=== PATIENT | male | born 1940 | race Caucasian/White ===

== ENCOUNTER 2019-09-21 06:29 | Outpatient (RCR) | payer MEDICARE, BC, SELFPAY | END 2019-10-18 00:01 | LOC: ONCMED 06:29 | PROVIDERS: Family Provider Internal Medicine; Visit Provider Internal Medicine Medical Oncology | DX: D64.9 Anemia, unspecified (principal) | CPT/HCPCS: 36415; 85025 ==

== ENCOUNTER 2019-10-25 11:04 | Outpatient (RCR) | payer MEDICARE, BC, SELFPAY ==
[2019-10-25 11:58] LABS: Basophils % 0.2 %; Eosinophils # 0.2 10^3/uL (0.0-0.8); Eosinophils % 4.9 %; Hematocrit 30.6 % (42.0-52.0); Hemoglobin 10.3 g/dL (11.7-16.6); Lymphocytes # 0.4 10^3/uL (0.8-4.8); Lymphocytes % 9.4 %; Mean Corpuscular HGB Conc 33.7 g/dL (30.0-36.0); Monocytes # 0.3 10^3/uL (0.2-0.9); Monocytes % 6.8 %; Neutrophils # 3.7 10^3/uL (1.8-7.7); Neutrophils % 77.8 %; Nucleated Red Blood Cells % 0 %; Platelet Count 97 10^3/cmm (130-400); Red Blood Count 3.03 10^6/uL (4.1-5.3); Red Cell Distribution Width 14.6 % (12.1-15.1); White Blood Count 4.7 10^3/uL (4.0-10.0)
== END 2019-11-18 23:59 | disposition home or self-care (01) ==
LOC: ONCMED 11:04
PROVIDERS: Family Provider Internal Medicine; PCP Internal Medicine; Visit Provider Internal Medicine Medical Oncology
DX: D64.9 Anemia, unspecified (principal)
CPT/HCPCS: 36415; 85025

== ENCOUNTER 2019-11-24 06:04 | Outpatient (RCR) | payer MEDICARE, BC, SELFPAY ==
[2019-11-24 14:26] LABS: Basophils % 0.3 %; Eosinophils # 0.2 10^3/uL (0.0-0.8); Eosinophils % 4.6 %; Hematocrit 29.4 % (42.0-52.0); Hemoglobin 9.4 g/dL (11.7-16.6); Lymphocytes # 0.5 10^3/uL (0.8-4.8); Lymphocytes % 15.7 %; Mean Corpuscular Hemoglobin 30.7 pg (28.0-34.0); Mean Corpuscular Volume 96.1 fL (80-94); Mean Platelet Volume 12.5 fL (7.4-10.4); Monocytes # 0.3 10^3/uL (0.2-0.9); Monocytes % 8.7 %; Neutrophils # 2.4 10^3/uL (1.8-7.7); Neutrophils % 70.4 %; Nucleated Red Blood Cells % 0 %; Platelet Count 83 10^3/cmm (130-400); Red Blood Count 3.06 10^6/uL (4.1-5.3); Red Cell Distribution Width 14.5 % (12.1-15.1); White Blood Count 3.5 10^3/uL (4.0-10.0)
[2019-11-24 15:14] LABS: Alanine Aminotransferase 22 U/L (0-41); Albumin Level 3.9 g/dL (3.5-5.2); Alkaline Phosphatase 142 IU/L (40-130); Anion Gap 14.2 (5-19); Aspartate Amino Transferase 28 U/L (0-40); Blood Urea Nitrogen 30 mg/dL (8-23); Calcium 9.5 mg/dL (8.5-10.5); Carbon Dioxide 27 mmol/L (22-29); Chloride 103 mmol/L (98-107); Ferritin 82 ng/mL (30-400); Globulin 3.4 g/dL (1.3-4.6); Glucose 119 mg/dL (65-115); Iron 45 ug/dL (59-158); Potassium 4.2 mmol/L (3.5-5.1); Sodium 140 mmol/L (136-145); Total Bilirubin 0.8 mg/dL (0.15-1.2); Total Iron Binding Capacity 299 mcg/dl; Total Protein 7.3 g/dL (6.6-8.7); Unsaturated Iron Binding 254 ug/dL (112-347)
== END 2019-12-17 23:59 | disposition home or self-care (01) ==
LOC: ONCMED 06:04
PROVIDERS: Family Provider Internal Medicine; PCP Internal Medicine; Visit Provider Internal Medicine Medical Oncology
DX: D50.9 Iron deficiency anemia, unspecified (principal); D69.59 Other secondary thrombocytopenia; K74.60 Unspecified cirrhosis of liver; K76.6 Portal hypertension; D73.2 Chronic congestive splenomegaly; E78.5 Hyperlipidemia, unspecified; E11.9 Type 2 diabetes mellitus without complications; I25.10 Atherosclerotic heart disease of native coronary artery without angina pectoris; I11.0 Hypertensive heart disease with heart failure; I50.9 Heart failure, unspecified; I48.20 Chronic atrial fibrillation, unspecified; Z79.4 Long term (current) use of insulin
CPT/HCPCS: 36415; 80053; 82728; 83540; 83550; 85025; 96365; 99214; J1439; J2704

== ENCOUNTER 2019-12-04 10:07 | Inpatient (IN) | payer MEDICARE, BC, SELFPAY ==
[2019-12-04] VITALS (90 sets, daily range): BP systolic 94–152; BP diastolic 44–74; PULSE 0–100; RESP 0–30; TEMP 36.4–36.6; O2SAT 5–100; BMI 29.9
--- NOTE | 2019-12-04 10:16 | ED_ITS ---
Entered by Michelle Amezcua, acting as scribe for Alondra Fortune MD HPI - GI Bleed General: Chief complaint: Abdominal Pain Stated complaint: blood in stool LOTS Time Seen by Provider: 12/04/19 10:12 Source: patient and family Mode of arrival: ambulatory Limitations: no limitations History of Present Illness: HPI Narrative: 79 yo male presents with a GI bleed . pt states this started today and worsened. pt has had nausea. pt denies any other symptoms at thsi time. 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 He denies any worsening improving factors. He has no history of esophageal varices. complaint: blood streaked stool Onset (ago): day(s) Pain Consistency: constant Severity: moderate Relieving factors: none Exacerbating factors: none Context: liver disease Associated symptoms: Reports nausea; Denies chills, easy bruising, fever(s), headache(s) or rash Treatments Prior to Arrival: none Review of Systems General: Reports: 10 or more systems reviewed and unremarkable except in HPI and below Const: Denies: fever, chills, body aches or change in appetite Eyes: Denies: blurry vision or eye discomfort ENMT: Denies: throat pain or dental pain Card: Denies: chest pain Resp: Denies: shortness of breath GI: Reports: nausea and blood in stool : Denies: painful urination Musc: Denies: neck pain or back pain Skin/Breast: Denies: rash Neuro: Denies: headache Psych: Denies: depression Hitesh/Lymph: Denies: easy bruising All/Imm: Denies: hives PFSH ED PFSH: Social History Smoking and tobacco status: never smoked Physical Exam Const: COMMON NORMALS: no apparent distress, oriented x3 and healthy appearing HENMT: COMMON NORMALS: normocephalic and head/scalp atraumatic HEAD & SCALP: normocephalic and atraumatic Eye: COMMON NORMALS: PERRL and EOMs intact bilaterally PUPIL: Yes PERRL Neck/C-Spine: COMMON NORMALS: full ROM and supple Chest: COMMONS NORMALS: inspection of chest normal and palpation of chest normal Resp: COMMON NORMALS: normal respiratory effort, no retractions, no use of accessory muscles and clear to auscultation bilaterally AUSCULTATION: clear to auscultation bilaterally Cardio: COMMON NORMALS: regular rate, regular rhythm and no murmurs RATE: regular rate RHYTHM: regular rhythm GI: COMMON NORMALS: normal to inspection, nondistended, normoactive bowel sounds, soft to palpation and non-tender PALPATION: Yes soft : OTHER: bright red stools here hemocult positive Extremity: COMMON NORMALS: normal to inspection and full ROM Neuro: COMMON NORMALS: oriented x3, moves all extremities and no focal motor deficits Psych: COMMON NORMALS: mental status grossly normal, thought process normal and cooperative THOUGHT PROCESS: normal thought process Skin: COMMON NORMALS: no rashes or lesions noted and no wounds GENERAL SKIN EXAM: no rashes or lesions noted Course Vital Signs: Vital signs: Vital Signs Pulse Rate 70 12/04/19 11:22 Respiratory Rate 21 H 12/04/19 11:22 Blood Pressure 97/46 12/04/19 11:22 Pulse Oximetry 96 12/04/19 11:22 MDM - GI Bleed MDM Narrative: Medical decision making narrative: Patient presents here with lower GI bleed with bright red stools. Patient hemoglobin here is 8.0. He is not on any blood thinners. I spoke to hospitalist Dr. Mitchell who is admitting to the ICU also spoke to Dr. Sung of surgery who is consulted. Lab Data: Labs: Lab Results 12/04/19 12/04/19 12/04/19 Range/Units 10:20 10:20 10:20 WBC 7.1 (4.0-10.0) 10^3/ uL RBC 2.77 L (4.1-5.3) 10^6/u L Hgb 8.0 L (11.7-16.6) g/dL Hct 26.7 L (42.0-52.0) % MCV 96.4 H (80-94) fL MCH 28.9 (28.0-34.0) pg MCHC 30.0 (30.0-36.0) g/dL RDW 16.1 H (12.1-15.1) % Plt Count 117 L (130-400) 10^3/c mm MPV 12.4 H (7.4-10.4) fL Neut % (Auto) 80.9 % Lymph % (Auto) 8.6 % [place] % (Auto) 6.6 % Eos % (Auto) 3.0 % Baso % (Auto) 0.3 % Neut # (Auto) 5.8 (1.8-7.7) 10^3/u L Lymph # (Auto) 0.6 L (0.8-4.8) 10^3/u L [place] # (Auto) 0.5 (0.2-0.9) 10^3/u L Eos # (Auto) 0.2 (0.0-0.8) 10^3/u L Baso # (Auto) 0.0 (0.0-0.1) 10^3/u L Nucleated RBC % (a uto) 0 % Nucleated RBCs # 0.0 /100WBC PT 15.10 H (10.5-13.3) SECO NDS INR 1.15 (0.8-1.2) Sodium 145 (136-145) mmol/L Potassium 5.3 H (3.5-5.1) mmol/L Chloride 111 H (98-107) mmol/L Carbon Dioxide 24 (22-29) mmol/L Anion Gap 15.3 (5-19) BUN 38 H (8-23) mg/dL Creatinine 1.6 H (0.7-1.2) mg/dL Glucose 178 H (65-115) mg/dL Calcium 9.0 (8.5-10.5) mg/dL Total Bilirubin 0.7 (0.15-1.2) mg/dL AST 24 (0-40) U/L ALT 20 (0-41) U/L Alkaline Phosphata se 142 H (40-130) IU/L Total Protein 6.5 L (6.6-8.7) g/dL Albumin 3.7 (3.5-5.2) g/dL Globulin 2.8 (1.3-4.6) g/dL Blood Type Antibody Screen 12/04/19 Range/Units 10:20 WBC (4.0-10.0) 10^3/ uL RBC (4.1-5.3) 10^6/u L Hgb (11.7-16.6) g/dL Hct (42.0-52.0) % MCV (80-94) fL MCH (28.0-34.0) pg MCHC (30.0-36.0) g/dL RDW (12.1-15.1) % Plt Count (130-400) 10^3/c mm MPV (7.4-10.4) fL Neut % (Auto) % Lymph % (Auto) % [place] % (Auto) % Eos % (Auto) % Baso % (Auto) % Neut # (Auto) (1.8-7.7) 10^3/u L Lymph # (Auto) (0.8-4.8) 10^3/u L [place] # (Auto) (0.2-0.9) 10^3/u L Eos # (Auto) (0.0-0.8) 10^3/u L Baso # (Auto) (0.0-0.1) 10^3/u L Nucleated RBC % (a uto) % Nucleated RBCs # /100WBC PT (10.5-13.3) SECO NDS INR (0.8-1.2) Sodium (136-145) mmol/L Potassium (3.5-5.1) mmol/L Chloride (98-107) mmol/L Carbon Dioxide (22-29) mmol/L Anion Gap (5-19) BUN (8-23) mg/dL Creatinine (0.7-1.2) mg/dL Glucose (65-115) mg/dL Calcium (8.5-10.5) mg/dL Total Bilirubin (0.15-1.2) mg/dL AST (0-40) U/L ALT (0-41) U/L Alkaline Phosphata se (40-130) IU/L Total Protein (6.6-8.7) g/dL Albumin (3.5-5.2) g/dL Globulin (1.3-4.6) g/dL Blood Type O Positive Antibody Screen Negative Critical Care Time Critical Care Time: Critical Care Time: Yes Total Critical Care Time: 35 Attestation: This case had a high probability of a clinically significant, sudden, or life threatening deterioration of this patient's condition which required my full and direct attention, intervention and personal management. Discharge Plan Discharge Patient Disposition: Admitted As Inpatient Clinical Impression: Acute lower gastrointestinal bleeding Condition: Stable Referrals: Earnest Dangelo DO [Primary Care Provider] - Coding Level of Care Code ED Creative Services Designer for g Fwd Exam Detailed The documentation recorded by the [employer] Bridget Annette, accurately reflects the service I personally performed and the decisions made by me, Alondra Fortune MD Dec 04, 2019 10:07
[2019-12-04 10:30] LABS: Basophils % 0.3 %; Eosinophils # 0.2 10^3/uL (0.0-0.8); Hematocrit 26.7 % (42.0-52.0); Lymphocytes # 0.6 10^3/uL (0.8-4.8); Lymphocytes % 8.6 %; Mean Corpuscular Hemoglobin 28.9 pg (28.0-34.0); Mean Corpuscular Volume 96.4 fL (80-94); Mean Platelet Volume 12.4 fL (7.4-10.4); Monocytes # 0.5 10^3/uL (0.2-0.9); Monocytes % 6.6 %; Neutrophils # 5.8 10^3/uL (1.8-7.7); Neutrophils % 80.9 %; Nucleated Red Blood Cells % 0 %; Platelet Count 117 10^3/cmm (130-400); Red Blood Count 2.77 10^6/uL (4.1-5.3); Red Cell Distribution Width 16.1 % (12.1-15.1); White Blood Count 7.1 10^3/uL (4.0-10.0)
--- NOTE | 2019-12-04 10:35 | PC.NURSE ---
Patient presents to the ER for large amounts of bright red blood in his stools. This started this morning, he has been going about every 30 minutes.
[2019-12-04 10:38] LABS: INR 1.15 (0.8-1.2)
--- NOTE | 2019-12-04 10:40 | PC.NURSE ---
Patient up to bedside commode at this time for bowel movement. Stool noted to be loose and dark red bloody with what appears to be clots present. ED physician notified and observed stool. Patient output of stool at this time is 300mL.
[2019-12-04 10:43] LABS: Alanine Aminotransferase 20 U/L (0-41); Albumin Level 3.7 g/dL (3.5-5.2); Alkaline Phosphatase 142 IU/L (40-130); Anion Gap 15.3 (5-19); Aspartate Amino Transferase 24 U/L (0-40); Blood Urea Nitrogen 38 mg/dL (8-23); Carbon Dioxide 24 mmol/L (22-29); Chloride 111 mmol/L (98-107); Globulin 2.8 g/dL (1.3-4.6); Glucose 178 mg/dL (65-115); Potassium 5.3 mmol/L (3.5-5.1); Sodium 145 mmol/L (136-145); Total Bilirubin 0.7 mg/dL (0.15-1.2); Total Protein 6.5 g/dL (6.6-8.7)
[2019-12-04] MEDS: sodium chloride 0.9% 500 ML 999 ML IV (11:46)
--- NOTE | 2019-12-04 11:53 | P.HP_ITS ---
Providers/Chief Complaint Primary Care Provider: Earnest Dangelo DO Chief Complaint: blood in stool LOTS History of Present Illness Aramis Olsen is a 79 year old male that reports he has been having some dark stools for the last 2 weeks ago or so. This morning it was maroon, with clots, and bright red. He reports he chronically has loose stool. He denies being on any anticoagulants, aspirin, or [id number] anti-inflammatories. He reports he feels sick to the stomach, nauseated but has not vomited any blood. He reports he has some discomfort, in his upper abdomen, above the umbilicus. He reports no fevers. He reports occasional nosebleed at home but nothing recently. He reports he did not feel like eating this morning. He indicates he has had an EGD and colonoscopy maybe about a year ago, and that they were here. On review of records it appears they were in 2014 with a normal colonoscopy, EGD demonstrating gastritis that had hemorrhage with biopsy. Review of Systems General: Reports: 10 or more systems reviewed and unremarkable except in HPI and below Const: Denies: fever Eyes: Denies: change in vision ENMT: Denies: throat pain Card: Denies: chest pain Resp: Denies: shortness of breath GI: Reports: abdominal pain, nausea, heartburn/indigestion, diarrhea, bloating, blood in stool and black tarry stool; Denies: vomiting blood : Denies: difficulty urinating Musc: Denies: extremity pain Skin/Breast: Denies: rash Neuro: Denies: headache Psych: Denies: anxiety Endo: Denies: tired all the time Hitesh/Lymph: Reports: easy bruising All/Imm: Denies: hives Medications/Allergies Home Medications Medication Instructions Recorded Confirmed Last Taken Type acetaminophen [Tylenol] 325 mg PO QID PRN 12/04/19 12/04/19 12/04/19 History amlodipine-benazepril 1 cap PO DAILY 12/04/19 12/04/19 12/04/19 History bismuth subsalicylate 524 mg PO Q1H PRN 12/04/19 12/04/19 12/04/19 History [Pepto-Bismol] cholestyramine (with sugar) 4 g PO DAILY 12/04/19 12/04/19 12/03/19 History digoxin 125 mcg PO DAILY 12/04/19 12/04/19 12/04/19 History diphenoxylate-atropine 1 tab PO DAILY PRN 12/04/19 12/04/19 Unknown History fluticasone prp-sod.chl,bicarb 2 spray INTRANASAL PRN PRN 12/04/19 12/04/19 12/03/19 History furosemide 40 mg PO DAILY 12/04/19 12/04/19 12/04/19 History glimepiride 4 mg PO BID 12/04/19 12/04/19 12/04/19 History hydrocodone-acetaminophen 1 tab PO BID PRN MDD pain 12/04/19 12/04/19 Unknown History insulin glargine [Lantus U-100 50 unit SUBCUT DAILY 12/04/19 12/04/19 12/03/19 History Insulin] metoprolol tartrate 100 mg PO BID 12/04/19 12/04/19 12/04/19 History omeprazole 40 mg PO DAILY 12/04/19 12/04/19 12/04/19 History spironolactone 25 mg PO DAILY 12/04/19 12/04/19 12/04/19 History Allergies Allergy/AdvReac Type Severity Reaction Status Date / Time No Known Allergies Allergy Verified 12/04/19 10:18 PFSH Acute PFSH: Medical History (Updated 12/04/19 @ 12:13 by Dimitrios Mitchell MD) Anemia Chronic atrial fibrillation Chronic diarrhea Cirrhosis Coronary artery disease Diabetes mellitus History of CHF (congestive heart failure) History of gastritis Hyperlipidemia Hypertension Portal hypertension Thrombocytopenia Surgical History (Updated 12/04/19 @ 12:03 by Dimitrios Mitchell MD) History of permanent cardiac pacemaker placement Family History (Updated 12/04/19 @ 12:03 by Dimitrios Mitchell MD) Other Cancer Social History (Updated 12/04/19 @ 12:03 by Dimitrios Mitchell MD) Smoking and tobacco status: former smoker Alcohol intake: former Substance/Drug Use: never Vitals/I&O/Wt Last Vital Signs Pulse 70 12/04/19 11:22 Resp 21 H 12/04/19 11:22 BP 97/46 12/04/19 11:22 Pulse Ox 96 12/04/19 11:22 Weight last 48 hrs Weight 97.522 kg Physical Exam Narrative: EXAM NARRATIVE: General exam pale-appearing white male no apparent distress HEENT: Pupils equally round. Oropharynx clear. Neck is supple no lymphadenopathy or thyromegaly Cardiovascular regular rhythm with a 2/6 systolic murmur Lungs clear no wheezing or crackles Abdomen is soft, tenderness more supraumbilical. No rebound. No obvious mass was deferred Extremities no cyanosis or clubbing. 2+ edema is noted. Patient reports this is chronic Skin no rash Neuro no focal deficits Data : 12/04/19 10:20 12/04/19 10:20 A&P Assessment and plan (1) GI bleed: Significant lower GI bleed with significant bowel movements. He is hypotensive, hemoglobin is 8, and he is continuing to have some bloody bowel movements. I will arrange for a transfusion of 2 units packed red blood cells now. Etiology of bleeding is unclear. With past history of some black and tarry stools as well, proceeding to maroon and then some bright red I cannot rule out an upper GI bleed completely. Last EGD in 2014 does not denote any esophageal varices. He does however have a history of portal hypertension and I could not rule this out completely. Fluid bolus of 1 L initiated and isotonic saline started. 2 IVs at all times. Surgery consultation. Consider EGD to rule out varices. Status: Acute Code(s): K92.2 - Gastrointestinal hemorrhage, unspecified (2) Acute blood loss anemia: See above Status: Acute Code(s): D62 - Acute posthemorrhagic anemia (3) Hypotension: Transfusion ordered. Continue fluid hydration. Status: Acute Code(s): I95.9 - Hypotension, unspecified (4) Acute kidney injury: Close follow-up of renal function Status: Acute Code(s): N17.9 - Acute kidney failure, unspecified (5) Hyperkalemia: IV fluid bolus. Close follow-up of electrolytes Status: Acute Code(s): E87.5 - Hyperkalemia (6) Cirrhosis: Cannot rule out esophageal varices although these were apparently not present on previous EGD. Could also not rule out GAVE. 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 Last echocardiogram several years ago demonstrated normal EF History of chronic diarrhea History of atrial fibrillation with pacemaker placement History of diabetes mellitus. Will provide sliding scale Hypertension Hyperlipidemia DVT prophylaxis with SCDs Attestations Medical Necessity Statement*: Will need greater than 2 midnight stay for treatment of severe GI bleeding Time Spent in Patient Care: Greater than 35 minutes Coding Level of Care Code Acute Planetarium Sky Show Technician for [facility] Fwd Diagnoses GI bleed K92.2 Acute blood loss anemia D62 Hypotension I95.9 Acute kidney injury N17.9 Hyperkalemia E87.5 Cirrhosis K74.60 Thrombocytopenia D69.6
[2019-12-04] MEDS: pantoprazole 40 MG in sodium chloride 0.9% (plus) 100 ML 20 MG IV ×3 (12:03→22:19)
[2019-12-04] MEDS: sodium chloride 0.9% 1,000 ML 100 ML IV (12:04)
[2019-12-04] MEDS: octreotide 100 mcg/mL SDV 50 MCG IVP (12:56)
--- NOTE | 2019-12-04 13:42 | PM.CONSULT ---
Providers/Reason For Consult Consulting Physican/Specialty*: Eyad Sung MD General surgery Reason for Consult*: Lower GI bleed Attending Physician: Dimitrios Mitchell MD Primary Care Provider: Earnest Dangelo DO History of Present Illness History of Present Illness Chief Complaint: I have blood coming with stools History of present illness: Aramis Olsen is a 79 year old male with multiple medical comorbidities with history of liver cirrhosis and chronic anemia, patient did encounter worsening lower GI blood per rectum which required him to come to the ER as he started to feel weaker, currently the patient has been having hematological follow-up with Dr. Leyva and he gets monthly transfusion of iron, he had previous EGD in the past back in 2014 and EGD showed gastritis that had bleeding with a biopsy but there is no evidence of varices. Patient reports nausea and upper abdominal discomfort but no hematemesis or hemoptysis. Back in [address] scan of the abdomen and pelvis that showed; 1. Cirrhotic liver with splenomegaly and portal hypertension stable from previous. 2. Mild upper abdominal and pelvic ascites is new from the prior examination. 3. Small bilateral pleural effusions with subsegmental atelectasis in the lung bases. 4. Diffuse body wall anasarca with mesenteric 6 edema. 5. Prior cholecystectomy. 6. Fat-containing umbilical hernia with a small amount of associated fluid. General surgery was consulted for further evaluation and potential intervention, patient was seen and evaluated in the emergency department Review of Systems General: Reports: 10 or more systems reviewed and unremarkable except in HPI and below Meds/Allergies Home Medications and Allergies Home Medications Medication Instructions Recorded Confirmed Type acetaminophen [Tylenol] 325 mg PO QID PRN 12/04/19 12/04/19 History amlodipine-benazepril 1 cap PO DAILY 12/04/19 12/04/19 History bismuth subsalicylate 524 mg PO Q1H PRN 12/04/19 12/04/19 History [Pepto-Bismol] cholestyramine (with sugar) 4 g PO DAILY 12/04/19 12/04/19 History digoxin 125 mcg PO DAILY 12/04/19 12/04/19 History diphenoxylate-atropine 1 tab PO DAILY PRN 12/04/19 12/04/19 History fluticasone prp-sod.chl,bicarb 2 spray INTRANASAL PRN PRN 12/04/19 12/04/19 History furosemide 40 mg PO DAILY 12/04/19 12/04/19 History glimepiride 4 mg PO BID 12/04/19 12/04/19 History hydrocodone-acetaminophen 1 tab PO BID PRN MDD pain 12/04/19 12/04/19 History insulin glargine [Lantus U-100 50 unit SUBCUT DAILY 12/04/19 12/04/19 History Insulin] metoprolol tartrate 100 mg PO BID 12/04/19 12/04/19 History omeprazole 40 mg PO DAILY 12/04/19 12/04/19 History spironolactone 25 mg PO DAILY 12/04/19 12/04/19 History Allergies Allergy/AdvReac Type Severity Reaction Status Date / Time No Known Allergies Allergy Verified 12/04/19 13:46 Current Medications Current Medications Generic Name Dose Route Start Last Admin Trade Name Freq PRN Reason Stop Dose Admin Sodium Chloride 1,000 mls @ 100 mls/hr 12/04/19 11:45 12/04/19 12:04 Sodium Chloride 0.9% IV 100 mls/hr .Q10H ALE Administration Pantoprazole Sodium 40 mg/ 100 mls @ 20 mls/hr 12/04/19 11:41 12/04/19 12:03 Sodium Chloride IV 12/04/19 16:40 8 mg/hr .Q5H ONE 20 mls/hr Administration 8 MG/HR Octreotide Acetate 500 mcg/ 101 mls @ 10.1 mls/hr 12/04/19 12:38 12/04/19 12:56 Sodium Chloride IV 50 mcg/hr .Q10H ALE 10.1 mls/hr Administration 50 MCG/HR PFSH Acute PFSH: Medical History Anemia Chronic atrial fibrillation Chronic diarrhea Cirrhosis Coronary artery disease Diabetes mellitus History of CHF (congestive heart failure) History of gastritis Hyperlipidemia Hypertension Portal hypertension Thrombocytopenia Surgical History History of permanent cardiac pacemaker placement Family History Other Cancer Social History Smoking and tobacco status: former smoker Alcohol intake: former Substance/Drug Use: never Vitals/I&O/Wt Last Vital Signs Pulse 70 12/04/19 13:22 Resp 14 12/04/19 13:22 BP 102/50 12/04/19 13:22 Pulse Ox 97 12/04/19 13:22 12/03/19 12/04/19 12/04/19 22:59 06:59 14:59 Intake Total 500 / 500 Output Total 675 / 675 Balance -175 / -175 Weight last 48 hrs Weight 215 lb Physical Exam Const: COMMON NORMALS: no apparent distress and oriented x3 GENERAL APPEARANCE: cooperative ORIENTATION/CONSCIOUSNESS: Yes awake, Yes oriented to person, Yes oriented to place and Yes oriented to time HENMT: COMMON NORMALS: normocephalic HEAD & SCALP: normocephalic Eye: COMMON NORMALS: PERRL and no scleral icterus PUPIL: Yes PERRL Lymph: LYMPHATIC: no lymphadenopathy noted Chest: COMMONS NORMALS: inspection of chest normal Resp: COMMON NORMALS: normal respiratory effort and clear to auscultation bilaterally AUSCULTATION: clear to auscultation bilaterally Cardio: COMMON NORMALS: S1 normal heart sound and S2 normal heart sound; negative for no murmurs HEART SOUNDS: S1 normal and S2 normal GI: COMMON NORMALS: soft to palpation INSPECTION: Yes normal to inspection PALPATION: Yes soft, No firm, Yes tender (Mostly in the upper abdomen), No guarding, No rigid, Yes splenomegaly, Yes hernia umbilical (Chronic incarcerated umbilical hernia) and Yes other (Abdominal distention is noticed) Neuro: COMMON NORMALS: oriented x3 SENSORIUM/ORIENTATION: Yes oriented to person, Yes oriented to place and Yes oriented to time A&P Assessment and plan (1) Acute blood loss anemia: Plan of care; After thorough history and physical examination and reviewing the chart, plan to perform a diagnostic esophagogastroduodenoscopy and possible biopsy in the ICU due the repeated bloody movements, as I did discuss the case with the family and Dr. Mitchell and patient agreed to proceed accordingly due to the critical condition. Informed consent per chart were,Indications, risks, benefits, and alternatives were all discussed with the patient and did agree to proceed. Blood transfusion per hospitalist service Correction of coagulopathy if any Status: Acute Code(s): D62 - Acute posthemorrhagic anemia Consult Attestations Medical Necessity Statement: Per hospitalist Time Spent in Patient Care: 16 - 35 minutes (>than 50% of time spent in counselling and/or direct pt care on unit). Coding Level of Care Code Acute Office Support Assistant for [facility] Fwd Exam Comprehensive Diagnoses Acute blood loss anemia D62
--- NOTE | 2019-12-04 15:05 | ANES.PREANE2 ---
Pre-Anesthetic Assessment Pre-Anesthetic Assessment: Height/Weight: Height 1.8 m Weight 97.522 kg Temp Pulse Resp BP Pulse Ox 97.5 F L 70 13 116/54 100 12/04/19 14:01 12/04/19 14:55 12/04/19 14:55 12/04/19 14:55 12/04/19 13:45 Preop Diagnosis: Lower GI bleed Social: Social History: Tobacco (quit) and No alcohol Exam: Pre-Anes Outpt Exam: alert, oriented x 3, clear to auscultation bilaterally and regular rate & rhythm (irreg rhythm) Airway: Submandibular: WNL Cervical ROM: WNL MP: 2 Dentition: Other (poor dentation) History/ROS: No significant history except as noted Pulmonary: Pulmonary: GOODE CV/HEM: CV/HEM: Afib, CAD, CHF, HTN, Murmur and PVD : : None reported Hepatic: Hepatic: Cirrohsis GI: GI: PUD Comments: GI bleed Metabolic: Metabolic: DM and Hyperlipidemia Musc/skel: Musc/skel: OA/DJD Anesthetic Plan: ASA status: 4E Anesthesia: Anesthesia Evaluation and MAC Risk of > 500 ml blood loss (7ml/kg in children): Yes, adequate IV access and fluids planned Meds/Allergies Current Medications: Current Medications Generic Name Dose Route Start Last Admin Trade Name Freq PRN Reason Stop Dose Admin Sodium Chloride 1,000 mls @ 100 m ls/hr 12/04/19 11:45 12/04/19 12:04 Sodium Chloride 0.9% IV 100 mls/hr .Q10H ALE Administration Pantoprazole [place] m 40 mg/ 100 mls @ 20 mls/ hr 12/04/19 11:41 12/04/19 12:03 Sodium Chloride IV 12/04/19 16:40 8 mg/hr .Q5H ONE 20 mls/hr Administration 8 MG/HR Octreotide Acetate 500 mcg/ 101 mls @ 10.1 ml s/hr 12/04/19 12:38 12/04/19 12:56 Sodium Chloride IV 50 mcg/hr .Q10H ALE 10.1 mls/hr Administration 50 MCG/HR PFSH Anesthesia PFSH: Medical History Anemia Chronic atrial fibrillation Chronic diarrhea Cirrhosis Coronary artery disease Diabetes mellitus History of CHF (congestive heart failure) History of gastritis Hyperlipidemia Hypertension Portal hypertension Thrombocytopenia Surgical History History of permanent cardiac pacemaker placement Family History Other Cancer Social History Smoking and tobacco status: former smoker Alcohol intake: former Substance/Drug Use: never Data Anesthesia CBC & Chem 7: 12/04/19 10:20 12/04/19 10:20 Other Labs: Laboratory Results - last 48 hr 12/04/19 12/04/19 12/04/19 10:20 10:20 10:20 WBC 7.1 RBC 2.77 L Hgb 8.0 L Hct 26.7 L MCV 96.4 H MCH 28.9 MCHC 30.0 RDW 16.1 H Plt Count 117 L MPV 12.4 H Neut % (Auto) 80.9 Lymph % (Auto) 8.6 [place] % (Auto) 6.6 Eos % (Auto) 3.0 Baso % (Auto) 0.3 Neut # (Auto) 5.8 Lymph # (Auto) 0.[address] [place] # (Auto) 0.5 Eos # (Auto) 0.2 Baso # (Auto) 0.0 Nucleated RBC % (auto) 0 Nucleated RBCs # 0.0 PT 15.10 H INR 1.15 Sodium 145 Potassium 5.3 H Chloride 111 H Carbon Dioxide 24 Anion Gap 15.3 BUN 38 H Creatinine 1.6 H Glucose 178 H Calcium 9.0 Total Bilirubin 0.7 AST 24 ALT 20 Alkaline Phosphatase 142 H Total Protein 6.5 L Albumin 3.7 Globulin 2.8 Blood Type Antibody Screen Crossmatch 12/04/19 10:20 WBC RBC Hgb Hct MCV MCH MCHC RDW Plt Count MPV Neut % (Auto) Lymph % (Auto) [place] % (Auto) Eos % (Auto) Baso % (Auto) Neut # (Auto) Lymph # (Auto) [place] # (Auto) Eos # (Auto) Baso # (Auto) Nucleated RBC % (auto) Nucleated RBCs # PT INR Sodium Potassium Chloride Carbon Dioxide Anion Gap BUN Creatinine Glucose Calcium Total Bilirubin AST ALT Alkaline Phosphatase Total Protein Albumin Globulin Blood Type O Positive Antibody Screen Negative Crossmatch See Detail Cardiac Studies: No Data to Display
--- NOTE | 2019-12-04 15:53 | PC.NURSE ---
EGD IN PROCESS
--- NOTE | 2019-12-04 16:26 | PC.NURSE ---
UP TO side of bed in attempt to get pt. to burp.. c/o severe abd. pain. explained egd with air and he needed to burp or pass gas
[2019-12-04] MEDS: EPINEPHrine 1 mg/mL INJ XX (16:58)
[2019-12-04] MEDS: cefTRIAXone 1,000 MG in sodium chloride 0.9% (plus) 50 ML 100 MG IV (17:26)
[2019-12-04] MEDS: sodium chloride 0.9% 1,000 ML 125 ML IV (17:36)
[2019-12-04 18:49] LABS: Glucose Point of Care 176 mg/dL (70-110)
[2019-12-04 21:12] LABS: Glucose Point of Care 152 mg/dL (70-110)
[2019-12-04 22:10] LABS: Hematocrit 24.7 % (42.0-52.0); Hemoglobin 7.6 g/dL (11.7-16.6)
[2019-12-04] MEDS: pneumococcal (23 valent) SDV 0.5 mL IM (22:49)
[2019-12-04] MEDS: acetaminophen 325 mg Tablet 650 MG PO (23:07)
[2019-12-05] VITALS (26 sets, daily range): BP systolic 97–139; BP diastolic 47–66; PULSE 70–109; RESP 13–20; TEMP 36.5–37.2; O2SAT 97–100
[2019-12-05] MEDS: sodium chloride 0.9% 1,000 ML 125 ML IV ×3 (00:44→18:31)
[2019-12-05] MEDS: pantoprazole 40 MG in sodium chloride 0.9% (plus) 100 ML 20 MG IV ×4 (03:29→19:43)
[2019-12-05] MEDS: cefTRIAXone 1,000 MG in sodium chloride 0.9% (plus) 50 ML 100 MG IV (04:14)
[2019-12-05 05:33] LABS: Basophils % 0.4 %; Eosinophils # 0.1 10^3/uL (0.0-0.8); Eosinophils % 3.8 %; Hematocrit 25.2 % (42.0-52.0); Hemoglobin 7.9 g/dL (11.7-16.6); Lymphocytes # 0.6 10^3/uL (0.8-4.8); Lymphocytes % 21.4 %; Mean Corpuscular HGB Conc 31.3 g/dL (30.0-36.0); Mean Corpuscular Volume 95.8 fL (80-94); Mean Platelet Volume 12.3 fL (7.4-10.4); Monocytes # 0.2 10^3/uL (0.2-0.9); Monocytes % 8.3 %; Neutrophils # 1.7 10^3/uL (1.8-7.7); Neutrophils % 65.3 %; Nucleated Red Blood Cells % 0 %; Platelet Count 66 10^3/cmm (130-400); Red Blood Count 2.63 10^6/uL (4.1-5.3); Red Cell Distribution Width 18.7 % (12.1-15.1); White Blood Count 2.7 10^3/uL (4.0-10.0)
[2019-12-05 05:56] LABS: Anion Gap 13.7 (5-19); Blood Urea Nitrogen 33 mg/dL (8-23); Calcium 8.1 mg/dL (8.5-10.5); Carbon Dioxide 22 mmol/L (22-29); Chloride 115 mmol/L (98-107); Glucose 79 mg/dL (65-115); Osmolality Calculated 298 mOsm/kg (285-295); Potassium 4.7 mmol/L (3.5-5.1); Sodium 146 mmol/L (136-145)
[2019-12-05] MEDS: ondansetron 2 mg/ML SDV 2 mL 4 MG IVP (06:33)
[2019-12-05 07:33] LABS: Glucose Point of Care 94 mg/dL (70-110)
--- NOTE | 2019-12-05 07:54 | PM.PN ---
Subjective Subjective: Interval history: Patient overall is feeling okay, continue to have 2 bouts of bleeding per rectum and he did receive total of 3 packed RBCs, patient did not have any hematemesis and maintained to have stable vital signs. And having good urine output. Vitals/I&O/Wt Last Vital Signs Temp 98.5 F 12/05/19 01:55 Pulse 70 12/05/19 04:00 Resp 19 H 12/05/19 04:00 BP 100/50 12/05/19 04:00 Pulse Ox 100 12/05/19 04:00 12/04/19 12/05/19 12/05/19 22:59 06:59 14:59 Intake Total 898.667 / 9535.110 3999.667 / 2790.334 Balance 898.667 / 323.352 8192.667 / 2115.334 Weight last 48 hrs Weight 215 lb Physical Exam Const: COMMON NORMALS: no apparent distress and oriented x3 GENERAL APPEARANCE: cooperative ORIENTATION/CONSCIOUSNESS: Yes awake, Yes oriented to person, Yes oriented to place and Yes oriented to time Eye: COMMON NORMALS: PERRL and no scleral icterus PUPIL: Yes PERRL Lymph: LYMPHATIC: no lymphadenopathy noted GI: COMMON NORMALS: soft to palpation; negative for no hepatosplenomegaly INSPECTION: Yes normal to inspection and Yes other (Distended) PALPATION: Yes soft, No firm, No tender, No guarding, No rigid and No no hepatosplenomegaly Neuro: COMMON NORMALS: oriented x3 SENSORIUM/ORIENTATION: Yes oriented to person, Yes oriented to place and Yes oriented to time Data : 12/08/19 04:22 12/08/19 04:22 A&P Assessment and plan (1) Acute blood loss anemia: From surgical standpoint of view patient can have clear liquid diet, continues to be a concern the next step would be a colonoscopy and patient should start colon prep today for colonoscopy tomorrow. If colonoscopy shows normal findings next appropriate step would be a capsule endoscopy to rule out potential small bowel source, which I am leaning more towards this approach as patient had a colonoscopy before and was normal yet it was back in 2014. Assurance and education All questions have been answered and all concerns have been addressed to patient's satisfaction. Status: Acute Code(s): D62 - Acute posthemorrhagic anemia Attestations Medical Necessity Statement*: Medical necessity care is expected to cross 2 midnights Time Spent in Patient Care: 16 - 35 minutes (>than 50% of time spent in counselling and/or direct pt care on unit). Coding Level of Care Code Acute It Service Manager for Chg Fwd Exam Expanded Problem Focused Diagnoses Acute blood loss anemia D62
--- NOTE | 2019-12-05 09:29 | PM.PN ---
Subjective Subjective: Interval history: This morning he is feeling nauseated. Denies feeling bloated. No further bloody bowel movement so far. No vomiting. Vitals/I&O/Wt Last Vital Signs Temp 98.9 F 12/05/19 09:05 Pulse 70 12/05/19 04:00 Resp 19 H 12/05/19 04:00 BP 100/50 12/05/19 04:00 Pulse Ox 100 12/05/19 04:00 12/04/19 12/05/19 12/05/19 22:59 06:59 14:59 Intake Total 898.667 / 4808.162 3574.667 / 2790.334 1100 / 1100 Balance 898.667 / 689.229 5457.667 / 2115.334 1100 / 1100 Weight last 48 hrs Weight 97.522 kg Physical Exam Const: COMMON NORMALS: no apparent distress and oriented x3 HENMT: COMMON NORMALS: oropharynx normal Neck/C-Spine: COMMON NORMALS: no JVD Resp: COMMON NORMALS: normal respiratory effort and clear to auscultation bilaterally AUSCULTATION: clear to auscultation bilaterally Cardio: COMMON NORMALS: no JVD, regular rhythm, S1 normal heart sound, S2 normal heart sound and no murmurs RHYTHM: regular rhythm HEART SOUNDS: S1 normal and S2 normal GI: COMMON NORMALS: normal to inspection, nondistended, normoactive bowel sounds, soft to palpation and non-tender PALPATION: Yes soft Extremity: COMMON NORMALS: no joint enlargement and no pedal edema Neuro: COMMON NORMALS: oriented x3 and moves all extremities Skin: COMMON NORMALS: no rashes or lesions noted GENERAL SKIN EXAM: no rashes or lesions noted Data : 12/05/19 05:09 12/05/19 05:09 A&P Assessment and plan (1) GI bleed: Status post EGD. So far no further bloody bowel movement. Nauseated this morning. No vomiting. Significant lower GI bleed with significant bowel movements. 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 Presence of grade 1 distal esophageal varices was noted, however, without any active bleeding. Due to repeat bloody bowel movements, requirement of 3 units PRBC transfusions, and has not clear that the lesion found explains all of his blood loss. Due to this additional evaluation with colonoscopy will be warranted. He does currently have hypoxia, whereas normally status does not use oxygen. This may be multifocal with history of suspected mild pulmonary hypertension, mild mitral regurgitation. He has chronic lower extremity edema. Does report some chronic orthopnea. This is a sounds clear on exam. I cannot appreciate significant JVD, although exam is not optimal. Will assess with chest x-ray. For now hold off further IV fluid. Okay to have clear liquid diet per surgery. Status post 3 units PRBC transfusion total. We will recheck hemoglobin this afternoon. If no further bloody bowel movements, stable hemoglobin, may consider moving out of intensive care unit. Status: Acute Code(s): K92.2 - Gastrointestinal hemorrhage, unspecified (2) Acute blood loss anemia: As above Status: Acute Code(s): D62 - Acute posthemorrhagic anemia (3) Hypotension: Hold home blood pressure medications. Intermittently soft blood pressure, down to 97/49 at 2 AM this morning. Received gentle IV hydration. Monitor for any signs of overload. Status: Acute Code(s): I95.9 - Hypotension, unspecified (4) Acute kidney injury: This appears to be acute kidney injury on chronic kidney disease. Creatinine with improvement today down to 1.4. Close follow-up of renal function Status: Acute Code(s): N17.9 - Acute kidney failure, unspecified (5) Hyperkalemia: Improved Status: Acute Code(s): E87.5 - Hyperkalemia (6) Cirrhosis: Per discussion with surgery grade 1 distal esophageal varices were noted without any active bleeding. 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 Monitor platelet levels. Status: Acute Code(s): D69.6 - Thrombocytopenia, unspecified Additional A&P Information Past history of CHF. Last echocardiogram several years ago demonstrated normal EF History of mild aortic stenosis History of possible mild pulmonary hypertension and mild to moderate TR History of mild mitral regurgitation History of chronic diarrhea History of atrial fibrillation with pacemaker placement History of diabetes mellitus. Will provide sliding scale Hypertension Hyperlipidemia Attestations Medical Necessity Statement*: Continue admission for assessment and management of GI bleeding, acute blood loss anemia. Coding Level of Care Code Acute Explosive Specialist for [facility] Fwd Diagnoses GI bleed K92.2 Acute blood loss anemia D62 Hypotension I95.9 Acute kidney injury N17.9 Hyperkalemia E87.5 Cirrhosis K74.60 Thrombocytopenia D69.6
--- NOTE | 2019-12-05 10:03 | XR_ITS ---
WS: [id number] XR chest 1V portable [id number] REASON FOR EXAM: Hypoxia FINDINGS: Cardiomegaly with arteriosclerotic changes. Blunting of the left costophrenic angle suggesting a small amount of effusion. Dual electrode pacemaker extending from the left side. Chronic changes in both lung spears are noted but no evidence of pneumonia or pulmonary edema. XR/XR chest 1V portable [id number] IMPRESSION: Cardiomegaly with arteriosclerotic changes Small amount of left pleural effusion Dual electrode pacemaker extending from the left side. The chest is similar to April 10, 2019.
[2019-12-05] MEDS: peg /e-lyte soln 4,000 mL Btl 4000 ML PO (11:01)
[2019-12-05 11:14] LABS: Glucose Point of Care 115 mg/dL (70-110)
[2019-12-05 11:57] LABS: Hematocrit 27.5 % (42.0-52.0); Hemoglobin 8.6 g/dL (11.7-16.6)
--- NOTE | 2019-12-05 13:55 | PC.CHAP ---
Pastoral Care Encounter/Spiritual Assessment Type of Contact [] Declined machinist brake visit [] Patient/Family/Request visit [] Outpatient visit [] Follow-up visit [] Physician referral [] Code/Alert [] Routine visit [] Staff referral [] Actively dying [] Patient sleeping [] Family support [] [] Out of room [] Palliative care [] [x] Receiving care in room [] Pre-surgical visit [] Trauma [] Long length of stay [x] ICU visit [] Other: Relational/Emotional Strength [] Patient feels connected with others/family/visitors/staff [] Distress [] Loneliness/isolation [] Abandonment Spirituality of Patient [] Person of Sridevi [] Attends Zoroastrian of their Sridevi [] Believes in Prayer [] Reads Bible or Gnosticist materials [] There are Spiritual issues to be addressed Nuclear Reactor Engineer Interventions [] Prayer [] Active listening [] Non-anxious presence [] Spiritual/emotional support [] Crisis/trauma care [] Spiritual counseling [] Bereavement support [] Provided bereavement packet [] Provided Bible/devotional materials [] Provided toy/stuffed animal, coloring book to patient or family member [] Provided Communion [] Anointing/[place] [] Salvation [] Completed spiritual assessment [] Other: Impact on Illness or Injury [] Angry [] Fearful [] Anxious [] Often cries [] Exhaustion [] Unable to work [] Unable to attend jainism [] Unable to walk/stand [] Unable to read [] Unable to drive [] Unable to eat/drink [] Unable to sleep [] Unable to be with family [] Patient intubated [] Other: Summary Radiology was in the room at the time of visit. Patient visit attempted by Nuclear Reactor Engineer William Aparicio. Time spent with patient 3 minutes
[2019-12-05 17:28] LABS: Glucose Point of Care 128 mg/dL (70-110)
[2019-12-05 22:37] LABS: Glucose Point of Care 128 mg/dL (70-110)
[2019-12-06] VITALS (8 sets, daily range): BP systolic 96–140; BP diastolic 41–76; PULSE 72–88; RESP 16–20; TEMP 35.9–37.2; O2SAT 94–98
[2019-12-06] MEDS: pantoprazole 40 MG in sodium chloride 0.9% (plus) 100 ML 20 MG IV ×5 (00:57→21:10)
[2019-12-06] MEDS: sodium chloride 0.9% 1,000 ML 125 ML IV (03:16)
[2019-12-06 05:15] LABS: Eosinophils # 0.1 10^3/uL (0.0-0.8); Eosinophils % 3.3 %; Hemoglobin 7.4 g/dL (11.7-16.6); Lymphocytes # 0.4 10^3/uL (0.8-4.8); Lymphocytes % 15.4 %; Mean Corpuscular HGB Conc 30.8 g/dL (30.0-36.0); Mean Corpuscular Hemoglobin 29.1 pg (28.0-34.0); Mean Corpuscular Volume 94.5 fL (80-94); Mean Platelet Volume 12.2 fL (7.4-10.4); Monocytes # 0.2 10^3/uL (0.2-0.9); Monocytes % 8.3 %; Neutrophils # 1.8 10^3/uL (1.8-7.7); Neutrophils % 72.6 %; Nucleated Red Blood Cells % 0 %; Platelet Count 76 10^3/cmm (130-400); Red Blood Count 2.54 10^6/uL (4.1-5.3); Red Cell Distribution Width 18.7 % (12.1-15.1); White Blood Count 2.4 10^3/uL (4.0-10.0)
[2019-12-06 05:33] LABS: Anion Gap 16.1 (5-19); Blood Urea Nitrogen 20 mg/dL (8-23); Calcium 8.4 mg/dL (8.5-10.5); Carbon Dioxide 20 mmol/L (22-29); Chloride 113 mmol/L (98-107); Glucose 128 mg/dL (65-115); Osmolality Calculated 298 mOsm/kg (285-295); Potassium 4.1 mmol/L (3.5-5.1); Sodium 145 mmol/L (136-145)
[2019-12-06 06:44] LABS: Glucose Point of Care 138 mg/dL (70-110)
[2019-12-06] MEDS: ondansetron 2 mg/ML SDV 2 mL 4 MG IVP (08:15)
[2019-12-06] MEDS: HYDROcodone-acetaminophen 7.5-325 mg Tablet 1 TAB PO (10:00)
[2019-12-06] MEDS: sodium chloride 0.9% 1,000 ML 100 ML IV (11:16)
[2019-12-06 11:38] LABS: Glucose Point of Care 155 mg/dL (70-110)
--- NOTE | 2019-12-06 13:06 | P.ANESASSM_ITS ---
Pre-Anesthetic Assessment Pre-Anesthetic Assessment: Height/Weight: Height 1.8 m Weight 97.522 kg Temp Pulse Resp BP Pulse Ox 98.1 F 88 18 135/64 95 12/06/19 10:48 12/06/19 10:48 12/06/19 10:48 12/06/19 10:48 12/06/19 10:48 Preop Diagnosis: Lower GI bleed Proposed Procedure: Operation Date: 12/04/19 15:30 Proposed Procedures p EGD(Not Applicable) - Eyad Sung MD Operation Date: 12/06/19 13:15 Proposed Procedures p Colonoscopy(Not Applicable) - Eyad Sung MD Social: Social History: Tobacco (quit ) Exam: Pre-Anes Outpt Exam: alert, oriented x 3, clear to auscultation bilaterally and regular rate & rhythm Airway: Submandibular: WNL Cervical ROM: WNL MP: 2 Dentition: Other (poor dentation) History/ROS: No significant history except as noted Pulmonary: Pulmonary: COPD and GOODE CV/HEM: CV/HEM: Afib, CAD, CHF and HTN : : None reported Hepatic: Hepatic: None reported GI: GI: PUD and None reported Comments: varisies Metabolic: Metabolic: DM and Hyperlipidemia Musc/skel: Musc/skel: OA/DJD Neuropsych: Neuropsych: None reported Anesthetic Plan: ASA status: 4 Anesthesia: Anesthesia Evaluation and MAC Risk of > 500 ml blood loss (7ml/kg in children): No Meds/Allergies Current Medications: Current Medications Generic Name Dose Route Start Last Admin Trade Name Freq PRN Reason Stop Dose Admin Acetaminophen 650 mg 12/04/19 15:50 12/04/19 23:07 Tylenol PO 650 mg Q6H PRN Administration Mild/Mod Pain Or Temp >/= 101 Hydrocodone Bitart /Acetaminophen 1 tab 12/06/19 09:41 12/06/19 10:00 Morrow 7.5-325 Mg PO 1 tab BID PRN Administration MILD TO MODERATE PAIN Sodium Chloride 1,000 mls @ 100 m ls/hr 12/04/19 15:50 12/06/19 11:16 Sodium Chloride 0.9% IV 100 mls/hr .Q10H ALE Administration Pantoprazole Sodiu m 40 mg/ 100 mls @ 20 mls/ hr 12/04/19 17:00 02/18/20 11:16 Sodium Chloride IV 8 mg/hr .Q5H ALE 20 mls/hr Administration 8 MG/HR Insulin Aspart 0 unit 12/04/19 15:50 12/06/19 11:36 Novolog SUBCUT Not Given WM&BEDTIME ALE Protocol Ondansetron HCl 4 mg 12/04/19 15:50 12/06/19 08:15 Zofran IVP 4 mg Q6H PRN Administration vomiting, or N/V if npo PFSH Anesthesia PFSH: Medical History Anemia Chronic atrial fibrillation Chronic diarrhea Cirrhosis Coronary artery disease Diabetes mellitus History of CHF (congestive heart failure) History of gastritis Hyperlipidemia Hypertension Portal hypertension Thrombocytopenia Surgical History History of permanent cardiac pacemaker placement Family History Other Cancer Social History Smoking and tobacco status: former smoker Alcohol intake: former Substance/Drug Use: never Data Anesthesia CBC & Chem 7: 12/06/19 04:35 12/06/19 04:35 Other Labs: Laboratory Results - last 48 hr 12/04/19 12/04/19 12/04/19 10:20 17:38 21:09 WBC RBC Hgb Hct MCV MCH MCHC RDW Plt Count MPV Neut % (Auto) Lymph % (Auto) [place] % (Auto) Eos % (Auto) Baso % (Auto) Neut # (Auto) Lymph # (Auto) [place] # (Auto) Eos # (Auto) Baso # (Auto) Nucleated RBC % (auto) Nucleated RBCs # Sodium Potassium Chloride Carbon Dioxide Anion Gap BUN Creatinine Glucose POC Glucose 176 152 Calculated Osmolality Calcium Blood Type O Positive Antibody Screen Negative Crossmatch See Detail 12/04/19 12/05/19 12/05/19 21:36 05:09 05:09 WBC 2.7 L RBC 2.63 L Hgb 7.6 L 7.9 L Hct 24.7 L 25.2 L MCV 95.8 H MCH 30.0 MCHC 31.3 RDW 18.7 H Plt Count 66 L MPV 12.3 H Neut % (Auto) 65.3 Lymph % (Auto) 21.4 [place] % (Auto) 8.3 Eos % (Auto) 3.8 Baso % (Auto) 0.4 Neut # (Auto) 1.7 L Lymph # (Auto) 0.6 L [place] # (Auto) 0.2 Eos # (Auto) 0.1 Baso # (Auto) 0.0 Nucleated RBC % (auto) 0 Nucleated RBCs # 0.0 Sodium 146 H Potassium 4.7 Chloride 115 H Carbon Dioxide 22 Anion Gap 13.7 BUN 33 H Creatinine 1.4 H Glucose 79 POC Glucose Calculated Osmolality 298 H Calcium 8.1 L Blood Type Antibody Screen Crossmatch 12/05/19 12/05/19 12/05/19 07:29 11:06 11:09 WBC RBC Hgb 8.6 L Hct 27.5 L MCV MCH MCHC RDW Plt Count MPV Neut % (Auto) Lymph % (Auto) [place] % (Auto) Eos % (Auto) Baso % (Auto) Neut # (Auto) Lymph # (Auto) [place] # (Auto) Eos # (Auto) Baso # (Auto) Nucleated RBC % (auto) Nucleated RBCs # Sodium Potassium Chloride Carbon Dioxide Anion Gap BUN Creatinine Glucose POC Glucose 94 115 Calculated Osmolality Calcium Blood Type Antibody Screen Crossmatch 12/05/19 12/05/19 12/06/19 17:23 21:48 04:35 WBC 2.4 L RBC 2.54 L Hgb 7.4 L Hct 24.0 L MCV 94.5 H MCH 29.1 MCHC 30.8 RDW 18.7 H Plt Count 76 L MPV 12.2 H Neut % (Auto) 72.6 Lymph % (Auto) 15.4 [place] % (Auto) 8.3 Eos % (Auto) 3.3 Baso % (Auto) 0.0 Neut # (Auto) 1.8 Lymph # (Auto) 0.4 L [place] # (Auto) 0.2 Eos # (Auto) 0.1 Baso # (Auto) 0.0 Nucleated RBC % (auto) 0 Nucleated RBCs # 0.0 Sodium Potassium Chloride Carbon Dioxide Anion Gap BUN Creatinine Glucose POC Glucose 128 128 Calculated Osmolality Calcium Blood Type Antibody Screen Crossmatch 12/06/19 12/06/19 12/06/19 04:35 06:32 10:47 WBC RBC Hgb Hct MCV MCH MCHC RDW Plt Count MPV Neut % (Auto) Lymph % (Auto) [place] % (Auto) Eos % (Auto) Baso % (Auto) Neut # (Auto) Lymph # (Auto) [place] # (Auto) Eos # (Auto) Baso # (Auto) Nucleated RBC % (auto) Nucleated RBCs # Sodium 145 Potassium 4.1 Chloride 113 H Carbon Dioxide 20 L Anion Gap 16.1 BUN 20 Creatinine 1.2 Glucose 128 H POC Glucose 138 155 Calculated Osmolality 298 H Calcium 8.4 L Blood Type Antibody Screen Crossmatch Cardiac Studies: No Data to Display
--- NOTE | 2019-12-06 13:22 | P.PN_ITS ---
Subjective Subjective: Interval history: Patient overall is about the same No acute events overnight, colon prep is completed Vitals/I&O/Wt Last Vital Signs Temp 96.6 F L 12/06/19 13:17 Pulse 82 12/06/19 13:17 Resp 20 H 12/06/19 13:17 BP 140/69 12/06/19 13:17 Pulse Ox 95 12/06/19 13:17 12/05/19 12/06/19 12/06/19 22:59 06:59 14:59 Intake Total 1100 / 2299.667 1183 / 3482.667 1093.75 / 1093.75 Balance 1100 / 2299.667 1183 / 3482.667 1093.75 / 1093.75 Physical Exam Const: COMMON NORMALS: no apparent distress and oriented x3 GENERAL APPEARANCE: cooperative ORIENTATION/CONSCIOUSNESS: Yes awake, Yes oriented to person, Yes oriented to place and Yes oriented to time GI: COMMON NORMALS: soft to palpation; negative for no hepatosplenomegaly INSPECTION: Yes normal to inspection PALPATION: Yes soft, No firm, No tender, No guarding, No rigid and No no hepatosplenomegaly Neuro: COMMON NORMALS: oriented x3 SENSORIUM/ORIENTATION: Yes oriented to person, Yes oriented to place and Yes oriented to time Skin: COMMON NORMALS: no rashes or lesions noted GENERAL SKIN EXAM: no rashes or lesions noted Data : 12/06/19 04:35 12/06/19 04:35 A&P Assessment and plan (1) Acute blood loss anemia: Plan of care; After thorough history and physical examination and reviewing the chart, plan to perform diagnostic colonoscopy in the GI lab All questions have been answered and all concerns have been addressed to patient's satisfaction. Informed consent per chart were,Indications, risks, benefits, and alternatives were all discussed with the patient and did agree to proceed. Verbal and written Instructions were given to the patient for colonoscopy prep Status: Acute Code(s): D62 - Acute posthemorrhagic anemia Attestations Medical Necessity Statement*: Medical necessity care is expected to cross 2 midnights Time Spent in Patient Care: 16 - 35 minutes (>than 50% of time spent in counselling and/or direct pt care on unit) . Coding Level of Care Code Acute Hospitality Housekeeper for [facility] Diagnoses Acute blood loss anemia D62
[2019-12-06] MEDS: sodium chloride 0.9% 500 ML 30 ML IV (13:32)
[2019-12-06] MEDS: sodium chloride 0.9% 1,000 ML 30 ML IV (14:36)
[2019-12-06 17:05] LABS: Glucose Point of Care 128 mg/dL (70-110)
[2019-12-06 20:34] LABS: Glucose Point of Care 165 mg/dL (70-110)
--- NOTE | 2019-12-06 21:15 | P.PN_ITS ---
Subjective Subjective: Interval history: He is having some nausea. Denies overt abdominal pain. Had some amount of blood in the stool yesterday after EGD, but that has since resolved with prep for colonoscopy. Vitals/I&O/Wt Last Vital Signs Temp 98.2 F 12/06/19 19:18 Pulse 83 12/06/19 19:18 Resp 20 H 12/06/19 19:18 BP 135/51 12/06/19 19:18 Pulse Ox 96 12/06/19 19:18 12/06/19 12/06/19 12/06/19 06:59 14:59 22:59 Intake Total 1183 / 3482.667 1482.917 / 2685.841 8136.666 / 2483.583 Balance 1183 / 3482.667 1482.917 / 2538.348 9750.666 / 2483.583 Physical Exam Const: COMMON NORMALS: no apparent distress and oriented x3 OTHER: Family are at bedside. HENMT: COMMON NORMALS: oropharynx normal Neck/C-Spine: COMMON NORMALS: no JVD Resp: COMMON NORMALS: normal respiratory effort and clear to auscultation bilaterally AUSCULTATION: clear to auscultation bilaterally Cardio: COMMON NORMALS: no JVD, regular rhythm, S1 normal heart sound, S2 normal heart sound and no murmurs RHYTHM: regular rhythm HEART SOUNDS: S1 normal and S2 normal GI: COMMON NORMALS: normal to inspection, nondistended, normoactive bowel sounds, soft to palpation and non-tender PALPATION: Yes soft Extremity: COMMON NORMALS: no joint enlargement and no pedal edema Neuro: COMMON NORMALS: oriented x3 and moves all extremities Skin: COMMON NORMALS: no rashes or lesions noted GENERAL SKIN EXAM: no rashes or lesions noted Data : 12/06/19 04:35 12/06/19 04:35 A&P Assessment and plan (1) GI bleed: Status post EGD. So far no further bloody bowel movement. Nauseated this morning. No vomiting. Significant lower GI bleed with significant bowel movements. 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 Presence of grade 1 distal esophageal varices was noted, however, without any active bleeding. Due to repeat bloody bowel movements, requirement of 3 units PRBC transfusions, and has not clear that the lesion found explains all of his blood loss. Due to this underwent colonoscopy which did not show any additional bleeding site. Discussed with his family. As discussed with him earlier today, we will monitor him after colonoscopy, if blood count remains stable, no further bloody bowel movements, may then be able to leave the hospital and follow-up with gastroenterology in office regarding his other chronic issues including chronic diarrhea, liver cirrhosis. In case there is worsening hemoglobin or additional hematochezia, and the case may need to seek transfer to facility which is able to accommodate deep enteroscopy or capsule endoscopy. Status: Acute Code(s): K92.2 - Gastrointestinal hemorrhage, unspecified (2) Acute blood loss anemia: As above Status: Acute Code(s): D62 - Acute posthemorrhagic anemia (3) Hypotension: Resolved. Hold home blood pressure medications. DC IV fluid. Status: Acute Code(s): I95.9 - Hypotension, unspecified (4) Acute kidney injury: Improving. This appears to be acute kidney injury on chronic kidney disease. Status: Acute Code(s): N17.9 - Acute kidney failure, unspecified (5) Hyperkalemia: Improved Status: Acute Code(s): E87.5 - Hyperkalemia (6) Cirrhosis: Per discussion with surgery grade 1 distal esophageal varices were noted without any active bleeding. 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 Monitor platelet levels. Status: Acute Code(s): D69.6 - Thrombocytopenia, unspecified Additional A&P Information Past history of CHF. Last echocardiogram several years ago demonstrated normal EF History of mild aortic stenosis History of possible mild pulmonary hypertension and mild to moderate TR History of mild mitral regurgitation History of chronic diarrhea History of atrial fibrillation with pacemaker placement History of diabetes mellitus. Will provide sliding scale Hypertension Hyperlipidemia Attestations Medical Necessity Statement*: Continue admission for assessment management of GI bleeding, acute blood loss anemia. Coding Level of Care Code Acute Low Vision Therapist for Chg Fwd Diagnoses GI bleed K92.2 Acute blood loss anemia D62 Hypotension I95.9 Acute kidney injury N17.9 Hyperkalemia E87.5 Cirrhosis K74.60 Thrombocytopenia D69.6
[2019-12-07] VITALS (7 sets, daily range): BP systolic 118–137; BP diastolic 51–63; PULSE 66–84; RESP 16–20; TEMP 36.5–37; O2SAT 96–99
[2019-12-07] MEDS: pantoprazole 40 MG in sodium chloride 0.9% (plus) 100 ML 20 MG IV ×2 (04:25→10:07)
[2019-12-07] MEDS: HYDROcodone-acetaminophen 7.5-325 mg Tablet 1 TAB PO ×2 (04:26→17:08)
[2019-12-07 05:05] LABS: Basophils % 0.4 %; Eosinophils # 0.1 10^3/uL (0.0-0.8); Eosinophils % 3.2 %; Hematocrit 26.1 % (42.0-52.0); Hemoglobin 7.9 g/dL (11.7-16.6); Lymphocytes # 0.4 10^3/uL (0.8-4.8); Lymphocytes % 15.3 %; Mean Corpuscular HGB Conc 30.3 g/dL (30.0-36.0); Mean Corpuscular Hemoglobin 28.9 pg (28.0-34.0); Mean Corpuscular Volume 95.6 fL (80-94); Mean Platelet Volume 11.7 fL (7.4-10.4); Monocytes # 0.2 10^3/uL (0.2-0.9); Monocytes % 7.7 %; Neutrophils # 1.8 10^3/uL (1.8-7.7); Nucleated Red Blood Cells % 0 %; Platelet Count 80 10^3/cmm (130-400); Red Blood Count 2.73 10^6/uL (4.1-5.3); Red Cell Distribution Width 18.7 % (12.1-15.1); White Blood Count 2.5 10^3/uL (4.0-10.0)
[2019-12-07 05:29] LABS: Alanine Aminotransferase 16 U/L (0-41); Albumin Level 3.1 g/dL (3.5-5.2); Alkaline Phosphatase 99 IU/L (40-130); Aspartate Amino Transferase 25 U/L (0-40); Blood Urea Nitrogen 16 mg/dL (8-23); Calcium 8.3 mg/dL (8.5-10.5); Carbon Dioxide 21 mmol/L (22-29); Chloride 111 mmol/L (98-107); Glucose 143 mg/dL (65-115); Sodium 143 mmol/L (136-145); Total Bilirubin 0.6 mg/dL (0.15-1.2); Total Protein 6.1 g/dL (6.6-8.7)
[2019-12-07 06:43] LABS: Glucose Point of Care 153 mg/dL (70-110)
[2019-12-07] MEDS: FUROsemide 40 mg Tablet PO (10:03)
[2019-12-07] MEDS: spironolactone 25 mg Tablet PO (10:03)
[2019-12-07 11:33] LABS: Glucose Point of Care 169 mg/dL (70-110)
--- NOTE | 2019-12-07 12:32 | DCPLANNER ---
Pg 2 of IM explained to and signed by pt. No questions but comments that he thought he was ready to go but now his feet have swelled. Copy provided.
[2019-12-07 16:32] LABS: Glucose Point of Care 182 mg/dL (70-110)
[2019-12-07] MEDS: pantoprazole DR 40 mg Tablet PO (17:08)
--- NOTE | 2019-12-07 18:44 | PM.PN ---
Subjective Subjective: Interval history: He is short of breath with exertion today. With severe swelling in lower extremities. Vitals/I&O/Wt Last Vital Signs Temp 97.7 F 12/07/19 15:12 Pulse 73 12/07/19 17:01 Resp 18 12/07/19 15:12 BP 132/53 12/07/19 15:12 Pulse Ox 99 12/07/19 17:01 12/07/19 12/07/19 12/07/19 06:59 14:59 22:59 Intake Total 150.667 / 2804.917 726.666 / 726.666 720 / 1446.666 Output Total 1000 / 1000 500 / 500 300 / 800 Balance -849.333 / 1804.917 226.666 / 226.666 420 / 646.666 Physical Exam Const: COMMON NORMALS: no apparent distress and oriented x3 OTHER: Family are at bedside. HENMT: COMMON NORMALS: oropharynx normal Neck/C-Spine: COMMON NORMALS: no JVD Resp: COMMON NORMALS: normal respiratory effort and clear to auscultation bilaterally AUSCULTATION: clear to auscultation bilaterally Cardio: COMMON NORMALS: no JVD, regular rhythm, S1 normal heart sound, S2 normal heart sound and no murmurs RHYTHM: regular rhythm HEART SOUNDS: S1 normal and S2 normal GI: COMMON NORMALS: normal to inspection, nondistended, normoactive bowel sounds, soft to palpation and non-tender PALPATION: Yes soft Extremity: COMMON NORMALS: no joint enlargement and no pedal edema Neuro: COMMON NORMALS: oriented x3 and moves all extremities Skin: COMMON NORMALS: no rashes or lesions noted GENERAL SKIN EXAM: no rashes or lesions noted Data : 12/07/19 04:26 12/07/19 04:26 A&P Assessment and plan (1) GI bleed: His hemoglobin remained stable. No further bloody bowel movements. He has tolerated GI soft diet so far. Plan was for him to return home with outpatient follow-up with gastroenterology due to chronic diarrhea and cirrhosis. However, on exertion today he is having significant dyspnea, with severe swelling of lower extremities. IV fluid was discontinued last night, but appears continued at low rate through the night. His diuretics were previously held. Requiring oxygen, although not previously using oxygen at home. IV fluids stopped. Reordered his home diuretics. Will repeat dose of 40 mg IV Lasix now. Reassess volume status and respiration in the morning. If improved, may return home. 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 Presence of grade 1 distal esophageal varices was noted, however, without any active bleeding. Due to repeat bloody bowel movements, requirement of 3 units PRBC transfusions, and has not clear that the lesion found explains all of his blood loss. Due to this underwent colonoscopy which did not show any additional bleeding site. Status: Acute Code(s): K92.2 - Gastrointestinal hemorrhage, unspecified (2) Acute blood loss anemia: As above Status: Acute Code(s): D62 - Acute posthemorrhagic anemia (3) Hypotension: Resolved. Hold home blood pressure medications. DC IV fluid. Status: Acute Code(s): I95.9 - Hypotension, unspecified (4) Acute kidney injury: Improving. This appears to be acute kidney injury on chronic kidney disease. Status: Acute Code(s): N17.9 - Acute kidney failure, unspecified (5) Hyperkalemia: Improved Status: Acute Code(s): E87.5 - Hyperkalemia (6) Cirrhosis: Per discussion with surgery grade 1 distal esophageal varices were noted without any active bleeding. 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 Monitor platelet levels. Status: Acute Code(s): D69.6 - Thrombocytopenia, unspecified Additional A&P Information Past history of CHF. Last echocardiogram several years ago demonstrated normal EF History of mild aortic stenosis History of possible mild pulmonary hypertension and mild to moderate TR History of mild mitral regurgitation History of chronic diarrhea History of atrial fibrillation with pacemaker placement History of diabetes mellitus. Will provide sliding scale Hypertension Hyperlipidemia Attestations Medical Necessity Statement*: Continue admission for assessment of management of fluid overload after IV hydration, with dyspnea, hypoxia or is not normally on oxygen, monitoring for further bleeding. Coding Level of Care Code Acute Seamless Tube Roller for Chg Fwd Diagnoses GI bleed K92.2 Acute blood loss anemia D62 Hypotension I95.9 Acute kidney injury N17.9 Hyperkalemia E87.5 Cirrhosis K74.60 Thrombocytopenia D69.6
[2019-12-07] MEDS: FUROsemide 10 mg/mL SDV 4mL 40 MG IVP (20:34)
[2019-12-07 20:59] LABS: Glucose Point of Care 273 mg/dL (70-110)
[2019-12-08] VITALS (9 sets, daily range): BP systolic 119–128; BP diastolic 45–58; PULSE 73–117; RESP 18; TEMP 36.7–37.3; O2SAT 95–99
[2019-12-08] MEDS: HYDROcodone-acetaminophen 7.5-325 mg Tablet 1 TAB PO (04:29)
[2019-12-08 04:55] LABS: Eosinophils # 0.1 10^3/uL (0.0-0.8); Eosinophils % 3.3 %; Lymphocytes # 0.3 10^3/uL (0.8-4.8); Mean Corpuscular HGB Conc 30.8 g/dL (30.0-36.0); Mean Corpuscular Hemoglobin 29.2 pg (28.0-34.0); Mean Corpuscular Volume 94.9 fL (80-94); Mean Platelet Volume 11.5 fL (7.4-10.4); Monocytes # 0.2 10^3/uL (0.2-0.9); Monocytes % 9.1 %; Neutrophils # 1.8 10^3/uL (1.8-7.7); Neutrophils % 73.2 %; Nucleated Red Blood Cells % 0 %; Platelet Count 77 10^3/cmm (130-400); Red Blood Count 2.74 10^6/uL (4.1-5.3); Red Cell Distribution Width 18.1 % (12.1-15.1); White Blood Count 2.4 10^3/uL (4.0-10.0)
[2019-12-08 05:13] LABS: Blood Urea Nitrogen 12 mg/dL (8-23); Calcium 8.5 mg/dL (8.5-10.5); Carbon Dioxide 24 mmol/L (22-29); Chloride 108 mmol/L (98-107); Glucose 191 mg/dL (65-115); Osmolality Calculated 297 mOsm/kg (285-295); Sodium 143 mmol/L (136-145)
[2019-12-08 06:51] LABS: Glucose Point of Care 248 mg/dL (70-110)
[2019-12-08] MEDS: pantoprazole DR 40 mg Tablet PO (08:29)
[2019-12-08] MEDS: spironolactone 25 mg Tablet PO (08:29)
[2019-12-08] MEDS: FUROsemide 10 mg/mL SDV 4mL 40 MG IVP (08:33)
[2019-12-08 11:06] LABS: Glucose Point of Care 210 mg/dL (70-110)
--- NOTE | 2019-12-08 13:42 | US_ITS ---
WS: [id number] US soft tissue/extremity 39796 REASON FOR EXAM: dorsal foot, assess for any fluid collection FINDINGS: This study shows along the dorsum of the foot edema but no fluid accumulations or masses ar e noted. The lesion appears to be of more localized overriding the fourth metatarsal head. US/US soft tissue/extremity 65187 IMPRESSION: Soft tissue edema present along the dorsum of the foot but no fluid localizatio n or masses seen.
--- NOTE | 2019-12-08 13:42 | USCV_ITS ---
Aramis Olsen Age: 79 Gender: M : 1940 Exam Date: 12/08/2019 13:52 Ordering Phys: Percy Davila MD Technologist: Laurence Henson Exam Location: [facility] [place] Indication: Swelling HISTORY: Left lower extremity swelling. PROCEDURES: Comparison: none available. Venous duplex imaging was performed in only the left lower extremity. The following venous structures were evaluated: common femoral vein, profunda vein, proximal portion of the greater saphenous vein, superficial femoral vein, and the popliteal vein. In addition, the posterior tibial and peroneal trunk were evaluated. Serial compression, augmentation maneuvers, and spectral Doppler flow evaluation were performed. FINDINGS: No evidence of DVT seen in any vessel visualized at this time. CONCLUSIONS No evidence of left lower extremity DVT. Mariano Huertas MD (Electronically Signed) Final Date: 08 December 2019 15:11 Amended: 09 December 2019 14:28 C
--- NOTE | 2019-12-08 15:46 | PM.DCS ---
Discharge Providers Date of Admission: 12/04/19 11:30 Date of Discharge: December 08, 2019 Attending Provider at Admission: Dimitrios Mitchell MD Attending Provider at Discharge: Percy Davila Primary Care Provider: Earnest Dangelo DO Diagnoses at Discharge Discharge Diagnosis (1) GI bleed: Status: Acute (2) Acute blood loss anemia: Status: Acute (3) Hypotension: Status: Acute (4) Acute kidney injury: Status: Acute (5) Hyperkalemia: Status: Acute (6) Cirrhosis: Status: Acute (7) Thrombocytopenia: Status: Acute Reason for Visit Reason for Visit: Reason For Visit: blood in stool LOTS Hospital Course Hospital Course: A pleasant 79-year-old gentleman with history of chronic thrombocytopenia, liver cirrhosis, congestive heart failure, atrial fibrillation, hypertension and other medical conditions was admitted for assessment management due to hematochezia, requiring 3 units. Receive transfusion during the hospitalization, initially hypotensive, with hemoglobin down to 8 with recurrence of additional bloody bowel movements. With history of black tarry stools. He was assessed by EGD with finding of arterial malformation under a clot which was clipped and injected with epinephrine. Grade 1 esophageal varices were noted, but without any sign of bleeding. Additional evaluation was performed with colonoscopy which did not show any sites suspicious for bleeding. He had no further bloody bowel movements. His hemoglobin subsequently remained stable. He should avoid NSAIDs. He will continue on twice daily PPI. His discharge was delayed due to fluid overload after treatment of hypotension, holding of his diuretics, with subsequent lower extremity edema and hypoxia, whereas normally not on oxygen. He received diuresis with IV Lasix, was continued on spironolactone, with good urine output, stable renal function, and currently is doing better, without needing any oxygen on home evaluation. Left lower extremity noted somewhat more swollen than the right, with swelling of the dorsal foot as well, with a small abrasion superiorly which is healing with healthy granulation tissue, was assessed with there is full forward soft tissue ultrasound without any finding of fluid collection, and with left lower extremity venous Doppler without any finding of DVT. Today he is feeling well, and feels ready to return home. Once GI bleeding is no longer a concern, consider revisiting with him regarding anticoagulation or antiplatelets for stroke protection with atrial fibrillation. Due to chronic diarrhea and liver cirrhosis he is referred for follow-up with gastroenterology. Continue follow-up with hematology regarding pancytopenia. Please follow-up his hemoglobin at the time of office visit. Physical Exam Const: COMMON NORMALS: no apparent distress and oriented x3 OTHER: Family are at bedside. HENMT: COMMON NORMALS: oropharynx normal Neck/C-Spine: COMMON NORMALS: no JVD Resp: COMMON NORMALS: normal respiratory effort and clear to auscultation bilaterally AUSCULTATION: clear to auscultation bilaterally Cardio: COMMON NORMALS: no JVD, regular rhythm, S1 normal heart sound, S2 normal heart sound and no murmurs RHYTHM: regular rhythm HEART SOUNDS: S1 normal and S2 normal GI: COMMON NORMALS: normal to inspection, nondistended, normoactive bowel sounds, soft to palpation and non-tender PALPATION: Yes soft Extremity: COMMON NORMALS: no joint enlargement and no pedal edema Neuro: COMMON NORMALS: oriented x3 and moves all extremities Skin: COMMON NORMALS: no rashes or lesions noted GENERAL SKIN EXAM: no rashes or lesions noted Discharge Data Data Completed and Pending: Completed Studies During Hospitalization Category Date Time Status XR chest 1V franky ble 73690 Routine Exams 12/05/19 10:03 [place] [id number] Routin e Ultrasound 12/08/19 13:42 Completed US soft tissue/ex tremity 77905 Rout ine Ultrasound 12/08/19 13:42 Completed Labs from last 24 hours 12/08/19 12/08/19 12/08/19 10:48 06:21 04:22 WBC RBC Hgb Hct MCV MCH MCHC RDW Plt Count MPV Neut % (Auto) Lymph % (Auto) [place] % (Auto) Eos % (Auto) Baso % (Auto) Neut # (Auto) Lymph # (Auto) [place] # (Auto) Eos # (Auto) Baso # (Auto) Nucleated RBC % (a uto) Nucleated RBCs # Sodium 143 Potassium 4.0 Chloride 108 H Carbon Dioxide 24 Anion Gap 15.0 BUN 12 Creatinine 1.2 Glucose 191 H POC Glucose 210 248 Calculated Osmolal ity 297 H Calcium 8.5 Crossmatch 12/08/19 12/07/19 12/07/19 04:22 20:39 16:24 WBC 2.4 L RBC 2.74 L Hgb 8.0 L Hct 26.0 L MCV 94.9 H MCH 29.2 MCHC 30.8 RDW 18.1 H Plt Count 77 L MPV 11.5 H Neut % (Auto) 73.2 Lymph % (Auto) 14.0 [place] % (Auto) 9.1 Eos % (Auto) 3.3 Baso % (Auto) 0.0 Neut # (Auto) 1.8 Lymph # (Auto) 0.3 L [place] # (Auto) 0.2 Eos # (Auto) 0.1 Baso # (Auto) 0.0 Nucleated RBC % (a uto) 0 Nucleated RBCs # 0.0 Sodium Potassium Chloride Carbon Dioxide Anion Gap BUN Creatinine Glucose POC Glucose 273 182 Calculated Osmolal ity Calcium Crossmatch 12/04/19 10:20 WBC RBC Hgb Hct MCV MCH MCHC RDW Plt Count MPV Neut % (Auto) Lymph % (Auto) [place] % (Auto) Eos % (Auto) Baso % (Auto) Neut # (Auto) Lymph # (Auto) [place] # (Auto) Eos # (Auto) Baso # (Auto) Nucleated RBC % (a uto) Nucleated RBCs # Sodium Potassium Chloride Carbon Dioxide Anion Gap BUN Creatinine Glucose POC Glucose Calculated Osmolal ity Calcium Crossmatch See Detail Vitals: Last Vital Signs Temp 98.7 F 12/08/19 11:36 Pulse 117 H 12/08/19 11:46 Resp 18 12/08/19 11:36 BP 121/45 12/08/19 11:36 Pulse Ox 98 12/08/19 14:52 Discharge Plan Discharge Patient Disposition: Home, Self-Care Condition: Stable Prescriptions: Continued furosemide 40 mg Tablet 40 mg PO DAILY RF: 0 Tylenol 325 mg Tablet 325 mg PO QID PRN (Reason: Pain) RF: 0 Lantus U-100 Insulin 100 unit/mL Solution 50 unit SUBCUT DAILY RF: 0 metoprolol tartrate 100 mg Tablet 100 mg PO BID RF: 0 diphenoxylate-atropine 2.5-0.025 mg Tablet 1 tab PO DAILY PRN (Reason: Diarrhea) RF: 0 spironolactone 25 mg Tablet 25 mg PO DAILY RF: 0 Pepto-Bismol 262 mg/15 mL Suspension 524 mg PO Q1H PRN (Reason: Diarrhea) RF: 0 glimepiride 4 mg Tablet 4 mg PO BID RF: 0 digoxin 125 mcg (0.125 mg) Tablet 125 mcg PO DAILY RF: 0 amlodipine-benazepril 10-20 mg Capsule 1 cap PO DAILY RF: 0 cholestyramine (with sugar) 4 gram Powder 4 g PO DAILY RF: 0 hydrocodone-acetaminophen 7.5-300 mg Tablet 1 tab PO BID MDD pain PRN (Reason: Pain) RF: 0 fluticasone prp-sod.chl,bicarb 50 mcg- 0.9 % Kit,[place] Suspension And [place] 2 spray INTRANASAL PRN PRN (Reason: allergies) RF: 0 Changed omeprazole 40 mg Capsule,Delayed Release(Dr/Ec) 40 mg PO BID Qty: 60 RF: 0 Discharge Orders: Discharge Order (Routine); Ordered 12/08/19 Ordered By: Percy Davila Referrals: Eyad Sung MD [Physician] - 12/15/19 10:45 am Earnest Ibarra MD [Hospitalist] - 1 month (dr ibarra office will call with appointment [phone] Continue follow up regarding pancytopenia.) Earnest Dangelo DO [Primary Care Provider] - 12/13/19 10:00 am Discharge Diet: Cardiac, Diabetic and GI Soft Discharge Activity: Increase activity as tolerated Activity Restrictions/Additional Instructions: Please make sure to avoid any NSAIDs like ibuprofen, Aleve, etc. Please have your primary care doctor follow-up your blood counts during the appointment. If you notice blood in your stool, dark black stools, experience fainting, or other abnormal symptoms, please seek medical attention without delay. Please discuss with your primary care doctor regarding atrial fibrillation, and reduction of risk of stroke with blood thinners or aspirin once GI bleeding is no longer a concern. Discharge Attestations Time Spent in Discharge Care*: greater than 30 min Quality Metrics Clinical Quality Measures During this hospital stay, did patient experience: None Coding Level of Care Code Acute Ladies Locker Room Attendant for Chg Fwd Diagnoses GI bleed K92.2 Acute blood loss anemia D62 Hypotension I95.9 Acute kidney injury N17.9 Hyperkalemia E87.5 Cirrhosis K74.60 Thrombocytopenia D69.6
[2019-12-08 16:33] LABS: Glucose Point of Care 208 mg/dL (70-110)
== END 2019-12-08 15:00 | disposition home or self-care (01) | DRG 378 ==
LOC: ER 11:29 → ICU 13:27 → MEDSURG 12-05 22:12
PROVIDERS: Surgery; Admitting Provider Internal Medicine; Emergency Provider Emergency Medicine; Family Provider Internal Medicine; PCP Internal Medicine; Visit Provider Internal Medicine
PROC: 0DJ08ZZ Inspection of Upper Intestinal Tract, Via Natural or Artificial Opening Endoscopic (ICD-10-PCS; CPT 43235; principal; 2019-12-04 15:30)
PROC: 0DJD8ZZ Inspection of Lower Intestinal Tract, Via Natural or Artificial Opening Endoscopic (ICD-10-PCS; CPT 45378; principal; 2019-12-06 13:15)
DX: K92.2 Gastrointestinal hemorrhage, unspecified (principal); R18.8 Other ascites; D62 Acute posthemorrhagic anemia; N17.9 Acute kidney failure, unspecified; D61.818 Other pancytopenia; K76.6 Portal hypertension; I85.00 Esophageal varices without bleeding; K31.82 Dieulafoy lesion (hemorrhagic) of stomach and duodenum; K42.9 Umbilical hernia without obstruction or gangrene; I95.9 Hypotension, unspecified; E87.5 Hyperkalemia; K74.60 Unspecified cirrhosis of liver; I10 Essential (primary) hypertension; I48.91 Unspecified atrial fibrillation; D69.6 Thrombocytopenia, unspecified; Z87.891 Personal history of nicotine dependence
CPT/HCPCS: 12345; 36415; 36416; 36430; 43255; 45378; 71045; 76882; 80048; 80053; 82962; 85014; 85018; 85025; 85610; 86850; 86900; 90471; 90732; 93971; 96372; 96375; 99283; C9113; J0171; J0696; J1815; J1940; J2001; J2354; J2405; J2704; J7030; J7040; J7050; P9016

== ENCOUNTER 2020-01-17 06:43 | Outpatient (RCR) | payer MEDICARE, BC, SELFPAY ==
[2020-01-12 15:30] LABS: Basophils % 0.3 %; Eosinophils # 0.1 10^3/uL (0.0-0.8); Eosinophils % 3.7 %; Lymphocytes # 0.6 10^3/uL (0.8-4.8); Lymphocytes % 16.5 %; Mean Corpuscular HGB Conc 31.8 g/dL (30.0-36.0); Mean Corpuscular Hemoglobin 31.2 pg (28.0-34.0); Monocytes # 0.3 10^3/uL (0.2-0.9); Neutrophils # 2.5 10^3/uL (1.8-7.7); Neutrophils % 70.9 %; Nucleated Red Blood Cells % 0 %; Platelet Count 122 10^3/cmm (130-400); Red Blood Count 2.02 10^6/uL (4.1-5.3); White Blood Count 3.5 10^3/uL (4.0-10.0)
[2020-01-12 15:46] LABS: Hematocrit 19.8 % (42.0-52.0); Hemoglobin 6.3 g/dL (11.7-16.6)
[2020-01-12 15:52] LABS: Alanine Aminotransferase 12 U/L (0-41); Alkaline Phosphatase 111 IU/L (40-130); Anion Gap 18.3 (5-19); Aspartate Amino Transferase 14 U/L (0-40); Blood Urea Nitrogen 46 mg/dL (8-23); Calcium 8.8 mg/dL (8.5-10.5); Carbon Dioxide 27 mmol/L (22-29); Chloride 99 mmol/L (98-107); Ferritin 41 ng/mL (30-400); Globulin 2.6 g/dL (1.3-4.6); Glucose 254 mg/dL (65-115); Iron 20 ug/dL (59-158); Osmolality Calculated 297 mOsm/kg (285-295); Potassium 4.3 mmol/L (3.5-5.1); Sodium 140 mmol/L (136-145); Total Bilirubin 0.3 mg/dL (0.15-1.2); Total Iron Binding Capacity 328 mcg/dl; Total Protein 6.6 g/dL (6.6-8.7); Unsaturated Iron Binding 308 ug/dL (112-347)
[2020-01-13] VITALS (10 sets, daily range): BP systolic 87–93; BP diastolic 39–51; PULSE 70–73; RESP 14; TEMP 36.4–36.7; O2SAT 99–100
[2020-01-13] MEDS: acetaminophen 325 mg Tablet 650 MG PO (08:15)
[2020-01-13] MEDS: diphenhydrAMINE 25 mg Capsule PO (08:15)
[2020-01-13] MEDS: sodium chloride 0.9% 250 ML 999 ML IV (08:15)
[2020-01-13] MEDS: FUROsemide 10 mg/mL SDV 2mL 20 MG IV (10:05)
== END 2020-01-17 23:59 | disposition home or self-care (01) ==
LOC: ONCMED 06:43
PROVIDERS: Internal Medicine Medical Oncology; Family Provider Internal Medicine; PCP Internal Medicine; Visit Provider Nurse Practitioner
DX: D50.9 Iron deficiency anemia, unspecified (principal)
CPT/HCPCS: 36430; 80053; 82728; 83540; 83550; 85025; 86850; 86900; 86920; J1940; J7050; P9016

== ENCOUNTER 2020-02-14 15:30 | Outpatient (RCR) | payer MEDICARE, BC, SELFPAY ==
[2020-02-06] MEDS: ferric carboxy (PYXIS) 750 mg/15 mL INJ IV (16:15)
[2020-02-06] MEDS: sodium chloride 0.9% 100 ML 200 ML IV (16:15)
[2020-02-06 23:45] LABS: Eosinophils # 0.1 10^3/uL (0.0-0.8); Eosinophils % 2.4 %; Hematocrit 21.1 % (42.0-52.0); Lymphocytes # 0.5 10^3/uL (0.8-4.8); Lymphocytes % 17.9 %; Mean Corpuscular HGB Conc 29.9 g/dL (30.0-36.0); Mean Corpuscular Hemoglobin 27.4 pg (28.0-34.0); Mean Corpuscular Volume 91.7 fL (80-94); Mean Platelet Volume 13.5 fL (7.4-10.4); Monocytes # 0.2 10^3/uL (0.2-0.9); Monocytes % 9.6 %; Neutrophils # 1.8 10^3/uL (1.8-7.7); Neutrophils % 69.7 %; Nucleated Red Blood Cells % 0 %; Platelet Count 124 10^3/cmm (130-400); Red Cell Distribution Width 16.4 % (12.1-15.1); White Blood Count 2.5 10^3/uL (4.0-10.0)
[2020-02-07] VITALS (10 sets, daily range): BP systolic 95–114; BP diastolic 46–61; PULSE 69–80; RESP 15–17; TEMP 36.4–36.9; O2SAT 98
[2020-02-07 07:27] LABS: Hemoglobin 6.3 g/dL (11.7-16.6)
[2020-02-07] MEDS: acetaminophen 325 mg Tablet 650 MG PO (09:40)
[2020-02-07] MEDS: sodium chloride 0.9% 250 ML 999 ML IV (09:40)
[2020-02-07] MEDS: diphenhydrAMINE 25 mg Capsule PO (09:40)
[2020-02-07] MEDS: FUROsemide 10 mg/mL SDV 2mL 20 MG IV (11:44)
[2020-02-14 17:52] LABS: Basophils % 0.3 %; Eosinophils % 1.3 %; Hematocrit 27.7 % (42.0-52.0); Hemoglobin 8.1 g/dL (11.7-16.6); Lymphocytes # 0.6 10^3/uL (0.8-4.8); Lymphocytes % 18.3 %; Mean Corpuscular HGB Conc 29.2 g/dL (30.0-36.0); Mean Corpuscular Hemoglobin 26.4 pg (28.0-34.0); Mean Corpuscular Volume 90.2 fL (80-94); Monocytes # 0.3 10^3/uL (0.2-0.9); Neutrophils # 2.2 10^3/uL (1.8-7.7); Neutrophils % 70.1 %; Nucleated Red Blood Cells % 0 %; Platelet Count 102 10^3/cmm (130-400); Red Blood Count 3.07 10^6/uL (4.1-5.3); Red Cell Distribution Width 19.2 % (12.1-15.1); White Blood Count 3.1 10^3/uL (4.0-10.0)
== END 2020-02-16 23:59 | disposition home or self-care (01) ==
LOC: ONCMED 15:30
PROVIDERS: Nurse Practitioner; Family Provider Internal Medicine; PCP Internal Medicine; Visit Provider Internal Medicine Medical Oncology
DX: D50.9 Iron deficiency anemia, unspecified (principal); D69.6 Thrombocytopenia, unspecified
CPT/HCPCS: 36430; 85025; 86850; 86900; 86920; 96365; J1439; J1940; J7050; P9016

== ENCOUNTER 2020-03-09 06:46 | Outpatient (RCR) | payer MEDICARE, BC, SELFPAY ==
[2020-02-21 15:05] LABS: Basophils % 0.6 %; Eosinophils # 0.1 10^3/uL (0.0-0.8); Hematocrit 27.7 % (42.0-52.0); Lymphocytes % 29.1 %; Mean Corpuscular HGB Conc 32.5 g/dL (30.0-36.0); Mean Corpuscular Volume 92.3 fL (80-94); Mean Platelet Volume 12.4 fL (7.4-10.4); Monocytes # 0.3 10^3/uL (0.2-0.9); Monocytes % 8.7 %; Neutrophils # 2.1 10^3/uL (1.8-7.7); Nucleated Red Blood Cells % 0 %; Platelet Count 118 10^3/cmm (130-400); Red Cell Distribution Width 21.3 % (12.1-15.1); White Blood Count 3.6 10^3/uL (4.0-10.0)
[2020-02-28 15:30] LABS: Eosinophils # 0.1 10^3/uL (0.0-0.8); Eosinophils % 2.7 %; Hematocrit 21.6 % (42.0-52.0); Lymphocytes % 38.5 %; Mean Corpuscular Hemoglobin 35.1 pg (28.0-34.0); Mean Corpuscular Volume 94.7 fL (80-94); Mean Platelet Volume 12.9 fL (7.4-10.4); Monocytes # 0.2 10^3/uL (0.2-0.9); Monocytes % 8.8 %; Neutrophils # 1.3 10^3/uL (1.8-7.7); Neutrophils % 49.6 %; Nucleated Red Blood Cells % 0 %; Platelet Count 98 10^3/cmm (130-400); Red Blood Count 2.28 10^6/uL (4.1-5.3); Red Cell Distribution Width 21.6 % (12.1-15.1); White Blood Count 2.6 10^3/uL (4.0-10.0)
[2020-02-28 15:53] LABS: Slide Review Slide Review Perform
[2020-03-07 12:52] LABS: Basophils % 0.3 %; Eosinophils # 0.1 10^3/uL (0.0-0.8); Eosinophils % 2.4 %; Hematocrit 28.4 % (42.0-52.0); Hemoglobin 8.6 g/dL (11.7-16.6); Lymphocytes # 0.9 10^3/uL (0.8-4.8); Lymphocytes % 24.1 %; Mean Corpuscular HGB Conc 30.3 g/dL (30.0-36.0); Mean Corpuscular Hemoglobin 26.9 pg (28.0-34.0); Mean Corpuscular Volume 88.8 fL (80-94); Monocytes # 0.3 10^3/uL (0.2-0.9); Monocytes % 9.2 %; Neutrophils # 2.4 10^3/uL (1.8-7.7); Neutrophils % 63.7 %; Nucleated Red Blood Cells % 0 %; Platelet Count 121 10^3/cmm (130-400); Red Cell Distribution Width 19.3 % (12.1-15.1); White Blood Count 3.7 10^3/uL (4.0-10.0)
[2020-03-07 13:08] LABS: Alanine Aminotransferase 11 U/L (0-41); Albumin Level 3.7 g/dL (3.5-5.2); Alkaline Phosphatase 148 IU/L (40-130); Anion Gap 16.7 (5-19); Aspartate Amino Transferase 18 U/L (0-40); Blood Urea Nitrogen 34 mg/dL (8-23); Calcium 9.4 mg/dL (8.5-10.5); Carbon Dioxide 25 mmol/L (22-29); Chloride 102 mmol/L (98-107); Ferritin 91 ng/mL (30-400); Globulin 3.9 g/dL (1.3-4.6); Glucose 216 mg/dL (65-115); Iron 31 ug/dL (59-158); Osmolality Calculated 292 mOsm/kg (285-295); Percent Saturation 12.4 % (20-50); Potassium 4.7 mmol/L (3.5-5.1); Sodium 139 mmol/L (136-145); Total Bilirubin 0.7 mg/dL (0.15-1.2); Total Iron Binding Capacity 249 mcg/dl; Total Protein 7.6 g/dL (6.6-8.7); Unsaturated Iron Binding 218 ug/dL (112-347)
--- NOTE | 2020-03-12 19:02 | ONC FU_ITS ---
Dr. Leyva Patient Follow-Up Note Patient: Aramis Olsen Unit #: [id number]: 1940 Dicatated By: Earnest Leyva M.D.Date of Visit:March 09, 2020 Onc Med Follow-up/Prog Note Chief Complaint: Anemia and thrombocytopenia. History of Present Illness: This is an 80 year-old man with moderately severe thrombocytopenia in the setting of cirrhosis, portal hypertension, and hepatosplenomegaly. He also has had evidence of iron deficiency anemia. He has a past medical history notable for coronary artery disease, atrial fibrillation on chronic anticoagulation with dabigatran, hypertension, and insulin-dependent diabetes mellitus. He was known to have a moderate thrombocytopenia since at least 2005 with platelet counts ranging from 70-100,000. He was first seen by Dr. Reynolds on 11/14/2011. His CBC showed WBC 4.1 with mild lymphopenia, hemoglobin 13.6, and platelets 75,000. He had no evidence of DIC or hemolysis. He had a chronic right lower extremity swelling without evidence of thrombosis on US doppler. He had iron deficiency, for which he received oral and parenteral iron. The CT of the abdomen and pelvis on 11/21/2011 had findings suggestive of cirrhosis and portal hypertension. Serology for hepatitis and HIV were negative. Bone marrow aspiration/biopsy on 01/06/2012 showed 50% cellularity without dyspoiesis. There was just scant storage iron. Flow cytometry was unrevealing. 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 FISH panel for MDS was negative. He established care with a broke beater and was thought to have a non-alcoholic steatohepatitis. He was started on beta blockers. His surveillance EGD on 08/26/2012 showed gastritis. His surveillance screening for hepatocellular carcinoma with ultrasound of the liver on 08/13/2012 showed no evidence of malignancy. Alpha-fetoprotein measured 1.3 on 08/10/2012. CT of the abdomen and pelvis on 08/26/2016 showed changes of cirrhosis with splenomegaly and portal hypertension. Similar findings had been described on 11/21/2011. There was mesenteric misting/ panniculitis and stranding, possibly due to edema. Findings were very similar to the prior examination. There was mild mucosal thickening involving the ascending colon. There was mild sigmoid diverticulosis without evidence for acute diverticulitis. A repeat CT abdomen/pelvis on 12/01/2016 showed unchanged cirrhotic appearing liver with associated splenomegaly. There was no ascites noted. There was unchanged central mesenteric/peripancreatic fat induration/edema, felt to be nonspecific. The findings of ascending colitis on the previous study appeared resolved. There were no other acute findings. On 07/25/2017 he presented to the emergency room with weakness and shortness of breath. His CBC showed his hemoglobin down to 8.7 g compared to 10.5 g on 07/14/2017 and to a baseline hemoglobin level of 13 g. The white blood cell count was 4500 and the platelet count was 105,000. There were no acute findings on chest x-ray. He returned to the emergency room [address] pulmonary angiogram at that time showed no evidence of pulmonary embolism or other acute cardiopulmonary findings. He was given parenteral iron replacement with infusions of Injectafer on 08/12/2017 and on 08/19/2017. On his follow-up visit in September 2017 his hemoglobin had increased to 12.0 g. He was feeling better. His serum iron studies at that time still showed low transferrin saturation of 4.4%, and I did opt to give him one additional infusion of Injectafer. His repeat CBC on 10/15/2017 showed hemoglobin up to 13.9 g. As of 12/28/2017 it had decreased slightly, to 11.9 g. He transferrin saturation at that time was borderline at 20.4% with ferritin 109 ng/mL. He continued on observation/expectant management. His other medical illnesses include hypertension, dyslipidemia, type II diabetes, and coronary artery disease. He has associated atrial fibrillation and congestive heart failure. He underwent placement of permanent pacemaker in 1997. He is a nonsmoker. INTERIM HISTORY: He was given further parenteral iron replacement with Injectafer in March 2018 and in June 2018. He was then seen for a follow-up visit on 09/28/2018. His hemoglobin at that time was moderately decreased at 9.1 g. He again appeared to have iron deficiency with his transferrin saturation low at 7.1% and ferritin low at 27.0 ng/mL. He was given further infusions of Injectafer on 09/28/2018 and 10/05/2018. As of his follow-up visit on 11/11/2018 his hemoglobin was still mildly decreased at 10.9 g and his transferrin saturation was low at 16.2%. He was given 1 additional infusion of Injectafer. His repeat CBC on 12/16/2018 showed hemoglobin down to 7.8 g with hematocrit 24.4%. The white blood cell count was 4800. Platelet count was just mildly decreased at 118,000. The serum iron studies showed low transferrin saturation at 13.6%, but with ferritin normal at 117 ng/mL. He was transfused 2 units of PRBC on 12/17/2018. He was seen for a follow-up visit on 02/03/2019. At that point he was still mildly anemic with hemoglobin 9.2 g. His transferrin saturation was low at 7.3%, consistent with iron deficiency. He was given parenteral iron replacement with 2 infusions of Injectafer. He was then given Injectafer again on 03/17/2019 and on 04/25/2019, and he received 2 additional infusions in August 2019. In November and in December 2019 he was given further infusions of Injectafer and PRBC transfusions. On 02/06/2020 he came in for another scheduled Injectafer infusion. At that point his hemoglobin was back down to 6.3 g, and he was again transfused PRBC. During subsequent follow-up, his hemoglobin had remained adequate, ranging from 8.0 to 9.0 g. He is seen for a followup visit. He has had decline in his activity and his performance status since his last visit. He is now living with his daughter. He is doing some walking. His ECOG score is 2. Lately he has been eating more, but his weight is down 7 pounds. He has not had fever. He occasionally has sweating at night. His main complaint is that he has been aching all over since his last Injectafer infusion. The worst pain is on his left side, particularly the left hand on the left knee. He has shortness of breath with activity. He does not complain of cough, and he has not been having chest pain. He has nausea and he complains that his bowels have been runny. His bladder function remains adequate, though he sometimes has difficulty voiding. He has some numbness in his left hand and in both feet. Medications: Amlodipine Besy-Benazepril HCl 1 (10-20 mg) Capsule Oral daily, Cholestyramine 2 scoop(s) (of 4 g/dose) Powder Oral daily, Digoxin 1 (0.25 mg) Tablet Oral daily, Furosemide 1 (40 mg) Tablet Oral daily, Hydrocodone-Acetaminophen 1 (7.5-325 mg) Tablet Oral b.i.d. PRN, Lantus 50 Units (of 100 Units/mL) Subcutaneous b.i.d. PRN, Lomotil 1 Tablet (of 2.5-0.025 mg) Oral b.i.d., Metoprolol Tartrate 1 (100 mg) Tablet Oral b.i.d., Omeprazole 1 (40 mg) Capsule Delayed Release Oral daily, Spironolactone-HCTZ 1 (25-25 mg) Tablet Oral daily, Tylenol 1 Tablet (of 650 mg) Oral b.i.d. PRN Allergies: No Known Allergies. Review of Systems: Constitutional - His energy is low, and he has very limited activity now. His appetite lately has been a little better. He has lost weight. No fever, chills, hot flashes. He has occasional night sweats. ECOG score is 2, ENMT - He complains that his nose runs. No mouth sores. No sore throat or difficulty swallowing, Hematologic/Lymphatic - He bruises easily, Respiratory - He has shortness of breath with activity. No cough. No pleuritic pain or hemoptysis, Cardiovascular - No angina pain. No palpitations. He has increased swelling in his legs, Gastrointestinal - He has some abdominal pain, and he complains of nausea, but no vomiting. No heartburn or acid reflux. He has frequent loose stools. He has not recently been aware of any blood in the stool or black stools, Genitourinary (M) - He says he is still able to urinate, but he can't pee like he used to . No dysuria or hematuria. No urinary frequency. No urgency or incontinence, Musculoskeletal - He has had generalized joint pain since his last Injectafer infusion, Neurologic - No headache or dizziness. He has numbness in his left arm and in both feet, Psychiatric - No anxiety or depression. No insomnia. Vital Signs: Performed on March 09, 2020 11:25 Height - 71.00 in Weight - 209.4 lbs (LOW) BSA - 2.15 sq.m BMI - 29.21 Temperature - 98.5 F Pulse - 81 /min Respiration - 22 /min BP - 111/51 mm(hg) O2 Sat - 96 % Pain - 6 Physical Examination: Constitutional - He appears generally weak and chronically ill, Eyes - Sclerae nonicteric. Conjunctivae clear, ENMT - No lesions noted in the oral cavity, Hematologic/Lymphatic - No cervical, clavicular, or axillary adenopathy, Respiratory - Lungs sound clear with some decrease in air movement bilaterally, Cardiovascular - Heart rhythm is regular. There is a III/ systolic murmur. There is no gallop or rub noted, Abdomen - Mildly distended but soft. Liver and spleen are not appear enlarged. There is no abdominal mass noted. There is no obvious ascites. There is no inguinal adenopathy, Extremities - There is 3+ lower extremity edema, which is chronic, Integumentary - He has actinic keratoses on his right ear and on his right cheek, Neurologic - There are no focal neurologic deficits noted. Lab/Imaging: CBC shows hemoglobin 8.6 g, white blood cell count 3700, and platelet count 121,000. Comprehensive metabolic profile shows elevated BUN and creatinine at 34 and 1.5 mg/dL. Alkaline phosphatase is mildly elevated at 148/130 IU/L. The bilirubin and the other liver enzymes are normal. His serum iron studies show transferrin saturation 12.4%. Impression: 1. Patient with moderately severe thrombocytopenia in the setting of cirrhosis with portal hypertension and splenomegaly. He did have evidence of iron deficiency at the time of his initial evaluation in 2011. Bone marrow aspiration/biopsy at that time was otherwise unremarkable. 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 2. He has had evidence of iron deficiency anemia with good clinical response to parenteral iron replacement with Injectafer. 3. Steatohepatitis is the presumed cause for the cirrhosis. His other medical illnesses include: 4. Hypertension. 5. Hyperlipidemia. 6. Type II diabetes. 7. Coronary artery disease with congestive heart failure. 8. Chronic atrial fibrillation. The iron deficiency anemia had initially corrected with Injectafer. However, as of his follow-up visit in March 2018 he was mildly anemic again, and his transferrin saturation and ferritin level were consistent with iron deficiency. He was treated at that time with 2 more infusions of Injectafer. He did have a positive at FIT at that time. He then required further parenteral iron replacement in June 2018 and in September 2018. He has had symptomatic improvement with the Injectafer, but that his follow-up visit in October 2018 he was still mildly anemic with low transferrin saturation, and he did receive 1 additional infusion of Injectafer. As of 12/16/2018 his hemoglobin had decreased to 7.8 g, and he was transfused 2 units PRBC. At his follow-up visit in January he was still moderately anemic, and his serum iron studies were consistent with iron deficiency. He was given parenteral iron replacement with 2 infusions of Injectafer, which he tolerated well. Despite that, he remained mildly anemic with low transferrin saturation, and he was given additional infusions of Injectafer on 03/17/2019, on 04/25/2019, and again in August 2019. He was given further infusions of Injectafer and PRBC transfusions in November and in December 2019. As of 02/06/2020 his hemoglobin is back down to 6.3 g. He was given an infusion of Injectafer and he was transfused 2 more units PRBC. Since then he has continued to have very limited activity tolerance, and there has been decline in his performance status. He also has developed generalized joint pain, which is likely to have been related to the Injectifer. Plan: We discussed options for further management. At one point someone had mentioned the possibility of transitioning to hospice, but he really is not at that stage yet. He indicates that he is willing to continue transfusion support. We will not be attempting any further parenteral iron replacement. At least for now his blood counts will be monitored every 2 weeks, and he will be transfused PRBC as indicated. I will see him again in 3 months, or sooner as needed. Signed By: Earnest Leyva M.D. <<Signature on File>>
== END 2020-03-18 23:59 | disposition home or self-care (01) ==
LOC: ONCMED 06:46
PROVIDERS: PCP Internal Medicine; Visit Provider Internal Medicine Medical Oncology
DX: D50.9 Iron deficiency anemia, unspecified (principal); D69.59 Other secondary thrombocytopenia; K74.60 Unspecified cirrhosis of liver; K76.6 Portal hypertension; R16.2 Hepatomegaly with splenomegaly, not elsewhere classified; I48.91 Unspecified atrial fibrillation; I50.9 Heart failure, unspecified; I25.10 Atherosclerotic heart disease of native coronary artery without angina pectoris; E78.5 Hyperlipidemia, unspecified; I10 Essential (primary) hypertension; E11.9 Type 2 diabetes mellitus without complications; Z79.899 Other long term (current) drug therapy
CPT/HCPCS: 36415; 80053; 82728; 83540; 83550; 85025; 99214

== ENCOUNTER 2020-04-16 06:49 | Outpatient (RCR) | payer MEDICARE, BC, SELFPAY ==
[2020-03-19 10:37] LABS: Eosinophils % 0.3 %; Hematocrit 31.9 % (42.0-52.0); Hemoglobin 9.5 g/dL (11.7-16.6); Lymphocytes # 1.4 10^3/uL (0.8-4.8); Lymphocytes % 39.7 %; Mean Corpuscular HGB Conc 29.8 g/dL (30.0-36.0); Mean Corpuscular Hemoglobin 24.9 pg (28.0-34.0); Mean Corpuscular Volume 83.7 fL (80-94); Mean Platelet Volume 13.1 fL (7.4-10.4); Monocytes # 0.4 10^3/uL (0.2-0.9); Monocytes % 10.8 %; Neutrophils # 1.7 10^3/uL (1.8-7.7); Neutrophils % 48.9 %; Nucleated Red Blood Cells % 0 %; Platelet Count 112 10^3/cmm (130-400); Red Blood Count 3.81 10^6/uL (4.1-5.3); Red Cell Distribution Width 18.4 % (12.1-15.1); White Blood Count 3.5 10^3/uL (4.0-10.0)
[2020-03-19 11:03] LABS: Slide Review Slide Review Perform
[2020-04-02 13:19] LABS: Basophils % 0.5 %; Hematocrit 33.4 % (42.0-52.0); Hemoglobin 9.7 g/dL (11.7-16.6); Lymphocytes # 0.9 10^3/uL (0.8-4.8); Lymphocytes % 41.7 %; Mean Corpuscular Hemoglobin 24.6 pg (28.0-34.0); Mean Corpuscular Volume 84.6 fL (80-94); Mean Platelet Volume 11.8 fL (7.4-10.4); Monocytes # 0.3 10^3/uL (0.2-0.9); Monocytes % 14.7 %; Neutrophils # 0.9 10^3/uL (1.8-7.7); Neutrophils % 42.6 %; Nucleated Red Blood Cells % 0 %; Platelet Count 94 10^3/cmm (130-400); Red Blood Count 3.95 10^6/uL (4.1-5.3); Red Cell Distribution Width 17.2 % (12.1-15.1); White Blood Count 2.2 10^3/uL (4.0-10.0)
== END 2020-04-17 23:59 | disposition home or self-care (01) ==
LOC: ONCMED 06:49
PROVIDERS: PCP Internal Medicine; Visit Provider Internal Medicine Medical Oncology
DX: D50.8 Other iron deficiency anemias (principal)
CPT/HCPCS: 85025

== ENCOUNTER 2020-04-30 07:16 | Outpatient (RCR) | payer MEDICARE, BC, SELFPAY ==
[2020-04-30 12:50] LABS: Basophils % 0.3 %; Eosinophils % 1.3 %; Hematocrit 28.6 % (42.0-52.0); Hemoglobin 8.5 g/dL (11.7-16.6); Lymphocytes # 0.9 10^3/uL (0.8-4.8); Lymphocytes % 28.9 %; Mean Corpuscular HGB Conc 29.7 g/dL (30.0-36.0); Mean Corpuscular Hemoglobin 24.9 pg (28.0-34.0); Mean Corpuscular Volume 83.6 fL (80-94); Mean Platelet Volume 12.1 fL (7.4-10.4); Monocytes # 0.2 10^3/uL (0.2-0.9); Neutrophils # 1.96 10^3/uL (1.8-7.7); Neutrophils % 62.2 %; Nucleated Red Blood Cells % 0 %; Platelet Count 106 10^3/cmm (130-400); Red Blood Count 3.42 10^6/uL (4.1-5.3); Red Cell Distribution Width 16.8 % (12.1-15.1); White Blood Count 3.2 10^3/uL (4.0-10.0)
[2020-04-30 13:06] LABS: Alanine Aminotransferase 12 U/L (0-41); Albumin Level 3.8 g/dL (3.5-5.2); Alkaline Phosphatase 150 IU/L (40-130); Anion Gap 14.4 (5-19); Aspartate Amino Transferase 22 U/L (0-40); Blood Urea Nitrogen 34 mg/dL (8-23); Calcium 9.2 mg/dL (8.5-10.5); Carbon Dioxide 25 mmol/L (22-29); Chloride 103 mmol/L (98-107); Globulin 3.8 g/dL (1.3-4.6); Glucose 240 mg/dL (65-115); Osmolality Calculated 289 mOsm/kg (285-295); Potassium 5.4 mmol/L (3.5-5.1); Sodium 137 mmol/L (136-145); Total Bilirubin 0.7 mg/dL (0.15-1.2); Total Protein 7.6 g/dL (6.6-8.7)
== END 2020-04-30 23:59 | disposition home or self-care (01) ==
LOC: ONCMED 07:16
PROVIDERS: PCP Internal Medicine; Visit Provider Internal Medicine Medical Oncology
DX: D50.8 Other iron deficiency anemias (principal)
CPT/HCPCS: 36415; 80053; 85025

== ENCOUNTER 2020-05-08 15:21 | Outpatient (CLI) | payer MEDICARE, BC, SELFPAY ==
--- NOTE | 2020-05-08 15:45 | USCV_ITS ---
Pretty Aramis Age: 80 Gender: M : 1940 Exam Date: 05/08/2020 15:54 Ordering Phys: Sudeep Lucas MD ([email or web address]) Technologist: Mavis Cabrera Exam Location: [facility] [place] Indication: aortic stenosis BP: / HR: 89 Rhythm: Sinus Technical Quality: Adequate MEASUREMENTS (Male / Female) Normal Values 2D ECHO LV Diastolic Diameter PLAX 4.0 cm 4.2 - 5.9 / 3.9 - 5.3 cm LV Systolic Diameter PLAX 2.5 cm IVS Diastolic Thickness 1.2 cm 0.6 - 1.0 / 0.6 - 0.9 cm IVS Systolic Thickness 1.9 cm LVPW Diastolic Thickness 1.3 cm 0.6 - 1.0 / 0.6 - 0.9 cm LVPW Systolic Thickness 1.5 cm LV Ejection Fraction 2D Teich 67.8 % LV Ejection Fraction MOD 2C 78.0 % LV Ejection Fraction 2C AL 80.2 % LA Diameter 5.0 cm LA Width 4.9 cm LA Height 7.5 cm RA Width 3.2 cm RA Height 6.6 cm M-MODE LV Diastolic Diameter MM 4.6 cm 4.2 - 5.9 / 3.9 - 5.3 cm LV Systolic Diameter MM 2.9 cm LV Ejection Fraction MM Teich 68.3 % IVS Diastolic Thickness MM 1.2 cm 0.6 - 1.0 / 0.6 - 0.9 cm IVS Systolic Thickness MM 1.6 cm LVPW Diastolic Thickness MM 0.6 cm 0.6 - 1.0 / 0.6 - 0.9 cm LVPW Systolic Thickness MM 1.8 cm Aortic Annulus Diameter 2.9 cm LA Ao Ratio MM 1.8 MV E Point Septal Separation 0.4 cm DOPPLER AV Peak Velocity 316.0 cm/s LVOT Peak Velocity 104.0 cm/s MV Peak Velocity 164.0 cm/s MV Area PHT 3.2 cm squared Mitral E to A Ratio 2.8 MV E' Velocity 14.0 cm/s Mitral E to MV E' Ratio 9.9 Mitral E to LV E' Lateral Ratio 7.7 Mitral E to LV E' Septal Ratio 14.1 TR Peak Velocity 339.0 cm/s TR Peak Gradient 45.9 mmHg Right Atrial Pressure 3.0 mmHg Pulmonary Artery Systolic Pressu 49.0 mmHg PV Peak Velocity 108.0 cm/s RV Acceleration Time 0.1 s FINDINGS Left Ventricle Normal left ventricular size and systolic function, EF 78 %. No regional wall motion abnormalities. Moderate left ventricular hypertrophy. Right Ventricle Pacemaker wire in the right ventricle Right Atrium Moderately increased right atrial size. Pacemaker wire in the right atrium Left Atrium Moderately increased left atrial size. Mitral Valve Thickened mitral valve. Mild mitral annular calcification. Mild- moderate mitral valve regurgitation. Aortic Valve Possibly moderate aortic valve stenosis with a peak velocity of 3.16 m/s, peak gradient of 40 and a mean gradient of 23 mmHg Tricuspid Valve Moderate tricuspid valve regurgitation. Pulmonic Valve Trace pulmonary valve regurgitation. Pericardium No pericardial effusion. Aorta Normal aortic annulus size. CONCLUSIONS Normal left ventricular size and systolic function, EF 78 %. No regional wall motion abnormalities. Moderate left ventricular hypertrophy. Moderate biatrial enlargement. Possibly moderate aortic valve stenosis with a peak velocity of 3.16 m/s, peak gradient of 40 and a mean gradient of 23 mmHg. Mild pulmonary hypertension with an estimated pulmonary artery peak systolic pressure of 40 mmHg Moderate tricuspid valve regurgitation. Mild-moderate mitral valve regurgitation. There is no pericardial effusion. Compared to the study from 08/13/2017, there is some worsening of the aortic valve stenosis Dr Sudeep Lucas MD [facility] (Electronically Signed) Final Date: 09 May 2020 00:09 S
== END 2020-05-08 15:22 | disposition home or self-care (01) ==
LOC: RAD 15:24
PROVIDERS: PCP Internal Medicine; Visit Provider Internal Medicine Cardiovascular Disease
DX: I07.1 Rheumatic tricuspid insufficiency (principal); I34.0 Nonrheumatic mitral (valve) insufficiency; I27.20 Pulmonary hypertension, unspecified
CPT/HCPCS: 93306

== ENCOUNTER 2020-05-14 07:22 | Outpatient (RCR) | payer MEDICARE, BC, SELFPAY ==
[2020-05-14 14:35] LABS: Basophils % 0.3 %; Hematocrit 28.3 % (42.0-52.0); Hemoglobin 8.5 g/dL (11.7-16.6); Lymphocytes # 0.7 10^3/uL (0.8-4.8); Lymphocytes % 23.5 %; Mean Corpuscular Hemoglobin 25.1 pg (28.0-34.0); Mean Corpuscular Volume 83.7 fL (80-94); Mean Platelet Volume 12.1 fL (7.4-10.4); Monocytes # 0.2 10^3/uL (0.2-0.9); Monocytes % 7.8 %; Neutrophils # 1.97 10^3/uL (1.8-7.7); Neutrophils % 67.1 %; Nucleated Red Blood Cells % 0 %; Platelet Count 89 10^3/cmm (130-400); Red Blood Count 3.38 10^6/uL (4.1-5.3); Red Cell Distribution Width 16.9 % (12.1-15.1); White Blood Count 2.9 10^3/uL (4.0-10.0)
== END 2020-05-18 23:59 | disposition home or self-care (01) ==
LOC: ONCMED 07:22
PROVIDERS: PCP Internal Medicine; Visit Provider Internal Medicine Medical Oncology
DX: D64.9 Anemia, unspecified (principal)
CPT/HCPCS: 36415; 85025

== ENCOUNTER 2020-06-13 05:46 | Outpatient (RCR) | payer MEDICARE, BC, SELFPAY ==
[2020-06-04 12:54] LABS: Basophils % 0.3 %; Eosinophils # 0.1 10^3/uL (0.0-0.8); Eosinophils % 2.2 %; Hematocrit 28.8 % (42.0-52.0); Hemoglobin 8.3 g/dL (11.7-16.6); Lymphocytes # 0.5 10^3/uL (0.8-4.8); Lymphocytes % 16.4 %; Mean Corpuscular HGB Conc 28.8 g/dL (30.0-36.0); Mean Corpuscular Hemoglobin 23.4 pg (28.0-34.0); Mean Corpuscular Volume 81.4 fL (80-94); Mean Platelet Volume 12.3 fL (7.4-10.4); Monocytes # 0.2 10^3/uL (0.2-0.9); Monocytes % 7.1 %; Neutrophils # 2.38 10^3/uL (1.8-7.7); Neutrophils % 73.7 %; Nucleated Red Blood Cells % 0 %; Platelet Count 104 10^3/cmm (130-400); Red Blood Count 3.54 10^6/uL (4.1-5.3); Red Cell Distribution Width 16.7 % (12.1-15.1); White Blood Count 3.2 10^3/uL (4.0-10.0)
[2020-06-11 10:04] LABS: Basophils % 0.5 %; Eosinophils # 0.1 10^3/uL (0.0-0.8); Eosinophils % 1.9 %; Hematocrit 28.2 % (42.0-52.0); Lymphocytes # 0.6 10^3/uL (0.8-4.8); Lymphocytes % 13.7 %; Mean Corpuscular HGB Conc 28.4 g/dL (30.0-36.0); Mean Corpuscular Hemoglobin 22.4 pg (28.0-34.0); Mean Platelet Volume 12.5 fL (7.4-10.4); Monocytes # 0.3 10^3/uL (0.2-0.9); Monocytes % 6.7 %; Neutrophils # 3.19 10^3/uL (1.8-7.7); Nucleated Red Blood Cells % 0 %; Platelet Count 119 10^3/cmm (130-400); Red Blood Count 3.57 10^6/uL (4.1-5.3); Red Cell Distribution Width 17.2 % (12.1-15.1); White Blood Count 4.2 10^3/uL (4.0-10.0)
[2020-06-11 10:25] LABS: Alanine Aminotransferase 12 U/L (0-41); Albumin Level 3.7 g/dL (3.5-5.2); Alkaline Phosphatase 120 IU/L (40-130); Anion Gap 14.8 (5-19); Aspartate Amino Transferase 19 U/L (0-40); Blood Urea Nitrogen 37 mg/dL (8-23); Calcium 8.5 mg/dL (8.5-10.5); Carbon Dioxide 26 mmol/L (22-29); Chloride 106 mmol/L (98-107); Globulin 4.4 g/dL (1.3-4.6); Glucose 172 mg/dL (65-115); Osmolality Calculated 296 mOsm/kg (285-295); Potassium 4.8 mmol/L (3.5-5.1); Sodium 142 mmol/L (136-145); Total Bilirubin 0.9 mg/dL (0.15-1.2); Total Protein 8.1 g/dL (6.6-8.7)
[2020-06-11 12:05] LABS: Iron 26 ug/dL (59-158); Total Iron Binding Capacity 324 mcg/dl; Unsaturated Iron Binding 298 ug/dL (112-347)
--- NOTE | 2020-06-11 18:59 | ONC FU_ITS ---
Dr. Leyva Patient Follow-Up Note Patient: Aramis Olsen Unit #: [id number]: 1940 Dicatated By: Earnest Leyva M.D.Date of Visit:Jun 11, 2020 Onc Med Follow-up/Prog Note Chief Complaint: Anemia and thrombocytopenia. History of Present Illness: This is an 80 year-old man with moderately severe thrombocytopenia in the setting of cirrhosis, portal hypertension, and hepatosplenomegaly. He also has had evidence of iron deficiency anemia. He has a past medical history notable for coronary artery disease, atrial fibrillation on chronic anticoagulation with dabigatran, hypertension, and insulin-dependent diabetes mellitus. He was known to have a moderate thrombocytopenia since at least 2005 with platelet counts ranging from 70-100,000. He was first seen by Dr. Reynolds on 11/14/2011. His CBC showed WBC 4.1 with mild lymphopenia, hemoglobin 13.6, and platelets 75,000. He had no evidence of DIC or hemolysis. He had a chronic right lower extremity swelling without evidence of thrombosis on US doppler. He had iron deficiency, for which he received oral and parenteral iron. The CT of the abdomen and pelvis on 11/21/2011 had findings suggestive of cirrhosis and portal hypertension. Serology for hepatitis and HIV were negative. Bone marrow aspiration/biopsy on 01/06/2012 showed 50% cellularity without dyspoiesis. There was just scant storage iron. Flow cytometry was unrevealing. 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 FISH panel for MDS was negative. He established care with a turner machine and was thought to have a non-alcoholic steatohepatitis. He was started on beta blockers. His surveillance EGD on 08/26/2012 showed gastritis. His surveillance screening for hepatocellular carcinoma with ultrasound of the liver on 08/13/2012 showed no evidence of malignancy. Alpha-fetoprotein measured 1.3 on 08/10/2012. CT of the abdomen and pelvis on 08/26/2016 showed changes of cirrhosis with splenomegaly and portal hypertension. Similar findings had been described on 11/21/2011. There was mesenteric misting/ panniculitis and stranding, possibly due to edema. Findings were very similar to the prior examination. There was mild mucosal thickening involving the ascending colon. There was mild sigmoid diverticulosis without evidence for acute diverticulitis. A repeat CT abdomen/pelvis on 12/01/2016 showed unchanged cirrhotic appearing liver with associated splenomegaly. There was no ascites noted. There was unchanged central mesenteric/peripancreatic fat induration/edema, felt to be nonspecific. The findings of ascending colitis on the previous study appeared resolved. There were no other acute findings. On 07/25/2017 he presented to the emergency room with weakness and shortness of breath. His CBC showed his hemoglobin down to 8.7 g compared to 10.5 g on 07/14/2017 and to a baseline hemoglobin level of 13 g. The white blood cell count was 4500 and the platelet count was 105,000. There were no acute findings on chest x-ray. He returned to the emergency room [address] pulmonary angiogram at that time showed no evidence of pulmonary embolism or other acute cardiopulmonary findings. He was given parenteral iron replacement with infusions of Injectafer on 08/12/2017 and on 08/19/2017. On his follow-up visit in September 2017 his hemoglobin had increased to 12.0 g. He was feeling better. His serum iron studies at that time still showed low transferrin saturation of 4.4%, and I did opt to give him one additional infusion of Injectafer. His repeat CBC on 10/15/2017 showed hemoglobin up to 13.9 g. As of 12/28/2017 it had decreased slightly, to 11.9 g. He transferrin saturation at that time was borderline at 20.4% with ferritin 109 ng/mL. He continued on observation/expectant management. His other medical illnesses include hypertension, dyslipidemia, type II diabetes, and coronary artery disease. He has associated atrial fibrillation and congestive heart failure. He underwent placement of permanent pacemaker in 1997. He is a nonsmoker. INTERIM HISTORY: He was given further parenteral iron replacement with Injectafer in March 2018 and in June 2018. He was then seen for a follow-up visit on 09/28/2018. His hemoglobin at that time was moderately decreased at 9.1 g. He again appeared to have iron deficiency with his transferrin saturation low at 7.1% and ferritin low at 27.0 ng/mL. He was given further infusions of Injectafer on 09/28/2018 and 10/05/2018. As of his follow-up visit on 11/11/2018 his hemoglobin was still mildly decreased at 10.9 g and his transferrin saturation was low at 16.2%. He was given 1 additional infusion of Injectafer. His repeat CBC on 12/16/2018 showed hemoglobin down to 7.8 g with hematocrit 24.4%. The white blood cell count was 4800. Platelet count was just mildly decreased at 118,000. The serum iron studies showed low transferrin saturation at 13.6%, but with ferritin normal at 117 ng/mL. He was transfused 2 units of PRBC on 12/17/2018. He was seen for a follow-up visit on 02/03/2019. At that point he was still mildly anemic with hemoglobin 9.2 g. His transferrin saturation was low at 7.3%, consistent with iron deficiency. He was given parenteral iron replacement with 2 infusions of Injectafer. He was then given Injectafer again on 03/17/2019 and on 04/25/2019, and he received 2 additional infusions in August 2019. In November 2019 he received an additional infusion of Injectafer and in December he was given a PRBC transfusion. He did receive another infusion of Injectafer on 02/06/2020. At that point his hemoglobin had dropped to 6.3 g, and he also was transfused 2 units PRBC. He did develop significant side effects following that infusion of Injectafer. During subsequent follow-up, his hemoglobin had remained adequate, ranging from 8.0 to 9.0 g. He is seen for a followup visit. He has been feeling somewhat weaker generally, and he says his stools now are dark all the time. He has limited activity. ECOG score is 2. His appetite lately has been better. He does not have fever or night sweats. He has shortness of breath. He was having a real bad cough, but that is better now. He has nausea in the mornings. His acid reflux is adequately managed with medication. He recently was treated for urinary tract infection, and he says he still has a little burning with urination. He complains that his joints hurt, especially his hands and elbows. He also has numbness, and both the pain and numbness are in the ulnar distribution. He also complains that he has no strength in his hands. He also has neuropathy in his legs and feet. Medications: Digoxin 1 Tablet (of 0.125 mg) Oral daily, Furosemide 2 Tablet (of 40 mg) Oral daily, Glimepiride 1 (4 mg) Tablet Oral b.i.d., Hydrocodone-Acetaminophen 1 (7.5-325 mg) Tablet Oral b.i.d. PRN, Lantus 50 Units (of 100 Units/mL) Subcutaneous b.i.d. PRN, Lomotil 1 Tablet (of 2.5-0.025 mg) Oral b.i.d., Metoprolol Tartrate 1 (100 mg) Tablet Oral b.i.d., Omeprazole 1 Capsule (of 40 mg) Capsule Delayed Release Oral daily, Spironolactone-HCTZ 1 (25-25 mg) Tablet Oral daily, Tylenol 1 Tablet (of 650 mg) Oral b.i.d. PRN Allergies: No Known Allergies. Review of Systems: Constitutional - He has limited activity, but he is up and around. Appetite is good. He has gained weight. No fever, night sweats, or hot flashes. ECOG score is, ENMT - He had sinus drainage with a recent cold, but it is better now. No mouth sores. No sore throat or difficulty swallowing, Hematologic/Lymphatic - He has easy bruising, Respiratory - He has shortness of breath. His cough is better. No pleuritic pain or hemoptysis, Cardiovascular - No angina pain. No palpitations, Gastrointestinal - He sometimes has nausea in the morning. His acid reflux is adequately managed with medication. No diarrhea or constipation. He is having dark stools, Genitourinary (M) - He recently had treatment for a bladder infection. He still has a little burning with urination. No hematuria. No urinary frequency. No urgency or incontinence, Musculoskeletal - He has pain in both arms and hands. He has no strength in his hands, Integumentary - No skin rash, Neurologic - No headache or dizziness. He has numbness in the ulnar distribution of both hands and he has neuropathy in his legs and feet, Psychiatric - No anxiety or depression. No insomnia. Vital Signs: Performed on Jun 11, 2020 11:27 Height - 71.00 in Weight - 208.6 lbs (LOW) BSA - 2.15 sq.m BMI - 29.09 Temperature - 98.0 F (LOW) Pulse - 81 /min Respiration - 20 /min BP - 118/58 mm(hg) O2 Sat - 98 % Pain - 5 Physical Examination: Constitutional - He appears generally weak, but not acutely ill, Eyes - Sclerae nonicteric. Conjunctivae clear, ENMT - No lesions noted in the oral cavity, Hematologic/Lymphatic - No cervical, clavicular, or axillary adenopathy, Respiratory - Lungs show slightly coarse breath sounds bilaterally, Cardiovascular - Heart rhythm is regular. There is a II/ systolic murmur. There is no gallop or rub noted, Abdomen - Moderately distended and somewhat firm. I suspect there is some ascites. Liver and spleen are not appear enlarged. There is no abdominal mass noted. There is no inguinal adenopathy, Extremities - There is 2 to 3+ lower extremity edema, Neurologic - No focal neurologic deficits noted. Lab/Imaging: Test performed on Jun 11, 2020 09:40 Iron 26 mcg/dL Sodium 142 mmol/L Iron Binding Capacity (TIBC) 324 mcg/dl Potassium 4.8 mmol/L % Iron Saturation 8.0 % Chloride 106 mmol/L CO2 26 mmol/L UIBC 298 mcg/dL Anion Gap 14.8 BUN 37 mg/dL Creatinine 1.4 mg/dL Cr Clearance (Est) 55.38 mL/min Glucose 172 mg/dL Calcium 8.5 mg/dL Protein, Total 8.1 g/dL Albumin 3.7 g/dL Globulin 4.4 g/dL Bilirubin, Total 0.9 mg/dL ALT (SGPT) 12 U/L AST (SGOT) 19 U/L Alkaline Phosphatase 120 IU/L WBC 4.2 10 3/uL RBC 3.57 10 6/uL HGB 8.0 g/dL HCT 28.2 % MCV 79.0 fL MCH 22.4 pg MCHC 28.4 g/dL RDW 17.2 % Platelet Count 119 10 3/cmm MPV 12.5 fL Neutrophils 3.19 10 3/uL Lymphocytes 0.6 10 3/uL Monocytes 0.3 10 3/uL Eosinophils 0.1 10 3/uL Basophils 0.0 10 3/uL Neutrophil % 77.0 % Lymphocyte % 13.7 % Monocyte % 6.7 % Eosinophil % 1.9 % Basophils % 0.5 % NRBC % 0 % Impression: 1. Patient with moderately severe thrombocytopenia in the setting of cirrhosis with portal hypertension and splenomegaly. He did have evidence of iron deficiency at the time of his initial evaluation in 2011. Bone marrow aspiration/biopsy at that time was otherwise unremarkable. 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 2. He has had evidence of iron deficiency anemia with good clinical response to parenteral iron replacement with Injectafer. 3. Steatohepatitis is the presumed cause for the cirrhosis. His other medical illnesses include: 4. Hypertension. 5. Hyperlipidemia. 6. Type II diabetes. 7. Coronary artery disease with congestive heart failure. 8. Chronic atrial fibrillation. The iron deficiency anemia had initially corrected with Injectafer. However, as of his follow-up visit in March 2018 he was mildly anemic again, and his transferrin saturation and ferritin level were consistent with iron deficiency. He was treated at that time with 2 more infusions of Injectafer. He did have a positive at FIT at that time. He then required further parenteral iron replacement in June 2018 and in September 2018. He has had symptomatic improvement with the Injectafer, but that his follow-up visit in October 2018 he was still mildly anemic with low transferrin saturation, and he did receive 1 additional infusion of Injectafer. As of 12/16/2018 his hemoglobin had decreased to 7.8 g, and he was transfused 2 units PRBC. At his follow-up visit in January he was still moderately anemic, and his serum iron studies were consistent with iron deficiency. He was given parenteral iron replacement with 2 infusions of Injectafer, which he tolerated well. Despite that, he remained mildly anemic with low transferrin saturation, and he was given additional infusions of Injectafer on 03/17/2019, on 04/25/2019, and again in August 2019. He was given another infusions of Injectafer in November and he was given a PRBC transfusion in December 2019. As of 02/06/2020 his hemoglobin was back down to 6.3 g. He was given an infusion of Injectafer and he also was transfused 2 more units PRBC. He then developed generalized joint pain and other symptoms which I suspected were related to the Injectafer infusion. During subsequent follow-up his hemoglobin had stabilized in the range of 8 to 9 g. He returns today with his hemoglobin back down to 8.0 g. His serum iron studies show low transferrin saturation at 8%, consistent with iron deficiency. He is feeling generally weaker and more short of breath, and he is reporting having dark stools, so that he almost certainly has some ongoing GI blood loss. Plan: He will be transfused 2 units PRBC. I am going to look into the possibility of changing his parenteral iron to a different preparation. Signed By: Earnest Leyva M.D. <<Signature on File>>
[2020-06-13] VITALS (8 sets, daily range): BP systolic 97–114; BP diastolic 54–69; PULSE 69–72; RESP 18; TEMP 19.9–36.8; O2SAT 97–99
[2020-06-13] MEDS: sodium chloride 0.9% 250 ML 999 ML IV (13:05)
[2020-06-13] MEDS: acetaminophen 325 mg Tablet 650 MG PO (13:05)
[2020-06-13] MEDS: diphenhydrAMINE 25 mg Capsule PO (13:18)
== END 2020-06-18 23:59 | disposition home or self-care (01) ==
LOC: ONCMED 05:46
PROVIDERS: PCP Internal Medicine; Visit Provider Internal Medicine Medical Oncology
DX: D50.9 Iron deficiency anemia, unspecified (principal); D69.59 Other secondary thrombocytopenia; K74.60 Unspecified cirrhosis of liver; K76.6 Portal hypertension; I10 Essential (primary) hypertension; E78.5 Hyperlipidemia, unspecified; I25.10 Atherosclerotic heart disease of native coronary artery without angina pectoris; I50.9 Heart failure, unspecified; I48.20 Chronic atrial fibrillation, unspecified
CPT/HCPCS: 36415; 36430; 80053; 83540; 83550; 85025; 86850; 86900; 86920; 99214; J7050; P9016

== ENCOUNTER 2020-06-21 06:27 | Outpatient (RCR) | payer MEDICARE, BC, SELFPAY ==
[2020-06-21] MEDS: ferumoxytol (NON-ESRD) 510 MG in sodium chloride 0.9% (100 ml) 100 ML 351 MG IV (14:55)
== END 2020-06-21 23:59 | disposition home or self-care (01) ==
LOC: ONCMED 06:27
PROVIDERS: PCP Internal Medicine; Visit Provider Nurse Practitioner
DX: D50.0 Iron deficiency anemia secondary to blood loss (chronic) (principal); D69.59 Other secondary thrombocytopenia; K74.60 Unspecified cirrhosis of liver; K76.6 Portal hypertension; R16.2 Hepatomegaly with splenomegaly, not elsewhere classified
CPT/HCPCS: 96365; Q0138

== ENCOUNTER 2020-06-26 09:22 | Emergency (ER) | payer MEDICARE, BC, SELFPAY ==
[2020-06-26 09:26] VITALS: BP 141/55; PULSE 98; RESP 17; TEMP 37; O2SAT 95; BMI 28.5
[2020-06-26 09:38] VITALS: BP 132/63; PULSE 72; RESP 20; O2SAT 97
--- NOTE | 2020-06-26 09:38 | XR_ITS ---
WS: [id number] ABDOMEN KUB CLINICAL INFORMATION: Abdominal pain COMPARISON: None. FINDINGS: Cholecystectomy clips. No evidence of high-grade small or large bowel obstruction. Osteopenia. Pelvic phleboliths. Partially visualized cardiac pacer. Small left pleural effusion. XR/XR KUB portable [id number] Impression: Small left pleural effusion. Unremarkable bowel gas pattern.
[2020-06-26 09:40] VITALS: BP 141/55; PULSE 77; RESP 20; O2SAT 97
--- NOTE | 2020-06-26 09:41 | ED_ITS ---
HPI - Nausea/Vomiting/Diarrhea General: Chief complaint: Nausea/Vomiting/Diarrhea Stated complaint: diarrhea Time Seen by Provider: 06/26/20 09:27 History of Present Illness: HPI Narrative: 80-year-old male patient presents to the emergency department with complaints of diarrhea. He reports diarrhea symptoms since Thursday, 3 days ago. He denies hematochezia, denies nausea vomiting, denies fever or chills. Reports previous episode that occurred in May 2020. States has utilize prescription antidiarrheal medication that has not been effective. Reports recent antibiotic use for urinary tract infection, 2 separate rounds approximately 3 weeks ago. Treated by his primary care physician. He reports abdominal pain, cramping lower abdomen with resolution after diarrheal episodes. He reports 15 episodes yesterday, 5 episodes since 3 this morning. He reports feels dehydrated. MD elicited complaint: diarrhea and abdominal pain Onset (ago): day(s) (3) Description of vomiting: foul-smelling and other (finney, brown) Description of diarrhea: mucus and watery Associated nausea: No Associated abdominal pain: Yes Location of pain: LLQ Pain consistency: intermittent Severity: mild Quality: cramping Relieving factors: bowel movement Context: recent antibiotic use Associated symtoms: Reports bloating, fatigue and weakness; Denies chest pain, dysuria, headache(s), nausea or palpitations Treatment prior to arrival: other (Prescription antidiarrheal) Review of Systems General: Reports: 10 or more systems reviewed and unremarkable except in HPI and below Const: Reports: fatigue Eyes: Denies: blurry vision or eye redness ENMT: Denies: throat pain, dental pain or disequilibrium Card: Denies: chest pain, palpitations or irregular heart rhythm Resp: Denies: dyspnea, productive cough, non-productive cough or wheezing GI: Reports: abdominal pain, bloating, GI cramping and change in stool character; Denies: nausea : Denies: dysuria Musc: Reports: extremity swelling (Chronic lymphedema BLE) and muscle weakness (From diarrhea); Denies: back pain Skin/Breast: Denies: rash or pruritus Neuro: Reports: weakness in extremities and other (reports generalized weakness); Denies: headache(s) or behavioral changes Hitesh/Lymph: Denies: easy bruising PFS ED PFSH: Medical History (Updated 06/26/20 @ 12:19 by LITA Harrison) Anemia Aortic valve stenosis, acquired Bloody stools Chronic atrial fibrillation Chronic diarrhea Cirrhosis Coronary artery disease Diabetes mellitus Diarrhea History of CHF (congestive heart failure) History of gastritis Hyperlipidemia Hypertension Pacemaker Portal hypertension Thrombocytopenia Surgical History History of colonoscopy (~11/2019) History of esophagogastroduodenoscopy (EGD) (~11/2019) History of permanent cardiac pacemaker placement Family History Other Cancer Social History Smoking and tobacco status: former smoker Alcohol intake: former Physical Exam Const: COMMON NORMALS: no acute distress, patient oriented x3 and alert GENERAL APPEARANCE: cooperative and well kempt ORIENTATION/CONSCIOUSNESS: Yes awake, Yes oriented to person and Yes oriented to place HENMT: COMMON NORMALS: normocephalic, external ears normal and Normal external nose present HEAD & SCALP: normocephalic NOSE: Normal external nose present EXTERNAL EAR: Yes external ears normal MOUTH: moist mucous membranes abnormal (dry) THROAT: posterior oropharynx normal Eye: COMMON NORMALS: Equal, round and reactive pupils present and EOMs intact bilaterally GENERAL EYE: appearance normal, both eyes and all related structures PUPIL: Yes Equal, round and reactive pupils present Neck/C-Spine: COMMON NORMALS: full ROM and no lymphadenopathy GENERAL: Yes normal visual inspection and Yes trachea midline CERVICAL SPINE: Yes cervical ROM normal Lymph: LYMPHATIC: no lymphadenopathy noted Chest: COMMONS NORMALS: normal inspection of the chest Resp: COMMON NORMALS: normal respiratory effort and clear to auscultation bilaterally AUSCULTATION: clear to auscultation bilaterally Cardio: COMMON NORMALS: regular rate, regular rhythm and Peripheral pulses 2+ throughout RATE: regular rate RHYTHM: regular rhythm HEART SOUNDS: Murmur heart sound present continuous PERIPHERAL PULSES: Peripheral pulses 2+ throughout OTHER: BLE lymphedema present GI: COMMON NORMALS: Soft to palpation and non-tender INSPECTION: Yes normal to inspection and Yes abdominal distension AUSCULTATION: Yes Hypoactive bowel sounds present PALPATION: Yes Soft to palpation : COMMON NORMALS: Yes no CVA tenderness BLADDER/KIDNEY EXAM: Yes no CVA tenderness Back/Pelvis: COMMON NORMALS: no CVA tenderness and thoracic and lumbar spine normal to inspection Extremity: COMMON NORMALS: normal to inspection and capillary refill normal Neuro: COMMON NORMALS: patient oriented x3 and no focal motor deficits SENSORIUM/ORIENTATION: Yes alert, Yes oriented to person and Yes oriented to place Psych: COMMON NORMALS: mental status grossly normal, Normal thought process present and cooperative APPEARANCE: Yes well kempt ACTIVITY/MOTOR BEHAVIOR: Yes appropriate eye contact THOUGHT PROCESS: Normal thought process present Skin: COMMON NORMALS: no rashes or lesions noted and turgor normal GENERAL SKIN EXAM: no rashes or lesions noted and turgor normal Course ED course: 80-year-old male patient presents to the emergency department with complaints of diarrhea. While in the ED, patient was able to drink coffee and fluids, not able to produce bowel movement during his stay here. 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 He also agrees to follow-up with his primary care provider this week due to diarrhea that is chronic and recurrent. Vital Signs: Vital signs: Vital Signs Temperature 98.6 F 06/26/20 09:26 Pulse Rate 71 06/26/20 12:35 Respiratory Rate 18 06/26/20 12:35 Blood Pressure 120/54 06/26/20 12:35 Pulse Oximetry 96 06/26/20 12:35 MDM - Nausea/Vomiting/Diarrhea Lab Data: Labs: Lab Results 06/26/20 06/26/20 06/26/20 Range/Units 10:09 10:09 10:15 WBC 3.5 L (4.0-10.0) 10^3/ uL RBC 3.78 L (4.1-5.3) 10^6/u L Hgb 9.0 L (11.7-16.6) g/dL Hct 31.7 L (42.0-52.0) % MCV 83.9 (80-94) fL MCH 23.8 L (28.0-34.0) pg MCHC 28.4 L (30.0-36.0) g/dL RDW 21.7 H (12.1-15.1) % Plt Count 93 L (130-400) 10^3/c mm MPV 11.7 H (7.4-10.4) fL Neut % (Auto) 72.5 % Lymph % (Auto) 15.0 % [place] % (Auto) 9.3 % Eos % (Auto) 2.3 % Baso % (Auto) 0.3 % Neut # (Auto) 2.57 (1.8-7.7) 10^3/u L Lymph # (Auto) 0.5 L (0.8-4.8) 10^3/u L [place] # (Auto) 0.3 (0.2-0.9) 10^3/u L Eos # (Auto) 0.1 (0.0-0.8) 10^3/u L Baso # (Auto) 0.0 (0.0-0.1) 10^3/u L Nucleated RBC % (a uto) 0 % Nucleated RBCs # 0.0 /100WBC Sodium 141 (136-145) mmol/L Potassium 3.9 (3.5-5.1) mmol/L Chloride 106 (98-107) mmol/L Carbon Dioxide 24 (22-29) mmol/L Anion Gap 14.9 (5-19) BUN 29 H (8-23) mg/dL Creatinine 1.2 (0.7-1.2) mg/dL GFR Calculation Not Reportable Glucose 82 (65-115) mg/dL Calculated Osmolal ity 288 (285-295) mOsm/k g Calcium 8.4 L (8.5-10.5) mg/dL Total Bilirubin 1.0 (0.15-1.2) mg/dL AST 23 (0-40) U/L ALT 15 (0-41) U/L Alkaline Phosphata se 139 H (40-130) IU/L Total Protein 7.7 (6.6-8.7) g/dL Albumin 3.6 (3.5-5.2) g/dL Globulin 4.1 (1.3-4.6) g/dL Urine Color Yellow (Yellow) Urine Appearance Clear (CLEAR) Urine pH 5 (5-7) Ur Specific Gravit y 1.010 (1.005-1.030) Urine Protein Neg (Negative) Urine Glucose (UA) Norm (Normal) Urine Ketones Negative (Negative) Urine Blood Neg (Negative) Urine Nitrate Negative (Negative) Urine Bilirubin Neg (NEGATIVE) Urine Urobilinogen Neg (Negative) mg/dL Ur Leukocyte [place] ase Negative (Negative) Discharge Plan Discharge Patient Disposition: Home Clinical Impression: Dehydration Diarrhea Qualifiers: Diarrhea type: unspecified type Qualified Code(s): R19.7 - Diarrhea, unspecified Condition: Stable Prescriptions: No Action omeprazole 40 mg capsule,delayed release(DR/EC) 40 mg PO DAILY RF: 0 spironolacton-hydrochlorothiaz 25-25 mg tablet 1 tab PO DAILY RF: 0 hydrocodone-acetaminophen 7.5-325 mg tablet 1 tab PO TID PRN (Reason: pain) RF: 0 metoprolol tartrate 100 mg tablet 100 mg PO BID Qty: 180 RF: 3 diphenoxylate-atropine 2.5-0.025 mg Tablet See Rx Instructions .ROUTE .COMPLEX RF: 0 bismuth subsalicylate [Pepto-Bismol] 262 mg/15 mL Suspension See Rx Instructions .ROUTE .COMPLEX RF: 0 Lantus U-100 Insulin 100 unit/mL solution 50 unit SUBCUT BID RF: 0 furosemide 40 mg tablet 80 mg PO DAILY RF: 0 Tylenol Extra Strength 500 mg Tablet 1,000 mg PO PRN RF: 0 triamcinolone acetonide 0.1 % cream See Rx Instructions .ROUTE .COMPLEX RF: 0 glimepiride 4 mg tablet 4 mg PO BID RF: 0 digoxin 125 mcg (0.125 mg) tablet 125 mcg PO DAILY RF: 0 Flonase Allergy Relief 50 mcg/actuation [place],Suspension 2 spray INTRANASAL PRN RF: 0 Discharge Orders: Discharge Order (Routine); Ordered 06/26/20 Ordered By: Caridad Craig Referrals: Earnest Dangelo DO [Primary Care Provider] - Discharge Diet: Usual diet Discharge Activity: Resume usual activity Patient Instructions: Diarrhea - Adult, Gastroenteritis (ED) Activity Restrictions/Additional Instructions: Continue Lomotil as directed Follow-up with your primary care provider this week for diarrhea issue If stool sample can be provided, may bring stool as an outpatient to the hospital for testing Return to the emergency department if you develop blood in your stool, worsening weakening symptoms, inability to keep fluid down, abdominal pain, increased weakness Discharge Date/Time: 06/26/20 12:34 Coding Level of Care Code ED Cell Room Supervisor for Chg Fwd Exam Comprehensive
[2020-06-26 10:18] LABS: Basophils % 0.3 %; Eosinophils # 0.1 10^3/uL (0.0-0.8); Eosinophils % 2.3 %; Hematocrit 31.7 % (42.0-52.0); Lymphocytes # 0.5 10^3/uL (0.8-4.8); Mean Corpuscular HGB Conc 28.4 g/dL (30.0-36.0); Mean Corpuscular Hemoglobin 23.8 pg (28.0-34.0); Mean Corpuscular Volume 83.9 fL (80-94); Mean Platelet Volume 11.7 fL (7.4-10.4); Monocytes # 0.3 10^3/uL (0.2-0.9); Monocytes % 9.3 %; Neutrophils # 2.57 10^3/uL (1.8-7.7); Neutrophils % 72.5 %; Nucleated Red Blood Cells % 0 %; Platelet Count 93 10^3/cmm (130-400); Red Blood Count 3.78 10^6/uL (4.1-5.3); Red Cell Distribution Width 21.7 % (12.1-15.1); White Blood Count 3.5 10^3/uL (4.0-10.0)
[2020-06-26] MEDS: sodium chloride 0.9% 500 ML 999 ML IV (10:25)
[2020-06-26 10:27] LABS: Add Urine Microscopic? NO
[2020-06-26 10:36] LABS: Alanine Aminotransferase 15 U/L (0-41); Albumin Level 3.6 g/dL (3.5-5.2); Alkaline Phosphatase 139 IU/L (40-130); Anion Gap 14.9 (5-19); Aspartate Amino Transferase 23 U/L (0-40); Blood Urea Nitrogen 29 mg/dL (8-23); Calcium 8.4 mg/dL (8.5-10.5); Carbon Dioxide 24 mmol/L (22-29); Chloride 106 mmol/L (98-107); Globulin 4.1 g/dL (1.3-4.6); Glucose 82 mg/dL (65-115); Osmolality Calculated 288 mOsm/kg (285-295); Potassium 3.9 mmol/L (3.5-5.1); Sodium 141 mmol/L (136-145); Total Protein 7.7 g/dL (6.6-8.7)
[2020-06-26 10:41] LABS: Bilirubin Urine Neg (NEGATIVE); Blood Urine Neg (Negative); Glucose Urine UA Norm (Normal); Ketones Urine Negative (Negative); Leukocyte Esterase Urine Negative (Negative); Nitrate Urine Negative (Negative); Protein Urine Neg (Negative); Urine Appearance Clear (CLEAR); Urine Color Yellow (Yellow); Urobilinogen Urine Neg (Negative); pH Urine 5 (5-7)
[2020-06-26 12:35] VITALS: BP 120/54; PULSE 71; RESP 18; O2SAT 96
--- NOTE | 2020-06-27 16:54 | PC.NURSE ---
PT CONTACTED FOR ABOUT HIS XRAY AND HE ASKED ABOUT HIS STOOL COLLECTION. ANKUSH DEL RIO ORDERED MEDS AND THEY WERE CALLED INTO [facility].
== END 2020-06-26 12:34 | disposition home or self-care (01) ==
PROVIDERS: Emergency Provider Nurse Practitioner Family; PCP Internal Medicine
DX: R19.7 Diarrhea, unspecified (principal); E86.0 Dehydration; Z79.4 Long term (current) use of insulin; I48.20 Chronic atrial fibrillation, unspecified; I25.10 Atherosclerotic heart disease of native coronary artery without angina pectoris; E11.9 Type 2 diabetes mellitus without complications; I11.0 Hypertensive heart disease with heart failure; I50.9 Heart failure, unspecified; E78.5 Hyperlipidemia, unspecified; Z95.0 Presence of cardiac pacemaker; Z87.891 Personal history of nicotine dependence
CPT/HCPCS: 12345; 36415; 74018; 80053; 81003; 82274; 83630; 85025; 87493; 87506; 99284; J7040

== ENCOUNTER 2020-06-28 06:55 | Outpatient (RCR) | payer MEDICARE, BC, SELFPAY ==
[2020-06-28] MEDS: ferumoxytol (NON-ESRD) 510 MG in sodium chloride 0.9% (100 ml) 100 ML 351 MG IV (15:20)
== END 2020-07-18 23:59 | disposition home or self-care (01) ==
LOC: ONCMED 06:55
PROVIDERS: PCP Internal Medicine; Visit Provider Nurse Practitioner
DX: D50.0 Iron deficiency anemia secondary to blood loss (chronic) (principal); D69.6 Thrombocytopenia, unspecified; K74.60 Unspecified cirrhosis of liver; K76.6 Portal hypertension; R16.2 Hepatomegaly with splenomegaly, not elsewhere classified
CPT/HCPCS: 96365; Q0138

== ENCOUNTER 2020-08-16 05:21 | Outpatient (RCR) | payer MEDICARE, BC, SELFPAY ==
[2020-07-31 12:40] LABS: Basophils % 0.6 %; Eosinophils # 0.1 10^3/uL (0.0-0.8); Eosinophils % 1.5 %; Hematocrit 31.9 % (42.0-52.0); Hemoglobin 10.2 g/dL (11.7-16.6); Lymphocytes # 0.5 10^3/uL (0.8-4.8); Mean Corpuscular Volume 93.8 fL (80-94); Mean Platelet Volume 11.1 fL (7.4-10.4); Monocytes # 0.2 10^3/uL (0.2-0.9); Monocytes % 5.7 %; Neutrophils # 2.56 10^3/uL (1.8-7.7); Neutrophils % 76.9 %; Nucleated Red Blood Cells % 0 %; Platelet Count 88 10^3/cmm (130-400); Red Cell Distribution Width 26.2 % (12.1-15.1); White Blood Count 3.3 10^3/uL (4.0-10.0)
[2020-07-31 13:03] LABS: Iron 43 ug/dL (59-158); Percent Saturation 19.5 % (20-50); Total Iron Binding Capacity 220 mcg/dl; Unsaturated Iron Binding 177 ug/dL (112-347)
--- NOTE | 2020-08-05 20:33 | ONC FU_ITS ---
[facility] Patient Note Patient: Aramis Olsen Unit #: [id number]: [id number] Dictated By: Arias ArzolaDate of Visit: Jul 31, 2020 Onc MED Follow-Up/Prog Note Chief Complaint: Anemia and thrombocytopenia. History of Present Illness: Mr Olsen is an 80 year-old man with moderately severe thrombocytopenia in the setting of cirrhosis, portal hypertension, and hepatosplenomegaly. He also has had evidence of iron deficiency anemia. He has a past medical history notable for coronary artery disease, atrial fibrillation on chronic anticoagulation with dabigatran, hypertension, and insulin-dependent diabetes mellitus. He was known to have a moderate thrombocytopenia since at least 2005 with platelet counts ranging from 70-100,000. He was first seen by Dr. Reynolds on 11/14/2011. His CBC showed WBC 4.1 with mild lymphopenia, hemoglobin 13.6, and platelets 75,000. He had no evidence of DIC or hemolysis. He had a chronic right lower extremity swelling without evidence of thrombosis on US doppler. He had iron deficiency, for which he received oral and parenteral iron. The CT of the abdomen and pelvis on 11/21/2011 had findings suggestive of cirrhosis and portal hypertension. Serology for hepatitis and HIV were negative. Bone marrow aspiration/biopsy on 01/06/2012 showed 50% cellularity without dyspoiesis. There was just scant storage iron. Flow cytometry was unrevealing. 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 FISH panel for MDS was negative. He established care with a park attendant and was thought to have a non-alcoholic steatohepatitis. He was started on beta blockers. His surveillance EGD on 08/26/2012 showed gastritis. His surveillance screening for hepatocellular carcinoma with ultrasound of the liver on 08/13/2012 showed no evidence of malignancy. Alpha-fetoprotein measured 1.3 on 08/10/2012. CT of the abdomen and pelvis on 08/26/2016 showed changes of cirrhosis with splenomegaly and portal hypertension. Similar findings had been described on 11/21/2011. There was mesenteric misting/ panniculitis and stranding, possibly due to edema. Findings were very similar to the prior examination. There was mild mucosal thickening involving the ascending colon. There was mild sigmoid diverticulosis without evidence for acute diverticulitis. A repeat CT abdomen/pelvis on 12/01/2016 showed unchanged cirrhotic appearing liver with associated splenomegaly. There was no ascites noted. There was unchanged central mesenteric/peripancreatic fat induration/edema, felt to be nonspecific. The findings of ascending colitis on the previous study appeared resolved. There were no other acute findings. On 07/25/2017 he presented to the emergency room with weakness and shortness of breath. His CBC showed his hemoglobin down to 8.7 g compared to 10.5 g on 07/14/2017 and to a baseline hemoglobin level of 13 g. The white blood cell count was 4500 and the platelet count was 105,000. There were no acute findings on chest x-ray. He returned to the emergency room [address] pulmonary angiogram at that time showed no evidence of pulmonary embolism or other acute cardiopulmonary findings. He was given parenteral iron replacement with infusions of Injectafer on 08/12/2017 and on 08/19/2017. On his follow-up visit in September 2017 his hemoglobin had increased to 12.0 g. He was feeling better. His serum iron studies at that time still showed low transferrin saturation of 4.4%, and I did opt to give him one additional infusion of Injectafer. His repeat CBC on 10/15/2017 showed hemoglobin up to 13.9 g. As of 12/28/2017 it had decreased slightly, to 11.9 g. He transferrin saturation at that time was borderline at 20.4% with ferritin 109 ng/mL. He continued on observation/expectant management. His other medical illnesses include hypertension, dyslipidemia, type II diabetes, and coronary artery disease. He has associated atrial fibrillation and congestive heart failure. He underwent placement of permanent pacemaker in 1997. He is a nonsmoker. INTERIM HISTORY: He was given further parenteral iron replacement with Injectafer in March 2018 and in June 2018. He was then seen for a follow-up visit on 09/28/2018. His hemoglobin at that time was moderately decreased at 9.1 g. He again appeared to have iron deficiency with his transferrin saturation low at 7.1% and ferritin low at 27.0 ng/mL. He was given further infusions of Injectafer on 09/28/2018 and 10/05/2018. As of his follow-up visit on 11/11/2018 his hemoglobin was still mildly decreased at 10.9 g and his transferrin saturation was low at 16.2%. He was given 1 additional infusion of Injectafer. His repeat CBC on 12/16/2018 showed hemoglobin down to 7.8 g with hematocrit 24.4%. The white blood cell count was 4800. Platelet count was just mildly decreased at 118,000. The serum iron studies showed low transferrin saturation at 13.6%, but with ferritin normal at 117 ng/mL. He was transfused 2 units of PRBC on 12/17/2018. He was seen for a follow-up visit on 02/03/2019. At that point he was still mildly anemic with hemoglobin 9.2 g. His transferrin saturation was low at 7.3%, consistent with iron deficiency. He was given parenteral iron replacement with 2 infusions of Injectafer. He was then given Injectafer again on 03/17/2019 and on 04/25/2019, and he received 2 additional infusions in August 2019. In November 2019 he received an additional infusion of Injectafer and in December he was given a PRBC transfusion. He did receive another infusion of Injectafer on 02/06/2020. At that point his hemoglobin had dropped to 6.3 g, and he also was transfused 2 units PRBC. He did develop significant side effects following that infusion of Injectafer. During subsequent follow-up, his hemoglobin had remained adequate, ranging from 8.0 to 9.0 g. Mr. Booker is here today for follow-up after having IV iron replacement on June 21 and June 28. He tolerated it well. He states overall he feels significantly better. He has more energy and his breathing is easier. He denies any fever or chills. He has had no known Covid exposure or symptoms. She denies any Covid testing. He states he is eating good. And his energy is better. He states he is able to do more things around the house. He states his joints feel better overall. However he continues to have numbness in the pain in the ulnar distribution as per his last visit. He states it seems to be a little bit better. He also has neuropathy in his legs and feet. But he states this neuropathy is stable. His ECOG is 1. Past Medical History: Atrial fibrillation Congestive heart failure Coronary artery disease Hepatosplenomegaly Hyperlipidemia Hypertension Iron deficiency anemia Thrombocytopenia Type II diabetes Past Surgical History: Bone marrow aspiration/biopsy in 2011 Cholecystectomy in 2009 Colonoscopy in 2008 Pneumonia Vacc in 2008 Pacemaker placement in 1997 Allergies: No Known Allergies. Medications: Digoxin 1 Tablet (of 0.125 mg) Oral daily Furosemide 2 Tablet (of 40 mg) Oral daily Glimepiride 1 (4 mg) Tablet Oral b.i.d. Hydrocodone-Acetaminophen 1 (7.5-325 mg) Tablet Oral b.i.d. PRN Lantus 50 Units (of 100 Units/mL) Subcutaneous b.i.d. PRN Lomotil 1 Tablet (of 2.5-0.025 mg) Oral b.i.d. Metoprolol Tartrate 1 (100 mg) Tablet Oral b.i.d. Omeprazole 1 Capsule (of 40 mg) Capsule Delayed Release Oral daily Spironolactone-HCTZ 1 (25-25 mg) Tablet Oral daily Tylenol 1 Tablet (of 650 mg) Oral b.i.d. PRN Family History: Mr. Olsen does not know if his mother is alive. Mr. Olsen does not know if his father is alive. No history of blood dysplasia or cancer in the family. Social History: Mr. Olsen is and he is retired. Mr. Olsen has never smoked. He has no history of drinking. Review Of Symptoms: Constitutional Denies night sweats,or weight loss. Energy is better overall. Allergic/Immunologic No reactions. Eyes Denies significant visual changes. No diplopia. No amaurosis. ENMT Denies changes in hearing, sore throat, mouth sores, difficulty or changes in swallowing ability, and/or sinus drainage. Endocrine No diabetes, thyroid disease or hormone replacement. Denies hot flashes or night sweats. Hematologic/Lymphatic Denies easy bruising or bleeding. The patient denies any tender or palpable lymph nodes. Respiratory Denies dyspnea on exertion, chest pain, cough or hemoptysis. Denies orthopnea. Cardiovascular Denies anginal chest pain, palpitations or orthopnea. Gastrointestinal Denies vomiting, GI bleeding, or constipation. Denies change in bowel habits and/or stool color, no heartburn or early satiety. nausea and abdominal pain. Genitourinary (M) Denies hematuria, dysuria, increased frequency, urgency, hesitancy or incontinence. Musculoskeletal Denies joint pain, swelling or redness. No decreased range of motion. Integumentary Denies chronic rashes, inflammation, ulcerations or skin changes. Neurologic Denies headache, blurred vision, and no areas of focal weakness or numbness. Normal gait. No sensory problems. Psychiatric Denies insomnia, depression, julio or mood swings. Vital Signs: Performed on Jul 31, 2020 14:32 Height - 71.00 in Weight - 211.8 lbs (HIGH) BSA - 2.16 sq.m BMI - 29.54 Temperature - 97.4 F (LOW) Pulse - 97 /min Respiration - 22 /min BP - 136/67 mm(hg) O2 Sat - 99 % Pain - 0,1 - No physically strenuous activity, but ambulatory and able to carry out light or sedentary work (e.g. office work, light house work). (ECOG) Physical Examination: Constitutional Alert, oriented, no acute distress. Skin pink/pale, warm and dry. Head Normocephalic; atraumatic. Eyes Conjunctivae and sclerae are clear and without icterus. Pupils are reactive and equal. Neck Supple without masses or thyromegaly. No jugular venous distension. Hematologic/Lymphatic No petechiae or purpura. No tender or palpable lymph nodes in the cervical or supraclavicular area. Respiratory Lungs are clear to auscultation without rhonchi or wheezing. Cardiovascular Regular rate and rhythm of heart without murmurs,clicks, gallops or rubs. Abdomen Non-tender, non-distended, no masses, ascites. Good bowel sounds noted in all quads. No guarding or rebound tenderness. No pulsatile masses. Back/Spine Non-tender to palpation. Extremities No visible deformities, no cyanosis, clubbing or edema. Musculoskeletal No tenderness or swelling, normal range of motion without obvious weakness. Integumentary No rashes or lesions. Neurologic No sensory or motor deficits, normal cerebellar function, normal gait. Psychiatric Alert and oriented times three. Coherent speech. Verbalizes understanding of our discussions today. Laboratory:Test performed on Jul 31, 2020 12:05 Iron 43 mcg/dL Iron Binding Capacity (TIBC) 220 mcg/dl % Iron Saturation 19.5 % UIBC 177 mcg/dL WBC 3.3 10 3/uL RBC 3.40 10 6/uL HGB 10.2 g/dL HCT 31.9 % MCV 93.8 fL MCH 30.0 pg MCHC 32.0 g/dL RDW 26.2 % Platelet Count 88 10 3/cmm MPV 11.1 fL Neutrophils 2.56 10 3/uL Lymphocytes 0.5 10 3/uL Monocytes 0.2 10 3/uL Eosinophils 0.1 10 3/uL Basophils 0.0 10 3/uL Neutrophil % 76.9 % Lymphocyte % 15.0 % Monocyte % 5.7 % Eosinophil % 1.5 % Basophils % 0.6 % NRBC % 0 % Test performed on Jun 11, 2020 09:40 Sodium 142 mmol/L Potassium 4.8 mmol/L Chloride 106 mmol/L CO2 26 mmol/L Anion Gap 14.8 BUN 37 mg/dL Creatinine 1.4 mg/dL Cr Clearance (Est) 55.38 mL/min Glucose 172 mg/dL Calcium 8.5 mg/dL Osmolality - Calculated 296 mOsm/kg Protein, Total 8.1 g/dL Albumin 3.7 g/dL Globulin 4.4 g/dL Bilirubin, Total 0.9 mg/dL ALT (SGPT) 12 U/L AST (SGOT) 19 U/L Alkaline Phosphatase 120 IU/L Leukocyte Reduced RBC [id number] OP RCLR XM COMPATIBLE Anti-D Positive Blood Type OP Antibody Screen (Gel) NEGATIVE Impression: 1. Patient with moderately severe thrombocytopenia in the setting of cirrhosis with portal hypertension and splenomegaly. He did have evidence of iron deficiency at the time of his initial evaluation in 2011. Bone marrow aspiration/biopsy at that time was otherwise unremarkable. 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 2. He has had evidence of iron deficiency anemia with good clinical response to parenteral iron replacement with Injectafer. 3. Steatohepatitis is the presumed cause for the cirrhosis. His other medical illnesses include: 4. Hypertension. 5. Hyperlipidemia. 6. Type II diabetes. 7. Coronary artery disease with congestive heart failure. 8. Chronic atrial fibrillation. The iron deficiency anemia had initially corrected with Injectafer. However, as of his follow-up visit in March 2018 he was mildly anemic again, and his transferrin saturation and ferritin level were consistent with iron deficiency. He was treated at that time with 2 more infusions of Injectafer. He did have a positive at FIT at that time. He then required further parenteral iron replacement in June 2018 and in September 2018. He has had symptomatic improvement with the Injectafer, but that his follow-up visit in October 2018 he was still mildly anemic with low transferrin saturation, and he did receive 1 additional infusion of Injectafer. As of 12/16/2018 his hemoglobin had decreased to 7.8 g, and he was transfused 2 units PRBC. At his follow-up visit in January he was still moderately anemic, and his serum iron studies were consistent with iron deficiency. He was given parenteral iron replacement with 2 infusions of Injectafer, which he tolerated well. Despite that, he remained mildly anemic with low transferrin saturation, and he was given additional infusions of Injectafer on 03/17/2019, on 04/25/2019, and again in August 2019. He was given another infusions of Injectafer in November and he was given a PRBC transfusion in December 2019. As of 02/06/2020 his hemoglobin was back down to 6.3 g. He was given an infusion of Injectafer and he also was transfused 2 more units PRBC. He then developed generalized joint pain and other symptoms which I suspected were related to the Injectafer infusion. During subsequent follow-up his hemoglobin had stabilized in the range of 8 to 9 g. He returns today with his hemoglobin back down to 8.0 g. His serum iron studies show low transferrin saturation at 8%, consistent with iron deficiency. He is feeling generally weaker and more short of breath, and he is reporting having dark stools, so that he almost certainly has some ongoing GI blood loss. Plan: 1. Labs from today were reviewed in detail and discussed with . Mrs. Olsen and a copy was given to them. WBC 3.3, hemoglobin 10.2, platelets 88,000, ANC is 2600. His hemoglobin has improved from 8 on June 11, 2020. His iron saturation is now 19.5% and on June 11, 2020 it was 8%. His iron is 43 and his TIBC is 220. 2. As he feels so much better and has had improvement in his hemoglobin, I will check his CBC and iron studies to include TIBC and ferritin in 1 month. 3. We will plan for a routine follow-up in 3 months with CBC CMP and repeat iron studies. 4. Mr. Olsen was instructed to contact us in interim should questions or problems arise. Signed By: Arias Arzola-, AOCNP Earnest Leyva MD <<Signature on File>>
== END 2020-08-18 23:59 | disposition home or self-care (01) ==
LOC: ONCMED 05:21
PROVIDERS: PCP Internal Medicine; Visit Provider Nurse Practitioner
DX: D50.0 Iron deficiency anemia secondary to blood loss (chronic) (principal); D69.59 Other secondary thrombocytopenia; Z23 Encounter for immunization; R19.5 Other fecal abnormalities; K74.60 Unspecified cirrhosis of liver; K76.6 Portal hypertension; R16.2 Hepatomegaly with splenomegaly, not elsewhere classified; E78.5 Hyperlipidemia, unspecified; E11.9 Type 2 diabetes mellitus without complications; I25.10 Atherosclerotic heart disease of native coronary artery without angina pectoris; I11.0 Hypertensive heart disease with heart failure; I50.9 Heart failure, unspecified; I48.20 Chronic atrial fibrillation, unspecified; Z79.4 Long term (current) use of insulin
CPT/HCPCS: 36415; 83540; 83550; 85025; 90471; 90686; 99214

== ENCOUNTER 2020-08-30 10:45 | Outpatient (RCR) | payer MEDICARE, BC, SELFPAY ==
[2020-08-30 12:00] LABS: Basophils % 0.3 %; Eosinophils # 0.1 10^3/uL (0.0-0.8); Eosinophils % 2.6 %; Hematocrit 26.1 % (42.0-52.0); Hemoglobin 9.2 g/dL (11.7-16.6); Lymphocytes # 0.6 10^3/uL (0.8-4.8); Lymphocytes % 19.1 %; Mean Corpuscular HGB Conc 35.2 g/dL (30.0-36.0); Mean Corpuscular Hemoglobin 34.3 pg (28.0-34.0); Mean Corpuscular Volume 97.4 fL (80-94); Mean Platelet Volume 11.1 fL (7.4-10.4); Monocytes # 0.3 10^3/uL (0.2-0.9); Monocytes % 8.2 %; Neutrophils # 2.08 10^3/uL (1.8-7.7); Neutrophils % 68.5 %; Nucleated Red Blood Cells % 0 %; Platelet Count 83 10^3/cmm (130-400); Red Blood Count 2.68 10^6/uL (4.1-5.3); Red Cell Distribution Width 18.5 % (12.1-15.1)
[2020-08-30 12:24] LABS: Alanine Aminotransferase 15 U/L (0-41); Albumin Level 3.8 g/dL (3.5-5.2); Alkaline Phosphatase 162 IU/L (40-130); Anion Gap 15.2 (5-19); Aspartate Amino Transferase 19 U/L (0-40); Blood Urea Nitrogen 37 mg/dL (8-23); Carbon Dioxide 26 mmol/L (22-29); Chloride 104 mmol/L (98-107); Ferritin 80 ng/mL (30-400); Globulin 3.8 g/dL (1.3-4.6); Glucose 113 mg/dL (65-115); Iron 37 ug/dL (59-158); Osmolality Calculated 301 mOsm/kg (285-295); Percent Saturation 13.6 % (20-50); Potassium 4.2 mmol/L (3.5-5.1); Sodium 141 mmol/L (136-145); Total Bilirubin 0.9 mg/dL (0.15-1.2); Total Iron Binding Capacity 271 mcg/dl; Total Protein 7.6 g/dL (6.6-8.7); Unsaturated Iron Binding 234 ug/dL (112-347)
== END 2020-09-17 23:59 | disposition home or self-care (01) ==
LOC: ONCMED 10:45
PROVIDERS: PCP Internal Medicine; Visit Provider Nurse Practitioner
DX: D50.0 Iron deficiency anemia secondary to blood loss (chronic) (principal)
CPT/HCPCS: 36415; 80053; 82728; 83540; 83550; 85025

== ENCOUNTER 2020-09-17 11:39 | Inpatient (IN) | payer MEDICARE, BC, SELFPAY ==
--- NOTE | 2020-09-17 12:14 | XRR_ITS ---
PROCEDURE INFORMATION: Exam: XR Chest, 2 Views Exam date and time: 09/17/2020 12:56 PM Age: 80 years old Clinical indication: Shortness of breath; Prior surgery; Surgery type: Pacemaker; Additional info: SOB TECHNIQUE: Imaging protocol: XR of the chest Views: 2 views. COMPARISON: CR XR chest 1V portable [id number] 12/05/2019 12:33 PM FINDINGS: Tubes, catheters and devices: There is a dual lead pacemaker. Lungs: Unremarkable. No consolidation. Pleural space: There is a small left pleural effusion. No pneumothorax. Heart/Mediastinum: Unremarkable. No cardiomegaly. Bones/joints: Unremarkable. XR/XR chest 2V* [id number] IMPRESSION: There is a small left pleural effusion.
[2020-09-17 12:29] VITALS: BP 137/66; PULSE 71; RESP 14; TEMP 36.4; O2SAT 99
--- NOTE | 2020-09-17 15:32 | W.ED.GIBLEED ---
HPI - GI Bleed General: Chief complaint: Abdominal Pain Stated complaint: ABD pain/Bloody Stool/Trouble Eating Time Seen by Provider: 09/17/20 14:56 History of Present Illness: HPI Narrative: This patient is an 80-year-old gentleman who presents today with black stools and weakness. He tells me this is been going on for months and is unchanged. He says that he sees Dr. Leyva because of cirrhosis he has had history of anemia and had to have blood transfusions in the past. He is also on dabigatran for A. fib. He lives with his daughter. He does say that he takes Pepto-Bismol sometimes but has not taken any in the past 2 days and is still concerned that his stool is black. He feels very weak and tired. He denies chest pain or shortness of breath. complaint: melena Onset (ago): day(s) (2) Pain Consistency: other (Unable to describe) Relieving factors: none Exacerbating factors: none Associated symptoms: Reports abdominal pain, malaise and weakness; Denies fever(s) Review of Systems General: Reports: 10 or more systems reviewed and unremarkable except in HPI and below Const: Reports: body aches, change in appetite, fatigue and malaise; Denies: fever(s) Card: Reports: swelling of feet/ankles (Greatly increased recently and not improving with increased Lasix dose); Denies: chest pain Resp: Reports: dyspnea GI: Reports: abdominal pain, diarrhea and melena : Denies: dysuria Musc: Reports: extremity swelling PFS ED PFSH: Medical History Anemia Aortic valve stenosis, acquired Bloody stools Chronic atrial fibrillation Chronic diarrhea Cirrhosis Coronary artery disease Diabetes mellitus Diarrhea History of CHF (congestive heart failure) History of gastritis Hyperlipidemia Hypertension Pacemaker Portal hypertension Thrombocytopenia Surgical History History of colonoscopy (~11/2019) History of esophagogastroduodenoscopy (EGD) (~11/2019) History of permanent cardiac pacemaker placement Family History Other Cancer Social History Smoking and tobacco status: former smoker Alcohol intake: former Physical Exam Const: COMMON NORMALS: no acute distress, patient oriented x3, no limitations and alert GENERAL APPEARANCE: cooperative, comfortable and other (Looks a little pale) HENMT: HEAD & SCALP: normal to inspection FACE & SINUS: normal facial exam Eye: GENERAL EYE: appearance normal, both eyes and all related structures Neck/C-Spine: COMMON NORMALS: supple, no meningeal signs and no JVD Chest: COMMONS NORMALS: normal inspection of the chest Resp: COMMON NORMALS: normal respiratory effort, No use of accessory muscles and clear to auscultation bilaterally AUSCULTATION: clear to auscultation bilaterally Cardio: COMMON NORMALS: no JVD, regular rate and regular rhythm RATE: regular rate RHYTHM: regular rhythm HEART SOUNDS: Murmur heart sound present (4 out of 6, left sternal border, systolic) GI: COMMON NORMALS: Soft to palpation and non-tender INSPECTION: Yes normal to inspection and Yes abdominal distension AUSCULTATION: Yes normoactive bowel sounds PALPATION: Yes Soft to palpation Back/Pelvis: COMMON NORMALS: thoracic and lumbar spine normal to inspection Extremity: COMMON NORMALS: normal to inspection Neuro: COMMON NORMALS: patient oriented x3, moves all extremities, no focal motor deficits and no sensory deficits noted SENSORIUM/ORIENTATION: Yes alert MENINGEAL SIGNS: Yes no meningeal signs Psych: COMMON NORMALS: mental status grossly normal, cooperative and normal affect Skin: COMMON NORMALS: no rashes or lesions noted and turgor normal GENERAL SKIN EXAM: no rashes or lesions noted and turgor normal Course ED course: This patient comes in with black stools for 2 days. He is more anemic than his baseline. He is hemodynamically stable. He did have some black stool on rectal exam but no bowel movements in the department. On review of his prior admission for similar he had an AVM and a grade 1 esophageal varices noted on endoscopy. Because of the esophageal varices I made an attempt to transfer him to several facilities but unfortunately they were all full. I spoke to Dr. Martinez and he was willing to keep the patient here as he does not seem to be actively bleeding at this time. He will continue to monitor his hemoglobin. [facility] in [place] said they would probably have beds in the morning if he ended up needing transfer. Vital Signs: Vital signs: Vital Signs Temperature 97.9 F 09/17/20 22:33 Pulse Rate 78 09/17/20 22:33 Respiratory Rate 18 09/17/20 22:33 Blood Pressure 131/66 09/17/20 22:33 Pulse Oximetry 99 09/17/20 22:33 MDM - GI Bleed Lab Data: Labs: Lab Results 09/17/20 09/17/20 09/17/20 Range/Units 15:30 15:30 15:30 WBC 2.9 L (4.0-10.0) 10^3/ uL RBC 2.89 L (4.1-5.3) 10^6/u L Hgb 8.3 L (11.7-16.6) g/dL Hct 26.8 L (42.0-52.0) % MCV 92.7 (80-94) fL MCH 28.7 (28.0-34.0) pg MCHC 31.0 (30.0-36.0) g/dL RDW 15.6 H (12.1-15.1) % Plt Count 103 L (130-400) 10^3/c mm MPV 11.8 H (7.4-10.4) fL Neut % (Auto) 76.2 % Lymph % (Auto) 15.0 % [place] % (Auto) 6.8 % Eos % (Auto) 1.4 % Baso % (Auto) 0.3 % Neut # (Auto) 2.23 (1.8-7.7) 10^3/u L Lymph # (Auto) 0.4 L (0.8-4.8) 10^3/u L [place] # (Auto) 0.2 (0.2-0.9) 10^3/u L Eos # (Auto) 0.0 (0.0-0.8) 10^3/u L Baso # (Auto) 0.0 (0.0-0.1) 10^3/u L Nucleated RBC % (a uto) 0 % Nucleated RBCs # 0.0 /100WBC Sodium 142 (136-145) mmol/L Potassium 3.8 (3.5-5.1) mmol/L Chloride 100 (98-107) mmol/L Carbon Dioxide 30 H (22-29) mmol/L Anion Gap 15.8 (5-19) BUN 53 H (8-23) mg/dL Creatinine 1.6 H (0.7-1.2) mg/dL GFR Calculation Not Reportable Glucose 210 H (65-115) mg/dL Calculated Osmolal ity 315 H (285-295) mOsm/k g Calcium 9.6 (8.5-10.5) mg/dL Total Bilirubin 1.2 (0.15-1.2) mg/dL AST 22 (0-40) U/L ALT 14 (0-41) U/L Alkaline Phosphata se 131 H (40-130) IU/L Troponin T Gen 5 n g/L Cancelled Troponin T Baselin e (0-15) ng/L Troponin T 120 Min [place] (0-15) ng/L Delta Troponin T (0-10) ABS# Total Protein 7.8 (6.6-8.7) g/dL Albumin 3.9 (3.5-5.2) g/dL Globulin 3.9 (1.3-4.6) g/dL Lipase 16 (13-60) U/L Urine Color (Yellow) Urine Appearance (CLEAR) Urine pH (5-7) Ur Specific Gravit y (1.005-1.030) Urine Protein (Negative) Urine Glucose (UA) (Normal) Urine Ketones (Negative) Urine Blood (Negative) Urine Nitrate (Negative) Urine Bilirubin (Negative) Urine Urobilinogen (Negative) mg/dL Ur Leukocyte Adamaris ase (Negative) Digoxin (0.6-1.2) ng/mL 09/17/20 09/17/20 09/17/20 Range/Units 15:30 15:30 15:57 WBC (4.0-10.0) 10^3/ uL RBC (4.1-5.3) 10^6/u L Hgb (11.7-16.6) g/dL Hct (42.0-52.0) % MCV (80-94) fL MCH (28.0-34.0) pg MCHC (30.0-36.0) g/dL RDW (12.1-15.1) % Plt Count (130-400) 10^3/c mm MPV (7.4-10.4) fL Neut % (Auto) % Lymph % (Auto) % [place] % (Auto) % Eos % (Auto) % Baso % (Auto) % Neut # (Auto) (1.8-7.7) 10^3/u L Lymph # (Auto) (0.8-4.8) 10^3/u L [place] # (Auto) (0.2-0.9) 10^3/u L Eos # (Auto) (0.0-0.8) 10^3/u L Baso # (Auto) (0.0-0.1) 10^3/u L Nucleated RBC % (a uto) % Nucleated RBCs # /100WBC Sodium (136-145) mmol/L Potassium (3.5-5.1) mmol/L Chloride (98-107) mmol/L Carbon Dioxide (22-29) mmol/L Anion Gap (5-19) BUN (8-23) mg/dL Creatinine (0.7-1.2) mg/dL GFR Calculation Glucose (65-115) mg/dL Calculated Osmolal ity (285-295) mOsm/k g Calcium (8.5-10.5) mg/dL Total Bilirubin (0.15-1.2) mg/dL AST (0-40) U/L ALT (0-41) U/L Alkaline Phosphata se (40-130) IU/L Troponin T Gen 5 n g/L Troponin T Baselin e 43 H (0-15) ng/L Troponin T 120 Min [place] (0-15) ng/L Delta Troponin T (0-10) ABS# Total Protein (6.6-8.7) g/dL Albumin (3.5-5.2) g/dL Globulin (1.3-4.6) g/dL Lipase (13-60) U/L Urine Color Yellow (Yellow) Urine Appearance Clear (CLEAR) Urine pH 7 (5-7) Ur Specific Gravit y 1.005 (1.005-1.030) Urine Protein Neg (Negative) Urine Glucose (UA) Norm (Normal) Urine Ketones Negative (Negative) Urine Blood Neg (Negative) Urine Nitrate Negative (Negative) Urine Bilirubin Neg (Negative) Urine Urobilinogen Norm (Negative) mg/dL Ur Leukocyte Adamaris ase Negative (Negative) Digoxin 1.1 (0.6-1.2) ng/mL 09/17/ Range/Units 18:27 WBC (4.0-10.0) 10^3/ uL RBC (4.1-5.3) 10^6/u L Hgb (11.7-16.6) g/dL Hct (42.0-52.0) % MCV (80-94) fL MCH (28.0-34.0) pg MCHC (30.0-36.0) g/dL RDW (12.1-15.1) % Plt Count (130-400) 10^3/c mm MPV (7.4-10.4) fL Neut % (Auto) % Lymph % (Auto) % [place] % (Auto) % Eos % (Auto) % Baso % (Auto) % Neut # (Auto) (1.8-7.7) 10^3/u L Lymph # (Auto) (0.8-4.8) 10^3/u L [place] # (Auto) (0.2-0.9) 10^3/u L Eos # (Auto) (0.0-0.8) 10^3/u L Baso # (Auto) (0.0-0.1) 10^3/u L Nucleated RBC % (a uto) % Nucleated RBCs # /100WBC Sodium (136-145) mmol/L Potassium (3.5-5.1) mmol/L Chloride (98-107) mmol/L Carbon Dioxide (22-29) mmol/L Anion Gap (5-19) BUN (8-23) mg/dL Creatinine (0.7-1.2) mg/dL GFR Calculation Glucose (65-115) mg/dL Calculated Osmolal ity (285-295) mOsm/k g Calcium (8.5-10.5) mg/dL Total Bilirubin (0.15-1.2) mg/dL AST (0-40) U/L ALT (0-41) U/L Alkaline Phosphata se (40-130) IU/L Troponin T Gen 5 n g/L Troponin T Baselin e (0-15) ng/L Troponin T 120 Min [place] 41.88 H (0-15) ng/L Delta Troponin T -1.12 L (0-10) ABS# Total Protein (6.6-8.7) g/dL Albumin (3.5-5.2) g/dL Globulin (1.3-4.6) g/dL Lipase (13-60) U/L Urine Color (Yellow) Urine Appearance (CLEAR) Urine pH (5-7) Ur Specific Gravit y (1.005-1.030) Urine Protein (Negative) Urine Glucose (UA) (Normal) Urine Ketones (Negative) Urine Blood (Negative) Urine Nitrate (Negative) Urine Bilirubin (Negative) Urine Urobilinogen (Negative) mg/dL Ur Leukocyte Adamaris ase (Negative) Digoxin (0.6-1.2) ng/mL Discharge Plan Discharge Patient Disposition: Admitted As Inpatient Admit Provider: Noah Martinez Condition: Good Coding Level of Care Code ED Supervisor Cook Room for Chg Fwd Exam Comprehensive
[2020-09-17 15:40] LABS: Basophils % 0.3 %; Eosinophils % 1.4 %; Hematocrit 26.8 % (42.0-52.0); Hemoglobin 8.3 g/dL (11.7-16.6); Lymphocytes # 0.4 10^3/uL (0.8-4.8); Mean Corpuscular Hemoglobin 28.7 pg (28.0-34.0); Mean Corpuscular Volume 92.7 fL (80-94); Mean Platelet Volume 11.8 fL (7.4-10.4); Monocytes # 0.2 10^3/uL (0.2-0.9); Monocytes % 6.8 %; Neutrophils # 2.23 10^3/uL (1.8-7.7); Neutrophils % 76.2 %; Nucleated Red Blood Cells % 0 %; Platelet Count 103 10^3/cmm (130-400); Red Blood Count 2.89 10^6/uL (4.1-5.3); Red Cell Distribution Width 15.6 % (12.1-15.1); White Blood Count 2.9 10^3/uL (4.0-10.0)
[2020-09-17 15:55] VITALS: BMI 29.8
[2020-09-17 16:08] LABS: Alanine Aminotransferase 14 U/L (0-41); Albumin Level 3.9 g/dL (3.5-5.2); Alkaline Phosphatase 131 IU/L (40-130); Anion Gap 15.8 (5-19); Aspartate Amino Transferase 22 U/L (0-40); Blood Urea Nitrogen 53 mg/dL (8-23); Calcium 9.6 mg/dL (8.5-10.5); Carbon Dioxide 30 mmol/L (22-29); Chloride 100 mmol/L (98-107); Globulin 3.9 g/dL (1.3-4.6); Glucose 210 mg/dL (65-115); Lipase 16 U/L (13-60); Osmolality Calculated 315 mOsm/kg (285-295); Potassium 3.8 mmol/L (3.5-5.1); Sodium 142 mmol/L (136-145); Total Bilirubin 1.2 mg/dL (0.15-1.2); Total Protein 7.8 g/dL (6.6-8.7)
[2020-09-17 16:09] LABS: Add Urine Microscopic? NO
[2020-09-17 16:10] LABS: Digoxin 1.1 ng/mL (0.6-1.2)
[2020-09-17 16:15] LABS: Bilirubin Urine Neg (Negative); Blood Urine Neg (Negative); Glucose Urine UA Norm (Normal); Ketones Urine Negative (Negative); Nitrate Urine Negative (Negative); Protein Urine Neg (Negative); Specific Gravity, Urine 1.005 (1.005-1.030); Urine Appearance Clear (CLEAR); Urine Color Yellow (Yellow); pH Urine 7 (5-7)
[2020-09-17 16:16] LABS: Leukocyte Esterase Urine Negative (Negative); Urobilinogen Urine Norm (Negative)
--- NOTE | 2020-09-17 17:46 | ECG_ITS ---
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 Measurements Intervals [place] Rate: 71 P: [place]: QRS: -76 QRSD: 191 T: 91 QT: 455 QTc: 495 Interpretive Statements ELECTRONIC VENTRICULAR PACEMAKER ABNORMAL RHYTHM ECG Compared to ECG 07/28/2017 12:06:26 Atrial fibrillation no longer present Myocardial infarct finding no longer present Electronically Signed On 09-18-2020 22:17:24 DISTRIBUTION CENTER ADMINISTRATOR by Sudeep Lucas M.D. [email or web address] f
[2020-09-17 18:02] LABS: Troponin(5th) Baseline 43 ng/L (0-15)
[2020-09-17 18:57] LABS: Troponin 5 2HR 41.88 ng/L (0-15)
[2020-09-17 19:09] LABS: Troponin 5 2HR Delta -1.12 ABS# (0-10)
[2020-09-17 19:37] VITALS: BP 134/87; PULSE 78; RESP 16; O2SAT 96
--- NOTE | 2020-09-17 19:46 | ECG_ITS ---
[facility] Test Date: 2020-09-17 Pat Name: Aramis Olsen Department: Room: 250 Gender: Male Circular Gang Saw Operator: : 1940 Requested By: Mamie Heck Order Number: [id number] Dorinda MD: Sudeep Lucas M.D. Measurements Intervals [place] Rate: 75 P: [place]: QRS: -77 QRSD: 191 T: 111 QT: 444 QTc: 497 Interpretive Statements ELECTRONIC VENTRICULAR PACEMAKER ABNORMAL RHYTHM ECG Compared to ECG 09/17/2020 18:05:10 No significant changes Electronically Signed On 09-18-2020 22:31:43 PRIVATE WEALTH ADVISOR by Sudeep Lucas M.D. [id number]
[2020-09-17] MEDS: HYDROcodone-acetaminophen 7.5-325 mg Tablet 1 TAB PO (21:37)
[2020-09-17 21:51] VITALS: BP 138/82; PULSE 78; RESP 16; O2SAT 100
[2020-09-17 22:00] VITALS: PULSE 78
[2020-09-17 22:33] VITALS: BP 131/66; PULSE 78; RESP 18; TEMP 36.6; O2SAT 99
[2020-09-17 23:44] VITALS: BP 127/65; PULSE 70; RESP 18; TEMP 37.2; O2SAT 99
--- NOTE | 2020-09-17 23:46 | ECG_ITS ---
[facility] Test Date: 2020-09-18 Pat Name: Aramis Olsen Department: Room: 250 Gender: Male Director Oncology: : 1940 Requested By: Mamie Heck Order Number: [id number] Dorinda MD: Sudeep Lucas M.D. Measurements Intervals [place] Rate: 80 P: [place]: QRS: -79 QRSD: 186 T: 97 QT: 437 QTc: 507 Interpretive Statements ELECTRONIC VENTRICULAR PACEMAKER ABNORMAL RHYTHM ECG INTERPRETATION BASED ON A DEFAULT AGE OF 40 YEARS Compared to ECG 09/17/2020 20:15:03 No significant changes Electronically Signed On 09-18-2020 22:31:04 COSTING ANALYST by Sudeep Lucas M.D. [email or web address]
--- NOTE | 2020-09-17 23:51 | P.HP_ITS ---
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 fib status post pacemaker placement, not on anticoagulation, chronic thrombocytopenia ,chronic diarrhea, came in with chief complaint of ongoing black tarry stool, for the last 1 month as well as generalized weakness and fatigue. He denies any chest pain shortness of breath, fever cough nausea vomiting, hematemesis, bright red blood per rectum, dizziness chest pain, palpitation. Upon arrival in the ER he was worked up for: GI bleed: H&H: 8.3/26,-----> 6.8/22 WBC 2.9 , platelet count:103 --->82 PT/INR: 16/1.24 Troponin: Baseline: 43, 2-hour: 41, delta:-1.1 6 hours: 44 Serum creatinine : 1.6 (baseline : 1.3-1.9 ) X-ray chest:small left pleural effusion EKG: Ventricular paced rhythm CT abdomen pelvis without contrast awaited: Pertinent prior studies: 11/2019: EGD & colonoscopy : EGD with finding of arterial malformation under a clot which was clipped and injected with epinephrine. Grade 1 esophageal varices were noted, but without any sign of bleeding. Additional evaluation was performed with colonoscopy which did not show any sites suspicious for bleeding. 2D echo: : Normal left ventricular size and systolic function, EF 78 %. No regional wall motion abnormalities. Moderate left ventricular hypertrophy. Mild pulmonary hypertension with an estimated pulmonary artery peak systolic pressure of 40 mmHg. Review of Systems Const: Denies: fever(s), chills, body aches, change in appetite or diaphoresis Card: Denies: palpitations Resp: Denies: dyspnea, productive cough, wheezing or pain on inspiration GI: Denies: abdominal pain or constipation : Denies: flank pain or difficulty urinating Musc: Denies: back pain, extremity pain or extremity swelling Neuro: Denies: headache(s), difficulty walking or confusion Medications/Allergies Home Medications Medication Instructions Recorded Confirmed Last Taken Type bismuth subsalicylate See Rx Instructions .ROUTE .COMPLEX 0209/17/20 06/25/20 History [Pepto-Bismol] diphenoxylate-atropine See Rx Instructions .ROUTE .COMPLEX 12/04/19 09/17/20 09/17/20 History metoprolol tartrate 100 mg tablet 100 mg PO BID #180 tab 01/02/20 09/17/20 09/17/20 Rx insulin glargine 100 unit/mL 50 unit SUBCUT BID 01/16/20 09/17/20 06/25/20 History subcutaneous solution omeprazole 40 mg capsule,delayed 40 mg PO DAILY cap 01/16/20 09/17/20 09/17/20 History release furosemide 40 mg tablet 80 mg PO DAILY tab 04/16/20 09/17/20 09/17/20 History hydrocodone 7.5 mg-acetaminophen 1 tab PO TID PRN tab 04/16/20 09/17/20 09/17/20 History 325 mg tablet spironolactone 25 1 tab PO DAILY tab 04/16/20 09/17/20 09/17/20 History mg-hydrochlorothiazide 25 mg tablet acetaminophen [Tylenol Extra 1,000 mg PO PRN 06/26/20 09/17/20 06/24/20 History Strength] digoxin 125 mcg PO DAILY 06/26/20 09/17/20 09/17/20 History glimepiride 4 mg PO BID 06/26/20 09/17/20 09/17/20 History triamcinolone acetonide See Rx Instructions .ROUTE .COMPLEX 06/26/20 09/17/20 09/17/20 History Allergies Allergy/AdvReac Type Severity Reaction Status Date / Time No Known Allergies Allergy Verified 06/26/20 09:58 PFSH Acute PFSH: Medical History (Updated 09/18/20 @ 06:17 by Noah Martinez MD) Anemia Aortic valve stenosis, acquired Bloody stools Chronic atrial fibrillation Chronic diarrhea Cirrhosis Coronary artery disease Diabetes mellitus Diarrhea History of CHF (congestive heart failure) History of gastritis Hyperlipidemia Hypertension Pacemaker Portal hypertension Thrombocytopenia Surgical History History of colonoscopy (~11/2019) History of esophagogastroduodenoscopy (EGD) (~11/2019) History of permanent cardiac pacemaker placement Family History Other Cancer Social History Smoking and tobacco status: former smoker Alcohol intake: former Vitals/I&O/Wt Last Vital Signs Temp 98.9 F 09/17/20 23:44 Pulse 70 09/17/20 23:44 Resp 18 09/17/20 23:44 BP 127/65 09/17/20 23:44 Pulse Ox 99 09/17/20 23:44 09/17/20 09/17/20 09/18/20 14:59 22:59 06:59 Output Total 225 / 225 Balance -225 / -225 Weight last 48 hrs Weight 97.069 kg Physical Exam Const: COMMON NORMALS: patient oriented x3 HENMT: COMMON NORMALS: normocephalic, atraumatic, hearing grossly normal bilaterally and external ears normal HEAD & SCALP: normocephalic and atraumatic EXTERNAL EAR: Yes external ears normal Eye: COMMON NORMALS: no scleral icterus GENERAL EYE: appearance normal, both eyes and all related structures Chest: COMMONS NORMALS: normal inspection of the chest and normal palpation of entire chest wall CHEST: Yes Symmetrical chest wall rise Resp: COMMON NORMALS: normal respiratory effort, No retractions, No use of accessory muscles and clear to auscultation bilaterally EFFORT & INSPECTION: Yes symmetric chest movement AUSCULTATION: clear to auscultation bilaterally Cardio: COMMON NORMALS: regular rate, regular rhythm, S1 normal heart sound present, S2 normal heart sound present, No gallops present (Cardio), No murmurs present (Cardio), No rub (Cardio) and Peripheral pulses 2+ throughout RATE: regular rate RHYTHM: regular rhythm HEART SOUNDS: S1 normal heart sound present and S2 normal heart sound present PERIPHERAL PULSES: Peripheral pulses 2+ throughout GI: COMMON NORMALS: Normal to inspection, nondistended, normoactive bowel sounds present, Soft to palpation, non-tender, No hepatosplenomegaly present and no masses AUSCULTATION: Yes normoactive bowel sounds PALPATION: Yes Soft to palpation and Yes No hepatosplenomegaly present RECTAL EXAM: Yes deferred Neuro: COMMON NORMALS: patient oriented x3 Data : 09/18/20 04:15 09/17/20 15:30 A&P Assessment and plan (1) GI bleed: Came in with chief complaint of black tarry stool: 11/2019: EGD & colonoscopy : EGD with finding of arterial malformation under a clot which was clipped and injected with epinephrine. Grade 1 esophageal varices were noted, but without any sign of bleeding. Additional evaluation was performed with colonoscopy which did not show any sites suspicious for bleeding. N.p.o. Protonix 40 mg IV every 12 hours daily Surgery consult Possible repeat EGD and colonoscopy [facility] was consulted by ER: Currently has no bed: Likely bed will be available t jh: Kindly follow-up with [facility] Transfuse [address] abdomen and pelvis without contrast Monitor H&H Status: Acute (2) Cirrhosis: Secondary to SHAFFER Has been extensively worked up in the past, hepatitis panel is negative HIV negative No history of alcoholism Hold Lasix and spironolactone for now, given elevated serum creatinine. Monitor for HRS Status: Acute (3) Pancytopenia: Likely secondary to cirrhosis Continue to monitor platelet count, transfuse as needed Status: Acute (4) Hypertension: Currently normotensive Monitor blood pressure for now Continue metoprolol Status: Acute Qualifiers: Hypertension type: essential hypertension Qualified Code(s): I10 - Essential (primary) hypertension (5) Hyperlipidemia: Status: Acute Qualifiers: Hyperlipidemia type: mixed hyperlipidemia Qualified Code(s): E78.2 - Mixed hyperlipidemia (6) History of CHF (congestive heart failure): Currently compensated. Status: Acute (7) Chronic atrial fibrillation: Status: Acute (8) Thrombocytopenia: Monitor platelet count. No indication for transfusion now Status: Acute (9) Acute blood loss anemia: Status: Acute (10) Aortic valve stenosis, acquired: Status: Acute (11) CKD (chronic kidney disease): Currently serum creatinine is 1.5(baseline serum creatinine (baseline : 1.3-1.9 ) Monitor BMP Continue to hold Lasix and spironolactone Status: Acute Additional A&P Information DVT PPX: SCD G.I PPX: Protonix Code Status :Full code Attestations Medical Necessity Statement*: Patient needs to be in hospital for the management of GI bleed. Anticipated length of stay is greater than 2 midnights Coding Level of Care Code Acute Research Hydrologist for [facility] Fw Diagnoses GI bleed K92.2 Cirrhosis K74.60 Pancytopenia D61.818 Hypertension I10 Hypertension type: essential hypertension Hyperlipidemia E78.2 Hyperlipidemia type: mixed hyperlipidemia History of CHF (congestive heart failure) Z86.79 Chronic atrial fibrillation I48.20 Thrombocytopenia D69.6 Acute blood loss anemia D62 Aortic valve stenosis, acquired I35.0 CKD (chronic kidney disease) N18.9
[2020-09-18] VITALS (22 sets, daily range): BP systolic 90–138; BP diastolic 46–67; PULSE 69–93; RESP 16–18; TEMP 36.4–36.9; O2SAT 94–99
[2020-09-18 00:12] LABS: Troponin 5 6HR 44.67 ng/L (0-15)
[2020-09-18 05:26] LABS: Basophils % 0.5 %; Hematocrit 22.2 % (42.0-52.0); Hemoglobin 6.8 g/dL (11.7-16.6); Lymphocytes # 0.5 10^3/uL (0.8-4.8); Lymphocytes % 25.9 %; Mean Corpuscular HGB Conc 30.6 g/dL (30.0-36.0); Mean Corpuscular Hemoglobin 28.9 pg (28.0-34.0); Mean Corpuscular Volume 94.5 fL (80-94); Mean Platelet Volume 11.7 fL (7.4-10.4); Monocytes # 0.2 10^3/uL (0.2-0.9); Neutrophils # 1.25 10^3/uL (1.8-7.7); Neutrophils % 62.1 %; Nucleated Red Blood Cells % 0 %; Platelet Count 82 10^3/cmm (130-400); Red Blood Count 2.35 10^6/uL (4.1-5.3); Red Cell Distribution Width 15.8 % (12.1-15.1)
[2020-09-18 05:36] LABS: INR 1.24 (0.8-1.2)
[2020-09-18 05:37] LABS: Partial Thromboplastin Time 33.9 SECONDS (23.9-36.7)
[2020-09-18 05:56] LABS: Estmated Average Glucose 157; Hemoglobin A1C 7.1 % (4.0-6.0)
[2020-09-18 05:57] LABS: Procalcitonin 0.16 ng/mL (0-0.5)
--- NOTE | 2020-09-18 06:00 | CT_ITS ---
WS: [id number] CT ABDOMEN PELVIS TECHNIQUE: Noncontrast CT of the abdomen and pelvis with coronal and sagittal reformatted images. CLINICAL INFORMATION: Abdominal pain COMPARISON: CT 12 20,018 DLP: 995.[address] scans at [facility] use at least one of these dose optimization techniques: automat ed exposure control; mA and/or kV adjustment per patient size (includes targeted exams where dose is matched to clinical indication); or iterative reconstruction. FINDINGS: Cirrhotic configuration to the liver. Splenomegaly. Spleen measures Approximately 17.6 cm pole-to-arabella e. Small bilateral pleural effusions. Compressive atelectasis lung bases right greater than left. Adr enal glands are normal. No hydronephrosis in either kidney. Normal caliber abdominal aorta. Aortic ca lcification. Diffuse body wall anasarca with mesenteric edema. Normal GE junction. Noncontrast pancre as is unremarkable. Cholecystectomy clips. No intrahepatic biliary ductal dilatation. Bilateral renal cortical atrophy. Diverticulosis in the sigmoid colon. No evidence of acute diverticulitis. No evidence of high-grade s mall or large bowel obstruction. No free fluid in the pelvis. Shotty periaortic lymph nodes. No lymph adenopathy. No pelvic or inguinal lymphadenopathy. Umbilical hernia with associated septated fluid collection or small bowel loops. This is progressed s hermelinda 2018. This can be further evaluated with ultrasound to assess for peristalsis. No oral contrast administered today. Septated collection measures 5.3 x 3.5 cm. Moderate spondylitic changes lumbar spine. CT/CT abdomen pelvis wo con [id number] IMPRESSION: 1. Cirrhotic liver with splenomegaly. Splenomegaly has progressed since the pr ior examination. 2. Diffuse body wall anasarca with mesenteric edema. 3. Small bilateral pleural effusions. 4. No hydronephrosis in either kidney. 5. Umbilical hernia with septated fluid collection progressed since 2018. This connects to adjacent small bowel and may represent some herniated small bowel loops. This can be further evaluated with ultrasound to evaluate for peristalsi s. Oral contrast not administered on this examination. 6. Prior cholecystectomy. 7. No other significant findings.
[2020-09-18 06:05] LABS: Alanine Aminotransferase 12 U/L (0-41); Albumin Level 3.3 g/dL (3.5-5.2); Alkaline Phosphatase 104 IU/L (40-130); Anion Gap 15.6 (5-19); Aspartate Amino Transferase 18 U/L (0-40); Blood Urea Nitrogen 51 mg/dL (8-23); Carbon Dioxide 30 mmol/L (22-29); Chloride 103 mmol/L (98-107); Globulin 3.3 g/dL (1.3-4.6); Glucose 158 mg/dL (65-115); Osmolality Calculated 317 mOsm/kg (285-295); Phosphorus 4.3 mg/dL (2.5-4.5); Potassium 3.6 mmol/L (3.5-5.1); Sodium 145 mmol/L (136-145); Thyroid Stimulating Hormone 1.58 uIU/mL (0.27-4.20); Total Protein 6.6 g/dL (6.6-8.7)
[2020-09-18 06:10] LABS: Chol HDL Ratio 3.37 mg/dL (1.0-5.00); Cholesterol 91 mg/dL (0-200); HDL Cholesterol 27 mg/dL (60-100); LDL Cholesterol Calculated 45 mg/dL (50-129); LDL HDL Ratio 1.67 RATIO (0.00-3.22); Triglycerides 97 mg/dL (0-150)
[2020-09-18 06:38] LABS: Glucose Point of Care 164 mg/dL (70-110)
[2020-09-18] MEDS: digoxin 125 mcg Tablet PO (08:42)
[2020-09-18] MEDS: pantoprazole 40 mg SDV IVP ×2 (08:42→21:09)
[2020-09-18] MEDS: docusate sodium 100 mg Capsule PO ×2 (08:43→17:05)
[2020-09-18] MEDS: metoprolol tartrate 50 mg Tablet PO ×2 (08:43→17:05)
[2020-09-18] MEDS: sodium chloride 0.9% (100 ml) 100 ML 10 ML (09:11)
--- NOTE | 2020-09-18 09:19 | PM.PN ---
Subjective Subjective: Interval history: Says that he has not been feeling well for the last several weeks, with body aches, joint pains. Reports he has been having some nausea, but also has been having diarrhea with black appearing stools. Denies taking any aspirin, denies taking NSAIDs. He has not had any fevers, no chills, no headache, has not vomited. Diarrhea is a chronic condition for him, although the color changes more recent in the last 1 month. Vitals/I&O/Wt Last Vital Signs Temp 98.0 F 09/18/20 08:14 Pulse 72 09/18/20 08:42 Resp 16 09/18/20 08:14 BP 138/64 09/18/20 08:14 Pulse Ox 96 09/18/20 08:42 09/17/20 09/18/20 09/18/20 22:59 06:59 14:59 Intake Total 0 / 0 Output Total 225 / 225 Balance -225 / -225 0 / 0 Weight last 48 hrs Weight 88.042 kg Weight 97.069 kg Physical Exam Const: COMMON NORMALS: no acute distress, patient oriented x3 and alert GENERAL APPEARANCE: cooperative ORIENTATION/CONSCIOUSNESS: Yes awake HENMT: COMMON NORMALS: oropharynx normal Neck/C-Spine: COMMON NORMALS: no JVD Resp: COMMON NORMALS: normal respiratory effort and clear to auscultation bilaterally AUSCULTATION: clear to auscultation bilaterally Cardio: COMMON NORMALS: no JVD, regular rhythm, S1 normal heart sound present, S2 normal heart sound present and No murmurs present (Cardio) RHYTHM: regular rhythm HEART SOUNDS: S1 normal heart sound present and S2 normal heart sound present GI: COMMON NORMALS: Normal to inspection, nondistended, normoactive bowel sounds present, Soft to palpation and non-tender PALPATION: Yes Soft to palpation Extremity: COMMON NORMALS: no joint enlargement GENERAL: Yes edema (Chronic,2+ bilaterally) Neuro: COMMON NORMALS: patient oriented x3 and moves all extremities SENSORIUM/ORIENTATION: Yes alert Skin: COMMON NORMALS: no rashes or lesions noted GENERAL SKIN EXAM: no rashes or lesions noted and dry skin (scaly) OTHER: Bilateral venous stasis dermatitis changes Data : 09/18/20 04:15 09/18/20 04:15 A&P Assessment and plan (1) GI bleed: Started on 1st unit prbc this morning. Monitor Hb. Cont PPI. Appreciate surgery assessment. 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 Grade 1 esophageal varices were noted, but without any sign of bleeding. Additional evaluation was performed with colonoscopy which did not show any sites suspicious for bleeding. [facility] was consulted by ER: Currently has no bed: Likely bed will be available today. Called back [facility], no beds available. Patient is ok to continue care here with possible repeat scope and is aware we do not have deeper endoscopy capability for which he may still need to be seen at [facility]. He states that an outpatient appointment was was in the works. Cirrhotic liver, splenomegaly, diffuse body wall anasarca, mesenteric edema, small bilateral pleural effusions, no hydronephrosis, umbilical hernia with septated fluid collection progressed since 2018 CT abdomen and pelvis without contrast. Requested US. Status: Acute (2) Cirrhosis: Secondary to SHAFFER Has been extensively worked up in the past, hepatitis panel is negative HIV negative No history of alcoholism Hold Lasix and spironolactone for now, given elevated serum creatinine. Monitor for HRS Status: Acute (3) Pancytopenia: Likely secondary to cirrhosis Continue to monitor platelet count, transfuse as needed Status: Acute (4) Hypertension: Currently normotensive Monitor blood pressure for now Continue metoprolol Status: Acute Qualifiers: Hypertension type: essential hypertension Qualified Code(s): I10 - Essential (primary) hypertension (5) Hyperlipidemia: Status: Acute Qualifiers: Hyperlipidemia type: mixed hyperlipidemia Qualified Code(s): E78.2 - Mixed hyperlipidemia (6) History of CHF (congestive heart failure): Currently compensated. Status: Acute (7) Chronic atrial fibrillation: Status: Acute (8) Thrombocytopenia: Monitor platelet count. Status: Acute (9) Acute blood loss anemia: Status: Acute (10) Aortic valve stenosis, acquired: Follows with cardiology Dr. Lucas Status: Acute (11) CKD (chronic kidney disease): Currently serum creatinine is 1.5(baseline serum creatinine (baseline : 1.3-1.9 ) Monitor BMP Continue to hold Lasix and spironolactone Status: Acute Additional A&P Information DVT PPX: SCD G.I PPX: Protonix Code Status :Full code Attestations Medical Necessity Statement*: Continue admission for assessment management of acute blood loss anemia, GI bleeding. Coding Level of Care Code Acute Pharmacometrician for [facility] Fwd Exam Comprehensive Diagnoses GI bleed K92.2 Cirrhosis K74.60 Pancytopenia D61.818 Hypertension I10 Hypertension type: essential hypertension Hyperlipidemia E78.2 Hyperlipidemia type: mixed hyperlipidemia History of CHF (congestive heart failure) Z86.79 Chronic atrial fibrillation I48.20 Thrombocytopenia D69.6 Acute blood loss anemia D62 Aortic valve stenosis, acquired I35.0 CKD (chronic kidney disease) N18.9
--- NOTE | 2020-09-18 09:55 | PC.CHAP ---
Pastoral Care Encounter/Spiritual Assessment Type of Contact [] Declined rug designer visit [] Patient/Family/Request visit [] Outpatient visit [] Follow-up visit [] Physician referral [] Code/Alert [] Routine visit [] Staff referral [] Actively dying [] Patient sleeping [] Family support [] [] Out of room [] Palliative care [] [] Receiving care in room [] Pre-surgical visit [] Trauma [] Long length of stay [] ICU visit [] Other: Relational/Emotional Strength [] Patient feels connected with others/family/visitors/staff [] Distress [] Loneliness/isolation [] Abandonment Spirituality of Patient [] Person of Sridevi [] Attends Moravian of their Sridevi [] Believes in Prayer [] Reads Bible or Taoism materials [] There are Spiritual issues to be addressed Brass Finisher Interventions [x] Prayer [x] Active listening [x] Non-anxious presence [] Spiritual/emotional support [] Crisis/trauma care [] Spiritual counseling [] Bereavement support [] Provided bereavement packet [] Provided Bible/devotional materials [] Provided toy/stuffed animal, coloring book to patient or family member [] Provided Communion [] Anointing/[place] [] Salvation [x] Completed spiritual assessment [] Other: Impact on Illness or Injury [] Angry [] Fearful [] Anxious [] Often cries [] Exhaustion [] Unable to work [] Unable to attend anabaptist [] Unable to walk/stand [] Unable to read [] Unable to drive [] Unable to eat/drink [] Unable to sleep [] Unable to be with family [] Patient intubated [] Other: Summary sleepy Time spent with patient 10 min
--- NOTE | 2020-09-18 10:06 | US_ITS ---
WS: [id number] ULTRASOUND ABDOMEN LIMITED CLINICAL INFORMATION: umbilical hernia COMPARISON: CT abdomen pelvis September 18, 2020 FINDINGS: Ultrasound over the area of concern in the area of ventral hernia. Correlation with recent CT. Comple x fluid collection with internal debris and septations in the area of concern. Collection measures ap proximately 7.1 x 1.5 x 6.1 cm. This does not appear to represent herniated bowel. No peristalsis. Th is is in a superficial location and extends to the dermis. This is nonspecific but most likely repres ents a chronic fluid collection or complex seroma. US/US abdomen limited [id number] IMPRESSION: 1. Complex fluid collection overlying the umbilicus does not appear to represe nt herniated bowel. No peristalsis. 2. This most likely represents a chronic complex fluid collection or complex s eroma along the umbilical hernia..
[2020-09-18 11:00] LABS: Glucose Point of Care 208 mg/dL (70-110)
[2020-09-18] MEDS: HYDROcodone-acetaminophen 7.5-325 mg Tablet 1 TAB PO (11:04)
--- NOTE | 2020-09-18 15:20 | P.CONIM_ITS ---
Providers/Reason For Consult Consulting Physican/Specialty*: General Surgery Rios Yanes MD Reason for Consult*: Requesting EGD for melena, anemia, history of gastritis. Attending Physician: Percy Davila Primary Care Provider: Earnest Dangelo DO History of Present Illness History of Present Illness Aramis Olsen is a 80 year old male who was admitted yesterday with ongoing melanotic stool, generalized weakness and fatigue. His hemoglobin was found to be 8.3 and was 6.8 this morning, presumably following some hydration. The patient had an EGD done back in November of this year which revealed a small bleeding vessel which was clipped and injected with epinephrine. He says that he was apparently doing fine until about 3 months ago when he started having black, loose stool. He normally has loose stool but the color change was something new for him. He denies any use of NSAIDs. He drinks a couple cups of coffee a day. He denies any ongoing use of tobacco or ethanol. I was asked to evaluate him to see if another EGD would be something the patient would be in terested in. The patient mentions that he is in the process of being referred to a jewelry mold maker in [place] for further evaluation. He is not aware of how far that referral has progressed. Review of Systems General: Reports: 10 or more systems reviewed and unremarkable except in HPI and below Const: Denies: fever(s) Eyes: Reports: change in vision (Had cataract surgery but it did not help) GI: Reports: abdominal pain (Mild, epigastric); Denies: hematemesis Musc: Reports: extremity swelling Meds/Allergies Home Medications and Allergies Home Medications Medication Instructions Recorded Confirmed Last Taken Type bismuth subsalicylate See Rx Instructions .ROUTE .COMPLEX 12/04/19 09/17/20 06/25/20 History [Pepto-Bismol] diphenoxylate-atropine See Rx Instructions .ROUTE .COMPLEX 12/04/19 09/17/20 09/17/20 History metoprolol tartrate 100 mg tablet 100 mg PO BID #180 tab 01/02/20 09/17/20 09/17/20 Rx insulin glargine 100 unit/mL 50 unit SUBCUT BID 01/16/20 09/17/20 06/25/20 History subcutaneous solution omeprazole 40 mg capsule,delayed 40 mg PO DAILY cap 01/16/20 09/17/20 09/17/20 History release furosemide 40 mg tablet 80 mg PO DAILY tab 04/16/20 09/17/20 09/17/20 History hydrocodone 7.5 mg-acetaminophen 1 tab PO TID PRN tab 04/16/20 09/17/20 09/17/20 History 325 mg tablet spironolactone 25 1 tab PO DAILY tab 04/16/20 09/17/20 09/17/20 History mg-hydrochlorothiazide 25 mg tablet acetaminophen [Tylenol Extra 1,000 mg PO PRN 06/26/20 09/17/20 06/24/20 History Strength] digoxin 125 mcg PO DAILY 06/26/20 09/17/20 09/17/20 History glimepiride 4 mg PO BID 06/26/20 09/17/20 09/17/20 History triamcinolone acetonide See Rx Instructions .ROUTE .COMPLEX 06/26/20 09/17/20 09/17/20 History Allergies Allergy/AdvReac Type Severity Reaction Status Date / Time No Known Allergies Allergy Verified 06/26/20 09:58 Current Medications Current Medications Generic Name Dose Route Start Last Admin Trade Name Freq PRN Reason Stop Dose Admin Hydrocodone Bitart/Acetaminophen 1 tab 09/18/20 09:40 09/18/20 11:04 Hydrocodone-Acetaminophen 7.5-325 Mg Tablet PO 1 tab Q8H PRN Administration MODERATE PAIN Digoxin 125 mcg 09/18/20 09:00 09/18/20 08:42 Digoxin 125 Mcg Tablet PO 125 mcg DAILY ALE Administration Docusate Sodium 100 mg 09/18/20 09:00 09/18/20 08:43 Docusate Sodium 100 Mg Capsule PO 100 mg BID ALE Administration Insulin Aspart 0 unit 09/18/20 08:00 09/18/20 11:04 Insulin Aspart 100 Unit/1 Ml SUBCUT 4 unit WM&BEDTIME ALE Administration Protocol Metoprolol Tartrate 50 mg 09/18/20 09:00 09/18/20 08:43 Metoprolol Tartrate 50 Mg Tablet PO 50 mg BID ALE Administration Pantoprazole Sodium 40 mg 09/18/20 06:30 09/18/20 08:42 Pantoprazole 40 Mg Sdv IVP 40 mg Q12H ALE Administration PFSH Acute PFSH: Medical History (Updated 09/18/20 @ 15:38 by Rios Yanes MD) Anemia Aortic valve stenosis, acquired Bloody stools BPH (benign prostatic hyperplasia) Chronic atrial fibrillation History of tachybradycardia syndrome Chronic diarrhea Cirrhosis Early esophageal varices Coronary artery disease Diabetes mellitus Diarrhea History of CHF (congestive heart failure) History of gastritis Hyperlipidemia Hypertension Portal hypertension Thrombocytopenia Surgical History (Updated 09/18/20 @ 15:39 by Rios Yanes MD) History of cataract surgery Bilateral -- did not help History of cholecystectomy History of colonoscopy (~11/2019) History of esophagogastroduodenoscopy (EGD) (~11/2019) History of permanent cardiac pacemaker placement History of transurethral resection of prostate Pacemaker Family History (Updated 09/18/20 @ 15:34 by Rios Yanes MD) Mother Cancer I am not sure what kind it was Social History Smoking and tobacco status: former smoker Alcohol intake: former Vitals/I&O/Wt Last Vital Signs Temp 98.0 F 09/18/20 14:03 Pulse 70 09/18/20 14:03 Resp 16 09/18/20 14:03 BP 125/65 09/18/20 14:03 Pulse Ox 99 09/18/20 14:03 09/18/20 09/18/20 09/18/20 06:59 14:59 22:59 Intake Total 350 / 700 350 / 700 Output Total 225 / 225 Balance -225 / -225 350 / 700 350 / 700 Weight last 48 hrs Weight 194 lb 1.6 oz Weight 214 lb Physical Exam Narrative: EXAM NARRATIVE: The patient was encountered in his hospital room. He is in no distress. The pupils seem equal. No carotid bruits are heard. The lungs are clear anteriorly. The heart is regular but the patient has a very noticeable systolic murmur best heard at the left lower sternal border. The patient has a pacemaker in the left subclavian region laterally. The abdomen is somewhat protuberant but is soft. There is evidence of rectus diastasis. He does have some mild epigastric tenderness on exam but no masses are palpated in that region. He does have a small ventral hernia just above the umbilicus which is minimally tender to palpation, but I cannot get it to reduce completely. The lower extremities reveal some woody edema with some chronic venous stasis changes worse on the right than the left. Neurologically the patient can move a ll limbs to command. Data Imaging^: CT Abd/Pel: Radiologist's impression: IMPRESSION: 1. Cirrhotic liver with splenomegaly. Splenomegaly has progressed since the prior examination. 2. Diffuse body wall anasarca with mesenteric edema. 3. Small bilateral pleural effusions. 4. No hydronephrosis in either kidney. 5. Umbilical hernia with septated fluid collection progressed since 2018. This connects to adjacent small bowel and may represent some herniated small bowel loops. This can be further evaluated with ultrasound to evaluate for peristalsis. Oral contrast not administered on this examination. 6. Prior cholecystectomy. 7. No other significant findings. A&P Assessment and plan (1) Melena: The patient told the admitting physician that this has been going on for a month but he told me he has noticed it for 3 months. Status: Acute (2) Anemia: Status: Acute Qualifiers: Anemia type: iron deficiency Iron deficiency anemia type: chronic blood loss Qualified Code(s): D50.0 - Iron deficiency anemia secondary to blood loss (chronic) (3) History of gastritis: The patient's last EGD in November 2019 revealed an AVM/possible Dula Amber lesion that was clipped. I discussed another EGD with him. Details of the procedure were once again gone over. He would like to know if there is anything new in his stomach. He would like to proceed. I will allow the patient clear liquids tonight but will make him n.p.o. after midnight in preparation for an EGD tomorrow. Status: Acute (4) Epigastric discomfort: Status: Acute (5) Ventral hernia: By the patient's history, this sounds to be fairly asymptomatic for him. He says it has been there forever and does not give him any trouble. Status: Acute Consult Attestations Medical Necessity Statement: See admitting service's notation. Coding Level of Care Code Acute Batch Dumper for [facility] Diagnoses Melena K92.1 Anemia D50.0 Anemia type: iron deficiency Iron deficiency anemia type: chronic blood loss History of gastritis Z87.19 Epigastric discomfort R10.13 Ventral hernia K43.9
[2020-09-18 17:00] LABS: Glucose Point of Care 206 mg/dL (70-110)
[2020-09-18 17:01] LABS: Hemoglobin 9.2 g/dL (11.7-16.6)
--- NOTE | 2020-09-18 18:23 | PC.NURSE ---
SHIFT SUMMARY PATIENT HAS DONE WELL TODAY. HE HAS GOTTEN UP TO THE BEDSIDE COMMODE WITH ONE PERSON ASSIST. PATIENT HAS HAD 2-3 DARK TARRY LOOSE STOOLS. THIS NURSE TRANSFUSED PATIENT WITH 2 UNITS OF PRBC'S. HEMOGLOBIN ABOVE 9 AT THIS TIME. PATIENT TOLERATING CLEAR LIQUID DIET TO BE NPO AFTER MIDNIGHT FOR EGD TOMORROW. VITALS STABLE. GOOD OUTPUT.
[2020-09-18] MEDS: ondansetron 2 mg/ML SDV 2 mL 4 MG IVP (18:51)
[2020-09-18 20:41] LABS: Glucose Point of Care 183 mg/dL (70-110)
[2020-09-19] VITALS (13 sets, daily range): BP systolic 104–134; BP diastolic 52–65; PULSE 63–80; RESP 17–18; TEMP 36.2–37.2; O2SAT 97–99
[2020-09-19] MEDS: HYDROcodone-acetaminophen 7.5-325 mg Tablet 1 TAB PO ×2 (01:07→20:26)
[2020-09-19 05:28] LABS: Basophils % 0.4 %; Eosinophils % 1.5 %; Hematocrit 28.1 % (42.0-52.0); Lymphocytes # 0.5 10^3/uL (0.8-4.8); Lymphocytes % 20.3 %; Mean Corpuscular Hemoglobin 29.9 pg (28.0-34.0); Mean Corpuscular Volume 93.4 fL (80-94); Mean Platelet Volume 11.6 fL (7.4-10.4); Monocytes # 0.2 10^3/uL (0.2-0.9); Monocytes % 8.3 %; Neutrophils # 1.84 10^3/uL (1.8-7.7); Neutrophils % 69.1 %; Nucleated Red Blood Cells % 0 %; Platelet Count 85 10^3/cmm (130-400); Red Blood Count 3.01 10^6/uL (4.1-5.3); White Blood Count 2.7 10^3/uL (4.0-10.0)
[2020-09-19 06:00] LABS: Alanine Aminotransferase 11 U/L (0-41); Albumin Level 3.3 g/dL (3.5-5.2); Alkaline Phosphatase 102 IU/L (40-130); Anion Gap 15.6 (5-19); Aspartate Amino Transferase 19 U/L (0-40); Blood Urea Nitrogen 51 mg/dL (8-23); Carbon Dioxide 28 mmol/L (22-29); Chloride 105 mmol/L (98-107); Globulin 3.6 g/dL (1.3-4.6); Glucose 127 mg/dL (65-115); Magnesium 2.1 mg/dL (1.7-2.3); Osmolality Calculated 315 mOsm/kg (285-295); Phosphorus 3.5 mg/dL (2.5-4.5); Potassium 3.6 mmol/L (3.5-5.1); Sodium 145 mmol/L (136-145); Total Bilirubin 1.6 mg/dL (0.15-1.2); Total Protein 6.9 g/dL (6.6-8.7)
[2020-09-19 06:03] LABS: Partial Thromboplastin Time 35.4 SECONDS (23.9-36.7)
[2020-09-19 06:41] LABS: Glucose Point of Care 138 mg/dL (70-110)
[2020-09-19] MEDS: digoxin 125 mcg Tablet PO (07:28)
[2020-09-19] MEDS: metoprolol tartrate 50 mg Tablet PO ×2 (07:28→17:35)
[2020-09-19] MEDS: pantoprazole 40 mg SDV IVP ×2 (07:28→20:45)
--- NOTE | 2020-09-19 08:25 | P.PN_ITS ---
Subjective Subjective: Interval history: The patient says he feels better following his transfusion yesterday. He has had quite a bit of dark-colored stools since I talked to him yesterday. Vitals/I&O/Wt Last Vital Signs Temp 98.1 F 09/19/20 07:16 Pulse 70 09/19/20 07:36 Resp 18 09/19/20 07:16 BP 127/61 09/19/20 07:16 Pulse Ox 97 09/19/20 07:16 09/18/20 09/19/20 09/19/20 22:59 06:59 14:59 Intake Total 830 / 1180 Output Total Balance 827 / 1175 -2 / 1175 Weight last 48 hrs Weight 194 lb Weight 194 lb 1.6 oz Weight 214 lb Physical Exam Narrative: EXAM NARRATIVE: Abdominal exam remains the same. Data : 09/19/20 04:15 09/19/20 04:15 A&P Assessment and plan (1) Melena: The patient told the admitting physician that this has been going on for a month but he told me he has noticed it for 3 months. Status: Acute (2) Anemia: Better following transfusion on 09/18/2020. Status: Acute Qualifiers: Anemia type: iron deficiency Iron deficiency anemia type: chronic blood loss Qualified Code(s): D50.0 - Iron deficiency anemia secondary to blood loss (chronic) (3) History of gastritis: The patient's last EGD in November 2019 revealed an AVM/possible Dula Amber lesion that was clipped. Another EGD planned for today. Status: Acute (4) Epigastric discomfort: Status: Acute (5) Ventral hernia: By the patient's history, this sounds to be fairly asymptomatic for him. He says it has been there forever and does not give him any trouble. Status: Acute Attestations Medical Necessity Statement*: See admitting service's notation. Coding Level of Care Code Acute Milk Delivery Driver for [facility] Fwd Diagnoses Melena K92.1 Anemia D50.0 Anemia type: iron deficiency Iron deficiency anemia type: chronic blood loss History of gastritis Z87.19 Epigastric discomfort R10.13 Ventral hernia K43.9
--- NOTE | 2020-09-19 09:37 | P.ANESASSM_ITS ---
Pre-Anesthetic Assessment Pre-Anesthetic Assessment: Height/Weight: Height 1.8 m Weight 87.997 kg Temp Pulse Resp BP Pulse Ox 98.2 F 70 18 134/65 97 09/19/20 09:35 09/19/20 07:36 09/19/20 09:35 09/19/20 09:35 09/19/20 09:35 Preop Diagnosis: Lower GI bleed Proposed Procedure: Operation Date: 09/19/20 10:30 Proposed Procedures p EGD(Not Applicable) - Rios Yanes MD Was Beta Sedrick taken within 24 hours: Yes (according to pt ) Last intake: Intake Last Liquid Date 09/18/20 Last Liquid Time 22:00 Last Solid Date 09/17/20 Last Solid Time 08:00 Last Intake: 00:00 Social: Social History: No alcohol and No tobacco Exam: Pre-Anes Outpt Exam: alert, oriented x 3 and clear to auscultation bilaterally Airway: MP: 3 Dentition: Full Pulmonary: Pulmonary: None reported CV/HEM: CV/HEM: Arrythmia Comments: pacemaker, saw Dr. Lucas 2 months ago everything checked out well : : None reported Hepatic: Hepatic: None reported GI: GI: None reported Comments: blood noted in stool, pt anemic recieved blood yesterday Metabolic: Metabolic: DM (IDDM) and None reported Musc/skel: Musc/skel: Lower Back Pain (just from laying in bed recently ) Neuropsych: Neuropsych: None reported Anesthetic Plan: ASA status: 2 Anesthesia: Anesthesia Evaluation and MAC Meds/Allergies Current Medications: Current Medications Generic Name Dose Route Start Last Admin Trade Name Freq PRN Reason Stop Dose Admin Hydrocodone Bitart /Acetaminophen 1 tab 09/18/20 09:40 09/19/20 01:07 Hydrocodone-Acet aminophen 7.5-325 Mg Tablet PO 1 tab Q8H PRN Administration MODERATE PAIN Digoxin 125 mcg 09/18/20 09:00 09/19/20 07:28 Digoxin 125 Mcg Tablet PO 125 mcg DAILY ALE Administration Docusate Sodium 100 mg 09/18/20 09:00 09/19/20 07:25 Docusate Sodium 100 Mg Capsule PO Not Given BID ALE Insulin Aspart 0 unit 09/18/20 08:00 09/19/20 07:23 Insulin Aspart 1 00 Unit/1 Ml SUBCUT Not Given WM&BEDTIME ALE Protocol Metoprolol Tartrat e 50 mg 09/18/20 09:00 09/19/20 07:28 Metoprolol Tartr ate 50 Mg Tablet PO 50 mg BID ALE Administration Ondansetron HCl 4 mg 09/17/20 23:38 09/18/20 18:51 Ondansetron 2 Mg /Ml Sdv 2 Ml IVP 4 mg Q8H PRN Administration vomiting, or N/V if npo Pantoprazole Sodiu m 40 mg 09/18/20 06:30 09/19/20 07:28 Pantoprazole 40 Mg Sdv IVP 40 mg Q12H ALE Administration PFSH Anesthesia PFSH: Medical History (Updated 09/18/20 @ 15:39 by Rios Yanes MD) Anemia Aortic valve stenosis, acquired Bloody stools BPH (benign prostatic hyperplasia) Chronic atrial fibrillation History of tachybradycardia syndrome Chronic diarrhea Cirrhosis Early esophageal varices Coronary artery disease Diabetes mellitus Diarrhea History of CHF (congestive heart failure) History of gastritis Hyperlipidemia Hypertension Portal hypertension Thrombocytopenia Surgical History (Updated 09/18/20 @ 15:39 by Rios Yanes MD) History of cataract surgery Bilateral -- did not help History of cholecystectomy History of colonoscopy (~11/2019) History of esophagogastroduodenoscopy (EGD) (~11/2019) History of permanent cardiac pacemaker placement History of transurethral resection of prostate Pacemaker Family History (Updated 09/18/20 @ 15:34 by Rios Yanes MD) Mother Cancer I am not sure what kind it was Social History Smoking and tobacco status: former smoker Alcohol intake: former Data Anesthesia CBC & Chem 7: 09/19/20 04:15 09/19/20 04:15 Other Labs: Laboratory Results - last 48 hr 09/17/20 09/17/20 09/17/20 15:30 15:30 15:30 WBC 2.9 L RBC 2.89 L Hgb 8.3 L Hct 26.8 L MCV 92.7 MCH 28.7 MCHC 31.0 RDW 15.6 H Plt Count 103 L MPV 11.8 H Neut % (Auto) 76.2 Lymph % (Auto) 15.0 [place] % (Auto) 6.8 Eos % (Auto) 1.4 Baso % (Auto) 0.3 Neut # (Auto) 2.23 Lymph # (Auto) 0.4 L [place] # (Auto) 0.2 Eos # (Auto) 0.0 Baso # (Auto) 0.0 Nucleated RBC % (auto) 0 Nucleated RBCs # 0.0 PT INR APTT Sodium 142 Potassium 3.8 Chloride 100 Carbon Dioxide 30 H Anion Gap 15.8 BUN 53 H Creatinine 1.6 H GFR Calculation Not Reportable Glucose 210 H POC Glucose Estimat Average Glucose Hemoglobin A1c Calculated Osmolality 315 H Calcium 9.6 Phosphorus Magnesium Total Bilirubin 1.2 AST 22 ALT 14 Alkaline Phosphatase 131 H Troponin T Gen 5 ng/L Cancelled Troponin T Baseline Troponin T 120 Minute Delta Troponin T Troponin T Hi Sens 6Hr Troponin T Hi Sens 6Hr Delta Total Protein 7.8 Albumin 3.9 Globulin 3.9 Triglycerides Cholesterol LDL Cholesterol, Calc HDL Cholesterol LDL/HDL Ratio Cholesterol/HDL Ratio Lipase 16 Procalcitonin TSH Urine Color Urine Appearance Urine pH Ur Specific [place] Urine Protein Urine Glucose (UA) Urine Ketones Urine Blood Urine Nitrate Urine Bilirubin Urine Urobilinogen Ur Leukocyte Esterase Digoxin Blood Type Rho(D) Type Antibody Screen Crossmatch 09/17/20 09/17/20 09/17/20 15:30 15:30 15:57 WBC RBC Hgb Hct MCV MCH MCHC RDW Plt Count MPV Neut % (Auto) Lymph % (Auto) [place] % (Auto) Eos % (Auto) Baso % (Auto) Neut # (Auto) Lymph # (Auto) [place] # (Auto) Eos # (Auto) Baso # (Auto) Nucleated RBC % (auto) Nucleated RBCs # PT INR APTT Sodium Potassium Chloride Carbon Dioxide Anion Gap BUN Creatinine GFR Calculation Glucose POC Glucose Estimat Average Glucose Hemoglobin A1c Calculated Osmolality Calcium Phosphorus Magnesium Total Bilirubin AST ALT Alkaline Phosphatase Troponin T Gen 5 ng/L Troponin T Baseline 43 H Troponin T 120 Minute Delta Troponin T Troponin T Hi Sens 6Hr Troponin T Hi Sens 6Hr Delta Total Protein Albumin Globulin Triglycerides Cholesterol LDL Cholesterol, Calc HDL Cholesterol LDL/HDL Ratio Cholesterol/HDL Ratio Lipase Procalcitonin TSH Urine Color Yellow Urine Appearance Clear Urine pH 7 Ur Specific [place] 1.005 Urine Protein Neg Urine Glucose (UA) Norm Urine Ketones Negative Urine Blood Neg Urine Nitrate Negative Urine Bilirubin Neg Urine Urobilinogen Norm Ur Leukocyte Esterase Negative Digoxin 1.1 Blood Type Rho(D) Type Antibody Screen Crossmatch 09/17/20 09/17/20 09/18/20 18:27 23:38 04:15 WBC 2.0 L RBC 2.35 L Hgb 6.8 L Hct 22.2 L MCV 94.5 H MCH 28.9 MCHC 30.6 RDW 15.8 H Plt Count 82 L MPV 11.7 H Neut % (Auto) 62.1 Lymph % (Auto) 25.9 [place] % (Auto) 9.0 Eos % (Auto) 2.0 Baso % (Auto) 0.5 Neut # (Auto) 1.25 L Lymph # (Auto) 0.5 L [place] # (Auto) 0.2 Eos # (Auto) 0.0 Baso # (Auto) 0.0 Nucleated RBC % (auto) 0 Nucleated RBCs # 0.0 PT INR APTT Sodium Potassium Chloride Carbon Dioxide Anion Gap BUN Creatinine GFR Calculation Glucose POC Glucose Estimat Average Glucose Hemoglobin A1c Calculated Osmolality Calcium Phosphorus Magnesium Total Bilirubin AST ALT Alkaline Phosphatase Troponin T Gen 5 ng/L Troponin T Baseline Troponin T 120 Minute 41.88 H Delta Troponin T -1.12 L Troponin T Hi Sens 6Hr 44.67 H Troponin T Hi Sens 6Hr Delta Not Reportable Total Protein Albumin Globulin Triglycerides Cholesterol LDL Cholesterol, Calc HDL Cholesterol LDL/HDL Ratio Cholesterol/HDL Ratio Lipase Procalcitonin TSH Urine Color Urine Appearance Urine pH Ur Specific [place] Urine Protein Urine Glucose (UA) Urine Ketones Urine Blood Urine Nitrate Urine Bilirubin Urine Urobilinogen Ur Leukocyte Esterase Digoxin Blood Type Rho(D) Type Antibody Screen Crossmatch 09/18/20 09/18/20 09/18/20 04:15 04:15 04:15 WBC RBC Hgb Hct MCV MCH MCHC RDW Plt Count MPV Neut % (Auto) Lymph % (Auto) [place] % (Auto) Eos % (Auto) Baso % (Auto) Neut # (Auto) Lymph # (Auto) [place] # (Auto) Eos # (Auto) Baso # (Auto) Nucleated RBC % (auto) Nucleated RBCs # PT 16.00 H INR 1.24 H APTT 33.9 Sodium 145 Potassium 3.6 Chloride 103 Carbon Dioxide 30 H Anion Gap 15.6 BUN 51 H Creatinine 1.5 H GFR Calculation Not Reportable Glucose 158 H POC Glucose Estimat Average Glucose 157 Hemoglobin A1c 7.1 H Calculated Osmolality 317 H Calcium 9.0 Phosphorus 4.3 Magnesium 2.0 Total Bilirubin 1.0 AST 18 ALT 12 Alkaline Phosphatase 104 Troponin T Gen 5 ng/L Troponin T Baseline Troponin T 120 Minute Delta Troponin T Troponin T Hi Sens 6Hr Troponin T Hi Sens 6Hr Delta Total Protein 6.6 Albumin 3.3 L Globulin 3.3 Triglycerides Cholesterol LDL Cholesterol, Calc HDL Cholesterol LDL/HDL Ratio Cholesterol/HDL Ratio Lipase Procalcitonin TSH 1.58 Urine Color Urine Appearance Urine pH Ur Specific [place] Urine Protein Urine Glucose (UA) Urine Ketones Urine Blood Urine Nitrate Urine Bilirubin Urine Urobilinogen Ur Leukocyte Esterase Digoxin Blood Type Rho(D) Type Antibody Screen Crossmatch 09/18/20 09/18/20 09/18/20 04:15 06:08 06:18 WBC RBC Hgb Hct MCV MCH MCHC RDW Plt Count MPV Neut % (Auto) Lymph % (Auto) [place] % (Auto) Eos % (Auto) Baso % (Auto) Neut # (Auto) Lymph # (Auto) [place] # (Auto) Eos # (Auto) Baso # (Auto) Nucleated RBC % (auto) Nucleated RBCs # PT INR APTT Sodium Potassium Chloride Carbon Dioxide Anion Gap BUN Creatinine GFR Calculation Glucose POC Glucose 164 Estimat Average Glucose Hemoglobin A1c Calculated Osmolality Calcium Phosphorus Magnesium Total Bilirubin AST ALT Alkaline Phosphatase Troponin T Gen 5 ng/L Troponin T Baseline Troponin T 120 Minute Delta Troponin T Troponin T Hi Sens 6Hr Troponin T Hi Sens 6Hr Delta Total Protein Albumin Globulin Triglycerides 97 Cholesterol 91 LDL Cholesterol, Calc 45 L HDL Cholesterol 27 L LDL/HDL Ratio 1.67 Cholesterol/HDL Ratio 3.37 Lipase Procalcitonin 0.16 TSH Urine Color Urine Appearance Urine pH Ur Specific [place] Urine Protein Urine Glucose (UA) Urine Ketones Urine Blood Urine Nitrate Urine Bilirubin Urine Urobilinogen Ur Leukocyte Esterase Digoxin Blood Type O Positive Rho(D) Type Positive Antibody Screen Negative Crossmatch See Detail 09/18/20 09/18/20 09/18/20 10:53 16:45 16:53 WBC RBC Hgb 9.2 L D Hct MCV MCH MCHC RDW Plt Count MPV Neut % (Auto) Lymph % (Auto) [place] % (Auto) Eos % (Auto) Baso % (Auto) Neut # (Auto) Lymph # (Auto) [place] # (Auto) Eos # (Auto) Baso # (Auto) Nucleated RBC % (auto) Nucleated RBCs # PT INR APTT Sodium Potassium Chloride Carbon Dioxide Anion Gap BUN Creatinine GFR Calculation Glucose POC Glucose 208 206 Estimat Average Glucose Hemoglobin A1c Calculated Osmolality Calcium Phosphorus Magnesium Total Bilirubin AST ALT Alkaline Phosphatase Troponin T Gen 5 ng/L Troponin T Baseline Troponin T 120 Minute Delta Troponin T Troponin T Hi Sens 6Hr Troponin T Hi Sens 6Hr Delta Total Protein Albumin Globulin Triglycerides Cholesterol LDL Cholesterol, Calc HDL Cholesterol LDL/HDL Ratio Cholesterol/HDL Ratio Lipase Procalcitonin TSH Urine Color Urine Appearance Urine pH Ur Specific [place] Urine Protein Urine Glucose (UA) Urine Ketones Urine Blood Urine Nitrate Urine Bilirubin Urine Urobilinogen Ur Leukocyte Esterase Digoxin Blood Type Rho(D) Type Antibody Screen Crossmatch 09/18/20 09/19/20 09/19/20 20:33 04:15 04:15 WBC 2.7 L RBC 3.01 L Hgb 9.0 L Hct 28.1 L MCV 93.4 MCH 29.9 MCHC 32.0 RDW 15.0 Plt Count 85 L MPV 11.6 H Neut % (Auto) 69.1 Lymph % (Auto) 20.3 [place] % (Auto) 8.3 Eos % (Auto) 1.5 Baso % (Auto) 0.4 Neut # (Auto) 1.84 Lymph # (Auto) 0.5 L [place] # (Auto) 0.2 Eos # (Auto) 0.0 Baso # (Auto) 0.0 Nucleated RBC % (auto) 0 Nucleated RBCs # 0.0 PT 15.60 H INR 1.20 APTT 35.4 Sodium Potassium Chloride Carbon Dioxide Anion Gap BUN Creatinine GFR Calculation Glucose POC Glucose 183 Estimat Average Glucose Hemoglobin A1c Calculated Osmolality Calcium Phosphorus Magnesium Total Bilirubin AST ALT Alkaline Phosphatase Troponin T Gen 5 ng/L Troponin T Baseline Troponin T 120 Minute Delta Troponin T Troponin T Hi Sens 6Hr Troponin T Hi Sens 6Hr Delta Total Protein Albumin Globulin Triglycerides Cholesterol LDL Cholesterol, Calc HDL Cholesterol LDL/HDL Ratio Cholesterol/HDL Ratio Lipase Procalcitonin TSH Urine Color Urine Appearance Urine pH Ur Specific [place] Urine Protein Urine Glucose (UA) Urine Ketones Urine Blood Urine Nitrate Urine Bilirubin Urine Urobilinogen Ur Leukocyte Esterase Digoxin Blood Type Rho(D) Type Antibody Screen Crossmatch 09/19/20 09/19/20 04:15 06:30 WBC RBC Hgb Hct MCV MCH MCHC RDW Plt Count MPV Neut % (Auto) Lymph % (Auto) [place] % (Auto) Eos % (Auto) Baso % (Auto) Neut # (Auto) Lymph # (Auto) [place] # (Auto) Eos # (Auto) Baso # (Auto) Nucleated RBC % (auto) Nucleated RBCs # PT INR APTT Sodium 145 Potassium 3.6 Chloride 105 Carbon Dioxide 28 Anion Gap 15.6 BUN 51 H Creatinine 1.3 H GFR Calculation Not Reportable Glucose 127 H POC Glucose 138 Estimat Average Glucose Hemoglobin A1c Calculated Osmolality 315 H Calcium 9.0 Phosphorus 3.5 Magnesium 2.1 Total Bilirubin 1.6 H AST 19 ALT 11 Alkaline Phosphatase 102 Troponin T Gen 5 ng/L Troponin T Baseline Troponin T 120 Minute Delta Troponin T Troponin T Hi Sens 6Hr Troponin T Hi Sens 6Hr Delta Total Protein 6.9 Albumin 3.3 L Globulin 3.6 Triglycerides Cholesterol LDL Cholesterol, Calc HDL Cholesterol LDL/HDL Ratio Cholesterol/HDL Ratio Lipase Procalcitonin TSH Urine Color Urine Appearance Urine pH Ur Specific [place] Urine Protein Urine Glucose (UA) Urine Ketones Urine Blood Urine Nitrate Urine Bilirubin Urine Urobilinogen Ur Leukocyte Esterase Digoxin Blood Type Rho(D) Type Antibody Screen Crossmatch Cardiac Studies: No Data to Display
[2020-09-19] MEDS: sodium chloride 0.9% 1,000 ML 30 ML IV (09:56)
--- NOTE | 2020-09-19 10:13 | ANE.PACU2 ---
Inpatient post-anesthesia follow up: Airway intact: Yes Vital signs: Temperature 98.2 F Pulse Rate [Left] 71 Pulse Rate 70 Respiratory Rate 18 Blood Pressure [Le ft Arm] 137/66 Blood Pressure 134/65 Pulse Oximetry 97 Oxygen Delivery Me thod [ Room Air Current Rate & Del td] Oxygen Delivery Me thod Room Air Oxygen Flow Rate Fraction of Inspir ed Oxygen Hydration adequate: Yes Nausea and vomiting: No Mental status: Baseline
[2020-09-19 11:24] LABS: Glucose Point of Care 165 mg/dL (70-110)
--- NOTE | 2020-09-19 15:03 | P.PN_ITS ---
Subjective Subjective: Interval history: This morning he is doing all right. Denies abdominal pain or discomfort. Denies chest pain or pressure, no trouble breathing. Awaiting EGD. Vitals/I&O/Wt Last Vital Signs Temp 97.6 F 09/19/20 11:34 Pulse 63 09/19/20 14:56 Resp 18 09/19/20 11:34 BP 113/61 09/19/20 11:34 Pulse Ox 97 09/19/20 14:56 09/19/20 09/19/20 09/19/20 06:59 14:59 22:59 Intake Total 360 / 360 Output Total Balance - 1175 360 / 360 Weight last 48 hrs Weight 87.997 kg Weight 88.042 kg Weight 97.069 kg Physical Exam Const: COMMON NORMALS: no acute distress, patient oriented x3 and alert GENERAL APPEARANCE: cooperative ORIENTATION/CONSCIOUSNESS: Yes awake HENMT: COMMON NORMALS: oropharynx normal Neck/C-Spine: COMMON NORMALS: no JVD Resp: COMMON NORMALS: normal respiratory effort and clear to auscultation bilaterally AUSCULTATION: clear to auscultation bilaterally Cardio: COMMON NORMALS: no JVD, regular rhythm, S1 normal heart sound present, S2 normal heart sound present and No murmurs present (Cardio) RHYTHM: regular rhythm HEART SOUNDS: S1 normal heart sound present and S2 normal heart sound present GI: COMMON NORMALS: Normal to inspection, nondistended, normoactive bowel sounds present, Soft to palpation and non-tender PALPATION: Yes Soft to palpation Extremity: COMMON NORMALS: no joint enlargement GENERAL: Yes edema (Chronic,2+ bilaterally) Neuro: COMMON NORMALS: patient oriented x3 and moves all extremities SENSORIUM/ORIENTATION: Yes alert Skin: COMMON NORMALS: no rashes or lesions noted GENERAL SKIN EXAM: no rashes or lesions noted and dry skin (scaly) OTHER: Bilateral venous stasis dermatitis changes Data : 09/19/20 04:15 09/19/20 04:15 A&P Assessment and plan (1) GI bleed: Adequate response to PRBC transfusion. EGD today. Monitor Hb. Cont PPI. Appreciate surgery assessment. 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 Grade 1 esophageal corina ices were noted, but without any sign of bleeding. Additional evaluation was performed with colonoscopy which did not show any sites suspicious for bleeding. She has been making arrangements to try to follow-up with [facility] gastroenterology, but that can only get a pandemic. Cirrhotic liver, splenomegaly, diffuse body wall anasarca, mesenteric edema, small bilateral pleural effusions, no hydronephrosis, umbilical hernia with septated fluid collection progressed since 2018 CT abdomen and pelvis without contrast. On ultrasound complex fluid collection, appears possibly chronic, possibly complex seroma along the umbilical hernia. Status: Acute (2) Cirrhosis: Secondary to SHAFFER Has been extensively worked up in the past, hepatitis panel is negative HIV negative No history of alcoholism Hold Lasix and spironolactone for now, given elevated serum creatinine. Monitor for HRS Status: Acute (3) Pancytopenia: Likely secondary to cirrhosis Continue to monitor platelet count, transfuse as needed Status: Acute (4) Hypertension: Currently normotensive Monitor blood pressure for now Continue metoprolol Status: Acute Qualifiers: Hypertension type: essential hypertension Qualified Code(s): I10 - Essential (primary) hypertension (5) Hyperlipidemia: Status: Acute Qualifiers: Hyperlipidemia type: mixed hyperlipidemia Qualified Code(s): E78.2 - Mixed hyperlipidemia (6) History of CHF (congestive heart failure): Currently compensated. Status: Acute (7) Chronic atrial fibrillation: Status: Acute (8) Thrombocytopenia: Monitor platelet count. Status: Acute (9) Acute blood loss anemia: Status: Acute (10) Aortic valve stenosis, acquired: Follows with cardiology Dr. Lucas Status: Acute (11) CKD (chronic kidney disease): Currently serum creatinine is at baseline (baseline serum creatinine (baseline : 1.3-1.9 ) Monitor BMP Continue to hold Lasix and spironolactone Status: Acute Additional A&P Information DVT PPX: SCD G.I PPX: Protonix Code Status :Full code Attestations Medical Necessity Statement*: Continue admission for assessment management of GI bleeding. Coding Level of Care Code Acute Professor Of Special Education for [facility] Diagnoses GI bleed K92.2 Cirrhosis K74.60 Pancytopenia D61.818 Hypertension I10 Hypertension type: essential hypertension Hyperlipidemia E78.2 Hyperlipidemia type: mixed hyperlipidemia History of CHF (congestive heart failure) Z86.79 Chronic atrial fibrillation I48.20 Thrombocytopenia D69.6 Acute blood loss anemia D62 Aortic valve stenosis, acquired I35.0 CKD (chronic kidney disease) N18.9
[2020-09-19 17:01] LABS: Glucose Point of Care 197 mg/dL (70-110)
--- NOTE | 2020-09-19 18:41 | PC.NURSE ---
SHIFT SUMMARY PATIENT HAS BEEN STRONGER TODAY. ABLE TO GET HIMSELF TO THE BEDSIDE COMMODE AND BACK. PATIENT HAS HAD A FEW DARK BOWEL MOVEMENTS, BUT IMPROVED FROM YESTERDAY. TAKING IN MORE ORALLY. GOOD URINE OUTPUT. CONTINUE TO MONITOR.
[2020-09-19 20:09] LABS: Glucose Point of Care 146 mg/dL (70-110)
[2020-09-20] VITALS (9 sets, daily range): BP systolic 110–129; BP diastolic 47–63; PULSE 69–86; RESP 16–20; TEMP 36.5–36.8; O2SAT 95–98
--- NOTE | 2020-09-20 05:22 | PC.NURSE ---
SHIFT SUMMARY Has not slept much tonight. Was medicated X1 with po Hydrocodone for c/o arthritic pain in hands . Gets up to BSC with assist and says does feel like he is getting stronger. Also says feels like medicine is helping his stomach do better No BM's tonight. Says is usually after eating and then they just come. Says little warning and control. Is very pleasant.
[2020-09-20 05:25] LABS: Basophils % 0.4 %; Eosinophils # 0.1 10^3/uL (0.0-0.8); Eosinophils % 2.4 %; Hematocrit 27.6 % (42.0-52.0); Hemoglobin 8.8 g/dL (11.7-16.6); Lymphocytes # 0.4 10^3/uL (0.8-4.8); Lymphocytes % 17.4 %; Mean Corpuscular HGB Conc 31.9 g/dL (30.0-36.0); Mean Corpuscular Hemoglobin 29.6 pg (28.0-34.0); Mean Corpuscular Volume 92.9 fL (80-94); Mean Platelet Volume 12.6 fL (7.4-10.4); Monocytes # 0.2 10^3/uL (0.2-0.9); Monocytes % 8.3 %; Neutrophils % 71.1 %; Nucleated Red Blood Cells % 0 %; Platelet Count 89 10^3/cmm (130-400); Red Blood Count 2.97 10^6/uL (4.1-5.3); Red Cell Distribution Width 15.2 % (12.1-15.1); White Blood Count 2.5 10^3/uL (4.0-10.0)
[2020-09-20 05:37] LABS: INR 1.15 (0.8-1.2)
[2020-09-20 05:38] LABS: Partial Thromboplastin Time 32.9 SECONDS (23.9-36.7)
[2020-09-20 05:49] LABS: Alanine Aminotransferase 12 U/L (0-41); Albumin Level 3.3 g/dL (3.5-5.2); Alkaline Phosphatase 103 IU/L (40-130); Anion Gap 16.6 (5-19); Aspartate Amino Transferase 21 U/L (0-40); Blood Urea Nitrogen 42 mg/dL (8-23); Calcium 8.9 mg/dL (8.5-10.5); Carbon Dioxide 26 mmol/L (22-29); Chloride 103 mmol/L (98-107); Globulin 3.8 g/dL (1.3-4.6); Glucose 117 mg/dL (65-115); Magnesium 2.1 mg/dL (1.7-2.3); Osmolality Calculated 306 mOsm/kg (285-295); Phosphorus 3.1 mg/dL (2.5-4.5); Potassium 3.6 mmol/L (3.5-5.1); Sodium 142 mmol/L (136-145); Total Bilirubin 1.5 mg/dL (0.15-1.2); Total Protein 7.1 g/dL (6.6-8.7)
[2020-09-20 06:34] LABS: Glucose Point of Care 130 mg/dL (70-110)
[2020-09-20] MEDS: digoxin 125 mcg Tablet PO (08:03)
[2020-09-20] MEDS: metoprolol tartrate 50 mg Tablet PO ×2 (08:04→18:14)
[2020-09-20] MEDS: pantoprazole 40 mg SDV IVP (08:21)
[2020-09-20 09:16] LABS: H. Pylori / CLO Test Negative
[2020-09-20 10:59] LABS: Glucose Point of Care 161 mg/dL (70-110)
--- NOTE | 2020-09-20 11:12 | DCPLANNER ---
Pg 2 of IM printed, presented and explained to pt. He signs and appreciates the explanation. Copy provided and one to the chart.
--- NOTE | 2020-09-20 11:18 | P.PN_ITS ---
Subjective Subjective: Interval history: Today he is doing okay. Denies abdominal pain. No nausea or vomiting. Still dark stools. No trouble breathing. Vitals/I&O/Wt Last Vital Signs Temp 97.7 F 09/20/20 11:04 Pulse 73 09/20/20 11:04 Resp 18 09/20/20 11:04 BP 110/47 09/20/20 11:04 Pulse Ox 97 09/20/20 11:04 09/19/20 09/20/20 09/20/20 22:59 06:59 14:59 Intake Total 120 / 480 300 / 780 240 / 240 Output Total 400 / 400 700 / 1100 Balance -280 / 80 -400 / -320 240 / 240 Weight last 48 hrs Weight 88.632 kg Weight 87.997 kg Physical Exam Const: COMMON NORMALS: no acute distress, patient oriented x3 and alert GEN ERAL APPEARANCE: cooperative and comfortable ORIENTATION/CONSCIOUSNESS: Yes awake HENMT: COMMON NORMALS: oropharynx normal Neck/C-Spine: COMMON NORMALS: no JVD Resp: COMMON NORMALS: normal respiratory effort and clear to auscultation bilaterally AUSCULTATION: clear to auscultation bilaterally Cardio: COMMON NORMALS: no JVD, regular rhythm, S1 normal heart sound present, S2 normal heart sound present and No murmurs present (Cardio) RHYTHM: regular rhythm HEART SOUNDS: S1 normal heart sound present and S2 normal heart sound present GI: COMMON NORMALS: Normal to inspection, nondistended, normoactive bowel sounds present, Soft to palpation and non-tender PALPATION: Yes Soft to palpation Extremity: COMMON NORMALS: no joint enlargement GENERAL: Yes edema (Chronic,2+ bilaterally) Neuro: COMMON NORMALS: patient oriented x3 and moves all extremities SENSORIUM/ORIENTATION: Yes alert Skin: COMMON NORMALS: no rashes or lesions noted GENERAL SKIN EXAM: no rashes or lesions noted and dry skin (Better with moisturizer) OTHER: Bilateral venous stasis dermatitis changes Data : 09/20/20 04:14 09/20/20 04:14 A&P Assessment and plan (1) GI bleed: Hemoglobin minimally lower at 8.8. Discussed with him and with surgery. He does still have dark stools, although this may be from old blood. Hemoglobin decrease is minimal. We will monitor hemoglobin till tomorrow. If stays stable then he may be able to discharge and follow-up with gastroenterology on outpatient basis for additional evaluation by capsule endoscopy, deep enteroscopy, etc. Otherwise we have to seek transfer, although this is very difficult due to lack of open beds with surge in Covid cases. EGD with small AVM in the fundus, nonbleeding, minimal gastritis in the antrum. Continue PPI. Switch to oral. 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 Grade 1 esophageal varices were noted, but without any sign of bleeding. Additional evaluation was performed with colonoscopy which did not show any sites suspicious for bleeding. She has been making arrangements to try to follow-up with [facility] gastroenterology, but that can only get a pandemic. Cirrhotic liver, splenomegaly, diffuse body wall anasarca, mesenteric edema, small bilateral pleural effusions, no hydronephrosis, umbilical hernia with septated fluid collection progressed since 2018 CT abdomen and pelvis without contrast. On ultrasound complex fluid collection, appears possibly chronic, possibly complex seroma along the umbilical hernia. Status: Acute (2) Cirrhosis: Secondary to SHAFFER Has been extensively worked up in the past, hepatitis panel is negative HIV negative No history of alcoholism Resume spironolactone. Hold Lasix, HCTZ Monitor for HRS Status: Acute (3) Pancytopenia: Likely secondary to cirrhosis Continue to monitor platelet count, transfuse as needed Status: Acute (4) Hypertension: Currently normotensive Monitor blood pressure for now Continue metoprolol Status: Acute Qualifiers: Hypertension type: essential hypertension Qualified Code(s): I10 - Essential (primary) hypertension (5) Hyperlipidemia: Status: Acute Qualifiers: Hyperlipidemia type: mixed hyperlipidemia Qualified Code(s): E78.2 - Mixed hyperlipidemia (6) History of CHF (congestive heart failure): Currently compensated. Status: Acute (7) Chronic atrial fibrillation: Status: Acute (8) Thrombocytopenia: Stable at 90 thousand. Monitor platelet count. Status: Acute (9) Acute blood loss anemia: Status: Acute (10) Aortic valve stenosis, acquired: Follows with cardiology Dr. Lucas Status: Acute (11) CKD (chronic kidney disease): Currently serum creatinine is at baseline (baseline serum creatinine (baseline : 1.3-1.9 ) Monitor BMP Continue to hold Lasix and HCTZ Status: Acute Additional A&P Information DVT PPX: SCD G.I PPX: Protonix Code Status :Full code Attestations Medical Necessity Statement*: Continue admission versus management of acute blood loss anemia, GI bleeding. Coding Level of Care Code Acute Ore Dressing Engineer for Chg Fwd Diagnoses GI bleed K92.2 Cirrhosis K74.60 Pancytopenia D61.818 Hypertension I10 Hypertension type: essential hypertension Hyperlipidemia E78.2 Hyperlipidemia type: mixed hyperlipidemia History of CHF (congestive heart failure) Z86.79 Chronic atrial fibrillation I48.20 Thrombocytopenia D69.6 Acute blood loss anemia D62 Aortic valve stenosis, acquired I35.0 CKD (chronic kidney disease) N18.9
[2020-09-20] MEDS: spironolactone 25 mg Tablet PO (11:50)
[2020-09-20] MEDS: HYDROcodone-acetaminophen 7.5-325 mg Tablet 1 TAB PO (11:50)
[2020-09-20 17:01] LABS: Glucose Point of Care 159 mg/dL (70-110)
--- NOTE | 2020-09-20 18:41 | PC.NURSE ---
shift summary no changes this shift.
--- NOTE | 2020-09-20 18:41 | PC.NURSE ---
DR BEATTY NOTIFIED PT HAS NOT BEEN SLEEPING THE LAST 3 NIGHTS HES BEEN HERE, DR ORDERED 25MG PO TRAZODONE AT BEDTIME PER TELEPHONE ORDER.
[2020-09-20 20:51] LABS: Glucose Point of Care 196 mg/dL (70-110)
[2020-09-20] MEDS: trazodone 50 mg Tablet 25 MG PO (21:22)
[2020-09-20] MEDS: pantoprazole DR 40 mg Tablet PO (21:44)
[2020-09-21] VITALS (8 sets, daily range): BP systolic 101–123; BP diastolic 48–76; PULSE 70–78; RESP 15–18; TEMP 36.5–36.9; O2SAT 95–99
[2020-09-21] MEDS: HYDROcodone-acetaminophen 7.5-325 mg Tablet 1 TAB PO ×2 (00:01→20:17)
[2020-09-21 05:41] LABS: Eosinophils # 0.1 10^3/uL (0.0-0.8); Eosinophils % 2.8 %; Hematocrit 27.3 % (42.0-52.0); Hemoglobin 8.4 g/dL (11.7-16.6); Lymphocytes # 0.5 10^3/uL (0.8-4.8); Lymphocytes % 21.5 %; Mean Corpuscular HGB Conc 30.8 g/dL (30.0-36.0); Mean Corpuscular Hemoglobin 28.4 pg (28.0-34.0); Mean Corpuscular Volume 92.2 fL (80-94); Mean Platelet Volume 11.7 fL (7.4-10.4); Monocytes # 0.2 10^3/uL (0.2-0.9); Monocytes % 9.3 %; Neutrophils # 1.42 10^3/uL (1.8-7.7); Neutrophils % 66.4 %; Nucleated Red Blood Cells % 0 %; Platelet Count 80 10^3/cmm (130-400); Red Blood Count 2.96 10^6/uL (4.1-5.3); Red Cell Distribution Width 15.4 % (12.1-15.1); White Blood Count 2.1 10^3/uL (4.0-10.0)
[2020-09-21 06:03] LABS: Alanine Aminotransferase 10 U/L (0-41); Albumin Level 3.3 g/dL (3.5-5.2); Alkaline Phosphatase 98 IU/L (40-130); Anion Gap 13.7 (5-19); Aspartate Amino Transferase 22 U/L (0-40); Blood Urea Nitrogen 33 mg/dL (8-23); Calcium 8.7 mg/dL (8.5-10.5); Carbon Dioxide 26 mmol/L (22-29); Chloride 104 mmol/L (98-107); Globulin 3.1 g/dL (1.3-4.6); Glucose 140 mg/dL (65-115); Osmolality Calculated 300 mOsm/kg (285-295); Potassium 3.7 mmol/L (3.5-5.1); Sodium 140 mmol/L (136-145); Total Bilirubin 1.4 mg/dL (0.15-1.2); Total Protein 6.4 g/dL (6.6-8.7)
[2020-09-21 06:36] LABS: Glucose Point of Care 141 mg/dL (70-110)
[2020-09-21] MEDS: pantoprazole DR 40 mg Tablet PO ×2 (09:07→20:18)
[2020-09-21] MEDS: metoprolol tartrate 50 mg Tablet PO ×2 (09:09→18:26)
[2020-09-21] MEDS: digoxin 125 mcg Tablet PO (09:09)
[2020-09-21] MEDS: docusate sodium 100 mg Capsule PO ×2 (09:09→18:27)
[2020-09-21] MEDS: spironolactone 25 mg Tablet PO (09:09)
[2020-09-21 11:04] LABS: Glucose Point of Care 186 mg/dL (70-110)
[2020-09-21 17:00] LABS: Glucose Point of Care 198 mg/dL (70-110)
--- NOTE | 2020-09-21 19:52 | P.TS_ITS ---
Transfer Summary Providers Date of Admission: 09/17/20 20:46 Date of Discharge: 09/21/20 Attending Provider at Admission: Noah Martinez MD Attending Provider at Transfer: Percy Davila Primary Care Provider: Earnest Dangelo DO Anticipated Date of Transfer: Anticipated date of transfer: 09/21/20 Receiving Facility & Provider: Receiving Provider: [] Receiving facility: [] Diagnoses at Discharge Discharge Diagnosis (1) GI bleed: Status: Acute (2) Cirrhosis: Status: Acute Permanent problem details: Early esophageal varices (3) Pancytopenia: Status: Acute (4) Hypertension: Status: Acute Qualifiers: Hypertension type: essential hypertension Qualified Code(s): I10 - Essential (primary) hypertension (5) Hyperlipidemia: Status: Acute Qualifiers: Hyperlipidemia type: mixed hyperlipidemia Qualified Code(s): E78.2 - Mixed hyperlipidemia (6) History of CHF (congestive heart failure): Status: Acute (7) Chronic atrial fibrillation: Status: Acute Permanent problem details: History of tachybradycardia syndrome (8) Thrombocytopenia: Status: Acute (9) Acute blood loss anemia: Status: Acute (10) Aortic valve stenosis, acquired: Status: Acute (11) CKD (chronic kidney disease): Status: Acute Reason for Visit Reason for Visit: ABD pain/Bloody Stool/Trouble Eating Hospital Course Hospital Course Liver cirrhosis secondary toVery pleasant 80-year-old gentleman with history of [place], history of chronic thrombocytopenia, baseline 80-100,000, following with hematology, with history of moderate aortic stenosis, atrial fibrillation, pacemaker for which he follows with cardiology, also HTN, DM 2, HLD, diastolic CHF, CAD, with prior GI bleeding due 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 CT abdomen pelvis showed cirrhotic liver, splenomegaly, anasarca and mesenteric edema, small bilateral pleural effusions, no hydronephrosis, umbilical hernia with septated fluid collection, prior cholecystectomy. On follow-up ultrasound noted complex fluid collection overlying umbilicus not appearing to represent herniated bowel, possibly chronic complex fluid collection or complex seroma along the umbilical hernia. This was additionally assessed by surgery. He has been kept on PPI every 12 hours. Underwent assessment with EGD here due to lack of beds available at [facility]. Noted to have small AVM in the fundus, no sign of bleeding. Mild gastritis in the antrum. Again without any sign of bleeding that explain his symptoms. 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 He was managed expectantly, given 1 unit platelet transfusion today for platelet level of 80,000, although this is at his baseline, however, with continued decline in hemoglobin down to 8.4 currently with continued black stools, so far without identified source transfer was sought again. Again no beds available at [facility], inpatient assessment not possible at [facility], but he was kindly accepted at [facility] after discussion with Dr. Howard for additional assessment and management. Physical Exam Const: COMMON NORMALS: no acute distress, patient oriented x3 and alert GENERAL APPEARANCE: cooperative and comfortable ORIENTATION/CONSCIOUSNESS: Yes awake HENMT: COMMON NORMALS: oropharynx normal Neck/C-Spine: COMMON NORMALS: no JVD Resp: COMMON NORMALS: normal respiratory effort and clear to auscultation bilaterally AUSCULTATION: clear to auscultation bilaterally Cardio: COMMON NORMALS: no JVD, regular rhythm, S1 normal heart sound present and S2 normal heart sound present RHYTHM: regular rhythm HEART SOUNDS: S1 normal heart sound present, S2 normal heart sound present and Murmur heart sound present systolic GI: COMMON NORMALS: Normal to inspection, nondistended, normoactive bowel sounds present, Soft to palpation and non-tender PALPATION: Yes Soft to palpation Extremity: COMMON NORMALS: no joint enlargement GENERAL: Yes edema (Chronic,2+ bilaterally) Neuro: COMMON NORMALS: patient oriented x3 and moves all extremities SENSORIUM/ORIENTATION: Yes alert Skin: COMMON NORMALS: no rashes or lesions noted GENERAL SKIN EXAM: no rashes or lesions noted and dry skin (Better with moisturizer) OTHER: Bilateral venous stasis dermatitis changes TS Data Data Completed and Pending: Completed Studies During Hospitalization Category Date Time Status CT abdomen pelvis wo con [id number] Rout ine Cat Scan 09/18/20 06:00 Completed XR chest 2V* [id number] Stat Exams 09/17/20 12:14 Com[place] d [id number] Routine Ultrasound 09/18/20 10:06 Completed Pending at discharge Category Date Time Status Complete Blood Co unt w/Auto AM LABS Lab 09/22/20 04:00 Ordered Complete Blood Co unt w/Auto AM LABS Lab 09/23/20 04:00 Ordered Comprehensive Met abolic Panel AM LA BS Lab 09/22/20 04:00 Ordered Comprehensive Met abolic Panel AM LA BS Lab 09/23/20 04:00 Ordered Irrad Leukoreduce d PLT Pher Routine Lab 09/18/20 06:08 Results PACKED CELLS [Shirlene kocyte Reduced RBC ] Routine Lab 09/18/20 06:08 Results Type and Screen R outine Lab 09/18/20 06:08 Results Labs from last 24 hours 09/21/20 09/21/20 09/21/20 16:51 10:40 06:18 WBC RBC Hgb Hct MCV MCH MCHC RDW Plt Count MPV Neut % (Auto) Lymph % (Auto) [place] % (Auto) Eos % (Auto) Baso % (Auto) Neut # (Auto) Lymph # (Auto) [place] # (Auto) Eos # (Auto) Baso # (Auto) Nucleated RBC % (a uto) Nucleated RBCs # Sodium Potassium Chloride Carbon Dioxide Anion Gap BUN Creatinine GFR Calculation Glucose POC Glucose 198 186 141 Calculated Osmolal ity Calcium Total Bilirubin AST ALT Alkaline Phosphata se Total Protein Albumin Globulin Blood Type Rho(D) Type Antibody Screen Crossmatch 09/21/20 09/21/20 09/20/20 04:26 04:26 20:21 WBC 2.1 L RBC 2.96 L Hgb 8.4 L Hct 27.3 L MCV 92.2 MCH 28.4 MCHC 30.8 RDW 15.4 H Plt Count 80 L MPV 11.7 H Neut % (Auto) 66.4 Lymph % (Auto) 21.5 [place] % (Auto) 9.3 Eos % (Auto) 2.8 Baso % (Auto) 0.0 Neut # (Auto) 1.42 L Lymph # (Auto) 0.5 L [place] # (Auto) 0.2 Eos # (Auto) 0.1 Baso # (Auto) 0.0 Nucleated RBC % (a uto) 0 Nucleated RBCs # 0.0 Sodium 140 Potassium 3.7 Chloride 104 Carbon Dioxide 26 Anion Gap 13.7 BUN 33 H Creatinine 1.2 GFR Calculation Not Reportable Glucose 140 H POC Glucose 196 Calculated Osmolal ity 300 H Calcium 8.7 Total Bilirubin 1.4 H AST 22 ALT 10 Alkaline Phosphata se 98 Total Protein 6.4 L Albumin 3.3 L Globulin 3.1 Blood Type Rho(D) Type Antibody Screen Crossmatch 09/18/20 06:08 WBC RBC Hgb Hct MCV MCH MCHC RDW Plt Count MPV Neut % (Auto) Lymph % (Auto) [place] % (Auto) Eos % (Auto) Baso % (Auto) Neut # (Auto) Lymph # (Auto) [place] # (Auto) Eos # (Auto) Baso # (Auto) Nucleated RBC % (a uto) Nucleated RBCs # Sodium Potassium Chloride Carbon Dioxide Anion Gap BUN Creatinine GFR Calculation Glucose POC Glucose Calculated Osmolal ity Calcium Total Bilirubin AST ALT Alkaline Phosphata se Total Protein Albumin Globulin Blood Type O Positive Rho(D) Type Positive Antibody Screen Negative Crossmatch See Detail Vitals: Last Vital Signs Temp 98 F 09/21/20 18:51 Pulse 76 09/21/20 18:51 Resp 17 09/21/20 18:51 BP 123/55 09/21/20 18:51 Pulse Ox 98 09/21/20 18:51 TS Medications Medications Home Medications bismuth subsalicylate [Pepto-Bismol] See Rx Instructions .ROUTE .COMPLEX 12/04/19 [History Confirmed 09/17/20] diphenoxylate-atropine See Rx Instructions .ROUTE .COMPLEX 12/04/19 [History Confirmed 09/17/20] metoprolol tartrate 100 mg tablet 100 mg PO BID #180 tab 01/02/20 [Rx Confirmed 09/17/20] insulin glargine 100 unit/mL subcutaneous solution 50 unit SUBCUT BID 01/16/20 [History Confirmed 09/17/20] omeprazole 40 mg capsule,delayed release 40 mg PO DAILY cap 01/16/20 [History Confirmed 09/17/20] furosemide 40 mg tablet 80 mg PO DAILY tab 04/16/20 [History Confirmed 09/17/20] hydrocodone 7.5 mg-acetaminophen 325 mg tablet 1 tab PO TID PRN tab 04/16/20 [History Confirmed 09/17/20] spironolactone 25 mg-hydrochlorothiazide 25 mg tablet 1 tab PO DAILY tab 04/16/20 [History Confirmed 09/17/20] acetaminophen [Tylenol Extra Strength] 1,000 mg PO PRN 06/26/20 [History Confirmed 09/17/20] digoxin 125 mcg PO DAILY 06/26/20 [History Confirmed 09/17/20] glimepiride 4 mg PO BID 06/26/20 [History Confirmed 09/17/20] triamcinolone acetonide See Rx Instructions .ROUTE .COMPLEX 06/26/20 [History Confirmed 09/17/20] Active Medications Acetaminophen (Acetaminophen 325 Mg Tablet) 650 mg PO Q6H PRN PRN Reason: Mild/Mod Pain Or Temp >/= 101 Hydrocodone Bitart/Acetaminophen (Hydrocodone-Acetaminophen 7.5-325 Mg Tablet) 1 tab PO Q8H PRN PRN Reason: MODERATE PAIN Last Admin: 09/21/20 00:01 Dose: 1 tab Documented by: Dextrose (Dextrose 50% Syringe 50 Ml) 25 ml IVP ONCE PRN; Protocol PRN Reason: hypoglycemia protocol Dextrose (Dextrose 50% Syringe 50 Ml) 50 ml IVP PRN PRN; Protocol PRN Reason: hypoglycemia protocol Digoxin (Digoxin 125 Mcg Tablet) 125 mcg PO DAILY [facility] Last Admin: 09/21/20 09:09 Dose: 125 mcg Documented by: Diphenoxylate HCl/Atropine (Diphenoxylate/Atropine Tablet) 1 - 2 tab PO DAILY PRN PRN Reason: DIARRHEA Docusate Sodium (Docusate Sodium 100 Mg Capsule) 100 mg PO BID [facility] Last Admin: 09/21/20 18:27 Dose: 100 mg Documented by: Glucagon (Glucagon 1 Mg/Ml Inj 1 Ml) 1 mg IM ONCE PRN; Protocol PRN Reason: Adult Acute Hypoglycemia Prot. Dextrose (D5w) 500 mls @ 100 mls/hr IV ONCE PRN; Protocol PRN Reason: Adult Acute Hypoglycemia Prot Insulin Aspart (Insulin Aspart 100 Unit/1 Ml) 0 unit SUBCUT WM&BEDTIME [facility]; Protocol Last Admin: 09/21/20 18:27 Dose: 4 unit Documented by: Metoprolol Tartrate (Metoprolol Tartrate 50 Mg Tablet) 50 mg PO BID [facility] Last Admin: 09/21/20 18:26 Dose: 50 mg Documented by: Naloxone HCl (Naloxone 0.4 Mg/Ml Sdv) 0.1 mg IVP Q2M PRN PRN Reason: OPIATERV Ondansetron HCl (Ondansetron 2 Mg/Ml Sdv 2 Ml) 4 mg IVP Q8H PRN PRN Reason: vomiting, or N/V if npo Last Admin: 09/18/20 18:51 Dose: 4 mg Documented by: Pantoprazole Sodium (Pantoprazole Dr 40 Mg Tablet) 40 mg PO Q12H [facility] Last Admin: 09/21/20 09:07 Dose: 40 mg Documented by: Spironolactone (Spironolactone 25 Mg Tablet) 25 mg PO DAILY [facility] Last Admin: 09/21/20 09:09 Dose: 25 mg Documented by: Trazodone HCl (Trazodone 50 Mg Tablet) 25 mg PO BEDTIME [facility] Last Admin: 09/20/20 21:22 Dose: 25 mg Documented by: Triamcinolone Acetonide (Triamcinolone 0.1% Cream 15 Gm) 0 applic TOPICAL BID PRN PRN Reason: ITCHY AREAS Discharge Plan Discharge Patient Disposition: Xfer Short-Term Hosp Condition: Stable Prescriptions: No Action omeprazole 40 mg capsule,delayed release(DR/EC) 40 mg PO DAILY RF: 0 spironolacton-hydrochlorothiaz 25-25 mg tablet 1 tab PO DAILY RF: 0 hydrocodone-acetaminophen 7.5-325 mg tablet 1 tab PO TID PRN (Reason: pain) RF: 0 metoprolol tartrate 100 mg tablet 100 mg PO BID Qty: 180 RF: 3 diphenoxylate-atropine 2.5-0.025 mg Tablet See Rx Instructions .ROUTE .COMPLEX RF: 0 bismuth subsalicylate [Pepto-Bismol] 262 mg/15 mL Suspension See Rx Instructions .ROUTE .COMPLEX RF: 0 Lantus U-100 Insulin 100 unit/mL solution 50 unit SUBCUT BID RF: 0 furosemide 40 mg tablet 80 mg PO DAILY RF: 0 acetaminophen [Tylenol Extra Strength] 500 mg Tablet 1,000 mg PO PRN RF: 0 triamcinolone acetonide 0.1 % cream See Rx Instructions .ROUTE .COMPLEX RF: 0 glimepiride 4 mg tablet 4 mg PO BID RF: 0 digoxin 125 mcg (0.125 mg) tablet 125 mcg PO DAILY RF: 0 Referrals: Sudeep Lucas MD [Physician] - Earnest Leyva MD [Hospitalist] - Earnest Dangelo DO [Primary Care Provider] - Transfer Attestations Time Spent in Transfer Care*: greater than 30 min Quality Metrics Clinical Quality Measures: During this hospital stay, did patient experience: None Coding Level of Care Code Acute Electrical High Tension Tester for Chg Fwd Diagnoses GI bleed K92.2 Cirrhosis K74.60 Pancytopenia D61.818 Hypertension I10 Hypertension type: essential hypertension Hyperlipidemia E78.2 Hyperlipidemia type: mixed hyperlipidemia History of CHF (congestive heart failure) Z86.79 Chronic atrial fibrillation I48.20 Thrombocytopenia D69.6 Acute blood loss anemia D62 Aortic valve stenosis, acquired I35.0 CKD (chronic kidney disease) N18.9
[2020-09-21 20:33] LABS: Glucose Point of Care 198 mg/dL (70-110)
[2020-09-21] MEDS: trazodone 50 mg Tablet 25 MG PO (21:00)
== END 2020-09-21 22:35 | disposition short-term general hospital (02) | DRG 378 ==
LOC: ER 14:56 → MEDSURG 21:04
PROVIDERS: Registered Nurse; Surgery; Admitting Provider Internal Medicine; Emergency Provider Emergency Medicine; PCP Internal Medicine; Visit Provider Internal Medicine
PROC: 0DJ08ZZ Inspection of Upper Intestinal Tract, Via Natural or Artificial Opening Endoscopic (ICD-10-PCS; CPT 43235; principal; 2020-09-19 10:30)
DX: K92.2 Gastrointestinal hemorrhage, unspecified (principal); I50.32 Chronic diastolic (congestive) heart failure; I48.20 Chronic atrial fibrillation, unspecified; K76.6 Portal hypertension; D61.818 Other pancytopenia; Q27.33 Arteriovenous malformation of digestive system vessel; I11.0 Hypertensive heart disease with heart failure; E11.9 Type 2 diabetes mellitus without complications; E78.2 Mixed hyperlipidemia; K74.60 Unspecified cirrhosis of liver; K75.81 Nonalcoholic steatohepatitis (NASH); I85.10 Secondary esophageal varices without bleeding; I25.10 Atherosclerotic heart disease of native coronary artery without angina pectoris; Z95.0 Presence of cardiac pacemaker; D69.6 Thrombocytopenia, unspecified; K52.9 Noninfective gastroenteritis and colitis, unspecified; I35.0 Nonrheumatic aortic (valve) stenosis; Z87.891 Personal history of nicotine dependence; Z79.4 Long term (current) use of insulin; Z79.891 Long term (current) use of opiate analgesic; R16.1 Splenomegaly, not elsewhere classified; K43.9 Ventral hernia without obstruction or gangrene; D50.0 Iron deficiency anemia secondary to blood loss (chronic)
CPT/HCPCS: 12345; 36415; 36416; 36430; 43239; 71046; 74176; 76705; 80053; 80061; 80162; 81003; 82962; 83036; 83690; 83735; 84100; 84145; 84443; 84484; 85018; 85025; 85610; 85730; 86850; 86900; 86920; 87077; 93005; 96372; 96375; 99282; C9113; J1815; J2405; J2704; J7030; P9016

== ENCOUNTER 2020-10-30 09:55 | Outpatient (CLI) | payer MEDICARE, BC, SELFPAY ==
[2020-10-30 11:34] LABS: Basophils % 0.4 %; Eosinophils # 0.1 10^3/uL (0.0-0.8); Eosinophils % 3.6 %; Hematocrit 21.4 % (42.0-52.0); Hemoglobin 8.1 g/dL (11.7-16.6); Lymphocytes # 0.5 10^3/uL (0.8-4.8); Lymphocytes % 18.8 %; Mean Corpuscular HGB Conc 37.9 g/dL (30.0-36.0); Mean Corpuscular Hemoglobin 35.8 pg (28.0-34.0); Mean Corpuscular Volume 94.7 fL (80-94); Mean Platelet Volume 12.4 fL (7.4-10.4); Monocytes # 0.2 10^3/uL (0.2-0.9); Monocytes % 7.6 %; Neutrophils # 1.73 10^3/uL (1.8-7.7); Neutrophils % 69.2 %; Nucleated Red Blood Cells % 0 %; Platelet Count 68 10^3/cmm (130-400); Red Blood Count 2.26 10^6/uL (4.1-5.3); Red Cell Distribution Width 17.2 % (12.1-15.1); White Blood Count 2.5 10^3/uL (4.0-10.0)
[2020-10-30 12:18] LABS: Alanine Aminotransferase 13 U/L (0-41); Albumin Level 3.7 g/dL (3.5-5.2); Alkaline Phosphatase 139 IU/L (40-130); Anion Gap 15.5 (5-19); Aspartate Amino Transferase 19 U/L (0-40); Blood Urea Nitrogen 41 mg/dL (8-23); Calcium 8.9 mg/dL (8.5-10.5); Carbon Dioxide 26 mmol/L (22-29); Chloride 99 mmol/L (98-107); Ferritin 57 ng/mL (30-400); Globulin 3.7 g/dL (1.3-4.6); Glucose 325 mg/dL (65-115); Iron 35 ug/dL (59-158); Osmolality Calculated 305 mOsm/kg (285-295); Potassium 4.5 mmol/L (3.5-5.1); Sodium 136 mmol/L (136-145); Total Bilirubin 0.7 mg/dL (0.15-1.2); Total Iron Binding Capacity 318 mcg/dl; Total Protein 7.4 g/dL (6.6-8.7); Unsaturated Iron Binding 283 ug/dL (112-347)
[2020-10-30 13:17] LABS: Slide Review Slide Review Perform
== END 2020-10-30 09:56 | disposition home or self-care (01) ==
LOC: ONCMED 11:55
PROVIDERS: PCP Internal Medicine; Visit Provider Nurse Practitioner
DX: D50.9 Iron deficiency anemia, unspecified (principal)
CPT/HCPCS: 36415; 80053; 82728; 83540; 83550; 85025

== ENCOUNTER 2020-11-01 15:45 | Outpatient (CLI) | payer MEDICARE, BC, SELFPAY ==
--- NOTE | 2020-11-04 12:27 | ONC FU_ITS ---
Dr. Leyva Patient Follow-Up Note Patient: Aramis Olsen Unit #: [id number]: 1940 Dicatated By: Earnest Leyva M.D.Date of Visit:Nov 01, 2020 Onc Med Follow-up/Prog Note Chief Complaint: Anemia and thrombocytopenia. History of Present Illness: This is an 80 year-old man with moderately severe thrombocytopenia in the setting of cirrhosis, portal hypertension, and hepatosplenomegaly. He also has had evidence of iron deficiency anemia. He has a past medical history notable for coronary artery disease, atrial fibrillation on chronic anticoagulation with dabigatran, hypertension, and insulin-dependent diabetes mellitus. He was known to have a moderate thrombocytopenia since at least 2005 with platelet counts ranging from 70-100,000. He was first seen by Dr. Reynolds on 11/14/2011. His CBC showed WBC 4.1 with mild lymphopenia, hemoglobin 13.6, and platelets 75,000. He had no evidence of DIC or hemolysis. He had a chronic right lower extremity swelling without evidence of thrombosis on US doppler. He had iron deficiency, for which he received oral and parenteral iron. The CT of the abdomen and pelvis on 11/21/2011 had findings suggestive of cirrhosis and portal hypertension. Serology for hepatitis and HIV were negative. Bone marrow aspiration/biopsy on 01/06/2012 showed 50% cellularity without dyspoiesis. There was just scant storage iron. Flow cytometry was unrevealing. 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 FISH panel for MDS was negative. 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 He was started on beta blockers. His surveillance EGD on 08/26/2012 showed gastritis. His surveillance screening for hepatocellular carcinoma with ultrasound of the liver on 08/13/2012 showed no evidence of malignancy. Alpha-fetoprotein measured 1.3 on 08/10/2012. CT of the abdomen and pelvis on 08/26/2016 showed changes of cirrhosis with splenomegaly and portal hypertension. Similar findings had been described on 11/21/2011. There was mesenteric misting/ panniculitis and stranding, possibly due to edema. Findings were very similar to the prior examination. There was mild mucosal thickening involving the ascending colon. There was mild sigmoid diverticulosis without evidence for acute diverticulitis. A repeat CT abdomen/pelvis on 12/01/2016 showed unchanged cirrhotic appearing liver with associated splenomegaly. There was no ascites noted. There was unchanged central mesenteric/peripancreatic fat induration/edema, felt to be nonspecific. The findings of ascending colitis on the previous study appeared resolved. There were no other acute findings. On 07/25/2017 he presented to the emergency room with weakness and shortness of breath. His CBC showed his hemoglobin down to 8.7 g compared to 10.5 g on 07/14/2017 and to a baseline hemoglobin level of 13 g. The white blood cell count was 4500 and the platelet count was 105,000. There were no acute findings on chest x-ray. He returned to the emergency room [address] pulmonary angiogram at that time showed no evidence of pulmonary embolism or other acute cardiopulmonary findings. He was given parenteral iron replacement with infusions of Injectafer on 08/12/2017 and on 08/19/2017. On his follow-up visit in September 2017 his hemoglobin had increased to 12.0 g. He was feeling better. His serum iron studies at that time still showed low transferrin saturation of 4.4%, and I did opt to give him one additional infusion of Injectafer. His repeat CBC on 10/15/2017 showed hemoglobin up to 13.9 g. As of 12/28/2017 it had decreased slightly, to 11.9 g. He transferrin saturation at that time was borderline at 20.4% with ferritin 109 ng/mL. He continued on observation/expectant management. His other medical illnesses include hypertension, dyslipidemia, type II diabetes, and coronary artery disease. He has associated atrial fibrillation and congestive heart failure. He underwent placement of permanent pacemaker in 1997. He is a nonsmoker. INTERIM HISTORY: He was given further parenteral iron replacement with Injectafer in March 2018 and in June 2018. He was then seen for a follow-up visit on 09/28/2018. His hemoglobin at that time was moderately decreased at 9.1 g. He again appeared to have iron deficiency with his transferrin saturation low at 7.1% and ferritin low at 27.0 ng/mL. He was given further infusions of Injectafer on 09/28/2018 and 10/05/2018. As of his follow-up visit on 11/11/2018 his hemoglobin was still mildly decreased at 10.9 g and his transferrin saturation was low at 16.2%. He was given 1 additional infusion of Injectafer. His repeat CBC on 12/16/2018 showed hemoglobin down to 7.8 g with hematocrit 24.4%. The white blood cell count was 4800. Platelet count was just mildly decreased at 118,000. The serum iron studies showed low transferrin saturation at 13.6%, but with ferritin normal at 117 ng/mL. He was transfused 2 units of PRBC on 12/17/2018. He was seen for a follow-up visit on 02/03/2019. At that point he was still mildly anemic with hemoglobin 9.2 g. His transferrin saturation was low at 7.3%, consistent with iron deficiency. He was given parenteral iron replacement with 2 infusions of Injectafer. He was then given Injectafer again on 03/17/2019 and on 04/25/2019, and he received 2 additional infusions in August 2019. In November 2019 he received an additional infusion of Injectafer and in December he was given a PRBC transfusion. He did receive another infusion of Injectafer on 02/06/2020. At that point his hemoglobin had dropped to 6.3 g, and he also was transfused 2 units PRBC. He did develop significant side effects following that infusion of Injectafer. During subsequent follow-up, his hemoglobin had remained adequate, ranging from 8.0 to 9.0 g. In June 2020 he did receive additional parenteral iron replacement with 2 infusions of Feraheme, which he tolerated well. His repeat CBC in July did show increase in his hemoglobin to 10.2 g. On 09/17/2020 he was admitted to the hospital with GI bleeding. EGD showed mild gastritis and a few AVMs in the fundus of the stomach, but without active bleeding. He ultimately was transferred to the [facility]. According to the patient's daughter they fixed 2 spots in his stomach . Since he has been home from the hospital he says his bowels have not been running off as bad. He is now having just 1 or 2 bowel movements per day. His stools are dark, but not as bad as they had been. He continues, though, to have very limited activity. His ECOG score is 3. Appetite has been poor, but he is starting to eat again. He has not had fever. He does have a little sweating at times. He is short of breath with activity and he does have some cough. He does not complain of chest pain. He has frequent urination. He has a lot of arthritis pain. The most significant is in his elbows and wrists. He has numbness in his fingers. Medications: Digoxin 1 Tablet (of 0.125 mg) Oral daily, Furosemide 2 Tablet (of 40 mg) Oral daily, Glimepiride 1 (4 mg) Tablet Oral b.i.d., Hydrocodone-Acetaminophen 1 (7.5-325 mg) Tablet Oral b.i.d. PRN, Lantus 50 Units (of 100 Units/mL) Subcutaneous b.i.d. PRN, Lomotil 1 Tablet (of 2.5-0.025 mg) Oral b.i.d., Metoprolol Tartrate 1 (100 mg) Tablet Oral b.i.d., Omeprazole 1 Capsule (of 40 mg) Capsule Delayed Release Oral daily, Spironolactone-HCTZ 1 (25-25 mg) Tablet Oral daily, Tylenol 1 Tablet (of 650 mg) Oral b.i.d. PRN Allergies: No Known Allergies. Vital Signs: Performed on Nov 01, 2020 16:14 Height - 71.00 in Weight - 184 lbs (LOW) BSA - 2.04 sq.m BMI - 25.66 Temperature - 97.8 F (LOW) Pulse - 65 /min Respiration - 16 /min BP - 114/47 mm(hg) O2 Sat - 100 % Physical Examination: Constitutional - He appears generally weak and chronically ill, Eyes - Sclerae nonicteric. Conjunctivae clear, ENMT - No lesions noted in the oral cavity, Hematologic/Lymphatic - No cervical, clavicular, or axillary adenopathy, Respiratory - Lungs sound clear, Cardiovascular - Heart rhythm is regular. There is a II/ systolic murmur. There is no gallop or rub noted, Abdomen - Mildly distended. Liver appears enlarged. Spleen is not palpable. There is no abdominal mass noted. There is no inguinal adenopathy, Extremities - There is 3+ lower extremity edema. He has extensive purpura, Neurologic - No focal neurologic deficits noted. Lab/Imaging: Test performed on Oct 30, 2020 09:55 Ferritin 57 ng/mL Iron 35 mcg/dL Sodium 136 mmol/L Iron Binding Capacity (TIBC) 318 mcg/dl Potassium 4.5 mmol/L % Iron Saturation 11.0 % Chloride 99 mmol/L CO2 26 mmol/L UIBC 283 mcg/dL Anion Gap 15.5 BUN 41 mg/dL Creatinine 1.8 mg/dL Cr Clearance (Est) 43.7400 mL/min Glucose 325 mg/dL Osmolality - Calculated 305 mOsm/kg Calcium 8.9 mg/dL Protein, Total 7.4 g/dL Albumin 3.7 g/dL Globulin 3.7 g/dL Bilirubin, Total 0.7 mg/dL ALT (SGPT) 13 U/L AST (SGOT) 19 U/L Alkaline Phosphatase 139 IU/L WBC 2.5 10 3/uL RBC 2.26 10 6/uL HGB 8.1 g/dL HCT 21.4 % MCV 94.7 fL MCH 35.8 pg MCHC 37.9 g/dL RDW 17.2 % Platelet Count 68 10 3/cmm MPV 12.4 fL Neutrophils 1.73 10 3/uL Lymphocytes 0.5 10 3/uL Monocytes 0.2 10 3/uL Eosinophils 0.1 10 3/uL Basophils 0.0 10 3/uL Neutrophil % 69.2 % Lymphocyte % 18.8 % Monocyte % 7.6 % Eosinophil % 3.6 % Basophils % 0.4 % NRBC % 0 % CBC Slide Review Slide Review Perform SLIDE REVIEW AGREES WITH AUTOMATED RESULT ST Historic Problem List: 1. Moderately severe thrombocytopenia in the setting of cirrhosis with portal hypertension and splenomegaly. He also had evidence of iron deficiency at the time of his initial evaluation in 2011. Bone marrow aspiration/biopsy at that time was otherwise unremarkable. The thrombocytopenia had remained stable over a follow-up period of 10 years, and it was presumed to be due to hypersplenism. 2. He has had recurent episodes of iron deficiency anemia, presumed to be due to GI blood loss. He has responded well to parenteral iron replacement. 3. Steatohepatitis is the presumed cause for the cirrhosis. 4. Hypertension. 5. Hyperlipidemia. 6. Type II diabetes. 7. Coronary artery disease with congestive heart failure. 8. Chronic atrial fibrillation. Problems Addressed with this Encounter and Plan: 1. Recurent episodes of iron deficiency anemia, presumed to be due to GI blood loss. He has responded well to parenteral iron replacement. During follow-up there has been gradual decline in his performance status, and he recently had another hospital admission with GI bleeding and associated anemia. His overall condition appears poor. As he is still significantly anemic, he will be scheduled to come in for PRBC transfusion. He can then be given further parenteral iron replacement, as his transferrin saturation is again consistent with iron deficiency. 2. He has moderately severe thrombocytopenia, presumed to be due to hypersplenism. During follow-up his platelet count has remained adequate and stable. Signed By: Earnest Leyva M.D. <<Signature on File>>
== END 2020-11-01 15:46 | disposition home or self-care (01) ==
PROVIDERS: PCP Internal Medicine; Visit Provider Internal Medicine Medical Oncology
DX: D50.0 Iron deficiency anemia secondary to blood loss (chronic) (principal); D69.6 Thrombocytopenia, unspecified; K74.69 Other cirrhosis of liver; K76.6 Portal hypertension; R16.1 Splenomegaly, not elsewhere classified; E78.5 Hyperlipidemia, unspecified; E11.9 Type 2 diabetes mellitus without complications; I25.10 Atherosclerotic heart disease of native coronary artery without angina pectoris; I11.0 Hypertensive heart disease with heart failure; I50.9 Heart failure, unspecified; I48.20 Chronic atrial fibrillation, unspecified
CPT/HCPCS: 99214

== ENCOUNTER 2020-11-19 17:55 | Inpatient (IN) | payer MEDICARE, BC, SELFPAY ==
[2020-11-19] VITALS (10 sets, daily range): BP systolic 122–138; BP diastolic 51–75; PULSE 64–70; RESP 12–18; TEMP 36.3; O2SAT 95–99; BMI 24.7
--- NOTE | 2020-11-19 18:33 | XRR_ITS ---
PROCEDURE INFORMATION: Exam: XR Chest, 1 View Exam date and time: 11/19/2020 6:37 PM Age: 80 years old Clinical indication: Chest pain; Type not specified; Prior surgery; Surgery type: Pacemaker; Additional info: Cp TECHNIQUE: Imaging protocol: XR of the chest Views: 1 view. COMPARISON: CR XR chest 2V* [id number] 09/17/2020 12:50 PM FINDINGS: Tubes, catheters and devices: Atrioventricular pacemaker. Lungs: Emphysematous change and interstitial prominence. Asymmetric bibasilar airspace disease and pleural effusions, left greater than right. Heart/Mediastinum: Cardiomegaly. Vasculature: Calcification of the thoracic aorta. Bones/joints: Osteopenia and degenerative change. XR/XR chest 1V portable [id number] IMPRESSION: COPD with asymmetric bibasilar airspace disease and pleural effusions, left greater than right.
--- NOTE | 2020-11-19 18:33 | ECG_ITS ---
[facility] Test Date: 2020-11-19 Pat Name: Aramis Olsen Department: Room: Gender: Male Jig Operator: : 1940 Requested By: Alondra Fortune Order Number: [id number] Dorinda MD: Jag Durant M.D. Measurements Intervals [place] Rate: 69 P: CT: QRS: 242 QRSD: 187 T: 106 QT: 455 QTc: 488 Interpretive Statements ELECTRONIC VENTRICULAR PACEMAKER ABNORMAL RHYTHM ECG Compared to ECG 09/18/2020 00:23:42 No significant changes Electronically Signed On 11-19-2020 18:49:45 DIRECTOR OF DIAGNOSTIC IMAGING by Jag Durant M.D. [id number] f
[2020-11-19] MEDS: FUROsemide 10 mg/mL SDV 4mL 40 MG IVP (19:12)
[2020-11-19] MEDS: ondansetron 2 mg/ML SDV 2 mL 4 MG IVP (19:20)
[2020-11-19] MEDS: morphine 4 mg/mL SDV 1 mL IVP ×2 (19:20→21:21)
--- NOTE | 2020-11-19 19:20 | W.ED.CHESTPA ---
HPI - Chest Pain General: Chief Complaint: Chest Pain Stated Complaint: CP, UNABLE TO USE L SIDE Time Seen by Provider: 11/19/20 18:46 Source: patient Mode of arrival: ambulatory Limitations: no limitations History of Present Illness: HPI narrative: Aramis is an 80-year-old male he states he had chest pain over the last 2 to 3 days. He states been a pressure type pain in the center of his chest. He states pain is currently a 6 out of 10. He states he is also had extreme swelling in his bilateral legs causing him to have difficulty walking and pain in his legs. Denies any worsening improving factors. Denies any shortness of breath. MD complaint: chest pain Associated symptoms: Deny abdominal pain, dyspnea, fever(s), nausea or vomiting Review of Systems Const: Denies: fever(s), chills, body aches or change in appetite Eyes: Denies: blurry vision or eye discomfort ENMT: Denies: throat pain or dental pain Card: Reports: chest pain Resp: Denies: dyspnea GI: Denies: abdominal pain, nausea, vomiting or diarrhea : Denies: dysuria Musc: Denies: neck pain or back pain Skin/Breast: Denies: rash Neuro: Denies: headache(s) Psych: Denies: depression Hitesh/Lymph: Denies: easy bruising All/Imm: Denies: urticaria PFSH ED PFSH: Medical History Anemia Aortic valve stenosis, acquired Bloody stools BPH (benign prostatic hyperplasia) Chronic atrial fibrillation History of tachybradycardia syndrome Chronic diarrhea Cirrhosis Early esophageal varices CKD (chronic kidney disease) Coronary artery disease Diabetes mellitus Diarrhea History of CHF (congestive heart failure) History of gastritis Hyperlipidemia Hypertension Pancytopenia Portal hypertension Thrombocytopenia Surgical History History of cataract surgery Bilateral -- did not help History of cholecystectomy History of colonoscopy (~11/2019) History of esophagogastroduodenoscopy (EGD) (~11/2019) History of permanent cardiac pacemaker placement History of transurethral resection of prostate Pacemaker Family History Mother Cancer I am not sure what kind it was CAD (coronary artery disease) Family/Other Diabetes Denies family history of Clotting disorder Dementia Chronic kidney disease (CKD) Suicide Anesthesia complication Bleeding disorder Lung disease Stroke Social History Smoking and tobacco status: former smoker Alcohol intake: former Physical Exam Const: COMMON NORMALS: no acute distress, patient oriented x3 and healthy appearing HENMT: COMMON NORMALS: normocephalic and atraumatic HEAD & SCALP: normocephalic and atraumatic Eye: COMMON NORMALS: Equal, round and reactive pupils present and EOMs intact bilaterally PUPIL: Yes Equal, round and reactive pupils present Neck/C-Spine: COMMON NORMALS: full ROM and supple Chest: COMMONS NORMALS: normal inspection of the chest and normal palpation of entire chest wall Resp: COMMON NORMALS: normal respiratory effort, No retractions, No use of accessory muscles and clear to auscultation bilaterally AUSCULTATION: clear to auscultation bilaterally Cardio: COMMON NORMALS: regular rate, regular rhythm and No murmurs present (Cardio) RATE: regular rate RHYTHM: regular rhythm GI: COMMON NORMALS: Normal to inspection, nondistended, normoactive bowel sounds present, Soft to palpation, non-tender and no masses PALPATION: Yes Soft to palpation Extremity: COMMON NORMALS: normal to inspection and full ROM OTHER: 2+ edema to legs Neuro: COMMON NORMALS: patient oriented x3, moves all extremities and no focal motor deficits Psych: COMMON NORMALS: mental status grossly normal, Normal thought process present and cooperative THOUGHT PROCESS: Normal thought process present Skin: COMMON NORMALS: no rashes or lesions noted and no wounds GENERAL SKIN EXAM: no rashes or lesions noted Course Vital Signs: Vital signs: Vital Signs Temperature 97.3 F L 11/19/20 18:01 Pulse Rate 66 11/19/20 21:00 Respiratory Rate 16 11/19/20 21:21 Blood Pressure 124/55 11/19/20 21:00 Pulse Oximetry 99 11/19/20 21:00 MDM - Chest Pain MDM Narrative: Medical decision making narrative: Aramis presents here with chest pain does have a slightly elevated troponin. He also has lower extremity edema with elevated BNP likely CHF. Will place him on Lasix. Patient is admitted to the cardiac stepdown unit I spoke to hospitalist. Lab Data: Labs: Lab Results 11/19/20 11/19/20 11/19/20 Range/Units 19:14 19:14 19:14 WBC 6.3 (4.0-10.0) 10^3/ uL RBC 2.53 L (4.1-5.3) 10^6/u L Hgb 7.6 L (11.7-16.6) g/dL Hct 22.7 L (42.0-52.0) % MCV 89.7 (80-94) fL MCH 30.0 (28.0-34.0) pg MCHC 33.5 (30.0-36.0) g/dL RDW 17.2 H (12.1-15.1) % Plt Count 103 L (130-400) 10^3/c mm MPV 12.8 H (7.4-10.4) fL Neut % (Auto) 80.7 % Lymph % (Auto) 9.1 % [place] % (Auto) 8.9 % Eos % (Auto) 0.6 % Baso % (Auto) 0.2 % Neut # (Auto) 5.05 (1.8-7.7) 10^3/u L Lymph # (Auto) 0.6 L (0.8-4.8) 10^3/u L [place] # (Auto) 0.6 (0.2-0.9) 10^3/u L Eos # (Auto) 0.0 (0.0-0.8) 10^3/u L Baso # (Auto) 0.0 (0.0-0.1) 10^3/u L Nucleated RBC % (a uto) 0 % Nucleated RBCs # 0.0 /100WBC Sodium 135 L (136-145) mmol/L Potassium 4.3 (3.5-5.1) mmol/L Chloride 99 (98-107) mmol/L Carbon Dioxide 24 (22-29) mmol/L Anion Gap 16.3 (5-19) BUN 50 H (8-23) mg/dL Creatinine 1.8 H (0.7-1.2) mg/dL GFR Calculation Not Reportable Glucose 84 (65-115) mg/dL Calculated Osmolal ity 293 (285-295) mOsm/k g Calcium 8.5 (8.5-10.5) mg/dL Total Bilirubin 1.9 H (0.15-1.2) mg/dL AST 18 (0-40) U/L ALT 11 (0-41) U/L Alkaline Phosphata se 118 (40-130) IU/L Troponin T Baselin e 49 H (0-15) ng/L NT-Pro-B Natriuret Pep 3960 H (0-450) pg/mL Total Protein 7.1 (6.6-8.7) g/dL Albumin 3.4 L (3.5-5.2) g/dL Globulin 3.7 (1.3-4.6) g/dL Imaging Data^: CXR: Attestation: I personally reviewed and interpreted this imaging study as follows: My impression: no acute anormality EKG Data^: EKG 1: Attestation: I personally reviewed and interpreted this EKG as follows: EKG interpretation date: 11/19/20 EKG interpretation time: 18:11 Interpretation: paced rhythm hr [address] or t wave abnormalities qrs 187 qtc 473 Discharge Plan Discharge Patient Disposition: Admitted As Inpatient Admit Provider: Luis Morrow Clinical Impression: Chest pain, Bilateral edema of lower extremity Condition: Stable Coding Level of Care Code ED Coating Operator for Chg Fwd Exam Comprehensive
[2020-11-19 20:08] LABS: Basophils % 0.2 %; Eosinophils % 0.6 %; Hematocrit 22.7 % (42.0-52.0); Hemoglobin 7.6 g/dL (11.7-16.6); Lymphocytes # 0.6 10^3/uL (0.8-4.8); Lymphocytes % 9.1 %; Mean Corpuscular HGB Conc 33.5 g/dL (30.0-36.0); Mean Corpuscular Volume 89.7 fL (80-94); Mean Platelet Volume 12.8 fL (7.4-10.4); Monocytes # 0.6 10^3/uL (0.2-0.9); Monocytes % 8.9 %; Neutrophils # 5.05 10^3/uL (1.8-7.7); Neutrophils % 80.7 %; Nucleated Red Blood Cells % 0 %; Platelet Count 103 10^3/cmm (130-400); Red Blood Count 2.53 10^6/uL (4.1-5.3); Red Cell Distribution Width 17.2 % (12.1-15.1); White Blood Count 6.3 10^3/uL (4.0-10.0)
[2020-11-19 20:24] LABS: Troponin(5th) Baseline 49 ng/L (0-15)
[2020-11-19 20:31] LABS: Alanine Aminotransferase 11 U/L (0-41); Albumin Level 3.4 g/dL (3.5-5.2); Alkaline Phosphatase 118 IU/L (40-130); Anion Gap 16.3 (5-19); Aspartate Amino Transferase 18 U/L (0-40); Blood Urea Nitrogen 50 mg/dL (8-23); Calcium 8.5 mg/dL (8.5-10.5); Carbon Dioxide 24 mmol/L (22-29); Chloride 99 mmol/L (98-107); Globulin 3.7 g/dL (1.3-4.6); Glucose 84 mg/dL (65-115); NT Pro B Type Natriuretic Pept 3960 pg/mL (0-450); Osmolality Calculated 293 mOsm/kg (285-295); Potassium 4.3 mmol/L (3.5-5.1); Sodium 135 mmol/L (136-145); Total Bilirubin 1.9 mg/dL (0.15-1.2); Total Protein 7.1 g/dL (6.6-8.7)
--- NOTE | 2020-11-19 20:33 | ECG_ITS ---
[facility] Test Date: 2020-11-19 Pat Name: Aramis Olsen Department: Room: Gender: Male Game Technician: : 1940 Requested By: Alondra Fortune Order Number: [id number] Reading MD: CASEY TEJADA Measurements Intervals [place] Rate: 65 P: OR: QRS: 259 QRSD: 174 T: 53 QT: 430 QTc: 448 Interpretive Statements ELECTRONIC VENTRICULAR PACEMAKER ABNORMAL RHYTHM ECG Compared to ECG 11/19/2020 18:11:29 No significant changes Electronically Signed On 11-20-2020 18:10:14 PEACH GROWER by CASEY TEJADA [id number]
--- NOTE | 2020-11-19 21:09 | P.HP_ITS ---
Providers/Chief Complaint Primary Care Provider: Earnest Dangelo DO Chief Complaint: CP, UNABLE TO USE L SIDE History of Present Illness Aramis Olsen is a 80 year old male who has history of liver cirrhosis, gastric ulcer status post EGD (gastric polyp, AVM, gastritis) required blood transfusion in the past, preserved ejection fraction heart failure, iron deficiency anemia, chronic atrial fibrillation not a candidate of anticoagu lation, sick sinus syndrome status post pacemaker placement presented today with generalized weakness. Patient is stating that his quality of life is deteriorating, is currently doing with his daughter and son-in-law, he hurts everywhere, his left side of the body hurts more than right, is complaining of pain in his left knee left elbow left shoulder. Today he experienced some right shoulder pain which was going across his chest towards left shoulder that is why he presented to the hospital. This pain lasted only for few seconds and resolved on its own, he did not strain his fever, productive cough, nausea, vomiting, diarrhea. He has been using Lasix as prescribed. His feet are getting more swollen he has gained significant weight as well. He is not able to walk on his feet anymore. He does not sleep with his feet raised above cardiac level. Patient is denying abdominal pain, he has not noticed active bleeding. Diagnostics in the ER revealed chronic anemia,, he is not hypoxic, afebrile normotensive creatinine slightly worsened from baseline his baseline creatinine is 1.3-1.5 bilirubin 1.9 without abnormal transaminases negative delta troponin EKG showing paced rhythm BNP 3900, albumin 3.4, chest x-ray shows pulmonary vascular congestion and pulmonary edema, EKG shows paced rhythm Review of Systems Const: Reports: chills, body aches, change in appetite, fatigue, malaise and change in sleep pattern; Denies: fever(s) Eyes: Denies: change in vision ENMT: Denies: throat pain Card: Reports: chest pain, dyspnea on exertion and orthopnea Resp: Reports: dyspnea, non-productive cough and pain on inspiration GI: Reports: early satiety, bloating and GI cramping; Denies: abdominal pain, nausea or vomiting : Denies: flank pain Musc: Reports: joint pain, joint stiffness and muscle cramps Skin/Breast: Reports: lesions Neuro: Reports: weakness in extremities Psych: Reports: sleeping more Endo: Denies: polyuria Hitesh/Lymph: Reports: easy bruising All/Imm: Denies: urticaria Medications/Allergies Home Medications Medication Instructions Recorded Confirmed Last Taken Type bismuth subsalicylate See Rx Instructions .ROUTE .COMPLEX 12/04/19 11/19/20 11/18/20 History [Pepto-Bismol] diphenoxylate-atropine 1 - 2 tab PO DAILY PRN 12/04/19 11/19/20 11/19/20 History insulin glargine 100 unit/mL 50 unit SUBCUT BID@0800,199901/16/20 11/19/20 11/19/20 History subcutaneous solution omeprazole 40 mg capsule,delayed 40 mg PO DAILY@0800 cap 01/16/20 11/19/20 11/19/20 History release furosemide 40 mg tablet 80 mg PO DAILY@0800 tab 04/16/20 11/19/20 11/19/20 History hydrocodone 7.5 mg-acetaminophen 1 tab PO TID PRN tab 04/16/20 11/19/20 11/19/20 History 325 mg tablet spironolactone 25 1 tab PO DAILY@0800 tab 04/16/20 11/19/20 11/19/20 History mg-hydrochlorothiazide 25 mg tablet acetaminophen [Tylenol Extra 1,000 mg PO PRN PRN 06/26/20 11/19/20 06/24/20 History Strength] glimepiride 4 mg PO BID@0800,199906/26/20 11/19/20 11/19/20 History triamcinolone acetonide See Rx Instructions .ROUTE .COMPLEX 06/26/20 11/19/20 09/17/20 History pantoprazole 40 mg tablet,delayed 40 mg PO DAILY@0800 tab 10/31/20 11/19/20 11/19/20 History release digoxin 125 mcg PO DAILY@0800 11/19/20 11/19/20 11/19/20 History metoprolol tartrate 100 mg PO BID@0800,199911/19/20 11/19/20 11/19/20 History Allergies Allergy/AdvReac Type Severity Reaction Status Date / Time No Known Allergies Allergy Verified 10/31/20 13:40 PFSH Acute PFSH: Medical History Anemia Aortic valve stenosis, acquired Bloody stools BPH (benign prostatic hyperplasia) Chronic atrial fibrillation History of tachybradycardia syndrome Chronic diarrhea Cirrhosis Early esophageal varices CKD (chronic kidney disease) Coronary artery disease Diabetes mellitus Diarrhea History of CHF (congestive heart failure) History of gastritis Hyperlipidemia Hypertension Pancytopenia Portal hypertension Thrombocytopenia Surgical History History of cataract surgery Bilateral -- did not help History of cholecystectomy History of colonoscopy (~11/2019) History of esophagogastroduodenoscopy (EGD) (~11/2019) History of permanent cardiac pacemaker placement History of transurethral resection of prostate Pacemaker Family History Mother Cancer I am not sure what kind it was CAD (coronary artery disease) Family/Other Diabetes Denies family history of Clotting disorder Dementia Chronic kidney disease (CKD) Suicide Anesthesia complication Bleeding disorder Lung disease Stroke Social History Smoking and tobacco status: former smoker Alcohol intake: former Vitals/I&O/Wt Last Vital Signs Temp 97.3 F L 11/19/20 18:01 Pulse 64 11/19/20 20:30 Resp 14 11/19/20 20:30 BP 124/51 11/19/20 20:30 Pulse Ox 97 11/19/20 20:30 Weight last 48 hrs Weight 80.286 kg Physical Exam Narrative: EXAM NARRATIVE: Pleasant elderly male Worsening supine without requiring any supplemental oxygen he was saturating well on room air normotensive No orthopnea or PND during my evaluation Has presentation of anasarca with massive lower extremity swelling Venous stasis dermatitis Paced rhythm, systolic murmur appreciated all over precordium Bilateral breath sounds without adventitious rhonchi or wheezing, mild crackles at the bases Abdomen distended, nontender, soft no signs of SBP Bowel sounds present Appropriate mood and affect, asterixis negative Muscle mass loss, cachexia No signs of cellulitis or joint swelling Data : 11/19/20 19:14 11/19/20 19:14 A&P Assessment and plan (1) Generalized weakness: Patient is complaining of generalized weakness and pain all over his body I do believe this is secondary to multiple comorbid conditions including liver cirrhosis and CHF No active septic joint noticed on clinical exam, has lower extremity venous dermatitis but no cellulitis I would recommend reducing dose of Tylenol and opioids For neuropathic pain he might benefit from SNRI Status: Acute (2) Acute kidney injury superimposed on chronic kidney disease: Most likely due to worsening congestive heart failure with underlying liver cirrhosis Albumin 3.4 BNP 4000 I would use Bumex for now No active signs of MD or infarction negative delta troponin no active chest pain Status: Acute (3) Anasarca: Due to liver cirrhosis, portal hypertension Steatohepatitis presumed to be the cause of liver cirrhosis, he has follow-up with Dr. 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 Status: Acute (5) CHF exacerbation: EF 78% with mitral and tricuspid valve regurgitation Show signs of heart failure with high BNP would use Bumex for now no active infarctive changes, troponin with negative delta Hemoglobin slightly lower from baseline, will transfuse if hemoglobin less than 7 Status: Acute Additional A&P Information Goals of care discussed with the patient: Full code but does not want to stay on the ventilator for prolonged period of time Consistent carbohydrate/cardiac diet: Type 2 diabetes patient uses high amount of insulin which I would reduce to 40 units twice a day instead of 50 units because of ERNA DVT prophylaxis: SCDs avoid anticoagulation secondary to anemia, hemoglobin 7.6, platelet count 103 Attestations Medical Necessity Statement*: Anticipating discharge in less than 48 hours overnight need excessive diuresis with Bumex has multiple comorbid condition and carries guarded prognosis Time Spent in Patient Care: (>than 50% of time spent in counselling and/or direct pt care on unit) . 50mins Coding Level of Care Code Acute Audograph Operator for Chg Fwd Diagnoses Generalized weakness R53.1 Acute kidney injury superimposed on chronic kidney disease N17.9; N18.9 Anasarca R60.1 Chronic anemia D64.9 CHF exacerbation I50.9
[2020-11-19] MEDS: aspirin 81 mg Chew Tablet 324 MG PO (21:22)
[2020-11-19 21:45] LABS: Troponin 5 2HR 45.54 ng/L (0-15)
[2020-11-19 21:52] LABS: Troponin 5 2HR Delta -3.46 ABS# (0-10)
--- NOTE | 2020-11-19 22:46 | PC.NURSE ---
Patient received from ED via stretcher. Patient has edema to abdomen to BLE. Feet are +4 pitting edema. Patient has rash to chest stated, I have been scratching at it some. Patient reports chronic diarrhea lasting for 6-7 MONTHS. Was recently discharged from [place] to try to find out what is causing the diarrhea and they still don't know why . Admission completed as documented. Patient c/o mild joint pain. No other distresses observed.
[2020-11-19] MEDS: cefTRIAXone 1,000 MG in sodium chloride 0.9% (plus) 50 ML 100 MG IV (22:59)
[2020-11-19] MEDS: pantoprazole DR 40 mg Tablet PO (23:00)
[2020-11-19 23:23] LABS: Ammonia 58 umol/L (16-60)
[2020-11-19 23:34] LABS: Digoxin 1.6 ng/mL (0.6-1.2)
[2020-11-20] VITALS (11 sets, daily range): BP systolic 108–129; BP diastolic 37–58; PULSE 64–78; RESP 15–18; TEMP 36.6–37.3; O2SAT 92–99; BMI 28.1
--- NOTE | 2020-11-20 00:33 | ECG_ITS ---
[facility] Test Date: 2020-11-20 Pat Name: Aramis Olsen Department: Room: 104 Gender: Male Electric Wheelchair Repairer: : 1940 Requested By: Alondra Fortune Order Number: [id number] Reading MD: CASEY TEJADA Measurements Intervals [place] Rate: 81 P: AL: QRS: -77 QRSD: 175 T: 116 QT: 437 QTc: 510 Interpretive Statements ELECTRONIC VENTRICULAR PACEMAKER ABNORMAL RHYTHM ECG Compared to ECG 11/19/2020 21:10:27 No significant changes Electronically Signed On 11-20-2020 18:10:03 CLINICAL PSYCHOLOGY PROFESSOR by CASEY TEJADA [email or web address]
[2020-11-20 01:04] LABS: Troponin 5 6HR 47.14 ng/L (0-15)
[2020-11-20 01:06] LABS: Troponin 5 6HR Delta -1.86 ng/L (0-12)
--- NOTE | 2020-11-20 03:48 | PC.NURSE ---
PT RESTING IN BED. PT DENIES PAIN. WILL CONTINUE TO MONITOR.
[2020-11-20] MEDS: HYDROcodone-acetaminophen 7.5-325 mg Tablet 1 TAB PO ×2 (04:49→13:24)
[2020-11-20 06:46] LABS: Glucose Point of Care 79 mg/dL (70-110)
[2020-11-20] MEDS: lactulose oral liq 20 gm/30 mL UDC 30 GM PO ×2 (08:58→20:59)
[2020-11-20] MEDS: duloxetine 30 mg Capsule PO (08:59)
[2020-11-20] MEDS: bumetanide 1 mg Tablet 2 MG PO (08:59)
[2020-11-20] MEDS: pantoprazole DR 40 mg Tablet PO ×2 (08:59→17:27)
[2020-11-20] MEDS: metoprolol tartrate 50 mg Tablet 100 MG PO ×2 (09:00→20:58)
[2020-11-20] MEDS: insulin glargine 100 units/1 mL 40 UNIT SUBCUT ×2 (09:05→21:46)
[2020-11-20 09:12] LABS: Glucose Point of Care 151 mg/dL (70-110)
--- NOTE | 2020-11-20 09:22 | PC.CHAP ---
Pastoral Care Encounter/Spiritual Assessment Type of Contact [] Declined plant superintendent visit [] Patient/Family/Request visit [] Outpatient visit [] Follow-up visit [] Physician referral [] Code/Alert [x] Routine visit [] Staff referral [] Actively dying [] Patient sleeping [] Family support [] [] Out of room [] Palliative care [] [] Receiving care in room [] Pre-surgical visit [] Trauma [] Long length of stay [] ICU visit [] Other: Relational/Emotional Strength [] Patient feels connected with others/family/visitors/staff [] Distress [] Loneliness/isolation [] Abandonment Spirituality of Patient [] Person of Sridevi [] Attends Religious of their Sridevi [] Believes in Prayer [] Reads Bible or Buddhism materials [] There are Spiritual issues to be addressed Decker Operator Interventions [x] Prayer [x] Active listening [x] Non-anxious presence [x] Spiritual/emotional support [] Crisis/trauma care [] Spiritual counseling [] Bereavement support [] Provided bereavement packet [] Provided Bible/devotional materials [] Provided toy/stuffed animal, coloring book to patient or family member [] Provided Communion [] Anointing/[place] [] Salvation [x] Completed spiritual assessment [] Other: Impact on Illness or Injury [] Angry [] Fearful [] Anxious [] Often cries [] Exhaustion [] Unable to work [] Unable to attend sikh [] Unable to walk/stand [] Unable to read [] Unable to drive [] Unable to eat/drink [] Unable to sleep [] Unable to be with family [] Patient intubated [] Other: Summary feeling stronger... Time spent with patient 10 min
--- NOTE | 2020-11-20 10:14 | P.PN_ITS ---
Subjective Subjective: Interval history: is complaining of pain in both his lower extremity as well as worsening swelling in both his lower extremity. His Vitals and Labs have been reviewed. Medications: Reviewed: Yes Vitals/I&O/Wt Last Vital Signs Temp 98.0 F 11/20/20 07:05 Pulse 72 11/20/20 09:42 Resp 15 11/20/20 09:42 BP 129/42 11/20/20 07:05 Pulse Ox 98 11/20/20 09:42 11/19/20 11/20/20 11/20/20 22:59 06:59 14:59 Intake Total 60 / 60 110 / 170 120 / 120 Output Total 500 / 500 Balance 60 / 60 -390 / -330 120 / 120 Weight last 48 hrs Weight 91.671 kg Weight 80.286 kg Physical Exam Const: COMMON NORMALS: patient oriented x3 HENMT: COMMON NORMALS: normocephalic, atraumatic and hearing grossly normal bi laterally HEAD & SCALP: normocephalic and atraumatic Chest: COMMONS NORMALS: normal inspection of the chest and normal palpation of entire chest wall CHEST: Yes Symmetrical chest wall rise Resp: COMMON NORMALS: normal respiratory effort, No retractions, No use of accessory muscles and clear to auscultation bilaterally EFFORT & INSPECTION: Yes symmetric chest movement AUSCULTATION: clear to auscultation bilaterally Cardio: COMMON NORMALS: regular rate, regular rhythm, S1 normal heart sound present, S2 normal heart sound present, No gallops present (Cardio), No murmurs present (Cardio), No rub (Cardio) and Peripheral pulses 2+ throughout RATE: regular rate RHYTHM: regular rhythm HEART SOUNDS: S1 normal heart sound present and S2 normal heart sound present PERIPHERAL PULSES: Peripheral pulses 2+ throughout GI: COMMON NORMALS: Normal to inspection, nondistended, normoactive bowel sounds present, Soft to palpation, non-tender, No hepatosplenomegaly present and no masses AUSCULTATION: Yes normoactive bowel sounds PALPATION: Yes Soft to palpation and Yes No hepatosplenomegaly present RECTAL EXAM: Yes deferred Extremity: NARRATIVE EXTREMITY EXAM: Chronic B/L Lower extremity Swelling present along with statis dematitis Neuro: COMMON NORMALS: patient oriented x3 Data : 11/19/20 19:14 11/19/20 19:14 A&P Assessment and plan (1) History of CHF (congestive heart failure): HFpEF Exacerbation Patient came in with worsening B/L L/E swelling Monitor I/O Daily Weight Currently on Bumex 2 mg i.v q12 h daily Status: Acute (2) Acute kidney injury superimposed on chronic kidney disease: Likely CRS Continue Bumex 2mg I.V Q12 H DAILY Monitor BMP. Status: Acute (3) Chronic anemia: Status: Acute (4) Pacemaker: Status: Acute (5) Anasarca: Status: Acute (6) Cirrhosis: Status: Inactive (7) Thrombocytopenia: Status: Inactive Additional A&P Information DVT PPX: On SCDS Code Status:Full code Disposition ;Home Attestations Medical Necessity Statement*: Patient needs to be in hospital for the management of Heart failure Coding Level of Care Code Acute Store Operations Associate for Larry Cifuentes Diagnoses History of CHF (congestive heart failure) Z86.79 Acute kidney injury superimposed on chronic kidney disease N17.9; N18.9 Chronic anemia D64.9 Pacemaker Z95.0 Anasarca R60.1 Cirrhosis K74.60 Thrombocytopenia D69.6
[2020-11-20 11:02] LABS: Glucose Point of Care 152 mg/dL (70-110)
--- NOTE | 2020-11-20 15:45 | PC.NURSE ---
patient refused lactulose at this time even after explaination of purpose of medication patient does note want to take this dose he will think about taking the next dose
[2020-11-20 16:18] LABS: Glucose Point of Care 168 mg/dL (70-110)
[2020-11-20] MEDS: bumetanide 0.25 mg/mL SDV 10 mL 2 MG IV (17:27)
[2020-11-20] MEDS: cefTRIAXone 1,000 MG in sodium chloride 0.9% (plus) 50 ML 100 MG IV (21:49)
[2020-11-21] VITALS (16 sets, daily range): BP systolic 103–125; BP diastolic 51–63; PULSE 64–74; RESP 13–18; TEMP 36.6–37.1; O2SAT 90–98
[2020-11-21] MEDS: HYDROcodone-acetaminophen 7.5-325 mg Tablet 1 TAB PO ×2 (03:16→09:16)
[2020-11-21] MEDS: ondansetron 2 mg/ML SDV 2 mL 4 MG IVP (03:57)
--- NOTE | 2020-11-21 03:58 | PC.NURSE ---
Pain med tolerance Pt states, this medicine don't work like it used to, Pt requests consideration of increasing dosage of pain meds. Pt states, I am in pain most days and dont have relief.
--- NOTE | 2020-11-21 04:01 | PC.NURSE ---
Explosive diarrhea-X2 episodes Pt refuses to take this medication any longer, it cramps his stomach and is causing uncontrolled explosive diarrhea
[2020-11-21] MEDS: bumetanide 0.25 mg/mL SDV 10 mL 2 MG IV ×2 (05:58→19:46)
[2020-11-21 06:06] LABS: Hematocrit 22.6 % (42.0-52.0); Hemoglobin 6.9 g/dL (11.7-16.6); Lymphocytes # 0.4 10^3/uL (0.8-4.8); Lymphocytes % 8.7 %; Mean Corpuscular HGB Conc 30.5 g/dL (30.0-36.0); Mean Corpuscular Hemoglobin 27.2 pg (28.0-34.0); Mean Platelet Volume 12.7 fL (7.4-10.4); Monocytes # 0.3 10^3/uL (0.2-0.9); Monocytes % 8.2 %; Neutrophils # 3.44 10^3/uL (1.8-7.7); Neutrophils % 82.6 %; Nucleated Red Blood Cells % 0 %; Platelet Count 85 10^3/cmm (130-400); Red Blood Count 2.54 10^6/uL (4.1-5.3); Red Cell Distribution Width 16.4 % (12.1-15.1); White Blood Count 4.2 10^3/uL (4.0-10.0)
[2020-11-21 06:31] LABS: Alanine Aminotransferase 10 U/L (0-41); Albumin Level 3.1 g/dL (3.5-5.2); Alkaline Phosphatase 119 IU/L (40-130); Anion Gap 15.2 (5-19); Aspartate Amino Transferase 15 U/L (0-40); Blood Urea Nitrogen 51 mg/dL (8-23); Calcium 8.8 mg/dL (8.5-10.5); Carbon Dioxide 27 mmol/L (22-29); Chloride 98 mmol/L (98-107); Globulin 3.5 g/dL (1.3-4.6); Glucose 147 mg/dL (65-115); Magnesium 2.4 mg/dL (1.7-2.3); Osmolality Calculated 298 mOsm/kg (285-295); Potassium 4.2 mmol/L (3.5-5.1); Sodium 136 mmol/L (136-145); Total Bilirubin 1.4 mg/dL (0.15-1.2); Total Protein 6.6 g/dL (6.6-8.7)
[2020-11-21] MEDS: pantoprazole DR 40 mg Tablet PO (09:15)
[2020-11-21] MEDS: duloxetine 30 mg Capsule PO (09:15)
--- NOTE | 2020-11-21 09:41 | PC.CHAP ---
Pastoral Care Encounter/Spiritual Assessment Type of Contact [] Declined computer applications instructor visit [] Patient/Family/Request visit [] Outpatient visit [] Code/Alert [x] Routine visit [] Staff referral [] Actively dying [] Patient sleeping [] Family support [] [] Out of room [] Palliative care [] [x] Receiving care in room [] Pre-surgical visit [] Trauma [] Long length of stay [] ICU visit [] Other: Relational/Emotional Strength [] Patient feels connected with others/family/visitors/staff [] Distress [] Loneliness/isolation [] Abandonment Spirituality of Patient [] Person of Sridevi [] Attends Rastafari of their Sridevi [] Believes in Prayer [] Reads Bible or Catholic materials [] There are Spiritual issues to be addressed Antique Furniture Restorer Interventions [] Prayer [] Active listening [] Non-anxious presence [] Spiritual/emotional support [] Crisis/trauma care [] Spiritual counseling [] Bereavement support [] Provided bereavement packet [] Provided Bible/devotional materials [] Provided toy/stuffed animal, coloring book to patient or family member [] Provided Communion [] Anointing/[place] [] Salvation [] Completed spiritual assessment [] Other: Impact on Illness or Injury [] Angry [] Fearful [] Anxious [] Often cries [] Exhaustion [] Unable to work [] Unable to attend gnosticism [] Unable to walk/stand [] Unable to read [] Unable to drive [] Unable to eat/drink [] Unable to sleep [] Unable to be with family [] Patient intubated [] Other: Summary Time spent with patient
[2020-11-21] MEDS: insulin glargine 100 units/1 mL 40 UNIT SUBCUT ×2 (10:22→20:59)
[2020-11-21] MEDS: predniSONE 20 mg Tablet 40 MG PO (10:36)
--- NOTE | 2020-11-21 10:52 | P.PN_ITS ---
Subjective Subjective: Interval history: is complaining of pain and acute onset of swelling in his rt elbow. He is also complaining of pain both his lower extremity. His Vitals and Labs have been reviewed. Medications: Reviewed: Yes Vitals/I&O/Wt Last Vital Signs Temp 97.8 F 11/21/20 07:31 Pulse 67 11/21/20 07:31 Resp 13 11/21/20 10:36 BP 103/61 11/21/20 07:31 Pulse Ox 94 11/21/20 10:36 11/20/20 11/21/20 11/21/20 22:59 06:59 14:59 Intake Total 120 / 240 50 / 290 240 / 240 Balance 120 / -10 50 / 40 240 / 240 Weight last 48 hrs Weight 91.671 kg Weight 80.286 kg Physical Exam Const: COMMON NORMALS: patient oriented x3 HENMT: COMMON NORMALS: normocephalic, atraumatic and hearing grossly normal bilaterally HEAD & SCALP: normocephalic and atraumatic Chest: COMMONS NORMALS: normal inspection of the chest and normal palpation of entire chest wall CHEST: Yes Symmetrical chest wall rise Resp: COMMON NORMALS: normal respiratory effort, No retractions, No use of accessory muscles and clear to auscultation bilaterally EFFORT & INSPECTION: Yes symmetric chest movement AUSCULTATION: clear to auscultation bilaterally Cardio: COMMON NORMALS: regular rate, regular rhythm, S1 normal heart sound present, S2 normal heart sound present, No gallops present (Cardio), No murmurs present (Cardio), No rub (Cardio) and Peripheral pulses 2+ throughout RATE: regular rate RHYTHM: regular rhythm HEART SOUNDS: S1 normal heart sound present and S2 normal heart sound present PERIPHERAL PULSES: Peripheral pulses 2+ throughout GI: COMMON NORMALS: Normal to inspection, nondistended, normoactive bowel sounds present, Soft to palpation, non-tender, No hepatosplenomegaly present and no masses AUSCULTATION: Yes normoactive bowel sounds PALPATION: Yes Soft to palpation and Yes No hepatosplenomegaly present RECTAL EXAM: Yes deferred Extremity: NARRATIVE EXTREMITY EXAM: Chronic B/L Lower extremity Swelling present along with statis dematitis. Rt Elbow swelling and redness Neuro: COMMON NORMALS: patient oriented x3 Data : 11/21/20 05:00 11/21/20 05:00 A&P Assessment and plan (1) History of CHF (congestive heart failure): HFpEF Exacerbation Patient came in with worsening B/L L/E swelling Monitor I/O Daily Weight Currently on Bumex 2 mg i.v q12 h daily Status: Acute (2) Exacerbation of gout: Ac onset of pain,redness and swelling of rt elbow. Given patient h/o CKD and CHF will avoid NSAID Will start Patient on Prednisone 40 mg po daily for 5 days Continue Hydromorphone 2 Mg PO Q6H Daily for pain control Status: Acute (3) Chronic anemia: Patient deny any BRBPR Or Black tarry stool. FOBT 2 U PRBC Today Monitor CBC Status: Acute (4) Pacemaker at end of battery life: Appreciate Cardiology Consult Status: Acute (5) Acute kidney injury superimposed on chronic kidney disease: Likely CRS Continue Bumex 2mg I.V Q12 H DAILY Monitor BMP. Status: Acute (6) Anasarca: Status: Acute (7) Cirrhosis: Status: Inactive (8) Thrombocytopenia: Status: Inactive (9) Generalized weakness: Status: Acute (10) Aortic valve stenosis, acquired: Status: Acute (11) Chronic atrial fibrillation: Status: Acute Additional A&P Information DVT PPX: On SCDS Code Status:Full code Disposition ;Home Attestations Medical Necessity Statement*: Patient needs to be in hospital for the management of gout flare,anemia,H/F and pacemaker battery change. Coding Level of Care Code Acute Security Developer for Larry Fwlalito Diagnoses History of CHF (congestive heart failure) Z86.79 Exacerbation of gout M10.9 Chronic anemia D64.9 Pacemaker at end of battery life Z45.010 Acute kidney injury superimposed on chronic kidney disease N17.9; N18.9 Anasarca R60.1 Cirrhosis K74.60 Thrombocytopenia D69.6 Generalized weakness R53.1 Aortic valve stenosis, acquired I35.0 Chronic atrial fibrillation I48.20
--- NOTE | 2020-11-21 14:20 | CT_ITS ---
WS: [id number] CT HEAD NONCONTRAST HISTORY: Possible stroke. TECHNIQUE: Contiguous axial imaging performed through the brain in 2.5 mm imaging. Bone and soft tiss ue windows. Sagittal and coronal reformats reviewed. All CT scans at [facility] use at ast one of these dose optimization techniques: automated exposure control; mA and/or kV adjustment pe r patient size (includes targeted exams where dose is matched to clinical indication); or iterative r econstruction. DLP: 845.28 mGy.cm COMPARISON: 12/24/2016 No acute intracranial hemorrhage, midline shift or mass effect. Severe bilateral atrophy. Both cerebellar and cerebral atrophy. Extensive chronic white matter ischem ic changes and small bilateral lacunar infarcts in the basal ganglia. Ventricles: Ventricles and extra-axial spaces are prominent on the basis of atrophy. Paranasal sinuses: Air-fluid level in the LEFT maxillary sinus. Mastoid air cells: Well pneumatized. Calvarium and scalp: Skull is intact with no soft tissue edema or swelling. Heavy calcified plaque through the intracranial carotid arteries. CT/CT head wo con* [id number] IMPRESSION: 1. No acute intracranial hemorrhage or edema. 2. Severe atrophy and chronic microvascular ischemic disease.
[2020-11-21 15:03] LABS: Glucose Point of Care 212 mg/dL (70-110)
--- NOTE | 2020-11-21 19:11 | P.CONIM_ITS ---
Providers/Reason For Consult Consulting Physican/Specialty*: ERASTO Lucas MD/cardiology Reason for Consult*: Patient was chronic atrial fibrillation symptomatic bradycardia, status post permanent pacer implantation, has pacemaker MAYA Attending Physician: Noah Martinez MD Primary Care Provider: Earnest Dangelo DO History of Present Illness History of Present Illness Aramis Olsen is a 80 year old male with a history of chronic atrial fibrillation, symptomatic bradycardia, status post permanent pacer implantation, on 02/12/2011, he is currently admitted to hospital with generalized weakness and generalized aches and pains. He was found to be severely anemic. He is currently getting blood transfusion. He had was found to have elective replacement indication for the pacemaker, during the routine follow-up evaluation. Cardiology consult is requested for further cardiac evaluation recommendations. Patient denies any chest pain. He was having some bilateral shoulder pains intermittently. He also has pain in the knee joints and the elbow on the right side. He was found to have exacerbation of gouty arthritis. He had significant swelling of the lower extremities. Since the hospital admission, it seems to be improving. Patient has been losing weight over the last couple of years. He might have lost around 100 pounds within the last 2 years. His appetite seems to be poor. He is known to have chronic GI bleeding possibly from angiodysplasia. He has been getting frequent blood transfusion. He is known to have chronic atrial fibrillation. He was on oral anticoagulation for a while. Because of the anemia and GI bleed, he was taken off this medication. He also is known to have chronic diastolic heart failure with intermittent exacerbation. He has bilateral chronic leg swelling. Over the last few weeks, the swelling has been getting worse. He denies any fever or chills. No severe cough. No other specific complaints. Review of Systems Narrative: CONSTITUTIONAL: No fever or chills. Has been having generalized weakness/fatigue for the last few weeks EYES: He has occasional blurring of vision. ENT: No hoarseness of voice, auditory disturbances or sore throat. CARDIOVASCULAR: As mentioned above. RESPIRATORY: Chronic shortness of breath with activities GASTROINTESTINAL: History of melena GENITOURINARY: History of chronic kidney disease INTEGUMENTARY: No skin rashes or history of skin cancer. NEURO: No transient ischemic attacks or amaurosis. PSYCHIATRIC: No history of psychosis or major depression. HEMATOLOGIC: Anemia as mentioned above ENDOCRINE: No history of polyuria or polydipsia. MUSCULOSKELETAL: No recent joint pain or swelling. ALLERGY/IMMUNOLOGY: As mentioned above. Meds/Allergies Home Medications and Allergies Home Medications Medication Instructions Recorded Confirmed Last Taken Type bismuth subsalicylate See Rx Instructions .ROUTE .COMPLEX 12/04/19 11/19/20 11/18/20 History [Pepto-Bismol] diphenoxylate-atropine 1 - 2 tab PO DAILY PRN 12/04/19 11/19/20 11/19/20 History insulin glargine 100 unit/mL 50 unit SUBCUT BID@0800,199901/16/20 11/19/20 11/19/20 History subcutaneous solution omeprazole 40 mg capsule,delayed 40 mg PO DAILY@0800 cap 01/16/20 11/19/20 11/19/20 History release furosemide 40 mg tablet 80 mg PO DAILY@0800 tab 04/16/20 11/19/20 11/19/20 History hydrocodone 7.5 mg-acetaminophen 1 tab PO TID PRN tab 04/16/20 11/19/20 11/19/20 History 325 mg tablet spironolactone 25 1 tab PO DAILY@0800 tab 04/16/20 11/19/20 11/19/20 History mg-hydrochlorothiazide 25 mg tablet acetaminophen [Tylenol Extra 1,000 mg PO PRN PRN 06/26/20 11/19/20 06/24/20 History Strength] glimepiride 4 mg PO BID@0800,199906/26/20 11/19/20 11/19/20 History triamcinolone acetonide See Rx Instructions .ROUTE .COMPLEX 06/26/20 11/19/20 09/17/20 History pantoprazole 40 mg tablet,delayed 40 mg PO DAILY@0800 tab 10/31/20 11/19/20 11/19/20 History release digoxin 125 mcg PO DAILY@0800 11/19/20 11/19/20 11/19/20 History metoprolol tartrate 100 mg PO BID@0800,199911/19/20 11/19/20 11/19/20 History Allergies Allergy/AdvReac Type Severity Reaction Status Date / Time No Known Allergies Allergy Verified 11/22/20 08:54 Current Medications Current Medications Generic Name Dose Route Start Last Admin Trade Name Freq PRN Reason Stop Dose Admin Hydrocodone Bitart/Acetaminophen 1 tab 11/19/20 22:16 11/21/20 09:16 Hydrocodone-Acetaminophen 7.5-325 Mg Tablet PO 1 tab TID PRN Administration pain Bumetanide 2 mg 11/20/20 18:00 11/21/20 05:58 Bumetanide 0.25 Mg/Ml Sdv 10 Ml IV 2 mg Q12H ALE Administration Duloxetine HCl 30 mg 11/20/20 09:00 11/21/20 09:15 Duloxetine 30 Mg Capsule PO 30 mg DAILY ALE Administration Hydromorphone HCl 2 mg 11/21/20 10:19 11/21/20 10:36 Hydromorphone 4 Mg Tablet PO 2 mg Q6H PRN Administration PAIN PRN Q6 Ceftriaxone Sodium 1,000 mg/ 50 mls @ 100 mls/hr 11/19/20 22:45 11/20/20 23:57 Sodium Chloride IV Infused Q24H [facility] Infusion Protocol Insulin Glargine 40 unit 11/20/20 08:00 11/21/20 10:22 Insulin Glargine 100 Units/1 Ml SUBCUT 40 unit BID@08 [facility] Administration Lactulose 30 gm 11/20/20 09:00 11/21/20 13:48 Lactulose Oral Liq 20 Gm/30 Ml Udc PO Not Given TID [facility] Metoprolol Tartrate 100 mg 11/20/20 08:00 11/21/20 09:15 Metoprolol Tartrate 50 Mg Tablet PO Not Given BID@ [facility] Pantoprazole Sodium 40 mg 11/20/20 08:00 11/21/20 09:[address] 40 Mg Tablet PO 40 mg DAILY@0800 [facility] Administration Rifaximin 550 mg 11/20/20 09:00 11/20/20 20:58 Rifaximin 550 Mg Tablet PO 550 mg BID [facility] Administration Protocol PFSH Acute PFSH: Medical History Anemia Aortic valve stenosis, acquired Bloody stools BPH (benign prostatic hyperplasia) Chronic atrial fibrillation History of tachybradycardia syndrome Chronic diarrhea Cirrhosis Early esophageal varices CKD (chronic kidney disease) Coronary artery disease Diabetes mellitus Diarrhea History of CHF (congestive heart failure) History of gastritis Hyperlipidemia Hypertension Pancytopenia Portal hypertension Thrombocytopenia Surgical History History of cataract surgery Bilateral -- did not help History of cholecystectomy History of colonoscopy (~11/2019) History of esophagogastroduodenoscopy (EGD) (~11/2019) History of permanent cardiac pacemaker placement History of transurethral resection of prostate Pacemaker Family History Mother Cancer I am not sure what kind it was CAD (coronary artery disease) Family/Other Diabetes Denies family history of Clotting disorder Dementia Chronic kidney disease (CKD) Suicide Anesthesia complication Bleeding disorder Lung disease Stroke Social History Smoking and tobacco status: former smoker Alcohol intake: former Vitals/I&O/Wt Last Vital Signs Temp 98.7 F 11/21/20 19:07 Pulse 73 11/21/20 19:07 Resp 18 11/21/20 19:07 BP 125/52 11/21/20 19:07 Pulse Ox 93 11/21/20 19:07 11/21/20 11/21/20 11/21/20 06:59 14:59 22:59 Intake Total 50 / 290 380 / 380 0 / 380 Output Total 200 / 200 Balance 50 / 40 180 / 180 0 / 180 Weight last 48 hrs Weight 202 lb 1.6 oz Physical Exam Narrative: EXAM NARRATIVE: GENERAL: The patient is alert but somewhat lethargic and chronically ill looking. HEENT: Moderate pallor, no icterus or lymphadenopathy. The pupils are symmetrical. Oral cavity: There are no mucous membrane lesions. Funduscopic examination: The fundus is not visualized. NECK: Trachea appears to be central. No masses noted. No JVD or thyromegaly appreciated. No carotid bruit. RESPIRATORY: Chest is symmetrical. No intercostals muscle retraction or any accessory muscle activation. There is no chest wall tenderness. Breath sounds are heard bilaterally. No rales or rhonchi heard. No evidence of any consolidation. BREASTS: Deferred. HEART: The PMI is in the 5th left intercostals space just inside the midclavicular line. No palpable precordial events. S1 and S2 are normal. No S3 or S4 heard. Ejection systolic murmur of grade 4/6 in the aortic area. No diastolic murmurs. No pericardial rub. ABDOMEN: Ventral hernia present. No organomegaly appreciated. Bowel sounds are normally heard. : Deferred. RECTAL: Deferred. LYMPHATIC: Patient has features of lymphedema in both lower extremities. Also has features of a chronic venous stasis and venous dermatitis. EXTREMITIES: 2+ edema both lower extremities. Venous stasis and stasis dermatitis. Dry and scaly skin MUSCULOSKELETAL: No acute joint deformities or swelling SKIN: There are no significant scars or skin rash noted. NEUROPSYCHIATRIC: The patient is alert and oriented x3. Appears to be in a good mood. The higher functions are grossly within normal limits. No tremors or rigidity noted. Data Labs: Other Labs: Laboratory Last Values WBC 4.2 10^3/uL (4.0- 10.0) 11/21/20 05:00 RBC 2.54 10^6/uL (4.1 -5.3) L 11/21/20 05:00 Hgb 6.9 g/dL (11.7-16 .6) L 11/21/20 05:00 Hct 22.6 % (42.0-52.0 ) L 11/21/20 05:00 MCV 89.0 fL (80-94) 11/21/20 05:00 MCH 27.2 pg (28.0-34. 0) L 11/21/20 05:00 MCHC 30.5 g/dL (30.0-3 6.0) 11/21/20 05:00 RDW 16.4 % (12.1-15.1 ) H 11/21/20 05:00 Plt Count 85 10^3/cmm (130- 400) L 11/21/20 05:00 MPV 12.7 fL (7.4-10.4 ) H 11/21/20 05:00 Neut % (Auto) 82.6 % 11/21/20 05:00 Lymph % (Auto) 8.7 % 11/21/20 05:00 [place] % (Auto) 8.2 % 11/21/20 05:00 Eos % (Auto) 0.0 % 11/21/20 05:00 Baso % (Auto) 0.0 % 11/21/20 05:00 Neut # (Auto) 3.44 10^3/uL (1.8 -7.7) 11/21/20 05:00 Lymph # (Auto) 0.4 10^3/uL (0.8- 4.8) L 11/21/20 05:00 [place] # (Auto) 0.3 10^3/uL (0.2- 0.9) 11/21/20 05:00 Eos # (Auto) 0.0 10^3/uL (0.0- 0.8) 11/21/20 05:00 Baso # (Auto) 0.0 10^3/uL (0.0- 0.1) 11/21/20 05:00 Nucleated RBC % (a uto) 0 % 11/21/20 05:00 Nucleated RBCs # 0.0 /100WBC 11/21/20 05:00 Sodium 136 mmol/L (136-1 45) 11/21/20 05:00 Potassium 4.2 mmol/L (3.5-5 .1) 11/21/20 05:00 Chloride 98 mmol/L (98-107 ) 11/21/20 05:00 Carbon Dioxide 27 mmol/L (22-29) 11/21/20 05:00 Anion Gap 15.2 (5-19) 11/21/20 05:00 BUN 51 mg/dL (8-23) H 11/21/20 05:00 Creatinine 1.8 mg/dL (0.7-1. 2) H 11/21/20 05:00 GFR Calculation Not Reportable 11/21/20 05:00 Glucose 147 mg/dL (65-115 ) H 11/21/20 05:00 POC Glucose 212 mg/dL (70-110 ) H 11/21/20 14:13 Calculated Osmolal ity 298 mOsm/kg (285- 295) H 11/21/20 05:00 Calcium 8.8 mg/dL (8.5-10 .5) 11/21/20 05:00 Magnesium 2.4 mg/dL (1.7-2. 3) H 11/21/20 05:00 Total Bilirubin 1.4 mg/dL (0.15-1 .2) H 11/21/20 05:00 AST 15 U/L (0-40) 11/21/20 05:00 ALT 10 U/L (0-41) 11/21/20 05:00 Alkaline Phosphata se 119 IU/L (40-130) 11/21/20 05:00 Ammonia 58 umol/L (16-60) 11/19/20 22:48 Troponin T Baselin e 49 ng/L (0-15) H 11/19/20 19:14 Troponin T 120 Min habematolel 45.54 ng/L (0-15) H 11/19/20 21:00 Delta Troponin T -3.46 ABS# (0-10) L 11/19/20 21:00 Troponin T Hi Sens 6Hr 47.14 ng/L (0-15) H 11/20/20 00:30 Troponin T Hi Sens 6Hr Delta -1.86 ng/L (0-12) L 11/20/20 00:30 NT-Pro-B Natriuret Pep 3960 pg/mL (0-450 ) H 11/19/20 19:14 Total Protein 6.6 g/dL (6.6-8.7 ) 11/21/20 05:00 Albumin 3.1 g/dL (3.5-5.2 ) L 11/21/20 05:00 Globulin 3.5 g/dL (1.3-4.6 ) 11/21/20 05:00 Digoxin 1.6 ng/mL (0.6-1. 2) H 11/19/20 22:48 Blood Type O Positive 11/21/20 10:48 Rho(D) Type Positive 11/21/20 10:48 Antibody Screen Negative 11/21/20 10:48 Crossmatch See Detail 11/21/20 10:48 Imaging^: Echo: My impression: Echocardiogram on 05/09/2020 revealed Normal left ventricular size and systolic function, EF 78 %. No regional wall motion abnormalities. Moderate left ventricular hypertrophy. Moderate biatrial enlargement. Possibly moderate aortic valve stenosis with a peak velocity of 3.16 m/s, peak gradient of 40 and a mean gradient of 23 mmHg. Mild pulmonary hypertension with an estimated pulmonary artery peak systolic pressure of 40 mmHg Moderate tricuspid valve regurgitation. Mild-moderate mitral valve regurgitation. There is no pericardial effusion. Compared to the study from 08/13/2017, there is some worsening of the aortic valve stenosis Radiologist's impression: The echocardiogram CXR: My impression: Chest x-ray from 11/19/2020 revealed borderline cardiac silhouette with bibasilar airspace densities. No significant pleural effusion. EKG^: EKG 1: My Interpretation: The EKG on 11/20/2020 revealed Atrial fibrillation with a controlled ventricular response rate. Left bundle branch block. Demand V paced rhythm. A&P Assessment and plan (1) Pacemaker at end of battery life: Patient requests revision of the permanent pacemaker . But I would still like to see the hemoglobin above 9 and also the patient has no focus of infection. I will be discussing with the primary care about the timing of this pacemaker revision. There is no emergency intervention but need to be done as early as possible. Status: Acute (2) Chronic atrial fibrillation: Patient is with a controlled ventricular response rate. Because of the recurrent GI bleed and chronic anemia, he is not on any anticoagulant. May continue on the current treatment measures. Status: Acute (3) Chronic anemia: Patient received 2 units of packed RBCs. Further evaluation and work-up as per the primary Status: Acute (4) Acute on chronic diastolic (congestive) heart failure: Patient may be carefully treated with IV diuretics. Status: Acute (5) Aortic valve stenosis, acquired: The most recent echocardiogram was done in April 2020. At that time, the aortic calcinosis was found to be moderate. Patient may continue on the current medications for the time being. Status: Acute (6) Exacerbation of gout: Evaluation and management as per the primary. Status: Acute Additional A&P Information Other problems are Severe anemia Chronic kidney disease Cirrhosis of the liver Other problems are as outlined before. based on the patient's the clinical progress, further recommendations will be made. Thank you for the opportunity to evaluate this patient make these recommendations Consult Attestations Medical Necessity Statement: Patient requires continued hospital stay for close monitoring and further management Coding Level of Care Code Acute Spinning Frame Changer for Chg Fwd Diagnoses Pacemaker at end of battery life Z45.010 Chronic atrial fibrillation I48.20 Chronic anemia D64.9 Acute on chronic diastolic (congestive) heart failure I50.33 Aortic valve stenosis, acquired I35.0 Exacerbation of gout M10.9
[2020-11-21] MEDS: sodium chloride 0.9% (100 ml) 100 ML ×2 (19:46→20:28)
[2020-11-21] MEDS: metoprolol tartrate 50 mg Tablet 100 MG PO (20:58)
[2020-11-22] VITALS (14 sets, daily range): BP systolic 105–133; BP diastolic 53–67; PULSE 64–67; RESP 15–19; TEMP 36.2–37.1; O2SAT 91–100
[2020-11-22] MEDS: cefTRIAXone 1,000 MG in sodium chloride 0.9% (plus) 50 ML 100 MG IV ×2 (00:11→22:17)
--- NOTE | 2020-11-22 01:22 | PC.NURSE ---
TAR note Ended blood 0015 HR 66 B/P 116/58 96% on RA RR 17
[2020-11-22] MEDS: bumetanide 0.25 mg/mL SDV 10 mL 2 MG IV (06:23)
[2020-11-22 06:52] LABS: Basophils % 0.2 %; Hematocrit 28.7 % (42.0-52.0); Hemoglobin 8.9 g/dL (11.7-16.6); Lymphocytes # 0.4 10^3/uL (0.8-4.8); Mean Corpuscular Hemoglobin 26.6 pg (28.0-34.0); Mean Corpuscular Volume 85.9 fL (80-94); Mean Platelet Volume 12.1 fL (7.4-10.4); Monocytes # 0.4 10^3/uL (0.2-0.9); Monocytes % 6.9 %; Neutrophils # 4.85 10^3/uL (1.8-7.7); Neutrophils % 85.2 %; Nucleated Red Blood Cells % 0 %; Platelet Count 97 10^3/cmm (130-400); Red Blood Count 3.34 10^6/uL (4.1-5.3); Red Cell Distribution Width 16.4 % (12.1-15.1); White Blood Count 5.7 10^3/uL (4.0-10.0)
[2020-11-22 07:08] LABS: Alanine Aminotransferase 8 U/L (0-41); Albumin Level 3.2 g/dL (3.5-5.2); Alkaline Phosphatase 131 IU/L (40-130); Anion Gap 15.4 (5-19); Aspartate Amino Transferase 14 U/L (0-40); Blood Urea Nitrogen 65 mg/dL (8-23); Calcium 8.8 mg/dL (8.5-10.5); Carbon Dioxide 25 mmol/L (22-29); Chloride 96 mmol/L (98-107); Glucose 186 mg/dL (65-115); Magnesium 2.4 mg/dL (1.7-2.3); Osmolality Calculated 298 mOsm/kg (285-295); Potassium 4.4 mmol/L (3.5-5.1); Sodium 132 mmol/L (136-145); Total Bilirubin 1.9 mg/dL (0.15-1.2); Total Protein 7.2 g/dL (6.6-8.7)
[2020-11-22 07:09] LABS: Glucose Point of Care 195 mg/dL (70-110)
--- NOTE | 2020-11-22 07:42 | PC.NURSE ---
pt stated his feet hurt he does not want to sit up in the chair for breakfast he would rather sit on side of the bed.
[2020-11-22] MEDS: insulin glargine 100 units/1 mL 40 UNIT SUBCUT ×2 (08:26→20:11)
[2020-11-22] MEDS: metoprolol tartrate 50 mg Tablet 100 MG PO ×2 (08:27→20:06)
[2020-11-22] MEDS: duloxetine 30 mg Capsule PO (08:28)
[2020-11-22] MEDS: pantoprazole DR 40 mg Tablet PO (08:28)
[2020-11-22] MEDS: predniSONE 20 mg Tablet 40 MG PO (08:28)
--- NOTE | 2020-11-22 09:12 | PM.PN ---
Subjective Subjective: Interval history: Had 2 units of blood transfusion yesterday. He seems to be feeling better. Continues to have the aches and pains in all the joints more so in the right elbow where he had gouty arthritis exacerbation. He is remaining afebrile. No cough. No unusual shortness of breath. Medications: Reviewed: Yes Medication Review Details: Current Medications Hydrocodone Bitart/Acetaminophen (Hydrocodone-Acetaminophen 7.5-325 Mg Tablet) 1 tab PO TID PRN PRN Reason: pain Last Admin: 11/21/20 09:16 Dose: 1 tab Documented by: Bumetanide (Bumetanide 0.25 Mg/Ml Sdv 10 Ml) 2 mg IV Q12H [facility] Last Admin: 11/22/20 06:23 Dose: 2 mg Documented by: Duloxetine HCl (Duloxetine 30 Mg Capsule) 30 mg PO DAILY [facility] Last Admin: 11/22/20 08:28 Dose: 30 mg Documented by: Hydromorphone HCl (Hydromorphone 4 Mg Tablet) 2 mg PO Q6H PRN PRN Reason: PAIN PRN Q6 Last Admin: 11/21/20 20:56 Dose: 2 mg Documented by: Ceftriaxone Sodium 1,000 mg/ (Sodium Chloride) 50 mls @ 100 mls/hr IV Q24H [facility]; Protocol Last Infusion: 11/22/20 00:51 Dose: Infused Documented by: Insulin Glargine (Insulin Glargine 100 Units/1 Ml) 40 unit SUBCUT BID@799,1999 [facility] Last Admin: 11/22/20 08:26 Dose: 40 unit Documented by: Lactulose (Lactulose Oral Liq 20 Gm/30 Ml Udc) 30 gm PO TID [facility] Last Admin: 11/22/20 08:27 Dose: Not Given Documented by: Metoprolol Tartrate (Metoprolol Tartrate 50 Mg Tablet) 100 mg PO BID@ [facility] Last Admin: 11/22/20 08:27 Dose: 100 mg Documented by: Pantoprazole Sodium (Pantoprazole Dr 40 Mg Tablet) 40 mg PO DAILY@0800 [facility] Last Admin: 11/22/20 08:28 Dose: 40 mg Documented by: Prednisone (Prednisone 20 Mg Tablet) 40 mg PO DAILY [facility] Last Admin: 11/22/20 08:28 Dose: 40 mg Documented by: Rifaximin (Rifaximin 550 Mg Tablet) 550 mg PO BID [facility]; Protocol Last Admin: 11/22/20 08:27 Dose: 550 mg Documented by: Vitals/I&O/Wt Last Vital Signs Temp 97.4 F L 11/22/20 07:44 Pulse 66 11/22/20 07:44 Resp 18 11/22/20 07:44 BP 123/65 11/22/20 07:44 Pulse Ox 100 11/22/20 07:44 11/21/20 11/22/20 11/22/20 22:59 06:59 14:59 Intake Total 100 / 480 850 / 1330 120 / 120 Balance 100 / 280 850 / 1130 120 / 120 Physical Exam Narrative: EXAM NARRATIVE: GENERAL: The patient is alert but somewhat lethargic and chronically ill looking. HEENT: Moderate pallor, no icterus or lymphadenopathy. The pupils are symmetrical. Oral cavity: There are no mucous membrane lesions. Funduscopic examination: The fundus is not visualized. NECK: Trachea appears to be central. No masses noted. No JVD or thyromegaly appreciated. No carotid bruit. RESPIRATORY: Chest is symmetrical. No intercostals muscle retraction or any accessory muscle activation. There is no chest wall tenderness. Breath sounds are heard bilaterally. No rales or rhonchi heard. No evidence of any consolidation. BREASTS: Deferred. HEART: The PMI is in the 5th left intercostals space just inside the midclavicular line. No palpable precordial events. S1 and S2 are normal. No S3 or S4 heard. Ejection systolic murmur of grade 4/6 in the aortic area. No diastolic murmurs. No pericardial rub. ABDOMEN: Ventral hernia present. No organomegaly appreciated. Bowel sounds are normally heard. : Deferred. RECTAL: Deferred. LYMPHATIC: Patient has features of lymphedema in both lower extremities. Also has features of a chronic venous stasis and venous dermatitis. EXTREMITIES: 2+ edema both lower extremities. Venous stasis and stasis dermatitis. Dry and scaly skin MUSCULOSKELETAL: No acute joint deformities or swelling SKIN: There are no significant scars or skin rash noted. NEUROPSYCHIATRIC: The patient is alert and oriented x3. Appears to be in a good mood. The higher functions are grossly within normal limits. No tremors or rigidity noted. Data : 11/22/20 05:39 11/22/20 05:39 Other Labs: Laboratory Last Values WBC 5.7 10^3/uL (4.0-10.0) 11/22/20 05:39 RBC 3.34 10^6/uL (4.1-5.3) L 11/22/20 05:39 Hgb 8.9 g/dL (11.7-16.6) L 11/22/20 05:39 Hct 28.7 % (42.0-52.0) L 11/22/20 05:39 MCV 85.9 fL (80-94) 11/22/20 05:39 MCH 26.6 pg (28.0-34.0) L 11/22/20 05:39 MCHC 31.0 g/dL (30.0-36.0) 11/22/20 05:39 RDW 16.4 % (12.1-15.1) H 11/22/20 05:39 Plt Count 97 10^3/cmm (130-400) L 11/22/20 05:39 MPV 12.1 fL (7.4-10.4) H 11/22/20 05:39 Neut % (Auto) 85.2 % 11/22/20 05:39 Lymph % (Auto) 7.0 % 11/22/20 05:39 [place] % (Auto) 6.9 % 11/22/20 05:39 Eos % (Auto) 0.0 % 11/22/20 05:39 Baso % (Auto) 0.2 % 11/22/20 05:39 Neut # (Auto) 4.85 10^3/uL (1.8-7.7) 11/22/20 05:39 Lymph # (Auto) 0.4 10^3/uL (0.8-4.8) L 11/22/20 05:39 [place] # (Auto) 0.4 10^3/uL (0.2-0.9) 11/22/20 05:39 Eos # (Auto) 0.0 10^3/uL (0.0-0.8) 11/22/20 05:39 Baso # (Auto) 0.0 10^3/uL (0.0-0.1) 11/22/20 05:39 Nucleated RBC % (auto) 0 % 11/22/20 05:39 Nucleated RBCs # 0.0 /100WBC 11/22/20 05:39 Sodium 132 mmol/L (136-145) L 11/22/20 05:39 Potassium 4.4 mmol/L (3.5-5.1) 11/22/20 05:39 Chloride 96 mmol/L (98-107) L 11/22/20 05:39 Carbon Dioxide 25 mmol/L (22-29) 11/22/20 05:39 Anion Gap 15.4 (5-19) 11/22/20 05:39 BUN 65 mg/dL (8-23) H 11/22/20 05:39 Creatinine 2.0 mg/dL (0.7-1.2) H 11/22/20 05:39 GFR Calculation Not Reportable 11/22/20 05:39 Glucose 186 mg/dL (65-115) H 11/22/20 05:39 POC Glucose 195 mg/dL (70-110) H 11/22/20 07:05 Calculated Osmolality 298 mOsm/kg (285-295) H 11/22/20 05:39 Calcium 8.8 mg/dL (8.5-10.5) 11/22/20 05:39 Magnesium 2.4 mg/dL (1.7-2.3) H 11/22/20 05:39 Total Bilirubin 1.9 mg/dL (0.15-1.2) H 11/22/20 05:39 AST 14 U/L (0-40) 11/22/20 05:39 ALT 8 U/L (0-41) 11/22/20 05:39 Alkaline Phosphatase 131 IU/L (40-130) H 11/22/20 05:39 Ammonia 58 umol/L (16-60) 11/19/20 22:48 Troponin T Baseline 49 ng/L (0-15) H 11/19/20 19:14 Troponin T 120 Minute 45.54 ng/L (0-15) H 11/19/20 21:00 Delta Troponin T -3.46 ABS# (0-10) L 11/19/20 21:00 Troponin T Hi Sens 6Hr 47.14 ng/L (0-15) H 11/20/20 00:30 Troponin T Hi Sens 6Hr Delta -1.86 ng/L (0-12) L 11/20/20 00:30 NT-Pro-B Natriuret Pep 3960 pg/mL (0-450) H 11/19/20 19:14 Total Protein 7.2 g/dL (6.6-8.7) 11/22/20 05:39 Albumin 3.2 g/dL (3.5-5.2) L 11/22/20 05:39 Globulin 4.0 g/dL (1.3-4.6) 11/22/20 05:39 Digoxin 1.6 ng/mL (0.6-1.2) H 11/19/20 22:48 Blood Type O Positive 11/21/20 10:48 Rho(D) Type Positive 11/21/20 10:48 Antibody Screen Negative 11/21/20 10:48 Crossmatch See Detail 11/21/20 10:48 A&P Assessment and plan (1) Pacemaker at end of battery life: Patient requests revision of the permanent pacemaker . Since the hemoglobin is improving and also since the patient remaining stable, we may consider doing this tomorrow. Status: Acute (2) Chronic atrial fibrillation: Patient is with a controlled ventricular response rate. Because of the recurrent GI bleed and chronic anemia, he is not on any anticoagulant. May continue on the current treatment measures. Status: Acute (3) Chronic anemia: Patient received 2 units of packed RBCs. Dr. Martinez is planning to give 1 more unit. Management as per Dr. Martinez Status: Acute (4) Acute on chronic diastolic (congestive) heart failure: Patient may be carefully treated with IV diuretics. Currently the heart failure seems to be appropriately compensated. Status: Acute (5) Aortic valve stenosis, acquired: The most recent echocardiogram was done in April 2020. At that time, the aortic calcinosis was found to be moderate. Patient may continue on the current medications for the time being. Status: Acute (6) Exacerbation of gout: Evaluation and management as per the primary. Status: Acute Additional A&P Information Other problems are Severe anemia Chronic kidney disease Cirrhosis of the liver Other problems are as outlined before. If the patient continues to remain stable, we may go ahead and do the pacemaker revision tomorrow. The risk of bleeding, hematoma, vascular injury, infection, renal failure and other concomitant complications were explained in detail. The patient understood this well and consented to proceed. We will keep him n.p.o. after midnight. 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
[2020-11-22 10:39] LABS: Glucose Point of Care 212 mg/dL (70-110)
[2020-11-22] MEDS: sodium chloride 0.9% (100 ml) 100 ML (12:50)
[2020-11-22] MEDS: HYDROcodone-acetaminophen 7.5-325 mg Tablet 1 TAB PO ×2 (12:52→21:23)
[2020-11-22] MEDS: sodium chloride 0.9% 1,000 ML 75 ML IV (20:11)
--- NOTE | 2020-11-22 20:47 | PM.PN ---
Subjective Subjective: Interval history: Had 2 units of blood transfusion yesterday. He seems to be feeling better. Continues to have the aches and pains in all the joints more so in the right elbow where he had gouty arthritis exacerbation. He is remaining afebrile. No cough. No unusual shortness of breath. Medications: Reviewed: Yes Medication Review Details: Current Medications Hydrocodone Bitart/Acetaminophen (Hydrocodone-Acetaminophen 7.5-325 Mg Tablet) 1 tab PO TID PRN PRN Reason: pain Last Admin: 11/21/20 09:16 Dose: 1 tab Documented by: Bumetanide (Bumetanide 0.25 Mg/Ml Sdv 10 Ml) 2 mg IV Q12H [facility] Last Admin: 11/22/20 06:23 Dose: 2 mg Documented by: Duloxetine HCl (Duloxetine 30 Mg Capsule) 30 mg PO DAILY [facility] Last Admin: 11/22/20 08:28 Dose: 30 mg Documented by: Hydromorphone HCl (Hydromorphone 4 Mg Tablet) 2 mg PO Q6H PRN PRN Reason: PAIN PRN Q6 Last Admin: 11/21/20 20:56 Dose: 2 mg Documented by: Ceftriaxone Sodium 1,000 mg/ (Sodium Chloride) 50 mls @ 100 mls/hr IV Q24H [facility]; Protocol Last Infusion: 11/22/20 00:51 Dose: Infused Documented by: Insulin Glargine (Insulin Glargine 100 Units/1 Ml) 40 unit SUBCUT BID@799,1999 [facility] Last Admin: 11/22/20 08:26 Dose: 40 unit Documented by: Lactulose (Lactulose Oral Liq 20 Gm/30 Ml Udc) 30 gm PO TID [facility] Last Admin: 11/22/20 08:27 Dose: Not Given Documented by: Metoprolol Tartrate (Metoprolol Tartrate 50 Mg Tablet) 100 mg PO BID@ [facility] Last Admin: 11/22/20 08:27 Dose: 100 mg Documented by: Pantoprazole Sodium (Pantoprazole Dr 40 Mg Tablet) 40 mg PO DAILY@0800 [facility] Last Admin: 11/22/20 08:28 Dose: 40 mg Documented by: Prednisone (Prednisone 20 Mg Tablet) 40 mg PO DAILY [facility] Last Admin: 11/22/20 08:28 Dose: 40 mg Documented by: Rifaximin (Rifaximin 550 Mg Tablet) 550 mg PO BID [facility]; Protocol Last Admin: 11/22/20 08:27 Dose: 550 mg Documented by: Vitals/I&O/Wt Last Vital Signs Temp 98.4 F 11/22/20 19:49 Pulse 65 11/22/20 19:49 Resp 15 11/22/20 19:49 BP 121/53 11/22/20 19:49 Pulse Ox 96 11/22/20 19:49 11/22/20 11/22/20 11/22/20 06:59 14:59 22:59 Intake Total 850 / 1330 360 / 360 650 / 1010 Balance 850 / 1130 360 / 360 650 / 1010 Physical Exam Const: COMMON NORMALS: patient oriented x3 HENMT: COMMON NORMALS: normocephalic, atraumatic and hearing grossly normal bilaterally HEAD & SCALP: normocephalic and atraumatic Chest: COMMONS NORMALS: normal inspection of the chest and normal palpation of entire chest wall CHEST: Yes Symmetrical chest wall rise Resp: COMMON NORMALS: normal respiratory effort, No retractions, No use of accessory muscles and clear to auscultation bilaterally EFFORT & INSPECTION: Yes symmetric chest movement AUSCULTATION: clear to auscultation bilaterally Cardio: COMMON NORMALS: regular rate, regular rhythm, S1 normal heart sound present, S2 normal heart sound present, No gallops present (Cardio), No murmurs present (Cardio), No rub (Cardio) and Peripheral pulses 2+ throughout RATE: regular rate RHYTHM: regular rhythm HEART SOUNDS: S1 normal heart sound present and S2 normal heart sound present PERIPHERAL PULSES: Peripheral pulses 2+ throughout GI: COMMON NORMALS: Normal to inspection, nondistended, normoactive bowel sounds present, Soft to palpation, non-tender, No hepatosplenomegaly present and no masses AUSCULTATION: Yes normoactive bowel sounds PALPATION: Yes Soft to palpation and Yes No hepatosplenomegaly present RECTAL EXAM: Yes deferred Extremity: NARRATIVE EXTREMITY EXAM: Chronic B/L Lower extremity Swelling present along with statis dematitis. Rt Elbow swelling and redness Neuro: COMMON NORMALS: patient oriented x3 Data : 11/22/20 05:39 11/22/20 05:39 A&P Assessment and plan (1) History of CHF (congestive heart failure): HFpEF Exacerbation Patient came in with worsening B/L L/E swelling Monitor I/O Daily Weight Currently on Bumex 2 mg i.v q12 h daily Status: Acute (2) Exacerbation of gout: Ac onset of pain,redness and swelling of rt elbow. Given patient h/o CKD and CHF will avoid NSAID Will start Patient on Prednisone 40 mg po daily for 5 days Continue Hydromorphone 2 Mg PO Q6H Daily for pain control Status: Acute (3) Chronic anemia: Patient deny any BRBPR Or Black tarry stool. FOBT S/P 3Us PRBC Monitor CBC Status: Acute (4) Pacemaker at end of battery life: Appreciate Cardiology Consult Status: Acute (5) Acute kidney injury superimposed on chronic kidney disease: Likely CRS Continue Bumex 2mg I.V Q12 H DAILY Monitor BMP. 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
[2020-11-23] VITALS (16 sets, daily range): BP systolic 110–129; BP diastolic 42–65; PULSE 65–75; RESP 14–18; TEMP 36.4–36.8; O2SAT 92–98
[2020-11-23] MEDS: HYDROcodone-acetaminophen 7.5-325 mg Tablet 1 TAB PO ×2 (04:45→14:35)
[2020-11-23 04:46] LABS: Hematocrit 31.7 % (42.0-52.0); Hemoglobin 9.7 g/dL (11.7-16.6); Lymphocytes # 0.3 10^3/uL (0.8-4.8); Mean Corpuscular HGB Conc 30.6 g/dL (30.0-36.0); Mean Corpuscular Hemoglobin 26.2 pg (28.0-34.0); Mean Corpuscular Volume 85.7 fL (80-94); Monocytes # 0.3 10^3/uL (0.2-0.9); Monocytes % 5.9 %; Neutrophils # 4.09 10^3/uL (1.8-7.7); Neutrophils % 86.7 %; Nucleated Red Blood Cells % 0 %; Platelet Count 100 10^3/cmm (130-400); Red Cell Distribution Width 16.2 % (12.1-15.1); White Blood Count 4.7 10^3/uL (4.0-10.0)
[2020-11-23 05:01] LABS: Alanine Aminotransferase 10 U/L (0-41); Albumin Level 3.1 g/dL (3.5-5.2); Alkaline Phosphatase 113 IU/L (40-130); Anion Gap 15.5 (5-19); Aspartate Amino Transferase 13 U/L (0-40); Blood Urea Nitrogen 73 mg/dL (8-23); Calcium 8.5 mg/dL (8.5-10.5); Carbon Dioxide 25 mmol/L (22-29); Chloride 96 mmol/L (98-107); Globulin 4.3 g/dL (1.3-4.6); Glucose 196 mg/dL (65-115); Magnesium 2.4 mg/dL (1.7-2.3); Osmolality Calculated 301 mOsm/kg (285-295); Potassium 4.5 mmol/L (3.5-5.1); Sodium 132 mmol/L (136-145); Total Protein 7.4 g/dL (6.6-8.7)
[2020-11-23] MEDS: ceFAZolin 1,000 MG in sodium chloride 0.9% (plus) 50 ML 100 MG IV (05:34)
--- NOTE | 2020-11-23 06:36 | PC.NURSE ---
Pt given opportunity to get out of bed and into a chair. Pt declined and stated he would rather stay in bed because of pain.
[2020-11-23 07:08] LABS: Glucose Point of Care 181 mg/dL (70-110)
--- NOTE | 2020-11-23 08:35 | PM.PN ---
Subjective Subjective: Interval history: Patient is feeling better. He had one more blood transfusion yesterday. The hemoglobin is above 9. Denies any chest pain. No fever or chills. No cough. No unusual shortness of breath. No other specific complaints at this time. Medications: Reviewed: Yes Medication Review Details: Current Medications Hydrocodone Bitart/Acetaminophen (Hydrocodone-Acetaminophen 7.5-325 Mg Tablet) 1 tab PO TID PRN PRN Reason: pain Last Admin: 11/23/20 04:45 Dose: 1 tab Documented by: Bumetanide (Bumetanide 0.25 Mg/Ml Sdv 10 Ml) 2 mg IV Q12H [facility] Last Admin: 11/22/20 06:23 Dose: 2 mg Documented by: Duloxetine HCl (Duloxetine 30 Mg Capsule) 30 mg PO DAILY [facility] Last Admin: 11/22/20 08:28 Dose: 30 mg Documented by: Hydromorphone HCl (Hydromorphone 4 Mg Tablet) 2 mg PO Q4H PRN PRN Reason: PAIN Last Admin: 11/23/20 03:57 Dose: 2 mg Documented by: Ceftriaxone Sodium 1,000 mg/ (Sodium Chloride) 50 mls @ 100 mls/hr IV Q24H [facility]; Protocol Last Infusion: 11/22/20 22:56 Dose: Infused Documented by: Sodium Chloride (Sodium Chloride 0.9%) 1,000 mls @ 75 mls/hr IV .[id number] [facility] Last Admin: 11/23/20 00:11 Dose: Not Given Documented by: Sodium Chloride (Sodium Chloride 0.9%) 1,000 mls @ 75 mls/hr IV .[id number] [facility] Last Admin: 11/23/20 06:11 Dose: Not Given Documented by: Insulin Glargine (Insulin Glargine 100 Units/1 Ml) 40 unit SUBCUT BID@ [facility] Last Admin: 11/22/20 20:11 Dose: 40 unit Documented by: Lactulose (Lactulose Oral Liq 20 Gm/30 Ml Udc) 30 gm PO TID [facility] Last Admin: 11/22/20 20:03 Dose: Not Given Documented by: Metoprolol Tartrate (Metoprolol Tartrate 50 Mg Tablet) 100 mg PO BID@ [facility] Last Admin: 11/22/20 20:06 Dose: 100 mg Documented by: Pantoprazole Sodium (Pantoprazole Dr 40 Mg Tablet) 40 mg PO DAILY@0800 [facility] Last Admin: 11/22/20 08:28 Dose: 40 mg Documented by: Prednisone (Prednisone 20 Mg Tablet) 40 mg PO DAILY [facility] Last Admin: 11/22/20 08:28 Dose: 40 mg Documented by: Rifaximin (Rifaximin 550 Mg Tablet) 550 mg PO BID [facility]; Protocol Last Admin: 11/22/20 18:01 Dose: 550 mg Documented by: Vitals/I&O/Wt Last Vital Signs Temp 97.7 F 11/23/20 07:54 Pulse 65 11/23/20 07:54 Resp 17 11/23/20 07:54 BP 119/55 11/23/20 07:54 Pulse Ox 96 11/23/20 07:54 11/22/20 11/23/20 11/23/20 22:59 06:59 14:59 Intake Total 700 / 1060 300 / 1360 Output Total 450 / 450 Balance 700 / 1060 -150 / 910 Physical Exam Narrative: EXAM NARRATIVE: GENERAL: The patient is alert but somewhat lethargic and chronically ill looking. HEENT: Moderate pallor, no icterus or lymphadenopathy. The pupils are symmetrical. Oral cavity: There are no mucous membrane lesions. Funduscopic examination: The fundus is not visualized. NECK: Trachea appears to be central. No masses noted. No JVD or thyromegaly appreciated. No carotid bruit. RESPIRATORY: Chest is symmetrical. No intercostals muscle retraction or any accessory muscle activation. There is no chest wall tenderness. Breath sounds are heard bilaterally. No rales or rhonchi heard. No evidence of any consolidation. BREASTS: Deferred. HEART: The PMI is in the 5th left intercostals space just inside the midclavicular line. No palpable precordial events. S1 and S2 are normal. No S3 or S4 heard. Ejection systolic murmur of grade 4/6 in the aortic area. No diastolic murmurs. No pericardial rub. ABDOMEN: Ventral hernia present. No organomegaly appreciated. Bowel sounds are normally heard. : Deferred. RECTAL: Deferred. LYMPHATIC: Patient has features of lymphedema in both lower extremities. Also has features of a chronic venous stasis and venous dermatitis. EXTREMITIES: 2+ edema both lower extremities. Venous stasis and stasis dermatitis. Dry and scaly skin MUSCULOSKELETAL: No acute joint deformities or swelling SKIN: Features of chronic venous stasis in the lower extremities. Has some stasis dermatitis. NEUROPSYCHIATRIC: The patient is alert and oriented x3. Appears to be in a good mood. The higher functions are grossly within normal limits. No tremors or rigidity noted. Const: COMMON NORMALS: alert Resp: COMMON NORMALS: clear to auscultation bilaterally AUSCULTATION: clear to auscultation bilaterally Neuro: SENSORIUM/ORIENTATION: Yes alert Data : 11/23/20 04:21 11/23/20 04:21 Other Labs: Laboratory Last Values WBC 4.7 10^3/uL (4.0-10.0) 11/23/20 04:21 RBC 3.70 10^6/uL (4.1-5.3) L 11/23/20 04:21 Hgb 9.7 g/dL (11.7-16.6) L 11/23/20 04:21 Hct 31.7 % (42.0-52.0) L 11/23/20 04:21 MCV 85.7 fL (80-94) 11/23/20 04:21 MCH 26.2 pg (28.0-34.0) L 11/23/20 04:21 MCHC 30.6 g/dL (30.0-36.0) 11/23/20 04:21 RDW 16.2 % (12.1-15.1) H 11/23/20 04:21 Plt Count 100 10^3/cmm (130-400) L 11/23/20 04:21 MPV 12.0 fL (7.4-10.4) H 11/23/20 04:21 Neut % (Auto) 86.7 % 11/23/20 04:21 Lymph % (Auto) 7.0 % 11/23/20 04:21 [place] % (Auto) 5.9 % 11/23/20 04:21 Eos % (Auto) 0.0 % 11/23/20 04:21 Baso % (Auto) 0.0 % 11/23/20 04:21 Neut # (Auto) 4.09 10^3/uL (1.8-7.7) 11/23/20 04:21 Lymph # (Auto) 0.3 10^3/uL (0.8-4.8) L 11/23/20 04:21 [place] # (Auto) 0.3 10^3/uL (0.2-0.9) 11/23/20 04:21 Eos # (Auto) 0.0 10^3/uL (0.0-0.8) 11/23/20 04:21 Baso # (Auto) 0.0 10^3/uL (0.0-0.1) 11/23/20 04:21 Nucleated RBC % (auto) 0 % 11/23/20 04:21 Nucleated RBCs # 0.0 /100WBC 11/23/20 04:21 Sodium 132 mmol/L (136-145) L 11/23/20 04:21 Potassium 4.5 mmol/L (3.5-5.1) 11/23/20 04:21 Chloride 96 mmol/L (98-107) L 11/23/20 04:21 Carbon Dioxide 25 mmol/L (22-29) 11/23/20 04:21 Anion Gap 15.5 (5-19) 11/23/20 04:21 BUN 73 mg/dL (8-23) H 11/23/20 04:21 Creatinine 2.0 mg/dL (0.7-1.2) H 11/23/20 04:21 GFR Calculation Not Reportable 11/23/20 04:21 Glucose 196 mg/dL (65-115) H 11/23/20 04:21 POC Glucose 181 mg/dL (70-110) H 11/23/20 07:04 Calculated Osmolality 301 mOsm/kg (285-295) H 11/23/20 04:21 Calcium 8.5 mg/dL (8.5-10.5) 11/23/20 04:21 Magnesium 2.4 mg/dL (1.7-2.3) H 11/23/20 04:21 Total Bilirubin 1.0 mg/dL (0.15-1.2) 11/23/20 04:21 AST 13 U/L (0-40) 11/23/20 04:21 ALT 10 U/L (0-41) 11/23/20 04:21 Alkaline Phosphatase 113 IU/L (40-130) 11/23/20 04:21 Ammonia 58 umol/L (16-60) 11/19/20 22:48 Troponin T Baseline 49 ng/L (0-15) H 11/19/20 19:14 Troponin T 120 Minute 45.54 ng/L (0-15) H 11/19/20 21:00 Delta Troponin T -3.46 ABS# (0-10) L 11/19/20 21:00 Troponin T Hi Sens 6Hr 47.14 ng/L (0-15) H 11/20/20 00:30 Troponin T Hi Sens 6Hr Delta -1.86 ng/L (0-12) L 11/20/20 00:30 NT-Pro-B Natriuret Pep 3960 pg/mL (0-450) H 11/19/20 19:14 Total Protein 7.4 g/dL (6.6-8.7) 11/23/20 04:21 Albumin 3.1 g/dL (3.5-5.2) L 11/23/20 04:21 Globulin 4.3 g/dL (1.3-4.6) 11/23/20 04:21 Digoxin 1.6 ng/mL (0.6-1.2) H 11/19/20 22:48 Blood Type O Positive 11/21/20 10:48 Rho(D) Type Positive 11/21/20 10:48 Antibody Screen Negative 11/21/20 10:48 Crossmatch See Detail 11/21/20 10:48 A&P Assessment and plan (1) Pacemaker at end of battery life: Patient requires revision of the permanent pacemaker . Since the hemoglobin is improving and also since the patient remaining stable, we may go ahead and do this today. Because of the patient's anemia and renal insufficiency, he carries a higher risk for pocket infection. We will be using the antibiotic sleeve in addition to the preop antibiotics. Status: Acute (2) Chronic atrial fibrillation: Patient is with a controlled ventricular response rate. Because of the recurrent GI bleed and chronic anemia, he is not on any anticoagulant. May continue on the current treatment measures. Status: Acute (3) Chronic anemia: Patient status post 3 units of blood transfusion. Latest hemoglobin is 9.7. Management as per the primary. Status: Acute (4) Acute on chronic diastolic (congestive) heart failure: Patient may be carefully treated with IV diuretics. Currently the heart failure seems to be appropriately compensated. Status: Acute (5) Aortic valve stenosis, acquired: The most recent echocardiogram was done in April 2020. At that time, the aortic calcinosis was found to be moderate. Patient may continue on the current medications for the time being. Status: Acute (6) Exacerbation of gout: Evaluation and management as per the primary. Status: Acute Additional A&P Information Other problems are Severe anemia , status post blood transfusion, since stable hemoglobin Chronic kidney disease Cirrhosis of the liver Other problems are as outlined before. Schedule for the pacemaker revision today. Continue on the current medications. Preop antibiotics as prescribed. If he continues to remain stable, possible discharge home tomorrow. Attestations Medical Necessity Statement*: Patient requires continued hospital stay for close monitoring , IV antibiotics and further management. 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
--- NOTE | 2020-11-23 08:37 | W.PM.OPSUD ---
Surgery/Procedure H&P Update DATE OF PROCEDURE: November 23, 2020 DATE H&P PERFORMED: 11/21/19 H&P UPDATE INFORMATION: I have reviewed H&P completed within last 30 days and I have examined patient prior to procedure PREOP DIAGNOSIS: Pacemaker MAYA PRIMARY INDICATION FOR PROCEDURE: Chronic intermittent atrial fibrillation/bradycardia/pacemaker MAYA PLANNED PROCEDURE: Operation Date: 11/23/20 08:30 Proposed Procedures p Pacemaker Generator Change(Not Applicable) - Sudeep Lucas MD PATIENT REASSESSED PRIOR TO SEDATION, WITH NO CHANGE NOTED: Yes PHYSICAL EXAM: alert, oriented x 3, clear to auscultation bilaterally and regular rate & rhythm (Irregular rhythm) AIRWAY EVAL/ANESTHESIA PLAN: normal airway, ASA III, Monitored Anesthesia, Local Anesthesia, Risks, benefits & alternatives of sedation and/or procedure discussed and Patient agrees to continue as planned
--- NOTE | 2020-11-23 11:17 | P.PN_ITS ---
Subjective Subjective: Interval history: S/P Explantation of the old pacemaker generator. Implantation of the new generator. Current Mode : VVIR mode with an upper rate of 130 and a lower rate of 70. Post Procedure patient is felling Ok. Site is clean:No hematoma. Medications: Reviewed: Yes Medication Review Details: Current Medications Hydrocodone Bitart/Acetaminophen (Hydrocodone-Acetaminophen 7.5-325 Mg Tablet) 1 tab PO TID PRN PRN Reason: pain Last Admin: 11/23/20 04:45 Dose: 1 tab Documented by: Bumetanide (Bumetanide 0.25 Mg/Ml Sdv 10 Ml) 2 mg IV Q12H [facility] Last Admin: 11/22/20 06:23 Dose: 2 mg Documented by: Duloxetine HCl (Duloxetine 30 Mg Capsule) 30 mg PO DAILY [facility] Last Admin: 11/22/20 08:28 Dose: 30 mg Documented by: Hydromorphone HCl (Hydromorphone 4 Mg Tablet) 2 mg PO Q4H PRN PRN Reason: PAIN Last Admin: 11/23/20 03:57 Dose: 2 mg Documented by: Ceftriaxone Sodium 1,000 mg/ (Sodium Chloride) 50 mls @ 100 mls/hr IV Q24H [facility]; Protocol Last Infusion: 11/22/20 22:56 Dose: Infused Documented by: Sodium Chloride (Sodium Chloride 0.9%) 1,000 mls @ 75 mls/hr IV .[id number] [facility] Last Admin: 11/23/20 00:11 Dose: Not Given Documented by: Sodium Chloride (Sodium Chloride 0.9%) 1,000 mls @ 75 mls/hr IV .[id number] [facility] Last Admin: 11/23/20 06:11 Dose: Not Given Documented by: Insulin Glargine (Insulin Glargine 100 Units/1 Ml) 40 unit SUBCUT BID@ [facility] Last Admin: 11/22/20 20:11 Dose: 40 unit Documented by: Lactulose (Lactulose Oral Liq 20 Gm/30 Ml Udc) 30 gm PO TID [facility] Last Admin: 11/22/20 20:03 Dose: Not Given Documented by: Metoprolol Tartrate (Metoprolol Tartrate 50 Mg Tablet) 100 mg PO BID@ [facility] Last Admin: 11/22/20 20:06 Dose: 100 mg Documented by: Pantoprazole Sodium (Pantoprazole Dr 40 Mg Tablet) 40 mg PO DAILY@0800 [facility] Last Admin: 11/22/20 08:28 Dose: 40 mg Documented by: Prednisone (Prednisone 20 Mg Tablet) 40 mg PO DAILY [facility] Last Admin: 11/22/20 08:28 Dose: 40 mg Documented by: Rifaximin (Rifaximin 550 Mg Tablet) 550 mg PO BID [facility]; Protocol Last Admin: 11/22/20 18:01 Dose: 550 mg Documented by: Vitals/I&O/Wt Last Vital Signs Temp 97.7 F 11/23/20 07:54 Pulse 65 11/23/20 07:54 Resp 17 11/23/20 07:54 BP 119/55 11/23/20 07:54 Pulse Ox 96 11/23/20 07:54 11/22/20 11/23/20 11/23/20 22:59 06:59 14:59 Intake Total 700 / 1060 300 / 1360 Output Total 450 / 450 Balance 700 / 1060 -150 / 910 Physical Exam Const: COMMON NORMALS: patient oriented x3 HENMT: COMMON NORMALS: normocephalic, atraumatic and hearing grossly normal bilaterally HEAD & SCALP: normocephalic and atraumatic Chest: COMMONS NORMALS: normal inspection of the chest and normal palpation of entire chest wall CHEST: Yes Symmetrical chest wall rise Resp: COMMON NORMALS: normal respiratory effort, No retractions, No use of accessory muscles and clear to auscultation bilaterally EFFORT & INSPECTION: Yes symmetric chest movement AUSCULTATION: clear to auscultation bilaterally Cardio: COMMON NORMALS: regular rate, regular rhythm, S1 normal heart sound present, S2 normal heart sound present, No gallops present (Cardio), No murmurs present (Cardio), No rub (Cardio) and Peripheral pulses 2+ throughout RATE: regular rate RHYTHM: regular rhythm HEART SOUNDS: S1 normal heart sound present and S2 normal heart sound present PERIPHERAL PULSES: Peripheral pulses 2+ throughout GI: COMMON NORMALS: Normal to inspection, nondistended, normoactive bowel sounds present, Soft to palpation, non-tender, No hepatosplenomegaly present and no masses AUSCULTATION: Yes normoactive bowel sounds PALPATION: Yes Soft to palpation and Yes No hepatosplenomegaly present RECTAL EXAM: Yes deferred Extremity: NARRATIVE EXTREMITY EXAM: Chronic B/L Lower extremity Swelling present along with statis dematitis. Rt Elbow swelling and redness Neuro: COMMON NORMALS: patient oriented x3 Data : 11/23/20 04:21 11/23/20 04:21 A&P Assessment and plan (1) Pacemaker at end of battery life: S/P Explantation of the old pacemaker generator. Implantation of the new generator. Current Mode : VVIR mode with an upper rate of 130 and a lower rate of 70. Post Procedure patient is felling Ok. Site is clean:No hematoma. On Cefazolin 2 gm i.v q8 h daily Appreciate Cardiology Rec Status: Acute (2) History of CHF (congestive heart failure): HFpEF Currently compensated Patient came in with worsening B/L L/E swelling Monitor I/O Daily Weight Currently on Bumex 2 mg i.v q12 h daily. Status: Acute (3) Exacerbation of gout: Ac onset of pain,redness and swelling of rt elbow. Given patient h/o CKD and CHF will avoid NSAID Was on Prednisone 40 mg po daily for 2 days Will abdi him on tapering regimen of 10 mg po daily for 2 weeks Continue Hydromorphone 2 Mg PO Q6H Daily for pain control Status: Acute (4) Chronic anemia: Patient deny any BRBPR Or Black tarry stool. FOBT S/P 3Us PRBC Monitor CBC Status: Acute (5) Acute kidney injury superimposed on chronic kidney disease: Likely CRS Continue Bumex 2mg I.V Q12 H DAILY Monitor BMP. Status: Acute (6) Anasarca: Status: Acute (7) Cirrhosis: Status: Inactive (8) Thrombocytopenia: Status: Inactive (9) Generalized weakness: Status: Acute (10) Aortic valve stenosis, acquired: Status: Acute (11) Chronic atrial fibrillation: Status: Acute Additional A&P Information DVT PPX: On SCDS Code Status:Full code Disposition ;Home Attestations Medical Necessity Statement*: Patient needs to be in hospital for monitoring of post pacemaker generator replacement. Coding Level of Care Code Acute Bearingizer for [facility] Fwd Exam Detailed Diagnoses Pacemaker at end of battery life Z45.010 History of CHF (congestive heart failure) Z86.79 Exacerbation of gout M10.9 Chronic anemia D64.9 Acute kidney injury superimposed on chronic kidney disease N17.9; N18.9 Anasarca R60.1 Cirrhosis K74.60 Thrombocytopenia D69.6 Generalized weakness R53.1 Aortic valve stenosis, acquired I35.0 Chronic atrial fibrillation I48.20
--- NOTE | 2020-11-23 11:43 | PM.OP ---
Operative Report Date of procedure: November 23, 2020 Pre-op Diagnosis: Pacemaker MAYA Procedure: PROCEDURE: PACEMAKER REVISION PREOPERATIVE DIAGNOSIS: Pacemaker elective replacement indication. POSTOPERATIVE DIAGNOSIS: Pacemaker elective replacement indication. ESTIMATED BLOOD LOSS: None COMPLICATIONS: None. BRIEF HISTORY: The patient is 80-year-old white male who had a permanent pacemaker implantation for symptomatic bradycardia/chronic intermittent atrial fibrillation. The patient was found to have elective replacement indication, during routine office followup evaluation. For further management of patient's condition/symptomatic bradycardia, the patient required a pacemaker revision. Patient required a dual-chamber pacemaker for symptom relief/AV synchrony The procedure was explained to the patient and his family in detail with risks and benefits. The risks of bleeding, hematoma, vascular injury, infection and other concomitant complications were explained in detail, which the patient understood well and consented to proceed. PROCEDURES PERFORMED: 1. Explantation of the old pacemaker generator. 2. Implantation of the new generator. The patient brought to the [facility]. The left side of the neck and the subclavian area were cleaned and draped in a sterile fashion. 1% Xylocaine was used for local anesthetic agent. A 2 inch long incision was made just below the previous pacemaker scar. By sharp and blunt dissection, the pacemaker pocket was accessed. The old generator was delivered from the pocket. The generator was detached from the lead. The new Medtronic generator was attached to the lead. The pacemaker pocket was copiously irrigated with vancomycin solution. Complete hemostasis was achieved. The lead was positioned behind the generator. The generator was inserted in an antibiotic pouch . Sponge counts were confirmed. The pacemaker pocket was closed in layers. Skin was approximated using 4-0 Vicryl. EXPLANTED DEVICE: Pacemaker Generator: Brand: SensiaDR . Model number: [id number]. Serial number: [id number]. Date of implant: 02/12/2011 IMPLANTED DEVICES: Ventricular Lead: Date of implantation: 08/26/1999 Model number: 4024/58 Serial number: [id number] Make: Medtronic. Atrial lead Date of implantation: 08/26/1999 Model number: 4568/53 Serial number: [id number] Make: Medtronic. Implanted Generator: Date of implantation : 11/23/2020 Brand: Sonam XT DR RUBENS Ariza. Model number: [id number] Serial number: [id number] Make: Medtronic Antibiotic pouch- TYRX Make-Medtronic Reference #- CMRM 6133 Lot #[id number] Stimulation Threshold: The ventricular sensing was 3 millivolts. Ventricular lead impedance was 285 ohms and the pacing threshold was 1.25 volts at 0.4 milliseconds. The atrial lead was not tested. Since the patient was in A. fib The pacemaker was set for VVIR mode with an upper rate of 130 and a lower rate of 70. A pressure dressing was applied over the pacemaker site. The patient was transferred back to medical floor in stable condition. Sponge counts were correct.
[2020-11-23 13:07] LABS: Glucose Point of Care 105 mg/dL (70-110)
[2020-11-23] MEDS: pantoprazole DR 40 mg Tablet PO (13:09)
[2020-11-23] MEDS: metoprolol tartrate 50 mg Tablet 100 MG PO ×2 (13:09→20:39)
[2020-11-23] MEDS: duloxetine 30 mg Capsule PO (13:10)
[2020-11-23] MEDS: insulin glargine 100 units/1 mL 40 UNIT SUBCUT ×2 (13:12→20:40)
[2020-11-23] MEDS: sodium chloride 0.9% 1,000 ML 75 ML IV ×2 (13:14→21:11)
[2020-11-23] MEDS: predniSONE 20 mg Tablet PO (13:15)
--- NOTE | 2020-11-23 16:10 | PC.SOCIAL ---
*IMM* Patient received IMM from Medicare. Placed in chart.
[2020-11-23] MEDS: lactulose oral liq 20 gm/30 mL UDC 30 GM PO (16:35)
[2020-11-23 16:39] LABS: Glucose Point of Care 131 mg/dL (70-110)
--- NOTE | 2020-11-23 18:08 | PC.NURSE ---
During bed bath this nurse noted swelling, redness, and warmth to the right elbow. Dr Martinez was called and this nurse was informed by the doctor that it was due to a gout flare up.
[2020-11-23 20:31] LABS: Glucose Point of Care 115 mg/dL (70-110)
[2020-11-24] VITALS (8 sets, daily range): BP systolic 104–145; BP diastolic 53–71; PULSE 70–78; RESP 17–18; TEMP 36.2–36.8; O2SAT 93–96
[2020-11-24] MEDS: HYDROcodone-acetaminophen 7.5-325 mg Tablet 1 TAB PO ×2 (03:04→11:25)
[2020-11-24 05:42] LABS: Eosinophils % 0.1 %; Hematocrit 34.9 % (42.0-52.0); Hemoglobin 10.3 g/dL (11.7-16.6); Lymphocytes # 0.5 10^3/uL (0.8-4.8); Lymphocytes % 6.7 %; Mean Corpuscular HGB Conc 29.5 g/dL (30.0-36.0); Mean Corpuscular Hemoglobin 25.6 pg (28.0-34.0); Mean Corpuscular Volume 86.6 fL (80-94); Mean Platelet Volume 11.1 fL (7.4-10.4); Monocytes # 0.6 10^3/uL (0.2-0.9); Monocytes % 8.4 %; Nucleated Red Blood Cells % 0 %; Platelet Count 133 10^3/cmm (130-400); Red Blood Count 4.03 10^6/uL (4.1-5.3); Red Cell Distribution Width 16.5 % (12.1-15.1); White Blood Count 7.5 10^3/uL (4.0-10.0)
[2020-11-24 06:02] LABS: Alanine Aminotransferase 6 U/L (0-41); Albumin Level 3.4 g/dL (3.5-5.2); Alkaline Phosphatase 126 IU/L (40-130); Anion Gap 15.9 (5-19); Aspartate Amino Transferase 20 U/L (0-40); Blood Urea Nitrogen 65 mg/dL (8-23); Calcium 8.6 mg/dL (8.5-10.5); Carbon Dioxide 24 mmol/L (22-29); Chloride 101 mmol/L (98-107); Glucose 51 mg/dL (65-115); Osmolality Calculated 300 mOsm/kg (285-295); Potassium 3.9 mmol/L (3.5-5.1); Sodium 137 mmol/L (136-145); Total Bilirubin 1.1 mg/dL (0.15-1.2); Total Protein 7.4 g/dL (6.6-8.7)
[2020-11-24 06:54] LABS: Glucose Point of Care 61 mg/dL (70-110)
[2020-11-24 07:31] LABS: Glucose Point of Care 70 mg/dL (70-110)
[2020-11-24] MEDS: multivitamin therapeutic Tablet 1 TAB PO (08:54)
[2020-11-24] MEDS: pantoprazole DR 40 mg Tablet PO (08:55)
[2020-11-24] MEDS: predniSONE 10 mg Tablet PO (08:55)
[2020-11-24] MEDS: duloxetine 30 mg Capsule PO (08:55)
--- NOTE | 2020-11-24 09:00 | PC.NURSE ---
patient refused lactulose this AM stating I don't want that stuff that gives me the squirts, I mess all over the place and I already did that about 3 this morning.
[2020-11-24 09:40] LABS: Glucose Point of Care 64 mg/dL (70-110)
[2020-11-24] MEDS: metoprolol tartrate 50 mg Tablet 100 MG PO ×2 (09:44→21:43)
--- NOTE | 2020-11-24 11:32 | P.PN_ITS ---
Subjective Subjective: Interval history: was little confused in the morning,but when examined later todays the day he was more oriented. He was complaining of pain in both his lower extremity and expressed his concerns regarding difficulty walking. Post procedure he is doing well. Medications: Reviewed: Yes Medication Review Details: Current Medications Hydrocodone Bitart/Acetaminophen (Hydrocodone-Acetaminophen 7.5-325 Mg Tablet) 1 tab PO TID PRN PRN Reason: pain Last Admin: 11/23/20 04:45 Dose: 1 tab Documented by: Bumetanide (Bumetanide 0.25 Mg/Ml Sdv 10 Ml) 2 mg IV Q12H [facility] Last Admin: 11/22/20 06:23 Dose: 2 mg Documented by: Duloxetine HCl (Duloxetine 30 Mg Capsule) 30 mg PO DAILY [facility] Last Admin: 11/22/20 08:28 Dose: 30 mg Documented by: Hydromorphone HCl (Hydromorphone 4 Mg Tablet) 2 mg PO Q4H PRN PRN Reason: PAIN Last Admin: 11/23/20 03:57 Dose: 2 mg Documented by: Ceftriaxone Sodium 1,000 mg/ (Sodium Chloride) 50 mls @ 100 mls/hr IV Q24H [facility]; Protocol Last Infusion: 11/22/20 22:56 Dose: Infused Documented by: Sodium Chloride (Sodium Chloride 0.9%) 1,000 mls @ 75 mls/hr IV .[id number] [facility] Last Admin: 11/23/20 00:11 Dose: Not Given Documented by: Sodium Chloride (Sodium Chloride 0.9%) 1,000 mls @ 75 mls/hr IV .[id number] [facility] Last Admin: 11/23/20 06:11 Dose: Not Given Documented by: Insulin Glargine (Insulin Glargine 100 Units/1 Ml) 40 unit SUBCUT BID@ [facility] Last Admin: 11/22/20 20:11 Dose: 40 unit Documented by: Lactulose (Lactulose Oral Liq 20 Gm/30 Ml Udc) 30 gm PO TID [facility] Last Admin: 11/22/20 20:03 Dose: Not Given Documented by: Metoprolol Tartrate (Metoprolol Tartrate 50 Mg Tablet) 100 mg PO BID@ [facility] Last Admin: 11/22/20 20:06 Dose: 100 mg Documented by: Pantoprazole Sodium (Pantoprazole Dr 40 Mg Tablet) 40 mg PO DAILY@0800 [facility] Last Admin: 11/22/20 08:28 Dose: 40 mg Documented by: Prednisone (Prednisone 20 Mg Tablet) 40 mg PO DAILY [facility] Last Admin: 11/22/20 08:28 Dose: 40 mg Documented by: Rifaximin (Rifaximin 550 Mg Tablet) 550 mg PO BID [facility]; Protocol Last Admin: 11/22/20 18:01 Dose: 550 mg Documented by: Vitals/I&O/Wt Last Vital Signs Temp 98.2 F 11/24/20 07:57 Pulse 71 11/24/20 07:57 Resp 18 11/24/20 07:57 BP 104/53 11/24/20 07:57 Pulse Ox 94 11/24/20 07:57 11/23/20 11/24/20 11/24/20 22:59 06:59 14:59 Intake Total 766.25 / 1886.25 50 / 1936.25 970 / 970 Output Total 250 / 250 Balance 766.25 / 1636.25 49 / 1685.25 720 / 720 Physical Exam Const: COMMON NORMALS: patient oriented x3 HENMT: COMMON NORMALS: normocephalic, atraumatic and hearing grossly normal bilaterally HEAD & SCALP: normocephalic and atraumatic Chest: COMMONS NORMALS: normal inspection of the chest and normal palpation of entire chest wall CHEST: Yes Symmetrical chest wall rise Resp: COMMON NORMALS: normal respiratory effort, No retractions, No use of accessory muscles and clear to auscultation bilaterally EFFORT & INSPECTION: Yes symmetric chest movement AUSCULTATION: clear to auscultation bilaterally Cardio: COMMON NORMALS: regular rate, regular rhythm, S1 normal heart sound present, S2 normal heart sound present, No gallops present (Cardio), No murmurs present (Cardio), No rub (Cardio) and Peripheral pulses 2+ throughout RATE: regular rate RHYTHM: regular rhythm HEART SOUNDS: S1 normal heart sound present and S2 normal heart sound present PERIPHERAL PULSES: Peripheral pulses 2+ throughout GI: COMMON NORMALS: Normal to inspection, nondistended, normoactive bowel s ounds present, Soft to palpation, non-tender, No hepatosplenomegaly present and no masses AUSCULTATION: Yes normoactive bowel sounds PALPATION: Yes Soft to palpation and Yes No hepatosplenomegaly present RECTAL EXAM: Yes deferred Extremity: NARRATIVE EXTREMITY EXAM: Chronic B/L Lower extremity Swelling present along with statis dematitis. Rt Elbow swelling and redness Neuro: COMMON NORMALS: patient oriented x3 Data : 11/24/20 04:49 11/24/20 04:49 A&P Assessment and plan (1) Pacemaker at end of battery life: S/P Explantation of the old pacemaker generator. Implantation of the new generator. Current Mode : VVIR mode with an upper rate of 130 and a lower rate of 70. Post Procedure patient is felling Ok. Site is clean:No hematoma. On Cefazolin 2 gm i.v q8 h daily Appreciate Cardiology Rec Status: Acute (2) History of CHF (congestive heart failure): HFpEF Currently compensated Patient came in with worsening B/L L/E swelling Monitor I/O Daily Weight Currently on Bumex 2 mg i.v q12 h daily. Status: Acute (3) Exacerbation of gout: Ac onset of pain,redness and swelling of rt elbow. Given patient h/o CKD and CHF will avoid NSAID Was on Prednisone 40 mg po daily for 2 days Will abdi him on tapering regimen of 10 mg po daily for 2 weeks Continue Hydromorphone 2 Mg PO Q6H Daily for pain control Status: Acute (4) Chronic anemia: Patient deny any BRBPR Or Black tarry stool. FOBT S/P 3Us PRBC Monitor CBC Status: Acute (5) Acute kidney injury superimposed on chronic kidney disease: Likely CRS Continue Bumex 2mg I.V Q12 H DAILY Monitor BMP. Status: Acute (6) Anasarca: Status: Acute (7) Cirrhosis: Status: Inactive (8) Thrombocytopenia: Status: Inactive (9) Generalized weakness: Status: Acute (10) Aortic valve stenosis, acquired: Status: Acute (11) Chronic atrial fibrillation: Status: Acute Additional A&P Information DVT PPX: On SCDS Code Status:Full code Disposition ;Possibly SNF Attestations Medical Necessity Statement*: Patient needs to be in hospital for gout flare,as well for post Explantation of the old pacemaker generator. Implantation of the new generator as well as the need for safe discharge. Coding Level of Care Code Acute Chute Feeder for Chg Fwd Exam Detailed Diagnoses Pacemaker at end of battery life Z45.010 History of CHF (congestive heart failure) Z86.79 Exacerbation of gout M10.9 Chronic anemia D64.9 Acute kidney injury superimposed on chronic kidney disease N17.9; N18.9 Anasarca R60.1 Cirrhosis K74.60 Thrombocytopenia D69.6 Generalized weakness R53.1 Aortic valve stenosis, acquired I35.0 Chronic atrial fibrillation I48.20
[2020-11-24 12:05] LABS: Glucose Point of Care 114 mg/dL (70-110)
[2020-11-24] MEDS: cephALEXin 500 mg Capsule PO ×3 (14:46→21:43)
[2020-11-24] MEDS: lactulose oral liq 20 gm/30 mL UDC 30 GM PO (14:47)
--- NOTE | 2020-11-24 14:49 | P.PN_ITS ---
Subjective Subjective: Interval history: Post for generator change remained stable. Denies any complaint except hurting all over and especially in the joints. Patient has history of possible a rthritis. Medications: Reviewed: Yes Medication Review Details: Current Medications Hydrocodone Bitart/Acetaminophen (Hydrocodone-Acetaminophen 7.5-325 Mg Tablet) 1 tab PO TID PRN PRN Reason: pain Last Admin: 11/23/20 04:45 Dose: 1 tab Documented by: Bumetanide (Bumetanide 0.25 Mg/Ml Sdv 10 Ml) 2 mg IV Q12H [facility] Last Admin: 11/22/20 06:23 Dose: 2 mg Documented by: Duloxetine HCl (Duloxetine 30 Mg Capsule) 30 mg PO DAILY [facility] Last Admin: 11/22/20 08:28 Dose: 30 mg Documented by: Hydromorphone HCl (Hydromorphone 4 Mg Tablet) 2 mg PO Q4H PRN PRN Reason: PAIN Last Admin: 11/23/20 03:57 Dose: 2 mg Documented by: Ceftriaxone Sodium 1,000 mg/ (Sodium Chloride) 50 mls @ 100 mls/hr IV Q24H [facility]; Protocol Last Infusion: 11/22/20 22:56 Dose: Infused Documented by: Sodium Chloride (Sodium Chloride 0.9%) 1,000 mls @ 75 mls/hr IV .[id number] [facility] Last Admin: 11/23/20 00:11 Dose: Not Given Documented by: Sodium Chloride (Sodium Chloride 0.9%) 1,000 mls @ 75 mls/hr IV .[id number] [facility] Last Admin: 11/23/20 06:11 Dose: Not Given Documented by: Insulin Glargine (Insulin Glargine 100 Units/1 Ml) 40 unit SUBCUT BID@ [facility] Last Admin: 11/22/20 20:11 Dose: 40 unit Documented by: Lactulose (Lactulose Oral Liq 20 Gm/30 Ml Udc) 30 gm PO TID [facility] Last Admin: 11/22/20 20:03 Dose: Not Given Documented by: Metoprolol Tartrate (Metoprolol Tartrate 50 Mg Tablet) 100 mg PO BID@ [facility] Last Admin: 11/22/20 20:06 Dose: 100 mg Documented by: Pantoprazole Sodium (Pantoprazole Dr 40 Mg Tablet) 40 mg PO DAILY@0800 [facility] Last Admin: 11/22/20 08:28 Dose: 40 mg Documented by: Prednisone (Prednisone 20 Mg Tablet) 40 mg PO DAILY [facility] Last Admin: 11/22/20 08:28 Dose: 40 mg Documented by: Rifaximin (Rifaximin 550 Mg Tablet) 550 mg PO BID [facility]; Protocol Last Admin: 11/22/20 18:01 Dose: 550 mg Documented by: Vitals/I&O/Wt Last Vital Signs Temp 97.7 F 11/24/20 11:45 Pulse 70 11/24/20 11:45 Resp 18 11/24/20 11:45 BP 118/58 11/24/20 11:45 Pulse Ox 95 11/24/20 11:45 11/23/20 11/24/20 11/24/20 22:59 06:59 14:59 Intake Total 766.25 / 1886.25 50 / 1936.25 1090 / 1090 Output Total 1 251 250 / 250 Balance 766.25 / 1636.25 49 / 1685.25 840 / 840 Physical Exam Narrative: EXAM NARRATIVE: GENERAL: Patient is alert, awake and oriented x3. Pacemaker site Band-Aid with pressure bandage NECK: No jugular vein distension. HEENT: No cyanosis. No icterus. No pallor. HEART: Regular S1 and S2. 2/6 sys murmur, rub or gallop. LUNGS: Clear to auscultate bilaterally. ABDOMEN: Soft, nontender and nondistended. Positive bowel sounds. No guarding, rebound or tenderness. CENTRAL NERVOUS SYSTEM: Grossly nonfocal. EXTREMITIES: Lower extremities without edema bilaterally. Data : 11/25/20 04:36 11/25/20 04:36 A&P Assessment and plan (1) Pacemaker at end of battery life: Patient requires revision of the permanent pacemaker . Since the hemoglobin is improving and also since the patient remaining stable, we may go ahead and do this today. Because of the patient's anemia and renal insuffici ency, he carries a higher risk for pocket infection. We will be using the antibiotic sleeve in addition to the preop antibiotics. Permanent pacemaker generator change. Working in a good condition no postoperative event. Continue antibiotics for 5 days. Follow-up with pacemaker clinic and Dr. Lucas as suggested Status: Acute (2) Chronic atrial fibrillation: Rate controlled patient is not on anticoagulation due to history of recent GI bleed . Status: Acute (3) Chronic anemia: Due to history of recent GI bleed and posttransfusion no anticoagulation was started. Continue to monitor. Patient is anemic at baseline with hemoglobin above 9.0 Status: Acute (4) Acute on chronic diastolic (congestive) heart failure: Well compensated rather on right side. Status: Acute (5) Aortic valve stenosis, acquired: History of moderate aortic stenosis. Patient is stable otherwise Status: Acute (6) Exacerbation of gout: As per primary Status: Acute Additional A&P Information Other problems are Severe anemia , status post blood transfusion, since stable hemoglobin Chronic kidney disease Cirrhosis of the liver Other problems are as outlined before. Schedule for the pacemaker revision today. Continue on the current medications. Preop antibiotics as prescribed. If he continues to remain stable, possible discharge home tomorrow. Attestations Medical Necessity Statement*: Require continued hospitalization for above defined care Coding Level of Care Code Established Pt Acute Registry Np for Larry Cifuentes Patient Type Established History Detailed Exam Detailed Medical Decision Making Moderate Complexity Diagnoses Pacemaker at end of battery life Z45.010 Chronic atrial fibrillation I48.20 Chronic anemia D64.9 Acute on chronic diastolic (congestive) heart failure I50.33 Aortic valve stenosis, acquired I35.0 Exacerbation of gout M10.9
[2020-11-24 17:05] LABS: Digoxin 0.7 ng/mL (0.6-1.2)
[2020-11-24 17:11] LABS: Glucose Point of Care 136 mg/dL (70-110)
[2020-11-24] MEDS: bumetanide 0.25 mg/mL SDV 10 mL 2 MG IV (17:51)
[2020-11-24 20:42] LABS: Glucose Point of Care 99 mg/dL (70-110)
[2020-11-25] VITALS (11 sets, daily range): BP systolic 97–136; BP diastolic 54–67; PULSE 57–113; RESP 16–19; TEMP 36.8–37.5; O2SAT 92–98
--- NOTE | 2020-11-25 04:19 | PC.NURSE ---
This RN was called to patients room by RICKSHAW DRIVER. Blood was observed on patients dressing over pacemaker site. No hematoma noted. Patient had removed immobilizer himself. Immobilizer put back on and pressure dressing applied. Patient tolerated well.
[2020-11-25 04:54] LABS: Eosinophils % 0.3 %; Hematocrit 32.9 % (42.0-52.0); Hemoglobin 9.9 g/dL (11.7-16.6); Lymphocytes # 0.3 10^3/uL (0.8-4.8); Lymphocytes % 4.8 %; Mean Corpuscular HGB Conc 30.1 g/dL (30.0-36.0); Mean Corpuscular Hemoglobin 26.2 pg (28.0-34.0); Mean Platelet Volume 11.4 fL (7.4-10.4); Monocytes # 0.5 10^3/uL (0.2-0.9); Monocytes % 7.8 %; Neutrophils # 5.76 10^3/uL (1.8-7.7); Neutrophils % 86.5 %; Nucleated Red Blood Cells % 0 %; Platelet Count 111 10^3/cmm (130-400); Red Blood Count 3.78 10^6/uL (4.1-5.3); White Blood Count 6.7 10^3/uL (4.0-10.0)
[2020-11-25 05:11] LABS: Alanine Aminotransferase < 5 U/L (0-41); Albumin Level 3.1 g/dL (3.5-5.2); Alkaline Phosphatase 124 IU/L (40-130); Anion Gap 14.8 (5-19); Aspartate Amino Transferase 19 U/L (0-40); Blood Urea Nitrogen 57 mg/dL (8-23); Calcium 8.5 mg/dL (8.5-10.5); Carbon Dioxide 24 mmol/L (22-29); Chloride 101 mmol/L (98-107); Glucose 67 mg/dL (65-115); Osmolality Calculated 296 mOsm/kg (285-295); Potassium 3.8 mmol/L (3.5-5.1); Sodium 136 mmol/L (136-145); Total Bilirubin 1.3 mg/dL (0.15-1.2); Total Protein 7.1 g/dL (6.6-8.7)
[2020-11-25 06:31] LABS: Glucose Point of Care 79 mg/dL (70-110)
[2020-11-25] MEDS: metoprolol tartrate 50 mg Tablet 100 MG PO (10:35)
[2020-11-25] MEDS: cephALEXin 500 mg Capsule PO ×4 (10:36→20:22)
[2020-11-25] MEDS: duloxetine 30 mg Capsule PO (10:36)
[2020-11-25] MEDS: multivitamin therapeutic Tablet 1 TAB PO (10:36)
[2020-11-25] MEDS: HYDROcodone-acetaminophen 7.5-325 mg Tablet 1 TAB PO ×2 (10:36→18:02)
[2020-11-25] MEDS: pantoprazole DR 40 mg Tablet PO (10:36)
[2020-11-25] MEDS: predniSONE 10 mg Tablet PO (10:37)
--- NOTE | 2020-11-25 10:37 | DCPLANNER ---
Pg 2 of IM updated with Daughter; Rocio via the phone. No questions. Copy left in room as agreed.
[2020-11-25 10:47] LABS: Glucose Point of Care 80 mg/dL (70-110)
--- NOTE | 2020-11-25 11:05 | P.PN_ITS ---
Subjective Subjective: Interval history: Patient was seen and examined today.He is complaining of generalized body Pain. His pacemaker incision site is clean.Though it was oozing a bit,but new pressure dressing was applied. His other vital and labs have been reviewed. Medications: Reviewed: Yes Medication Review Details: Current Medications Hydrocodone Bitart/Acetaminophen (Hydrocodone-Acetaminophen 7.5-325 Mg Tablet) 1 tab PO TID PRN PRN Reason: pain Last Admin: 11/23/20 04:45 Dose: 1 tab Documented by: Bumetanide (Bumetanide 0.25 Mg/Ml Sdv 10 Ml) 2 mg IV Q12H [facility] Last Admin: 11/22/20 06:23 Dose: 2 mg Documented by: Duloxetine HCl (Duloxetine 30 Mg Capsule) 30 mg PO DAILY [facility] Last Admin: 11/22/20 08:28 Dose: 30 mg Documented by: Hydromorphone HCl (Hydromorphone 4 Mg Tablet) 2 mg PO Q4H PRN PRN Reason: PAIN Last Admin: 11/23/20 03:57 Dose: 2 mg Documented by: Ceftriaxone Sodium 1,000 mg/ (Sodium Chloride) 50 mls @ 100 mls/hr IV Q24H [facility]; Protocol Last Infusion: 11/22/20 22:56 Dose: Infused Documented by: Sodium Chloride (Sodium Chloride 0.9%) 1,000 mls @ 75 mls/hr IV .[id number] [facility] Last Admin: 11/23/20 00:11 Dose: Not Given Documented by: Sodium Chloride (Sodium Chloride 0.9%) 1,000 mls @ 75 mls/hr IV .[id number] [facility] Last Admin: 11/23/20 06:11 Dose: Not Given Documented by: Insulin Glargine (Insulin Glargine 100 Units/1 Ml) 40 unit SUBCUT BID@ [facility] Last Admin: 11/22/20 20:11 Dose: 40 unit Documented by: Lactulose (Lactulose Oral Liq 20 Gm/30 Ml Udc) 30 gm PO TID [facility] Last Admin: 11/22/20 20:03 Dose: Not Given Documented by: Metoprolol Tartrate (Metoprolol Tartrate 50 Mg Tablet) 100 mg PO BID@ [facility] Last Admin: 11/22/20 20:06 Dose: 100 mg Documented by: Pantoprazole Sodium (Pantoprazole Dr 40 Mg Tablet) 40 mg PO DAILY@0800 [facility] Last Admin: 11/22/20 08:28 Dose: 40 mg Documented by: Prednisone (Prednisone 20 Mg Tablet) 40 mg PO DAILY [facility] Last Admin: 11/22/20 08:28 Dose: 40 mg Documented by: Rifaximin (Rifaximin 550 Mg Tablet) 550 mg PO BID [facility]; Protocol Last Admin: 11/22/20 18:01 Dose: 550 mg Documented by: Vitals/I&O/Wt Last Vital Signs Temp 98.3 F 11/25/20 10:53 Pulse 77 11/25/20 10:53 Resp 17 11/25/20 10:53 BP 136/54 11/25/20 10:53 Pulse Ox 97 11/25/20 10:53 11/24/20 11/25/20 11/25/20 22:59 06:59 14:59 Intake Total 240 / 1330 140 / 1470 Output Total 1215 / 1465 201 / 1666 Balance -975 / -135 -61 / -196 Weight last 48 hrs Weight 91.535 kg Physical Exam Const: COMMON NORMALS: patient oriented x3 HENMT: COMMON NORMALS: normocephalic, atraumatic and hearing grossly normal bilaterally HEAD & SCALP: normocephalic and atraumatic Resp: COMMON NORMALS: normal respiratory effort and clear to auscultation b ilaterally EFFORT & INSPECTION: Yes symmetric chest movement AUSCULTATION: clear to auscultation bilaterally Cardio: COMMON NORMALS: regular rate, regular rhythm, S1 normal heart sound present, S2 normal heart sound present, No gallops present (Cardio), No murmurs present (Cardio), No rub (Cardio) and Peripheral pulses 2+ throughout RATE: regular rate RHYTHM: regular rhythm HEART SOUNDS: S1 normal heart sound present and S2 normal heart sound present PERIPHERAL PULSES: Peripheral pulses 2+ throughout GI: COMMON NORMALS: Normal to inspection, nondistended, normoactive bowel sounds present, Soft to palpation, non-tender, No hepatosplenomegaly present and no masses AUSCULTATION: Yes normoactive bowel sounds PALPATION: Yes Soft to palpation and Yes No hepatosplenomegaly present RECTAL EXAM: Yes deferred Extremity: NARRATIVE EXTREMITY EXAM: Chronic B/L Lower extremity Swelling present along with statis dematitis. Rt Elbow swelling and redness is improving Neuro: COMMON NORMALS: patient oriented x3 Data : 11/25/20 04:36 11/25/20 04:36 A&P Assessment and plan (1) Pacemaker at end of battery life: S/P Explantation of the old pacemaker generator. Implantation of the new generator. Current Mode : VVIR mode with an upper rate of 130 and a lower rate of 70. Post Procedure patient is felling Ok. Site is clean:No hematoma. On Cefazolin 2 gm i.v q8 h daily for 5 days ( 11/23 ) Appreciate Cardiology Rec Status: Acute (2) History of CHF (congestive heart failure): HFpEF Currently compensated Patient came in with worsening B/L L/E swelling Monitor I/O Daily Weight Currently on Bumex 2 mg i.v q12 h daily. Status: Acute (3) Exacerbation of gout: Ac onset of pain,redness and swelling of rt elbow. Given patient h/o CKD and CHF will avoid NSAID Was on Prednisone 40 mg po daily for 2 days Will abdi him on tapering regimen of 10 mg po daily for 2 weeks Continue Hydromorphone 2 Mg PO Q6H Daily for pain control Status: Acute (4) Chronic anemia: Patient deny any BRBPR Or Black tarry stool. FOBT S/P 3Us PRBC Monitor CBC Status: Acute (5) Acute kidney injury superimposed on chronic kidney disease: Resolved Likely CRS Initailly on Bumex 2mg I.V Q12 H DAILY Now on Bumex 1mg I.V Q12 H Daily Monitor BMP. Status: Acute (6) Anasarca: Status: Acute (7) Cirrhosis: On H/E PPX Regimen On Rifaximin 550 mg q12 h Daily as well as lactulose ( Currently Dc as the patient is Refusing it ) Status: Inactive (8) Thrombocytopenia: Status: Inactive (9) Generalized weakness: Status: Acute (10) Aortic valve stenosis, acquired: Status: Acute (11) Chronic atrial fibrillation: Status: Acute Additional A&P Information DVT PPX: On SCDS Code Status:Full code Disposition ;Possibly SNF Attestations Medical Necessity Statement*: Patient is awaiting placement.Family is undeci ded regarding Home v/s SNF. Coding Level of Care Code Acute Stripper And Printer for Chg Fwd Exam Detailed Diagnoses Pacemaker at end of battery life Z45.010 History of CHF (congestive heart failure) Z86.79 Exacerbation of gout M10.9 Chronic anemia D64.9 Acute kidney injury superimposed on chronic kidney disease N17.9; N18.9 Anasarca R60.1 Cirrhosis K74.60 Thrombocytopenia D69.6 Generalized weakness R53.1 Aortic valve stenosis, acquired I35.0 Chronic atrial fibrillation I48.20
--- NOTE | 2020-11-25 13:53 | PM.PN ---
Subjective Subjective: Interval history: No overnight event awaiting placement in assisted care facility Medications: Reviewed: Yes Medication Review Details: Current Medications Hydrocodone Bitart/Acetaminophen (Hydrocodone-Acetaminophen 7.5-325 Mg Tablet) 1 tab PO TID PRN PRN Reason: pain Last Admin: 11/23/20 04:45 Dose: 1 tab Documented by: Bumetanide (Bumetanide 0.25 Mg/Ml Sdv 10 Ml) 2 mg IV Q12H [facility] Last Admin: 11/22/20 06:23 Dose: 2 mg Documented by: Duloxetine HCl (Duloxetine 30 Mg Capsule) 30 mg PO DAILY [facility] Last Admin: 11/22/20 08:28 Dose: 30 mg Documented by: Hydromorphone HCl (Hydromorphone 4 Mg Tablet) 2 mg PO Q4H PRN PRN Reason: PAIN Last Admin: 11/23/20 03:57 Dose: 2 mg Documented by: Ceftriaxone Sodium 1,000 mg/ (Sodium Chloride) 50 mls @ 100 mls/hr IV Q24H [facility]; Protocol Last Infusion: 11/22/20 22:56 Dose: Infused Documented by: Sodium Chloride (Sodium Chloride 0.9%) 1,000 mls @ 75 mls/hr IV .[id number] [facility] Last Admin: 11/23/20 00:11 Dose: Not Given Documented by: Sodium Chloride (Sodium Chloride 0.9%) 1,000 mls @ 75 mls/hr IV .[id number] [facility] Last Admin: 11/23/20 06:11 Dose: Not Given Documented by: Insulin Glargine (Insulin Glargine 100 Units/1 Ml) 40 unit SUBCUT BID@ [facility] Last Admin: 11/22/20 20:11 Dose: 40 unit Documented by: Lactulose (Lactulose Oral Liq 20 Gm/30 Ml Udc) 30 gm PO TID [facility] Last Admin: 11/22/20 20:03 Dose: Not Given Documented by: Metoprolol Tartrate (Metoprolol Tartrate 50 Mg Tablet) 100 mg PO BID@799,1999 [facility] Last Admin: 11/22/20 20:06 Dose: 100 mg Documented by: Pantoprazole Sodium (Pantoprazole Dr 40 Mg Tablet) 40 mg PO DAILY@0800 [facility] Last Admin: 11/22/20 08:28 Dose: 40 mg Documented by: Prednisone (Prednisone 20 Mg Tablet) 40 mg PO DAILY [facility] Last Admin: 11/22/20 08:28 Dose: 40 mg Documented by: Rifaximin (Rifaximin 550 Mg Tablet) 550 mg PO BID [facility]; Protocol Last Admin: 11/22/20 18:01 Dose: 550 mg Documented by: Vitals/I&O/Wt Last Vital Signs Temp 98.3 F 11/25/20 10:53 Pulse 77 11/25/20 10:53 Resp 16 11/25/20 12:57 BP 136/54 11/25/20 10:53 Pulse Ox 97 11/25/20 12:57 11/24/20 11/25/20 11/25/20 22:59 06:59 14:59 Intake Total 240 / 1330 140 / 1470 140 / 140 Output Total 1215 / 1465 201 / 1666 Balance -975 / -135 -61 / -196 140 / 140 Weight last 48 hrs Weight 201 lb 12.8 oz Physical Exam Narrative: EXAM NARRATIVE: GENERAL: Patient is alert, awake and oriented x3. Pacemaker site Band-Aid with pressure bandage NECK: No jugular vein distension. HEENT: No cyanosis. No icterus. No pallor. HEART: Regular S1 and S2. 2/6 sys murmur, rub or gallop. LUNGS: Clear to auscultate bilaterally. ABDOMEN: Soft, nontender and nondistended. Positive bowel sounds. No guarding, rebound or tenderness. CENTRAL NERVOUS SYSTEM: Grossly nonfocal. EXTREMITIES: Lower extremities without edema bilaterally. Data : 11/25/20 04:36 11/25/20 04:36 A&P Assessment and plan (1) Pacemaker at end of battery life: Patient requires revision of the permanent pacemaker . Since the hemoglobin is improving and also since the patient remaining stable, we may go ahead and do this today. Because of the patient's anemia and renal insufficiency, he carries a higher risk for pocket infection. We will be using the antibiotic sleeve in addition to the preop antibiotics. Permanent pacemaker generator change. Working in a good condition no postoperative event. Continue antibiotics for 5 days. Follow-up with pacemaker clinic and Dr. Lucas as suggested On today's visit dated 11/25/2020 patient is stable denies any complaint except usual body aches. From a cardiac perspective he can be discharged and follow with pacemaker clinic. Continue antibiotics for 5 days. He is awaiting placement in assisted care facility Status: Acute (2) Chronic atrial fibrillation: Stable and rate controlled not on anticoagulation due to history of GI bleed. Status: Acute (3) Chronic anemia: Due to history of recent GI bleed and posttransfusion no anticoagulation was started. Continue to monitor. Patient is anemic at baseline with hemoglobin above 9.9 Status: Acute (4) Acute on chronic diastolic (congestive) heart failure: Well compensated rather on right side. Status: Acute (5) Aortic valve stenosis, acquired: History of moderate aortic stenosis. Patient is stable otherwise Status: Acute (6) Exacerbation of gout: As per primary Status: Acute Additional A&P Information Other problems are Severe anemia , status post blood transfusion, since stable hemoglobin Chronic kidney disease Cirrhosis of the liver Other problems are as outlined before. Schedule for the pacemaker revision today. Continue on the current medications. Preop antibiotics as prescribed. If he continues to remain stable, possible discharge home tomorrow. Attestations Medical Necessity Statement*: As per medicine Coding Level of Care Code Established Pt Acute Cloth Bleaching Range Tender for Larry Cifuentes Patient Type Established History Detailed Exam Detailed Medical Decision Making Moderate Complexity Diagnoses Pacemaker at end of battery life Z45.010 Chronic atrial fibrillation I48.20 Chronic anemia D64.9 Acute on chronic diastolic (congestive) heart failure I50.33 Aortic valve stenosis, acquired I35.0 Exacerbation of gout M10.9
[2020-11-25 16:39] LABS: Glucose Point of Care 160 mg/dL (70-110)
[2020-11-25] MEDS: bumetanide 0.25 mg/mL SDV 10 mL 2 MG IV (18:01)
[2020-11-25 20:05] LABS: Glucose Point of Care 185 mg/dL (70-110)
[2020-11-26] VITALS (7 sets, daily range): BP systolic 125–137; BP diastolic 55–77; PULSE 68–96; RESP 16–19; TEMP 36.5–37.7; O2SAT 94–96
[2020-11-26 05:44] LABS: Eosinophils % 0.3 %; Hematocrit 33.8 % (42.0-52.0); Hemoglobin 9.5 g/dL (11.7-16.6); Lymphocytes # 0.5 10^3/uL (0.8-4.8); Mean Corpuscular HGB Conc 28.1 g/dL (30.0-36.0); Mean Corpuscular Hemoglobin 26.8 pg (28.0-34.0); Mean Corpuscular Volume 95.2 fL (80-94); Mean Platelet Volume 11.8 fL (7.4-10.4); Monocytes # 0.4 10^3/uL (0.2-0.9); Monocytes % 5.8 %; Neutrophils % 87.4 %; Nucleated Red Blood Cells % 0 %; Platelet Count 92 10^3/cmm (130-400); Red Blood Count 3.55 10^6/uL (4.1-5.3); White Blood Count 7.4 10^3/uL (4.0-10.0)
[2020-11-26 06:08] LABS: Alanine Aminotransferase < 5 U/L (0-41); Alkaline Phosphatase 122 IU/L (40-130); Aspartate Amino Transferase 16 U/L (0-40); Blood Urea Nitrogen 60 mg/dL (8-23); Calcium 8.3 mg/dL (8.5-10.5); Carbon Dioxide 24 mmol/L (22-29); Chloride 99 mmol/L (98-107); Globulin 3.9 g/dL (1.3-4.6); Glucose 158 mg/dL (65-115); Osmolality Calculated 298 mOsm/kg (285-295); Sodium 134 mmol/L (136-145); Total Bilirubin 1.2 mg/dL (0.15-1.2); Total Protein 6.9 g/dL (6.6-8.7)
[2020-11-26 06:29] LABS: Glucose Point of Care 197 mg/dL (70-110)
[2020-11-26] MEDS: duloxetine 30 mg Capsule PO (08:54)
[2020-11-26] MEDS: pantoprazole DR 40 mg Tablet PO (08:54)
[2020-11-26] MEDS: predniSONE 10 mg Tablet PO (08:54)
[2020-11-26] MEDS: cephALEXin 500 mg Capsule PO ×4 (08:54→20:20)
[2020-11-26] MEDS: multivitamin therapeutic Tablet 1 TAB PO (08:55)
[2020-11-26] MEDS: bumetanide 0.25 mg/mL SDV 10 mL 1 MG IV ×2 (08:55→20:20)
--- NOTE | 2020-11-26 09:10 | PC.NURSE ---
pt did not want to sit up to eat breakfast. pt stated he was tired and not hungry.
[2020-11-26 10:36] LABS: Glucose Point of Care 202 mg/dL (70-110)
--- NOTE | 2020-11-26 11:00 | P.PN_ITS ---
Subjective Subjective: Interval history: complains of increased pain over all joints with visible swelling over right elbow Medications: Reviewed: Yes Medication Review Details: Current Medications Hydrocodone Bitart/Acetaminophen (Hydrocodone-Acetaminophen 7.5-325 Mg Tablet) 1 tab PO TID PRN PRN Reason: pain Last Admin: 11/23/20 04:45 Dose: 1 tab Documented by: Bumetanide (Bumetanide 0.25 Mg/Ml Sdv 10 Ml) 2 mg IV Q12H [facility] Last Admin: 11/22/20 06:23 Dose: 2 mg Documented by: Duloxetine HCl (Duloxetine 30 Mg Capsule) 30 mg PO DAILY [facility] Last Admin: 11/22/20 08:28 Dose: 30 mg Documented by: Hydromorphone HCl (Hydromorphone 4 Mg Tablet) 2 mg PO Q4H PRN PRN Reason: PAIN Last Admin: 11/23/20 03:57 Dose: 2 mg Documented by: Ceftriaxone Sodium 1,000 mg/ (Sodium Chloride) 50 mls @ 100 mls/hr IV Q24H [facility]; Protocol Last Infusion: 11/22/20 22:56 Dose: Infused Documented by: Sodium Chloride (Sodium Chloride 0.9%) 1,000 mls @ 75 mls/hr IV .[id number] [facility] Last Admin: 11/23/20 00:11 Dose: Not Given Documented by: Sodium Chloride (Sodium Chloride 0.9%) 1,000 mls @ 75 mls/hr IV .[id number] [facility] Last Admin: 11/23/20 06:11 Dose: Not Given Documented by: Insulin Glargine (Insulin Glargine 100 Units/1 Ml) 40 unit SUBCUT BID@ [facility] Last Admin: 11/22/20 20:11 Dose: 40 unit Documented by: Lactulose (Lactulose Oral Liq 20 Gm/30 Ml Udc) 30 gm PO TID [facility] Last Admin: 11/22/20 20:03 Dose: Not Given Documented by: Metoprolol Tartrate (Metoprolol Tartrate 50 Mg Tablet) 100 mg PO BID@ [facility] Last Admin: 11/22/20 20:06 Dose: 100 mg Documented by: Pantoprazole Sodium (Pantoprazole Dr 40 Mg Tablet) 40 mg PO DAILY@08 [facility] Last Admin: 02/04/21 08:28 Dose: 40 mg Documented by: Prednisone (Prednisone 20 Mg Tablet) 40 mg PO DAILY [facility] Last Admin: 11/22/20 08:28 Dose: 40 mg Documented by: Rifaximin (Rifaximin 550 Mg Tablet) 550 mg PO BID [facility]; Protocol Last Admin: 11/22/20 18:01 Dose: 550 mg Documented by: Vitals/I&O/Wt Last Vital Signs Temp 98.4 F 11/26/20 21:24 Pulse 72 11/26/20 21:24 Resp 18 11/26/20 21:24 BP 125/61 11/26/20 21:24 Pulse Ox 96 11/26/20 21:24 11/26/20 11/26/20 11/26/20 06:59 14:59 22:59 Intake Total 620 / 880 0 / 0 60 / 60 Output Total 200 / 400 1001 / 1001 Balance 420 / 480 0 / 0 -941 / -941 Weight last 48 hrs Weight 95.481 kg Weight 91.535 kg Physical Exam Narrative: EXAM NARRATIVE: GEN: Awake, alert and oriented, moderate distress secondary to pain CVS: S1S2 N RS: CTA B/L Abd: Soft, nt/nd , bs+ 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 Implantation of the new generator. Current Mode : VVIR mode with an upper rate of 130 and a lower rate of 70. Post Procedure patient is felling Ok. Site is clean:No hematoma. On Cefazolin 2 gm i.v q8 h daily for 5 days ( 11/23 ) --> changed to cephalexin per cardiology recommendations Appreciate Cardiology Rec Status: Acute (2) History of CHF (congestive heart failure): HFpEF Currently compensated Patient came in with worsening B/L L/E swelling Monitor I/O Daily Weight Currently on Bumex 2 mg i.v q12 h daily. LE wraps in plave Status: Acute (3) Exacerbation of gout: Ac onset of pain,redness and swelling of rt elbow, MCP joints in left middle finger, Given patient h/o CKD and CHF will avoid NSAID Start solumedrol 40mg iv q daily Status: Acute (4) Chronic anemia: Patient deny any BRBPR Or Black tarry stool. FOBT S/P 3Us PRBC Monitor CBC Status: Acute (5) Acute kidney injury superimposed on chronic kidney disease: Resolved Likely CRS Initailly on Bumex 2mg I.V Q12 H DAILY Now on Bumex 1mg I.V Q12 H Daily Monitor BMP. Status: Acute (6) Anasarca: Status: Acute (7) Cirrhosis: On H/E PPX Regimen On Rifaximin 550 mg q12 h Daily as well as lactulose ( Currently Dc as the patient is Refusing it ) Status: Inactive (8) Thrombocytopenia: Status: Inactive (9) Generalized weakness: Status: Acute (10) Aortic valve stenosis, acquired: Status: Acute (11) Chronic atrial fibrillation: Status: Acute Additional A&P Information DVT PPX: On SCDS Code Status:Full code Disposition ;Possibly SNF, daughter requested hospice referral today Attestations Medical Necessity Statement*: uncontrolled pain acute gout flare needs optimization, dispo planning Coding Level of Care Code Acute Soft Sugar Supervisor for Chg Fwd Diagnoses Pacemaker at end of battery life Z45.010 History of CHF (congestive heart failure) Z86.79 Exacerbation of gout M10.9 Chronic anemia D64.9 Acute kidney injury superimposed on chronic kidney disease N17.9; N18.9 Anasarca R60.1 Cirrhosis K74.60 Thrombocytopenia D69.6 Generalized weakness R53.1 Aortic valve stenosis, acquired I35.0 Chronic atrial fibrillation I48.20
[2020-11-26] MEDS: HYDROcodone-acetaminophen 7.5-325 mg Tablet 1 TAB PO (11:49)
[2020-11-26 12:22] LABS: Uric Acid 11.7 mg/dL (3.4-7.0)
[2020-11-26 17:02] LABS: Glucose Point of Care 195 mg/dL (70-110)
[2020-11-26] MEDS: metoprolol tartrate 50 mg Tablet 100 MG PO (20:19)
[2020-11-26 21:31] LABS: Glucose Point of Care 195 mg/dL (70-110)
[2020-11-27] VITALS (8 sets, daily range): BP systolic 106–125; BP diastolic 17–54; PULSE 71–81; RESP 17–18; TEMP 36.6–37.1; O2SAT 96–97
[2020-11-27 06:31] LABS: Glucose Point of Care 216 mg/dL (70-110)
[2020-11-27] MEDS: metoprolol tartrate 50 mg Tablet 100 MG PO ×2 (07:53→21:23)
[2020-11-27] MEDS: cephALEXin 500 mg Capsule PO ×4 (07:53→21:23)
[2020-11-27] MEDS: pantoprazole DR 40 mg Tablet PO (07:53)
[2020-11-27] MEDS: duloxetine 30 mg Capsule PO (07:54)
[2020-11-27] MEDS: multivitamin therapeutic Tablet 1 TAB PO (07:54)
[2020-11-27] MEDS: bumetanide 0.25 mg/mL SDV 10 mL 1 MG IV (07:54)
--- NOTE | 2020-11-27 10:00 | P.PN_ITS ---
Subjective Subjective: Interval history: Pain and swelling in joints is improving today, patient is more comfortable today. Uric acid elevated at 11.7. Afebrile, hemodynamically stable, hospice evaluation today Medications: Reviewed: Yes Medication Review Details: Current Medications Hydrocodone Bitart/Acetaminophen (Hydrocodone-Acetaminophen 7.5-325 Mg Tablet) 1 tab PO TID PRN PRN Reason: pain Last Admin: 11/27/20 11:11 Dose: 1 tab Documented by: Bumetanide (Bumetanide 0.25 Mg/Ml Sdv 10 Ml) 1 mg IV Q12H [facility] Last Admin: 11/27/20 07:54 Dose: 1 mg Documented by: Cephalexin HCl (Cephalexin 500 Mg Capsule) 500 mg PO QID [facility]; Protocol Last Admin: 11/27/20 12:03 Dose: 500 mg Documented by: Dextrose (Dextrose 50% Syringe 50 Ml) 25 ml IVP ONCE PRN; Protocol PRN Reason: hypoglycemia protocol Dextrose (Dextrose 50% Syringe 50 Ml) 50 ml IVP PRN PRN; Protocol PRN Reason: hypoglycemia protocol Duloxetine HCl (Duloxetine 30 Mg Capsule) 30 mg PO DAILY [facility] Last Admin: 11/27/20 07:54 Dose: 30 mg Documented by: Glucagon (Glucagon 1 Mg/Ml Inj 1 Ml) 1 mg IM ONCE PRN; Protocol PRN Reason: Adult Acute Hypoglycemia Prot. Dextrose (D5w) 500 mls @ 100 mls/hr IV ONCE PRN; Protocol PRN Reason: Adult Acute Hypoglycemia Prot Insulin Aspart (Insulin Aspart 100 Unit/1 Ml) 0 unit SUBCUT WM&BEDTIME [facility]; Protocol Last Admin: 11/27/20 12:03 Dose: 6 unit Documented by: Insulin Glargine (Insulin Glargine 100 Units/1 Ml) 40 unit SUBCUT BID@ [facility] Last Admin: 11/24/20 08:16 Dose: Not Given Documented by: Methylprednisolone Sodium Succinate (Methylprednisolone Sod Succ 40 Mg/Ml Inj) 40 mg IVP DAILY [facility] Last Admin: 11/27/20 07:54 Dose: 40 mg Documented by: Metoprolol Tartrate (Metoprolol Tartrate 50 Mg Tablet) 100 mg PO BID@799,1999 [facility] Last Admin: 11/27/20 07:53 Dose: 100 mg Documented by: Multivitamins Therapeutic (Multivitamin Therapeutic Tablet) 1 tab PO DAILY [facility] Last Admin: 11/27/20 07:54 Dose: 1 tab Documented by: Pantoprazole Sodium (Pantoprazole Dr 40 Mg Tablet) 40 mg PO DAILY@0800 [facility] Last Admin: 11/27/20 07:53 Dose: 40 mg Documented by: Rifaximin (Rifaximin 550 Mg Tablet) 550 mg PO BID [facility]; Protocol Last Admin: 11/27/20 11:10 Dose: 550 mg Documented by: Vitals/I&O/Wt Last Vital Signs Temp 98.8 F 11/27/20 15:45 Pulse 78 11/27/20 15:45 Resp 18 11/27/20 15:45 BP 125/17 11/27/20 15:45 Pulse Ox 97 11/27/20 15:45 11/27/20 11/27/20 11/27/20 06:59 14:59 22:59 Intake Total 120 / 180 340 / 340 Balance 120 / -821 340 / 340 Weight last 48 hrs Weight 92.125 kg Weight 95.481 kg Physical Exam Narrative: EXAM NARRATIVE: GEN: Awake, alert and oriented, no acute distress CVS: S1S2 N RS: CTA B/L Abd: Soft, nt/nd , bs+ [employer] 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 Less painful for the patient. Data : 11/26/20 05:28 11/26/20 05:28 A&P Assessment and plan (1) Pacemaker at end of battery life: S/P Explantation of the old pacemaker generator. Implantation of the new generator. Current Mode : VVIR mode with an upper rate of 130 and a lower rate of 70. Post Procedure patient is felling Ok. Site is clean:No hematoma. On Cefazolin 2 gm i.v q8 h daily for 5 days ( 11/23 ) --> changed to cephalexin per cardiology recommendations Appreciate Cardiology Rec Status: Acute (2) History of CHF (congestive heart failure): HFpEF Currently compensated Patient came in with worsening B/L L/E swelling Monitor I/O Daily Weight Currently on Bumex 2 mg i.v q12 h daily. LE wraps in plave Status: Acute (3) Exacerbation of gout: Ac onset of pain,redness and swelling of rt elbow, MCP joints in left middle finger, Given patient h/o CKD and CHF will avoid NSAID Continue solumedrol 40mg iv q daily , plan for a higher dose of steroid over the next 5 to 7 days until patient consistently improves. He is feeling improved compared to yesterday, joints appear less erythematous and swollen today. Uric acid at 11.7, will prescribe febuxostat upon discharge. Status: Acute (4) Chronic anemia: Patient deny any BRBPR Or Black tarry stool. FOBT S/P 3Us PRBC Monitor CBC, currently hemoglobin is stable Status: Acute (5) Acute kidney injury superimposed on chronic kidney disease: Resolved Likely CRS Initailly on Bumex 2mg I.V Q12 H DAILY, transition to p.o. Bumex Status: Acute (6) Anasarca: Status: Acute (7) Cirrhosis: On H/E PPX Regimen On Rifaximin 550 mg q12 h Daily as well as lactulose ( Currently Dc as the patient is Refusing it ) Status: Inactive (8) Thrombocytopenia: Status: Inactive (9) Generalized weakness: Status: Acute (10) Aortic valve stenosis, acquired: Status: Acute (11) Chronic atrial fibrillation: Status: Acute Additional A&P Information DVT PPX: On SCDS Code Status:Full code Disposition: Hospice referral, assessment today Attestations Medical Necessity Statement*: pain control, hospice assessment, disposition planning Coding Level of Care Code Acute Professional Programmer Analyst for Estherg Fwd Diagnoses Pacemaker at end of battery life Z45.010 History of CHF (congestive heart failure) Z86.79 Exacerbation of gout M10.9 Chronic anemia D64.9 Acute kidney injury superimposed on chronic kidney disease N17.9; N18.9 Anasarca R60.1 Cirrhosis K74.60 Thrombocytopenia D69.6 Generalized weakness R53.1 Aortic valve stenosis, acquired I35.0 Chronic atrial fibrillation I48.20
[2020-11-27] MEDS: HYDROcodone-acetaminophen 7.5-325 mg Tablet 1 TAB PO ×2 (11:11→16:30)
[2020-11-27 11:47] LABS: Glucose Point of Care 225 mg/dL (70-110)
--- NOTE | 2020-11-27 13:22 | P.PN_ITS ---
Subjective Subjective: Interval history: Patient continues to have generalized aches and pains. He is unable to get up and move around. He is being evaluated for hospice care. The pacemaker site appears to have no hematoma bleeding. The pacing function appears to be appropriate. Medications: Reviewed: Yes Medication Review Details: Current Medications Hydrocodone Bitart/Acetaminophen (Hydrocodone-Acetaminophen 7.5-325 Mg Tablet) 1 tab PO TID PRN PRN Reason: pain Last Admin: 11/27/20 11:11 Dose: 1 tab Documented by: Bumetanide (Bumetanide 0.25 Mg/Ml Sdv 10 Ml) 1 mg IV Q12H [facility] Last Admin: 11/27/20 07:54 Dose: 1 mg Documented by: Cephalexin HCl (Cephalexin 500 Mg Capsule) 500 mg PO QID [facility]; Protocol Last Admin: 11/27/20 12:03 Dose: 500 mg Documented by: Dextrose (Dextrose 50% Syringe 50 Ml) 25 ml IVP ONCE PRN; Protocol PRN Reason: hypoglycemia protocol Dextrose (Dextrose 50% Syringe 50 Ml) 50 ml IVP PRN PRN; Protocol PRN Reason: hypoglycemia protocol Duloxetine HCl (Duloxetine 30 Mg Capsule) 30 mg PO DAILY [facility] Last Admin: 11/27/20 07:54 Dose: 30 mg Documented by: Glucagon (Glucagon 1 Mg/Ml Inj 1 Ml) 1 mg IM ONCE PRN; Protocol PRN Reason: Adult Acute Hypoglycemia Prot. Dextrose (D5w) 500 mls @ 100 mls/hr IV ONCE PRN; Protocol PRN Reason: Adult Acute Hypoglycemia Prot Insulin Aspart (Insulin Aspart 100 Unit/1 Ml) 0 unit SUBCUT WM&BEDTIME [facility]; Protocol Last Admin: 11/27/20 12:03 Dose: 6 unit Documented by: Insulin Glargine (Insulin Glargine 100 Units/1 Ml) 40 unit SUBCUT BID@ [facility] Last Admin: 11/24/20 08:16 Dose: Not Given Documented by: Methylprednisolone Sodium Succinate (Methylprednisolone Sod Succ 40 Mg/Ml Inj) 40 mg IVP DAILY [facility] Last Admin: 11/27/20 07:54 Dose: 40 mg Documented by: Metoprolol Tartrate (Metoprolol Tartrate 50 Mg Tablet) 100 mg PO BID@799,1999 [facility] Last Admin: 11/27/20 07:53 Dose: 100 mg Documented by: Multivitamins Therapeutic (Multivitamin Therapeutic Tablet) 1 tab PO DAILY [facility] Last Admin: 11/27/20 07:54 Dose: 1 tab Documented by: Pantoprazole Sodium (Pantoprazole Dr 40 Mg Tablet) 40 mg PO DAILY@0800 [facility] Last Admin: 11/27/20 07:53 Dose: 40 mg Documented by: Rifaximin (Rifaximin 550 Mg Tablet) 550 mg PO BID [facility]; Protocol Last Admin: 11/27/20 11:10 Dose: 550 mg Documented by: Vitals/I&O/Wt Last Vital Signs Temp 97.8 F 11/27/20 12:33 Pulse 71 11/27/20 12:33 Resp 18 11/27/20 12:33 BP 119/54 11/27/20 12:33 Pulse Ox 97 11/27/20 12:33 11/26/20 11/27/20 11/27/20 22:59 06:59 14:59 Intake Total 60 / 60 120 / 180 340 / 340 Output Total 1001 / 1001 Balance -941 / -941 120 / -821 340 / 340 Weight last 48 hrs Weight 203 lb 1.6 oz Weight 210 lb 8 oz Physical Exam Narrative: EXAM NARRATIVE: GENERAL: The patient is alert but somewhat lethargic and chronically ill looking. HEENT: Moderate pallor, no icterus or lymphadenopathy. The pupils are symmetrical. Oral cavity: There are no mucous membrane lesions. NECK: Trachea appears to be central. No masses noted. No JVD or thyromegaly appreciated. No carotid bruit. RESPIRATORY: Chest is symmetrical. No intercostals muscle retraction or any a ccessory muscle activation. There is no chest wall tenderness. Breath sounds are heard bilaterally. No rales or rhonchi heard. No evidence of any consolidation. BREASTS: Deferred. HEART: The PMI is in the 5th left intercostals space just inside the midclavicular line. No palpable precordial events. S1 and S2 are normal. No S3 or S4 heard. Ejection systolic murmur of grade 4/6 in the aortic area. No diastolic murmurs. No pericardial rub. ABDOMEN: Ventral hernia present. No organomegaly appreciated. Bowel sounds are normally heard. : Deferred. RECTAL: Deferred. LYMPHATIC: Patient has features of lymphedema in both lower extremities. Also has features of a chronic venous stasis and venous dermatitis. EXTREMITIES: 1+ edema both lower extremities. Venous stasis and stasis dermatitis. Dry and scaly skin MUSCULOSKELETAL: No acute joint deformities or swelling SKIN: Features of chronic venous stasis in the lower extremities. Has some stasis dermatitis. NEUROPSYCHIATRIC: The patient is lethargic with no focal motor deficit. Complaining of generalized aches and pains . Const: COMMON NORMALS: alert Resp: COMMON NORMALS: clear to auscultation bilaterally AUSCULTATION: clear to auscultation bilaterally Neuro: SENSORIUM/ORIENTATION: Yes alert Data : 11/26/20 05:28 11/26/20 05:28 Other Labs: Laboratory Last Values WBC 7.4 10^3/uL (4.0-10.0) 11/26/20 05:28 RBC 3.55 10^6/uL (4.1-5.3) L 11/26/20 05:28 Hgb 9.5 g/dL (11.7-16.6) L 11/26/20 05:28 Hct 33.8 % (42.0-52.0) L 11/26/20 05:28 MCV 95.2 fL (80-94) H 11/26/20 05:28 MCH 26.8 pg (28.0-34.0) L 11/26/20 05:28 MCHC 28.1 g/dL (30.0-36.0) L 11/26/20 05:28 RDW 18.0 % (12.1-15.1) H 11/26/20 05:28 Plt Count 92 10^3/cmm (130-400) L 11/26/20 05:28 MPV 11.8 fL (7.4-10.4) H 11/26/20 05:28 Neut % (Auto) 87.4 % 11/26/20 05:28 Lymph % (Auto) 6.0 % 11/26/20 05:28 [place] % (Auto) 5.8 % 11/26/20 05:28 Eos % (Auto) 0.3 % 11/26/20 05:28 Baso % (Auto) 0.0 % 11/26/20 05:28 Neut # (Auto) 6.50 10^3/uL (1.8-7.7) 11/26/20 05:28 Lymph # (Auto) 0.5 10^3/uL (0.8-4.8) L 11/26/20 05:28 [place] # (Auto) 0.4 10^3/uL (0.2-0.9) 11/26/20 05:28 Eos # (Auto) 0.0 10^3/uL (0.0-0.8) 11/26/20 05:28 Baso # (Auto) 0.0 10^3/uL (0.0-0.1) 11/26/20 05:28 Nucleated RBC % (auto) 0 % 11/26/20 05:28 Nucleated RBCs # 0.0 /100WBC 11/26/20 05:28 Sodium 134 mmol/L (136-145) L 11/26/20 05:28 Potassium 4.0 mmol/L (3.5-5.1) 11/26/20 05:28 Chloride 99 mmol/L (98-107) 11/26/20 05:28 Carbon Dioxide 24 mmol/L (22-29) 11/26/20 05:28 Anion Gap 15.0 (5-19) 11/26/20 05:28 BUN 60 mg/dL (8-23) H 11/26/20 05:28 Creatinine 1.3 mg/dL (0.7-1.2) H 11/26/20 05:28 GFR Calculation Not Reportable 11/26/20 05:28 Glucose 158 mg/dL (65-115) H 11/26/20 05:28 POC Glucose 225 mg/dL (70-110) H 11/27/20 10:51 Calculated Osmolality 298 mOsm/kg (285-295) H 11/26/20 05:28 Uric Acid 11.7 mg/dL (3.4-7.0) H 11/26/20 05:28 Calcium 8.3 mg/dL (8.5-10.5) L 11/26/20 05:28 Magnesium 2.4 mg/dL (1.7-2.3) H 11/23/20 04:21 Total Bilirubin 1.2 mg/dL (0.15-1.2) 11/26/20 05:28 AST 16 U/L (0-40) 11/26/20 05:28 ALT < 5 U/L (0-41) 11/26/20 05:28 Alkaline Phosphatase 122 IU/L (40-130) 11/26/20 05:28 Ammonia 58 umol/L (16-60) 11/19/20 22:48 Troponin T Baseline 49 ng/L (0-15) H 11/19/20 19:14 Troponin T 120 Minute 45.54 ng/L (0-15) H 11/19/20 21:00 Delta Troponin T -3.46 ABS# (0-10) L 11/19/20 21:00 Troponin T Hi Sens 6Hr 47.14 ng/L (0-15) H 11/20/20 00:30 Troponin T Hi Sens 6Hr Delta -1.86 ng/L (0-12) L 11/20/20 00:30 NT-Pro-B Natriuret Pep 3960 pg/mL (0-450) H 11/19/20 19:14 Total Protein 6.9 g/dL (6.6-8.7) 11/26/20 05:28 Albumin 3.0 g/dL (3.5-5.2) L 11/26/20 05:28 Globulin 3.9 g/dL (1.3-4.6) 11/26/20 05:28 Digoxin 0.7 ng/mL (0.6-1.2) 11/24/20 16:12 Blood Type O Positive 11/21/20 10:48 Rho(D) Type Positive 11/21/20 10:48 Antibody Screen Negative 11/21/20 10:48 Crossmatch See Detail 11/21/20 10:48 A&P Assessment and plan (1) Chronic atrial fibrillation: Patient is with a controlled ventricular response rate. Because of the recurrent GI bleed and chronic anemia, he is not on any anticoagulant. May continue on the current treatment measures. Status: Acute (2) Chronic anemia: Patient status post 3 units of blood transfusion. Currently the hemoglobin seems to be stable. management as per the primary. Status: Acute (3) Acute on chronic diastolic (congestive) heart failure: Patient may be carefully treated with IV diuretics. Currently the heart failure seems to be compensated. Status: Acute (4) Aortic valve stenosis, acquired: The most recent echocardiogram was done in April 2020. At that time, the aortic calcinosis was found to be moderate. Patient may continue on the current medications for the time being. Status: Acute (5) Exacerbation of gout: Evaluation and management as per the primary. Patient has generalized aches and pain Status: Acute (6) Aftercare following removal/replacement pacemaker: No hematoma bleeding. He is on Keflex. 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
--- NOTE | 2020-11-27 13:28 | PC.OT ---
SKILLED OT SERVICES DISCHARGED DUE TO PATIENT PLACED ON HOSPICE.
[2020-11-27 16:40] LABS: Glucose Point of Care 331 mg/dL (70-110)
[2020-11-27] MEDS: clotrimazole 1% cream 30 gm 1 APPLIC TOPICAL (18:03)
[2020-11-27 20:41] LABS: Glucose Point of Care 369 mg/dL (70-110)
[2020-11-28] VITALS (11 sets, daily range): BP systolic 102–125; BP diastolic 43–60; PULSE 69–72; RESP 17–18; TEMP 36.4–37.2; O2SAT 95–97
[2020-11-28] MEDS: HYDROcodone-acetaminophen 7.5-325 mg Tablet 1 TAB PO ×2 (00:18→17:23)
[2020-11-28 06:43] LABS: Glucose Point of Care 229 mg/dL (70-110)
[2020-11-28] MEDS: pantoprazole DR 40 mg Tablet PO (08:33)
[2020-11-28] MEDS: metoprolol tartrate 50 mg Tablet 100 MG PO ×2 (08:33→20:54)
[2020-11-28] MEDS: multivitamin therapeutic Tablet 1 TAB PO (08:33)
[2020-11-28] MEDS: bumetanide 1 mg Tablet PO (08:33)
[2020-11-28] MEDS: cephALEXin 500 mg Capsule PO ×4 (08:33→20:54)
[2020-11-28] MEDS: duloxetine 30 mg Capsule PO (10:03)
[2020-11-28] MEDS: clotrimazole 1% cream 30 gm 1 APPLIC TOPICAL ×2 (10:03→17:22)
[2020-11-28 10:30] LABS: Glucose Point of Care 303 mg/dL (70-110)
--- NOTE | 2020-11-28 15:09 | P.PN_ITS ---
Subjective Subjective: Interval history: Patient continues to feel better, pain is is improving, ROM is improving. No new complaints today. Afebrile, hemodynamically stable. Patient was planned to be discharged today, however due to inclement weather, hospice is unable to deliver his hospital bed and necessary equipment at home. Medications: Reviewed: Yes Medication Review Details: Current Medications Hydrocodone Bitart/Acetaminophen (Hydrocodone-Acetaminophen 7.5-325 Mg Tablet) 1 tab PO TID PRN PRN Reason: pain Last Admin: 11/27/20 11:11 Dose: 1 tab Documented by: Bumetanide (Bumetanide 0.25 Mg/Ml Sdv 10 Ml) 1 mg IV Q12H [facility] Last Admin: 11/27/20 07:54 Dose: 1 mg Documented by: Cephalexin HCl (Cephalexin 500 Mg Capsule) 500 mg PO QID [facility]; Protocol Last Admin: 11/27/20 12:03 Dose: 500 mg Documented by: Dextrose (Dextrose 50% Syringe 50 Ml) 25 ml IVP ONCE PRN; Protocol PRN Reason: hypoglycemia protocol Dextrose (Dextrose 50% Syringe 50 Ml) 50 ml IVP PRN PRN; Protocol PRN Reason: hypoglycemia protocol Duloxetine HCl (Duloxetine 30 Mg Capsule) 30 mg PO DAILY [facility] Last Admin: 11/27/20 07:54 Dose: 30 mg Documented by: Glucagon (Glucagon 1 Mg/Ml Inj 1 Ml) 1 mg IM ONCE PRN; Protocol PRN Reason: Adult Acute Hypoglycemia Prot. Dextrose (D5w) 500 mls @ 100 mls/hr IV ONCE PRN; Protocol PRN Reason: Adult Acute Hypoglycemia Prot Insulin Aspart (Insulin Aspart 100 Unit/1 Ml) 0 unit SUBCUT WM&BEDTIME [facility]; Protocol Last Admin: 11/27/20 12:03 Dose: 6 unit Documented by: Insulin Glargine (Insulin Glargine 100 Units/1 Ml) 40 unit SUBCUT BID@ [facility] Last Admin: 11/24/20 08:16 Dose: Not Given Documented by: Methylprednisolone Sodium Succinate (Methylprednisolone Sod Succ 40 Mg/Ml Inj) 40 mg IVP DAILY [facility] Last Admin: 11/27/20 07:54 Dose: 40 mg Documented by: Metoprolol Tartrate (Metoprolol Tartrate 50 Mg Tablet) 100 mg PO BID@799,1999 [facility] Last Admin: 11/27/20 07:53 Dose: 100 mg Documented by: Multivitamins Therapeutic (Multivitamin Therapeutic Tablet) 1 tab PO DAILY [facility] Last Admin: 11/27/20 07:54 Dose: 1 tab Documented by: Pantoprazole Sodium (Pantoprazole Dr 40 Mg Tablet) 40 mg PO DAILY@0800 [facility] Last Admin: 11/27/20 07:53 Dose: 40 mg Documented by: Rifaximin (Rifaximin 550 Mg Tablet) 550 mg PO BID [facility]; Protocol Last Admin: 11/27/20 11:10 Dose: 550 mg Documented by: Vitals/I&O/Wt Last Vital Signs Temp 97.8 F 11/28/20 11:32 Pulse 69 11/28/20 14:00 Resp 18 11/28/20 11:32 BP 110/60 11/28/20 11:32 Pulse Ox 95 11/28/20 11:32 11/28/20 11/28/20 11/28/20 06:59 14:59 22:59 Intake Total 240 / 830 250 / 250 Output Total 25 / 325 200 / 200 Balance 215 / 505 50 / 50 Weight last 48 hrs Weight 92.215 kg Weight 92.125 kg Physical Exam Narrative: EXAM NARRATIVE: GEN: Awake, alert and oriented, no acute distress CVS: S1S2 N RS: CTA B/L Abd: Soft, nt/nd , 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 Data : 11/26/20 05:28 11/26/20 05:28 A&P Assessment and plan (1) Pacemaker at end of battery life: S/P Explantation of the old pacemaker generator. Implantation of the new generator. Current Mode : VVIR mode with an upper rate of 130 and a lower rate of 70. Continue cephalexin 500mg po QID Status: Acute (2) History of CHF (congestive heart failure): HFpEF Currently compensated this is resolved Bumex 1mg po daily currently Euvolemic currently Status: Acute (3) Exacerbation of gout: Acute onset of pain, redness and swelling of right elbow, MCP joints in left middle finger. Currently on methylprednisone 40mg iv daily, significant improvement over last 48 hrs Uric acid at 11.7, will prescribe febuxostat upon discharge, avoiding during acute flare. Status: Acute (4) Chronic anemia: Patient deny any BRBPR Or Black tarry stool. FOBT S/P 3Us PRBC this admission Monitor CBC, currently hemoglobin is stable Status: Acute (5) Acute kidney injury superimposed on chronic kidney disease: currently at baseline. now stable Status: Acute (6) Anasarca: Status: Acute (7) Cirrhosis: On H/E PPX Regimen On Rifaximin 550 mg q12 h Daily as well as lactulose ( Currently Dc as the patient is Refusing it ) Status: Inactive (8) Thrombocytopenia: Status: Inactive (9) Generalized weakness: Status: Acute (10) Aortic valve stenosis, acquired: Status: Acute (11) Chronic atrial fibrillation: Status: Acute (12) Intertrigo: Status: Acute Additional A&P Information DVT PPX: On SCDS DISPO: home with hospice services as requested by patient Attestations Medical Necessity Statement*: patient overall clinically improving , ready for discharge, however could not be discharged today due to inclement weather and unsafe travel conditions. Hospice company cannot deliver his medical equipment. 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
[2020-11-28 17:09] LABS: Glucose Point of Care 338 mg/dL (70-110)
[2020-11-28 19:58] LABS: Glucose Point of Care 360 mg/dL (70-110)
[2020-11-29 05:52] VITALS: PULSE 71
[2020-11-29 06:16] LABS: Glucose Point of Care 254 mg/dL (70-110)
[2020-11-29 08:00] VITALS: BP 134/55; PULSE 72; RESP 17; TEMP 36.5; O2SAT 96
[2020-11-29 11:10] LABS: Glucose Point of Care 369 mg/dL (70-110)
[2020-11-29 11:17] VITALS: BP 126/60; PULSE 71; RESP 17; TEMP 36.4; O2SAT 95
[2020-11-29] MEDS: pantoprazole DR 40 mg Tablet PO (11:25)
[2020-11-29] MEDS: multivitamin therapeutic Tablet 1 TAB PO (11:25)
[2020-11-29] MEDS: cephALEXin 500 mg Capsule PO ×2 (11:25→13:55)
[2020-11-29] MEDS: metoprolol tartrate 50 mg Tablet 100 MG PO (11:25)
[2020-11-29] MEDS: bumetanide 1 mg Tablet PO (11:25)
[2020-11-29] MEDS: duloxetine 30 mg Capsule PO (11:25)
[2020-11-29] MEDS: clotrimazole 1% cream 30 gm 1 APPLIC TOPICAL (11:26)
--- NOTE | 2020-11-29 11:43 | P.DS_ITS ---
Discharge Providers Date of Admission: 11/20/20 18:10 Date of Discharge: November 29, 2020 Attending Provider at Admission: Luis Morrow MD Attending Provider at Discharge: Bibiana Jhaveri MD Primary Care Provider: Earnest Dangelo DO Diagnoses at Discharge Discharge Diagnosis (1) Pacemaker at end of battery life: Status: Acute (2) History of CHF (congestive heart failure): Status: Acute (3) Exacerbation of gout: Status: Acute (4) Chronic anemia: Status: Acute (5) Acute kidney injury superimposed on chronic kidney disease: Status: Acute (6) Anasarca: Status: Acute (7) Cirrhosis: Status: Inactive Permanent problem details: Early esophageal varices (8) Thrombocytopenia: Status: Inactive (9) Generalized weakness: Status: Acute (10) Aortic valve stenosis, acquired: Status: Acute (11) Chronic atrial fibrillation: Status: Acute Permanent problem details: History of tachybradycardia syndrome (12) Intertrigo: Status: Acute Reason for Visit Reason for Visit: CP, UNABLE TO USE L SIDE Hospital Course Hospital Course Aramis Olsen is a 80 year old male who has history of liver cirrhosis, gastric ulcer status post EGD (gastric polyp, AVM, gastritis) required blood transfusion in the past, preserved ejection fraction heart failure, iron deficiency anemia, chronic atrial fibrillation not a candidate of anticoagulation, sick sinus syndrome status post pacemaker placement presented with generalized weakness. Diagnostics in the ER revealed chronic anemia,, he is not hypoxic, afebrile normotensive creatinine slightly worsened from baseline his baseline creatinine is 1.3-1.5 bilirubin 1.9 without abnormal transaminases negative delta troponin EKG showing paced rhythm BNP 3900, albumin 3.4, chest x- ray shows pulmonary vascular congestion and pulmonary edema, EKG shows paced rhythm. During the course of admission he underwent transfusion with packed red blood cells for symptomatic anemia, hemoglobin is currently stable at around 9. He was also found to pacemaker battery at End-of-life and elective replacement for the same was performed on November 23, [address] Lucas. He received periprocedural prophylaxis with cefazolin and cephalexin was continued for 5 days after the procedure. Hospital course has also been notable for acute gout flare, for which she r eceived treatment with IV methylprednisone 40 mg daily, transitioned to prednisone 40 mg p.o. daily for 5 days. Uric acid level at 11.7, recommend to start febuxostat on discharge. FOR CHF exacerbation he received iv diuresis initially, currently euvolemic on 1mg po Bumex daily. He was noted to be hypoglycemic upon arrival while on lantus 40U BID, this was held on 11/25 and 11/26, then sliding scale resumed on 11/28. Current daily insulin requirement at 30 units daily. Since glimeperide i also being restarted at discharge, Lnatus has been reduced to 10 U daily. Patient reports significant weight loss over the past year which could explain increased insulin sensitivity. 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 EXT: intertrigo in between toes, improving Discharge Data Data Completed and Pending: Completed Studies During Hospitalization Category Date Time Status CT head wo con* 7 0450 Stat Cat Scan 11/21/20 14:20 Completed SEAM RUBBER request for service Routin e Exams 11/23/20 06:43 Completed XR chest 1V franky ble [id number] Stat Exams 11/19/20 18:33 Completed Labs from last 24 hours 11/29/20 11/29/20 11/28/20 11:02 06:09 19:51 POC Glucose 369 H 254 H 360 H 11/28/20 17:02 POC Glucose 338 H Vitals: Last Vital Signs Temp 97.5 F L 11/29/20 11:17 Pulse 71 11/29/20 11:17 Resp 17 11/29/20 11:17 BP 126/60 11/29/20 11:17 Pulse Ox 95 11/29/20 11:17 Discharge Plan Discharge Patient Disposition: Hospice - Home Condition: Stable Prescriptions: New bumetanide 1 mg Tablet 1 mg PO DAILY 30 Days Qty: 30 RF: 0 clotrimazole 1 % Cream 1 applic topical BID 30 Days Qty: 1 RF: 0 hydrocodone-acetaminophen 7.5-325 mg Tablet 1 tab PO Q4H PRN (Reason: Moderate Pain) 7 Days Qty: 30 RF: 0 duloxetine 30 mg Capsule,Delayed Release(Dr/Ec) 30 mg PO DAILY 30 Days Qty: 30 RF: 0 prednisone 20 mg tablet 40 mg PO DAILY 5 Days Qty: 20 RF: 0 Uloric 40 mg tablet 40 mg PO DAILY Qty: 30 RF: 0 Continued omeprazole 40 mg capsule,delayed release(DR/EC) 40 mg PO DAILY@0800 RF: 0 pantoprazole 40 mg tablet,delayed release (DR/EC) 40 mg PO DAILY@0800 RF: 0 diphenoxylate-atropine 2.5-0.025 mg Tablet 1 - 2 tab PO DAILY PRN (Reason: unknown) RF: 0 bismuth subsalicylate [Pepto-Bismol] 262 mg/15 mL Suspension See Rx Instructions .ROUTE .COMPLEX RF: 0 acetaminophen [Tylenol Extra Strength] 500 mg Tablet 1,000 mg PO PRN PRN (Reason: Pain) RF: 0 triamcinolone acetonide 0.1 % cream See Rx Instructions .ROUTE .COMPLEX RF: 0 glimepiride 4 mg tablet 4 mg PO BID@08,1999 RF: 0 metoprolol tartrate 100 mg tablet 100 mg PO BID@799,1999 RF: 0 Changed Lantus U-100 Insulin 100 unit/mL solution 10 unit SUBCUT DAILY Qty: 0 RF: 0 Discontinued spironolacton-hydrochlorothiaz 25-25 mg tablet 1 tab PO DAILY@0800 RF: 0 hydrocodone-acetaminophen 7.5-325 mg tablet 1 tab PO TID PRN (Reason: pain) RF: 0 furosemide 40 mg tablet 80 mg PO DAILY@0800 RF: 0 digoxin 125 mcg (0.125 mg) tablet 125 mcg PO DAILY@0800 RF: 0 Discharge Orders: Discharge Order (Routine); Ordered 11/29/20 Ordered By: Bibiana Jhaveri Referrals: [facility] ([facility]) [Outside] Sudeep Lucas MD [Physician] - 12/05/20 3:45 pm Discharge Diet: Usual diet Discharge Activity: Resume usual activity Patient Instructions: Bumetanide (By mouth), Hydrocodone/Acetaminophen (By mouth), Betamethasone/Clotrimazole (On the skin), Prednisone (By mouth), Duloxetine (By mouth), Febuxostat (By mouth), Hospice Care, Pacemaker (DC), Post Pacemaker - Lance Discharge Attestations Time Spent in Discharge Care*: greater than 30 min Quality Metrics Clinical Quality Measures During this hospital stay, did patient experience: None Coding Level of Care Code Acute Oleo 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
--- NOTE | 2020-11-29 11:52 | PC.SOCIAL ---
*IMM UPDATE* Gave IMM update to pt's daughter, Rocio via phone @ 11:51am. Understood. Initialed, dated, timed and placed in chart.
[2020-11-29] MEDS: HYDROcodone-acetaminophen 7.5-325 mg Tablet 1 TAB PO (13:55)
[2020-11-29 16:51] VITALS: BP 126/60; PULSE 71; RESP 17; TEMP 36.4; O2SAT 95
== END 2020-11-29 16:30 | disposition hospice, home (50) | DRG 258 ==
LOC: ER 18:46 → CSU 21:23 → MEDSURG 11-20 18:45
PROVIDERS: Internal Medicine; Internal Medicine Cardiovascular Disease; Admitting Provider Internal Medicine; Emergency Provider Emergency Medicine; PCP Internal Medicine; Visit Provider Student in an Organized Health Care Education/Training Program
PROC: 0JH607Z Insertion of Cardiac Resynchronization Pacemaker Pulse Generator into Chest Subcutaneous Tissue and Fascia, Open Approach (ICD-10-PCS; principal; 2020-11-23 08:30)
DX: I13.0 Hypertensive heart and chronic kidney disease with heart failure and stage 1 through stage 4 chronic kidney disease, or unspecified chronic kidney disease (principal); I50.33 Acute on chronic diastolic (congestive) heart failure; I48.20 Chronic atrial fibrillation, unspecified; T82.111A Breakdown (mechanical) of cardiac pulse generator (battery), initial encounter; K76.6 Portal hypertension; N17.9 Acute kidney failure, unspecified; N18.9 Chronic kidney disease, unspecified; E11.22 Type 2 diabetes mellitus with diabetic chronic kidney disease; K74.60 Unspecified cirrhosis of liver; D50.9 Iron deficiency anemia, unspecified; Z87.11 Personal history of peptic ulcer disease; Y71.1 Therapeutic (nonsurgical) and rehabilitative cardiovascular devices associated with adverse incidents; I08.3 Combined rheumatic disorders of mitral, aortic and tricuspid valves; N40.0 Benign prostatic hyperplasia without lower urinary tract symptoms; K52.9 Noninfective gastroenteritis and colitis, unspecified; I25.10 Atherosclerotic heart disease of native coronary artery without angina pectoris; E78.5 Hyperlipidemia, unspecified; D69.6 Thrombocytopenia, unspecified; Z87.891 Personal history of nicotine dependence; L30.9 Dermatitis, unspecified; E11.649 Type 2 diabetes mellitus with hypoglycemia without coma; E11.42 Type 2 diabetes mellitus with diabetic polyneuropathy; K75.81 Nonalcoholic steatohepatitis (NASH); D73.1 Hypersplenism; L30.4 Erythema intertrigo; Z79.84 Long term (current) use of oral hypoglycemic drugs; K55.20 Angiodysplasia of colon without hemorrhage; M10.9 Gout, unspecified
CPT/HCPCS: 12345; 33213; 36415; 36416; 36430; 70450; 71045; 80053; 80162; 82140; 82274; 82962; 83735; 83880; 84484; 84550; 85025; 86850; 86900; 86920; 93005; 96372; 97110; 97161; 97165; 97530; 97535; 99283; C1769; C1786; G0378; J0690; J0696; J1815 ×2; J1940; J2250; J2270; J2405; J2920; J3010; J3490; J7030; J7050; J7512; P9016